=== PATIENT | female | born 1950 | race Caucasian/White ===

== ENCOUNTER → 2019-03-20 | Outpatient (CLI) | payer MEDICARE, OTHER ==
[2019-03-20 16:27] LABS: Blood Urea Nitrogen 8 mg/dL (7-17)
--- NOTE | 2019-03-21 09:43 | CT ---
EXAMINATION TYPE: CT soft tissue neck wo/w con DATE OF EXAM: 03/20/2019 HISTORY: Abnormal findings on MRI COMPARISON: NONE CT DLP: 625.80 mGycm. Automated Exposure Control for Dose Reduction was Utilized. TECHNIQUE: CT scan of the neck is performed with IV Contrast, patient injected with 100 mL of Isovue 300, axial images are obtained, coronal and sagittal reformatted images are reviewed. FINDINGS: Airway: There is a peripherally enhancing centrally cystic 1.9 cm mass within the vallecula with surr ounding secretions. This is best seen on sagittal series 12 images 30 through 33. No internal enhanci ng components are seen. The piriform sinuses are unremarkable. Parotid/submandibular glands: Parotid and submandibular glands appear symmetric and unremarkable. Carotid/Vascular Structures: There is a conventional branch pattern of the aortic arch. Less than 50% stenosis multifocally within the right common carotid artery and at the carotid bulb and no hemodyna mically significant stenosis within the visualized right internal carotid artery. On the left there i s near complete occlusion of the proximal internal carotid artery at the origin from the carotid bulb with a diminutive 0.6-0.7 mm lumen seen on sagittal image 41 corresponding to approximately 90% sten osis. This measures a distance of just less than 1 cm. There is also prominence of the cavernous port ion of the right internal carotid artery incidentally seen. Osseous Structures: Extensive multilevel degenerative disc disease of the cervical spine is noted wit h grade 1 anterolisthesis of C3 on C4 and slight retrolisthesis of C4 and C5. There is also mild vert ebral body height loss of C5 and sclerosis of the C4 and C5 vertebral bodies. Other: There are numerous tonsilloliths are present. No peritonsillar fat stranding or abscess is see n. Moderate emphysematous changes of the lungs are noted with biapical pleural parenchymal thickening an d apical blebs. IMPRESSION: MRI was performed at an outside institution and therefore direct comparison cannot be performed. An a ddendum could be performed if images and report are obtained. 1. There is a 1.9 cm peripherally enhancing rounded cystic mass with no central enhancement or solid internal component that is seen within the vallecula with surrounding retained secretions. Direct vis ualization is recommended with laryngoscopy. Polyp is possible. 2. Sclerosis of the C4 and C5 vertebral bodies may be related to extensive degenerative disc disease at these locations however correlation with the prior outside MRI is recommended for evaluation on T1 -weighted imaging to assess for bone marrow replacing process such as metastasis. 3. Approximately 90% stenosis of the left proximal internal carotid artery, high-grade and clinically significant. This extends for a distance of just less than 1 cm. 4. Prominence of the cavernous portion of the right internal carotid artery is seen and could relate to chronic cavernous fistula, aneurysm, or may be incidental.
== END | disposition home or self-care (01) ==
LOC: RADCTMAIN 15:48
PROVIDERS: ATTEND Psychiatry & Neurology Neurology
DX: I65.22 Occlusion and stenosis of left carotid artery (principal); R22.1 Localized swelling, mass and lump, neck
CPT/HCPCS: 82565; 84520; 70492; 36415; Q9967

== ENCOUNTER → 2019-07-23 | Outpatient (CLI) | payer MEDICARE, OTHER ==
[2019-07-23 23:28] LABS: ALT 24 U/L (8-44); AST 24 U/L (13-35); Albumin/Globulin Ratio 2.16 (1.60-3.17); Alkaline Phosphatase 60 U/L (41-126); Bilirubin, Conjugated <0.20 mg/dL (0.20-0.40); Globulin 1.9 g/dL (1.6-3.3); Total Bilirubin 0.4 mg/dL (0.2-1.2)
[2019-07-24 11:23] LABS: Ceruloplasmin 13.8 mg/dL (20.0-60.0)
== END | disposition home or self-care (01) ==
LOC: LABWHC1 14:05
PROVIDERS: ATTEND Physician Assistant
DX: R94.5 Abnormal results of liver function studies (principal)
CPT/HCPCS: 36415; 80074; 80076; 82390; 82728; 83516; 86038

== ENCOUNTER → 2019-07-29 | Outpatient (CLI) | payer MEDICARE, OTHER ==
--- NOTE | 2019-07-29 13:12 | US ---
EXAMINATION TYPE: US liver DATE OF EXAM: 07/29/2019 COMPARISON: NONE CLINICAL HISTORY: R94.5 Abnormal Results of Liver function studies. EXAM MEASUREMENTS: Liver Length: 13.5 cm Gallbladder Wall: Surgically absent cm CBD: 0.7 cm Right Kidney: 11.0 x 3.7 x 5.0cm Pancreas: Hyperechoic linear structure within the pancreatic tail likely represents an ectatic promin ent duct. Obscuration the pancreatic tail and head. Liver: homogeneous, tiny echogenic foci, likely sequela of benign granulomatous disease Gallbladder: Surgically absent Evidence for sonographic Henry's sign: no CBD: wnl Right Kidney: wnl IMPRESSION: 1. No suspicious hepatic mass. Echotexture is homogeneous other than calcified foci most commonly of prior benign granulomatous disease. 2. Heterogeneity of the pancreas likely relates to an ectatic pancreatic duct within the pancreatic t ail enhanced three-phase CT abdomen could better appreciated on the pancreas as there is obscuration of the pancreatic tail and head on ultrasound.
== END | disposition home or self-care (01) ==
LOC: RADUSWWP 07:25
PROVIDERS: ATTEND Internal Medicine
DX: D71 Functional disorders of polymorphonuclear neutrophils (principal)
CPT/HCPCS: 76705

== ENCOUNTER → 2019-08-22 | Outpatient (CLI) | payer MEDICARE, OTHER ==
[2019-08-22 12:38] LABS: African American GFR (CKD) >90 (>60 ml/min/1.73 sqM); Blood Urea Nitrogen 15 mg/dL (7-17)
--- NOTE | 2019-08-22 13:53 | CT ---
EXAMINATION TYPE: CT pancreas biphase DATE OF EXAM: 08/22/2019 HISTORY: ABNORMAL FINDINGS ON US CT DLP: 416.6mGycm Automated Exposure Control for Dose Reduction was Utilized. CONTRAST: CT scan of the abdomen and pelvis is performed with IV Contrast, patient injected with 100 mL of Isov ue 370. COMPARISON: Liver ultrasound July 29, 2019 FINDINGS: LUNG BASES: Mild emphysematous and parenchymal fibrotic changes in the bases. Small pericardial effus ion measuring 12 mm in thickness axial image 5 series 3 right aspect. LIVER/GB: The liver is overall mildly enlarged with prominent left hepatic lobe. Cholecystectomy clip s are seen.. PANCREAS: Pancreas is overall normal in size with visualization of duct which is not suspiciously dil ated. No suspicious solid or cystic masses seen. No surrounding inflammatory change or focal fluid co llection noted. SPLEEN: No significant abnormality is seen. ADRENALS: No significant abnormality is seen. KIDNEYS: Central calcifications in both kidneys favor vascular etiology. BOWEL: Suboptimal distention of bowel. No suspicious dilatation. Mild prominence of fecal material th roughout the right and transverse colon. Possible mild proximal colonic fecal stasis. LYMPH NODES: No greater than 1cm abdominal lymph nodes are appreciated. OSSEOUS STRUCTURES: Fairly advanced disc space narrowing and endplate sclerosis left L5-S1 level. Mod erate spurring and disc space narrowing with vacuum disc phenomenon L3-L4 and L4-L5 levels. Endplate sclerosis and spurring right L3-L4 level. Facet arthropathy lower lumbar levels. OTHER: Moderate calcified plaque of the aorta extends into branch vessels most prominent splenic harley rial branch. Some ectasia is seen. No greater than 3 cm aneurysmal change. IMPRESSION: 1. No suspicious pancreatic mass with particular attention to pancreatic tail at area of ultrasound c oncern.
== END ==
LOC: RADCTMAIN 11:46
PROVIDERS: ATTEND Internal Medicine Gastroenterology
DX: R94.5 Abnormal results of liver function studies (principal); R93.3 Abnormal findings on diagnostic imaging of other parts of digestive tract
CPT/HCPCS: 82565; 84520; 36415; 74160; Q9967

== ENCOUNTER 2022-05-09 12:50 | Inpatient (IN) | payer MEDICARE, OTHER ==
--- NOTE | 2022-05-09 13:08 | ED ---
General Adult HPI - General Chief complaint: Shortness of Breath Stated complaint: SOB Time Seen by Provider: 05/09/22 12:55 Source: patient, EMS, RN notes reviewed, old records reviewed Mode of arrival: EMS Limitations: no limitations - History of Present Illness Initial comments: This is a 71-year-old female with past medical history significant for COPD. Patient also continues to smoke. Patient presents emergency department today because she is complaining of difficulty breathing over the last few days. Patient states she also has had a dry cough. Patient denies any chest pain or palpitations. Patient denies any history of irregular heartbeat or atrial fibrillation. Patient denies any recent fever chills. Patient denies any abdominal pain patient denies nausea vomiting. Patient denies lightheadedness or dizziness. Patient denies any swelling to the legs or calf tenderness. - Related Data Allergies Allergy/AdvReac Type Severity Reaction Status Date / Time No Known Allergies Allergy Verified 05/09/22 13:18 Review of Systems ROS Statement: Those systems with pertinent positive or pertinent negative responses have been documented in the HPI. ROS Other: All systems not noted in ROS Statement are negative. Past Medical History Past Medical History: COPD, Diabetes Mellitus History of Any Multi-Drug Resistant Organisms: None Reported Past Surgical History: Hysterectomy Additional Past Surgical History / Comment(s): bladder suspension Past Psychological History: No Psychological Hx Reported Smoking Status: Current every day smoker Past Alcohol Use History: None Reported Past Drug Use History: None Reported General Exam - General Exam Comments Initial Comments: GENERAL: Patient is well-developed and well-nourished. Patient is nontoxic and well- hydrated and is in mild distress. ENT: Neck is soft and supple. No significant lymphadenopathy is noted. Oropharynx is clear. Moist mucous membranes. Neck has full range of motion without eliciting any pain. EYES: The sclera were anicteric and conjunctiva were pink and moist. Extraocular movements were intact and pupils were equal round and reactive to light. Eyelid s were unremarkable. PULMONARY: Patient has diminished breath sounds throughout CARDIOVASCULAR: Patient is tachycardic with an irregular heartbeat ABDOMEN: Soft and nontender with normal bowel sounds. SKIN: Skin is clear with no lesions or rashes and otherwise unremarkable. NEUROLOGIC: Patient is alert and oriented x3. Cranial nerves II through XII are grossly intact. Motor and sensory are also intact. Normal speech, volume and content. Symmetrical smile. MUSCULOSKELETAL: Normal extremities with adequate strength and full range of motion. LYMPHATICS: No significant lymphadenopathy is noted PSYCHIATRIC: Normal psychiatric evaluation. N Limitations: no limitations Course Vital Signs 05/09/22 12:52 Temperature 97.6 F Pulse Rate 63 Respiratory 20 Rate Blood Pressure 139/93 O2 Sat by Pulse 95 Oximetry Medical Decision Making - Medical Decision Making EKG shows atrial fibrillation with rapid ventricular response at 111 bpm QRS is under 5 QT interval 380 QTC is 445. I started the patient on heparin for the atrial fibrillation. Patient received 2 breathing treatments steroids in the emergency department. I spoke with Dr. Lujan he agreed to admit the patient admitted the patient wrote admitting orders. - Lab Data Result diagrams: 05/09/22 13:14 05/09/22 13:14 Lab Results 05/09/22 05/09/22 05/09/22 Range/Units 13:14 13:14 13:14 WBC 7.2 (3.8-10.6) k/uL RBC 4.35 (3.80-5.40) m/uL Hgb 13.4 (11.4-16.0) gm/dL Hct 39.5 (34.0-46.0) % MCV 90.8 (80.0-100.0) fL MCH 30.7 (25.0-35.0) pg MCHC 33.9 (31.0-37.0) g/dL RDW 13.9 (11.5-15.5) % Plt Count 178 (150-450) k/uL MPV 7.8 Neutrophils % 66 % Lymphocytes % 18 % Monocytes % 4 % Eosinophils % 9 % Basophils % 1 % Neutrophils # 4.8 (1.3-7.7) k/uL Lymphocytes # 1.3 (1.0-4.8) k/uL Monocytes # 0.3 (0-1.0) k/uL Eosinophils # 0.6 (0-0.7) k/uL Basophils # 0.1 (0-0.2) k/uL PT 10.5 (9.0-12.0) sec INR 1.0 (<1.2) APTT 22.3 (22.0-30.0) sec Sodium 140 (137-145) mmol/L Potassium 3.5 (3.5-5.1) mmol/L Chloride 108 H (98-107) mmol/L Carbon Dioxide 25 (22-30) mmol/L Anion Gap 7 mmol/L BUN 18 H (7-17) mg/dL Creatinine 0.62 (0.52-1.04) mg/dL Est GFR (CKD-EPI)AfAm >90 (>60 ml/min/1.73 sqM) Est GFR (CKD-EPI)NonAf >90 (>60 ml/min/1.73 sqM) Glucose 130 H (74-99) mg/dL Plasma Lactic Acid Mitesh (0.7-2.0) mmol/L Calcium 8.8 (8.4-10.2) mg/dL Total Bilirubin 0.6 (0.2-1.3) mg/dL AST 18 (14-36) U/L ALT 12 (4-34) U/L Alkaline Phosphatase 86 (38-126) U/L Troponin I (0.000-0.034) ng/mL NT-Pro-B Natriuret Pep pg/mL Total Protein 6.7 (6.3-8.2) g/dL Albumin 4.1 (3.5-5.0) g/dL 05/09/22 05/09/22 05/09/22 Range/Units 13:14 13:14 13:14 WBC (3.8-10.6) k/uL RBC (3.80-5.40) m/uL Hgb (11.4-16.0) gm/dL Hct (34.0-46.0) % MCV (80.0-100.0) fL MCH (25.0-35.0) pg MCHC (31.0-37.0) g/dL RDW (11.5-15.5) % Plt Count (150-450) k/uL MPV Neutrophils % % Lymphocytes % % Monocytes % % Eosinophils % % Basophils % % Neutrophils # (1.3-7.7) k/uL Lymphocytes # (1.0-4.8) k/uL Monocytes # (0-1.0) k/uL Eosinophils # (0-0.7) k/uL Basophils # (0-0.2) k/uL PT (9.0-12.0) sec INR (<1.2) APTT (22.0-30.0) sec Sodium (137-145) mmol/L Potassium (3.5-5.1) mmol/L Chloride (98-107) mmol/L Carbon Dioxide (22-30) mmol/L Anion Gap mmol/L BUN (7-17) mg/dL Creatinine (0.52-1.04) mg/dL Est GFR (CKD-EPI)AfAm (>60 ml/min/1.73 sqM) Est GFR (CKD-EPI)NonAf (>60 ml/min/1.73 sqM) Glucose (74-99) mg/dL Plasma Lactic Acid Mitesh 1.1 (0.7-2.0) mmol/L Calcium (8.4-10.2) mg/dL Total Bilirubin (0.2-1.3) mg/dL AST (14-36) U/L ALT (4-34) U/L Alkaline Phosphatase (38-126) U/L Troponin I 0.022 (0.000-0.034) ng/mL NT-Pro-B Natriuret Pep 525 pg/mL Total Protein (6.3-8.2) g/dL Albumin (3.5-5.0) g/dL Critical Care Time Critical Care Time: Yes Total Critical Care Time: 35 Disposition Clinical Impression: New onset atrial fibrillation, COPD exacerbation Disposition: ADMITTED IP TO THIS HOSP Referrals: Beatrice Phillips MD [Primary Care Provider] - 1-2 days Time of Disposition: 14:11
[2022-05-09] MEDS ORDERED: HEPARIN SODIUM 1,000 UN/ML (10ML VL) IV ONE (13:13)
[2022-05-09] MEDS ORDERED: HEPARIN SOD,PORK IN 0.45% NACL 25,000 UNIT in 0.45% NACL 1 250ML.BAG IV SCH (13:15)
[2022-05-09 13:23] LABS: Basophils # (A) 0.1 k/uL (0-0.2); Basophils % (A) 1 %; Eosinophils # (A) 0.6 k/uL (0-0.7); Eosinophils % (A) 9 %; HCT 39.5 % (34.0-46.0); HGB 13.4 gm/dL (11.4-16.0); Lymphocytes # (A) 1.3 k/uL (1.0-4.8); Lymphocytes % (A) 18 %; MCH 30.7 pg (25.0-35.0); MCHC 33.9 g/dL (31.0-37.0); MCV 90.8 fL (80.0-100.0); Mean Platelet Volume 7.8; Monocytes # (A) 0.3 k/uL (0-1.0); Monocytes % (A) 4 %; Neutrophils # (A) 4.8 k/uL (1.3-7.7); Neutrophils % (A) 66 %; Platelet Count 178 k/uL (150-450); RBC 4.35 m/uL (3.80-5.40); RDW 13.9 % (11.5-15.5); WBC 7.2 k/uL (3.8-10.6)
[2022-05-09 13:37] LABS: ALT 12 U/L (4-34); AST 18 U/L (14-36); African American GFR (CKD) >90 (>60 ml/min/1.73 sqM); Albumin 4.1 g/dL (3.5-5.0); Alkaline Phosphatase 86 U/L (38-126); Anion Gap 7 mmol/L; Blood Urea Nitrogen 18 mg/dL (7-17); Calcium 8.8 mg/dL (8.4-10.2); Carbon Dioxide 25 mmol/L (22-30); Chloride 108 mmol/L (98-107); Glucose 130 mg/dL (74-99); Non-African American GFR(CKD) >90 (>60 ml/min/1.73 sqM); Potassium 3.5 mmol/L (3.5-5.1); Sodium 140 mmol/L (137-145); Total Bilirubin 0.6 mg/dL (0.2-1.3); Total Protein 6.7 g/dL (6.3-8.2)
[2022-05-09 13:38] LABS: Partial Thromboplastin Time 22.3 sec (22.0-30.0); Prothrombin Time 10.5 sec (9.0-12.0)
[2022-05-09] MEDS ORDERED: IPRATROPIUM-ALBUTEROL 3 ML NEB INHALATION STA (14:07)
[2022-05-09] MEDS ORDERED: methylPREDNISolone SOD SUCCI 125 MG/2 ML VIAL IV STA (14:07)
--- NOTE | 2022-05-09 14:07 | XR ---
EXAMINATION TYPE: XR chest 2V DATE OF EXAM: 05/09/2022 COMPARISON: 04/08/2021 HISTORY: 71 year-old female shortness of breath, difficulty breathing, cough TECHNIQUE: AP and lateral views FINDINGS: Heart upper limits of normal size. Hyperinflation. Interstitial density has increased in the interval . Mild biapical pleural-parenchymal scarring. No kylie consolidation or pleural effusion. IMPRESSION: COPD. Interstitial density has increased. Correlate for possible bronchitis or atypical pneumonias.
[2022-05-09] MEDS ORDERED: IPRATROPIUM-ALBUTEROL 3 ML NEB INHALATION PRN (14:21)
[2022-05-09] MEDS: methylPREDNISolone SOD SUCCI 125 MG/2 ML VIAL IV SCH (17:07)
[2022-05-09] MEDS ORDERED: FLUTICASONE 50MCG/SPRAY NASAL 16GM EA NOSTRIL PRN (17:13)
[2022-05-09] MEDS ORDERED: NON FORMULARY DRUG (Ipratropium/Albuter 20-100mcg 120 PUFF Each) INHALATION PRN (17:13)
[2022-05-09] MEDS: ATORVASTATIN 20 MG TAB PO SCH (18:49)
[2022-05-09] MEDS: NON FORMULARY DRUG (Linaclotide [Linzess] 290 MCG Capsule) PO SCH (18:50)
[2022-05-09] MEDS: IPRATROPIUM-ALBUTEROL 3 ML NEB INHALATION SCH (19:38)
[2022-05-09 20:06] LABS: Glucose,Whole Blood 300 mg/dL (70-110)
[2022-05-09] MEDS: MONTELUKAST 10 MG TAB PO SCH (22:11)
[2022-05-09] MEDS: THEOPHYLLINE 24 HOUR 300 MG CAP.ER.24H PO SCH (22:11)
[2022-05-09] MEDS: PANTOPRAZOLE 40 MG TABLET PO SCH (22:11)
[2022-05-09] MEDS: INSULIN ASPART (NovoLOG) 100 UNIT/ML VIAL SQ SCH (22:48)
[2022-05-10] MEDS: methylPREDNISolone SOD SUCCI 125 MG/2 ML VIAL IV SCH ×3 (00:46→12:47)
[2022-05-10 06:04] LABS: Glucose,Whole Blood 164 mg/dL (70-110)
[2022-05-10] MEDS: INSULIN ASPART (NovoLOG) 100 UNIT/ML VIAL SQ SCH ×4 (06:53→21:03)
[2022-05-10] MEDS: NON FORMULARY DRUG (Linaclotide [Linzess] 290 MCG Capsule) PO SCH (06:54)
--- NOTE | 2022-05-10 07:05 | XR ---
EXAMINATION TYPE: XR chest 2V DATE OF EXAM: 05/10/2022 COMPARISON: Chest x-ray from yesterday. HISTORY: Dyspnea. TECHNIQUE: Frontal and lateral views of the chest are obtained. FINDINGS: There is background chronic emphysematous change without suspicious new focal air space op acity, pleural effusion, or pneumothorax seen bilaterally. The cardiac silhouette size is stable and within normal limits. Slight underlying scoliotic curvature redemonstrated. IMPRESSION: Chronic emphysematous change without acute pulmonary process. No significant change from one day earlier
[2022-05-10] MEDS: IPRATROPIUM-ALBUTEROL 3 ML NEB INHALATION SCH ×4 (08:08→19:40)
[2022-05-10] MEDS: TROSPIUM CHLORIDE 20 MG TABLET PO SCH ×2 (08:20→21:04)
[2022-05-10] MEDS: THEOPHYLLINE 24 HOUR 300 MG CAP.ER.24H PO SCH ×2 (08:20→21:04)
[2022-05-10] MEDS: ATORVASTATIN 20 MG TAB PO SCH (08:21)
[2022-05-10] MEDS: ASCORBIC ACID 500 MG TAB PO SCH (08:21)
[2022-05-10 08:44] LABS: Basophils % (A) 0 %; Eosinophils # (A) 0.1 k/uL (0-0.7); Eosinophils % (A) 0 %; HCT 40.1 % (34.0-46.0); HGB 13.1 gm/dL (11.4-16.0); Lymphocytes # (A) 1.1 k/uL (1.0-4.8); Lymphocytes % (A) 9 %; MCH 30.5 pg (25.0-35.0); MCHC 32.6 g/dL (31.0-37.0); MCV 93.5 fL (80.0-100.0); Mean Platelet Volume 8.2; Monocytes # (A) 0.2 k/uL (0-1.0); Monocytes % (A) 2 %; Neutrophils # (A) 10.8 k/uL (1.3-7.7); Neutrophils % (A) 88 %; Platelet Count 186 k/uL (150-450); RBC 4.29 m/uL (3.80-5.40); RDW 14.1 % (11.5-15.5); WBC 12.3 k/uL (3.8-10.6)
[2022-05-10 09:11] LABS: ALT 18 U/L (4-34); AST 23 U/L (14-36); African American GFR (CKD) >90 (>60 ml/min/1.73 sqM); Albumin 4.4 g/dL (3.5-5.0); Alkaline Phosphatase 88 U/L (38-126); Anion Gap 13 mmol/L; Blood Urea Nitrogen 27 mg/dL (7-17); Calcium 9.4 mg/dL (8.4-10.2); Carbon Dioxide 25 mmol/L (22-30); Chloride 104 mmol/L (98-107); Glucose 257 mg/dL (74-99); Non-African American GFR(CKD) 83 (>60 ml/min/1.73 sqM); Potassium 3.8 mmol/L (3.5-5.1); Sodium 142 mmol/L (137-145); Total Bilirubin 0.5 mg/dL (0.2-1.3); Total Protein 7.2 g/dL (6.3-8.2)
--- NOTE | 2022-05-10 10:03 | P.HPIM ---
History of Present Illness H&P Date: 05/09/22 Valerie Garza, is a 71 -year-old female who presented to [facility] emergency room with a chief complaint of worsening shortness of breath and cough, symptoms started 5 days ago and has been worsening She was evaluated in the emergency room vital examination on presentation revealed a temperature of 97.6 heart rate 63 respiratory rate 20 blood pressure 139/93 pulse ox 95% on 4 liter nasal cannula Laboratory data revealed a white blood count of 7.2 hemoglobin 13.4 platelet count 178 sodium 140 potassium 3.5 chloride 108 CO2 25 BUN 18 creatinine 0.62 Testing in the emergency room revealed EKG done in the emergency room revealed atrial fibrillation with rapid ventricular response, chest x-ray done in the emergency room revealed evidence of COPD and interstitial density suspicious for bronchitis versus atypical pneumonia. Patient was admitted to medical floor for further evaluation and treatment. Past Medical History Past Medical History: COPD, Diabetes Mellitus History of Any Multi-Drug Resistant Organisms: None Reported Past Surgical History: Hysterectomy Additional Past Surgical History / Comment(s): bladder suspension Past Psychological History: No Psychological Hx Reported Smoking Status: Current every day smoker Past Alcohol Use History: None Reported Past Drug Use History: None Reported Medications and Allergies Home Medications Medication Instructions Recorded Confirmed Type Ascorbic Acid [Vitamin C] 1,000 mg PO DAILY 05/09/22 05/09/22 History Atorvastatin [Lipitor] 20 mg PO DAILY 05/09/22 05/09/22 History Clobetasol Propionate [Temovate 1 applic TOPICAL DAILY 05/09/22 05/09/22 History 0.05% Oint] Fluticasone Nasal [place] [Flonase 2 spray EA NOSTRIL DAILY PRN 05/09/22 05/09/22 History Nasal [place]] Ibuprofen [Motrin] 800 mg PO BID PRN 05/09/22 05/09/22 History Ipratropium-Albuterol Nebulize 3 ml INHALATION RT-QID 05/09/22 05/09/22 History [Duoneb 0.5 mg-3 mg/3 ml Soln] Ipratropium/Albuter 20-100Mcg 1 puff INHALATION RT-QID PRN 05/09/22 05/09/22 History [Combivent Respimat 20-100Mcg Inhaler] Linaclotide [Linzess] 290 mcg PO AC-BRKFST 05/09/22 05/09/22 History Montelukast Sodium [Singulair] 10 mg PO HS 05/09/22 05/09/22 History Omeprazole 20 mg PO HS 05/09/22 05/09/22 History Solifenacin Succinate [Vesicare] 10 mg PO DAILY 05/09/22 05/09/22 History Theophylline 12 Hour [David-Dur] 300 mg PO BID 05/09/22 05/09/22 History glipiZIDE XL [Glucotrol XL] 2.5 mg PO DAILY 05/09/22 05/09/22 History Allergies Allergy/AdvReac Type Severity Reaction Status Date / Time No Known Allergies Allergy Verified 05/09/22 15:21 Physical Exam Vitals: Vital Signs Temp Pulse Resp BP Pulse Ox 05/09/22 15:53 107 H 05/09/22 15:41 107 H 05/09/22 14:01 109 H 18 118/96 97 05/09/22 13:01 106 H 18 115/92 98 05/09/22 13:00 20 05/09/22 12:52 97.6 F 63 20 139/93 95 Intake and Output 05/09/22 05/09/22 05/09/22 06:59 14:59 22:59 Other: Weight 56.699 kg In general patient is alert and oriented x 3 in no distress HEENT head normocephalic and atraumatic Neck is supple no JVD no goiter no lymphadenopathy no carotid bruit Chest examination is clear to auscultation no crackles no wheezing Cardiac exam reveals regular heart sounds S1 and S2 no gallops no murmurs Abdomen is soft nontender no organomegaly with normal bowel sounds Extremity exam reveals no edema no cyanosis or clubbing Neurological examination reveals no gross focal deficits Results CBC & Chem 7: 05/10/22 08:05 05/10/22 08:05 Labs: Abnormal Lab Results - Last 24 Hours (Table) 05/09/22 Range/Units 13:14 Chloride 108 H (98-107) mmol/L BUN 18 H (7-17) mg/dL Glucose 130 H (74-99) mg/dL Assessment and Plan Plan: Shortness of breath, likely related to COPD exacerbation Episode of fast heart rate in the emergency room, likely atrial fibrillation patient was started on IV heparin in the emergency room cardiology consultation requested Underlying history of asthma and COPD Underlying history of [id number] diabetes mellitus Underlying history of hyperlipidemia Underlying history of tobacco abuse. At this time patient is admitted to telemetry floor Home medications reviewed and reordered Patient started on IV antibiotics and IV steroids for acute bronchitis and COPD exacerbation, pulmonary consultation requested Patient was started on IV heparin, cardiology consultation requested Recheck labs in a.m. Will follow closely
[2022-05-10 11:34] LABS: Glucose,Whole Blood 195 mg/dL (70-110)
--- NOTE | 2022-05-10 12:14 | P.CRDCN ---
History of Present Illness History of present illness: This is a 71 year old female with a past medical history of type 2 diabetes, chronic tobacco use, carotid stenosis s/p left carotid endarterectomy, hypertension, COPD. She follows with Dr. Ortiz. We have been consulted for atrial fibrillation. Patient presents with symptoms of shortness of breath and cough. Over the past 2-3 days her symptoms have worsened. She had increased shortness of breath at rest and with activity. She used nebulizer at home and her home Oxygen with no improvement and came to ER for further evaluation. She denies any chest pain, palpitations, lightheadedness, dizziness, syncope or near syncope. No symptoms of orthopnea, PND or LE edema. Her breathing has improved since admission. EKG reveals sinus mechanism with PACs. Telemetry reveals sinus rhythm and sinus tachycardia as well. No evidence of atrial fibrillation. Repeat EKG this morning is also sinus rhythm. DIAGNOSTICS EKG reveals sinus mechanism, heart rate 111, PACs, no evidence of atrial fibrillation. Telemetry tracings indicate sinus rhythm/sinus tachycardia Chest xray COPD, interstitial density has increased. Laboratory reviewed, WBC 12.3, hemoglobin 13.1, platelets 186, sodium 142, potassium 3.8, BUN 27, serum creatinine 0.7, troponin negative, proBNP 525 Current home medications include glipizide, omeprazole, atorvastatin 20 mg daily, nebulizers, inhalers Lexiscan stress test in the office 03/2021 revealed no evidence of stress induced ischemia Echo in 02/2021 in the office EF 45%, mild AR, mid TR REVIEW OF SYSTEMS At the time of my exam: CONSTITUTIONAL: Denies fever or chills. CARDIOVASCULAR: Denies chest pain, shortness of breath, orthopnea, PND or palpitations. RESPIRATORY: Denies cough. GASTROINTESTINAL: Denies abdominal pain, diarrhea, constipation, nausea or vomiting. MUSCULOSKELETAL: Denies myalgias. NEUROLOGIC: Denies numbness, tingling, headacbe or weakness. ENDOCRINE: Denies fatigue, weight change, polydipsia or polyurina. GENITOURINARY: Denies burning, hematuria or urgency with micturation. HEMATOLOGIC: Denies history of anemia or bleeding. PHYSICAL EXAMINATION Vitals reviewed CONSTITUTIONAL: No apparent distress. HEENT: Head is normocephalic. Pupils are equal, round. Sclerae anicteric. Mucous membranes of the mouth are moist. No JVD. No carotid bruit. CHEST EXAMINATION: Lungs decreased air exchange bilaterally to auscultation. No chest wall tenderness is noted on palpation or with deep breathing. HEART EXAMINATION: Regular rate and rhythm. S1, S2 heard. No murmurs, gallops or rub. ABDOMEN: Soft, nontender. Positive bowel sounds. EXTREMITIES: 2+ peripheral pulses, no lower extremity edema and no calf tenderness. SKIN: warm, dry NEUROLOGIC EXAMINATION: Patient is awake, alert and oriented x3. ASSESSMENT Sinus tachycardia COPD exacerbation Type 2 diabetes Chronic tobacco use History of Carotid stenosis s/p left carotid endarterectomy History of hypertension PLAN No evidence of atrial fibrillation, EKG and telemetry reviewed 2D echocardiogram ordered No further changes from a cardiology perspective Follow up with Dr. Ortiz Nurse practitioner note has been reviewed by physician. Signing provider agrees with the documented findings, assessment, and plan of care. Past Medical History Past Medical History: COPD, Diabetes Mellitus History of Any Multi-Drug Resistant Organisms: None Reported Past Surgical History: No Surgical Hx Reported, Hysterectomy Additional Past Surgical History / Comment(s): bladder suspension Past Anesthesia/Blood Transfusion Reactions: No Reported Reaction Past Psychological History: No Psychological Hx Reported Smoking Status: Current every day smoker Past Alcohol Use History: None Reported Past Drug Use History: None Reported Medications and Allergies Home Medications Medication Instructions Recorded Confirmed Type Ascorbic Acid [Vitamin C] 1,000 mg PO DAILY 05/09/22 05/09/22 History Atorvastatin [Lipitor] 20 mg PO DAILY 05/09/22 05/09/22 History Clobetasol Propionate [Temovate 1 applic TOPICAL DAILY 05/09/22 05/09/22 History 0.05% Oint] Fluticasone Nasal [place] [Flonase 2 spray EA NOSTRIL DAILY PRN 05/09/22 05/09/22 History Nasal [place]] Ibuprofen [Motrin] 800 mg PO BID PRN 05/09/22 05/09/22 History Ipratropium-Albuterol Nebulize 3 ml INHALATION RT-QID 05/09/22 05/09/22 History [Duoneb 0.5 mg-3 mg/3 ml Soln] Ipratropium/Albuter 20-100Mcg 1 puff INHALATION RT-QID PRN 05/09/22 05/09/22 History [Combivent Respimat 20-100Mcg Inhaler] Linaclotide [Linzess] 290 mcg PO AC-BRKFST 05/09/22 05/09/22 History Montelukast Sodium [Singulair] 10 mg PO HS 05/09/22 05/09/22 History Omeprazole 20 mg PO HS 05/09/22 05/09/22 History Solifenacin Succinate [Vesicare] 10 mg PO DAILY 05/09/22 05/09/22 History Theophylline 12 Hour [David-Dur] 300 mg PO BID 05/09/22 05/09/22 History glipiZIDE XL [Glucotrol XL] 2.5 mg PO DAILY 05/09/22 05/09/22 History Allergies Allergy/AdvReac Type Severity Reaction Status Date / Time No Known Allergies Allergy Verified 05/09/22 15:21 Physical Exam Vitals: Vital Signs Temp Pulse Pulse Resp BP BP BP 05/10/22 04:00 98.3 F 91 16 136/72 05/10/22 02:00 93 16 05/10/22 00:00 97.7 F 93 16 107/64 05/09/22 20:00 85 18 05/09/22 19:52 102 H 05/09/22 19:50 98.2 F 85 18 123/65 05/09/22 19:38 102 H 05/09/22 18:06 97.6 F 106 H 19 136/66 05/09/22 17:00 105 H 18 126/72 05/09/22 15:53 107 H 05/09/22 15:41 107 H 05/09/22 14:01 109 H 18 118/96 05/09/22 13:01 106 H 18 115/92 05/09/22 13:00 20 05/09/22 12:52 97.6 F 63 20 139/93 Pulse Ox 05/10/22 04:00 95 05/10/22 02:00 05/10/22 00:00 95 05/09/22 20:00 05/09/22 19:52 05/09/22 19:50 92 L 05/09/22 19:38 05/09/22 18:06 92 L 05/09/22 17:00 91 L 05/09/22 15:53 05/09/22 15:41 05/09/22 14:01 97 05/09/22 13:01 98 05/09/22 13:00 05/09/22 12:52 95 Intake and Output 05/09/22 05/10/22 05/10/22 22:59 06:59 14:59 Intake Total 120 93.349 Balance 120 93.349 Intake: IV 10 Invasive Line 2 10 Intake, IV Titration 83.349 Amount Heparin Sod,Pork in 0.45% 83.349 NaCl 25,000 unit In 0.45 % NaCl 1 250ml.bag @ 12 UNITS/KG/HR 6.804 mls/hr IV .Q24H [facility] Rx#: [id number] Oral 120 Other: Voiding Method Toilet Toilet # Voids 1 1 Weight 56.699 kg Results 05/10/22 08:05 05/10/22 08:05 Cardiac Enzymes 05/09/22 05/09/22 Range/Units 13:14 13:14 AST 18 (14-36) U/L Troponin I 0.022 (0.000-0.034) ng/mL Coagulation 05/09/22 05/10/22 Range/Units 13:14 00:34 PT 10.5 (9.0-12.0) sec APTT 22.3 34.2 H (22.0-30.0) sec CBC 05/09/22 Range/Units 13:14 WBC 7.2 (3.8-10.6) k/uL RBC 4.35 (3.80-5.40) m/uL Hgb 13.4 (11.4-16.0) gm/dL Hct 39.5 (34.0-46.0) % Plt Count 178 (150-450) k/uL Comprehensive Metabolic Panel 05/09/22 Range/Units 13:14 Sodium 140 (137-145) mmol/L Potassium 3.5 (3.5-5.1) mmol/L Chloride 108 H (98-107) mmol/L Carbon Dioxide 25 (22-30) mmol/L BUN 18 H (7-17) mg/dL Creatinine 0.62 (0.52-1.04) mg/dL Glucose 130 H (74-99) mg/dL Calcium 8.8 (8.4-10.2) mg/dL AST 18 (14-36) U/L ALT 12 (4-34) U/L Alkaline Phosphatase 86 (38-126) U/L Total Protein 6.7 (6.3-8.2) g/dL Albumin 4.1 (3.5-5.0) g/dL Current Medications Generic Name Dose Route Start Last Admin Trade Name Freq PRN Reason Stop Dose Admin Albuterol/Ipratropium 3 ml 05/09/22 14:21 Ipratropium-Albuterol 3 Ml Neb INHALATION RT-Q4H PRN Shortness Of Breath Or Wheezing Albuterol/Ipratropium 3 ml 05/09/22 20:00 05/09/22 19:38 Ipratropium-Albuterol 3 Ml Neb INHALATION 3 ml RT-QID [facility] Administration Ascorbic Acid 1,000 mg 05/10/22 09:00 Ascorbic Acid 500 Mg Tab PO DAILY [facility] Atorvastatin Calcium 20 mg 05/09/22 17:30 05/09/22 18:49 Atorvastatin 20 Mg Tab PO 20 mg DAILY [facility] Administration Fluticasone Propionate 2 spray 05/09/22 17:13 Fluticasone 50mcg/[place] Nasal 16gm EA NOSTRIL DAILY PRN Allergy Symptoms Glipizide 2.5 mg 05/09/22 17:30 05/09/22 18:50 Glipizide 2.5 Mg Tab PO Not Given DAILY [facility] Heparin Sodium/Sodium Chloride 250 mls @ 6.804 mls/hr 05/09/22 13:15 05/10/22 02:29 25,000 unit/ Sodium Chloride IV 15 units/kg/hr .Q24H [facility] 8.505 mls/hr Titration Protocol 12 UNITS/KG/HR Ceftriaxone Sodium 1 gm/ 50 mls @ 100 mls/hr 05/09/22 17:15 05/09/22 18:50 Sodium Chloride IVPB 100 mls/hr Q24HR [facility] Administration Protocol Insulin Aspart 0 unit 05/09/22 22:07 05/10/22 06:53 Insulin Aspart (Novolog) 100 Unit/Ml Vial SQ 3 unit ACHS [facility] Administration Protocol Methylprednisolone Sodium Succinate 60 mg 05/09/22 18:00 05/10/22 06:08 Methylprednisolone Sod Succi 125 Mg/2 Ml Vial IV 60 mg Q6HR [facility] Administration Montelukast Sodium 10 mg 05/09/22 21:00 05/09/22 22:11 Montelukast 10 Mg Tab PO 10 mg HS [facility] Administration Non-Formulary Medication 290 mcg 07/05/22 17:30 05/10/22 06:54 Linaclotide [Linzess] PO Not Given AC-BRKFST [facility] Pantoprazole Sodium 40 mg 05/09/22 21:00 05/09/22 22:11 Pantoprazole 40 Mg Tablet PO 40 mg HS [facility] Administration Theophylline 300 mg 05/09/22 21:00 05/09/22 22:11 Theophylline 24 Hour 300 Mg Cap.Er.24h PO 300 mg BID [facility] Administration Trospium 20 mg 05/10/22 09:00 Trospium Chloride 20 Mg Tablet PO BID [facility] Intake and Output 05/09/22 05/10/22 05/10/22 22:59 06:59 14:59 Intake Total 120 93.349 Balance 120 93.349 Intake: IV 10 Invasive Line 2 10 Intake, IV Titration 83.349 Amount Heparin Sod,Pork in 0.45% 83.349 NaCl 25,000 unit In 0.45 % NaCl 1 250ml.bag @ 12 UNITS/KG/HR 6.804 mls/hr IV .Q24H [facility] Rx#: [id number] Oral 120 Other: Voiding Method Toilet Toilet # Voids 1 1 Weight 56.699 kg 05/09/22 13:14 05/09/22 13:14
--- NOTE | 2022-05-10 13:40 | P.CNPUL ---
History of Present Illness Consult date: 05/10/22 Requesting physician: Shea Lujan Reason for consult: COPD Chief complaint: Shortness of breath History of present illness: This is a 71-year-old female with history of multiple medical problems including COPD, patient was seen once by Dr. Fitch over a year ago, and she was diagnosed with COPD, advised to continue bronchodilators including Combivent and DuoNeb updrafts 4 times a day and when necessary. Patient is at least a [id number] smoker continues to smoke. Over the last 2-3 days, patient has been complaining of increased shortness of breath, intermittent cough and wheezing. No fever no chills no hemoptysis no chest pain. Patient was seen in the ER, and apparently she had an EKG that was misinterpreted by the ER physician as atrial fibrillation with RVR, in fact the patient had sinus tachycardia and mostly multifocal atrial tachycardia. Patient was admitted and this consult was initiated. Patient is now on bronchodilators, she is also on steroids, seems to be already improving. She was seen by cardiology on consultation, and again did not feel that the patient had atrial fibrillation. Chest x-ray on this admission showed no evidence of pneumonia, but is clearly evidence of COPD. WBC count is 4.3 hemoglobin 13.1 electrolytes are normal renal profile is normal Review of Systems CONSTITUTIONAL: No fever no chills no weight loss. CARDIOVASCULAR: Negative. RESPIRATORY: As noted in HPI mostly shortness of breath and intermittent cough GASTROINTESTINAL: Negative MUSCULOSKELETAL: Negative NEUROLOGIC: Negative ENDOCRINE: Negative. GENITOURINARY: Negative HEMATOLOGIC: Negative Skin: Negative Past Medical History Past Medical History: COPD, Diabetes Mellitus History of Any Multi-Drug Resistant Organisms: None Reported Past Surgical History: No Surgical Hx Reported, Hysterectomy Additional Past Surgical History / Comment(s): bladder suspension Past Anesthesia/Blood Transfusion Reactions: No Reported Reaction Past Psychological History: No Psychological Hx Reported Smoking Status: Current every day smoker Past Alcohol Use History: None Reported Past Drug Use History: None Reported Medications and Allergies Home Medications Medication Instructions Recorded Confirmed Type Ascorbic Acid [Vitamin C] 1,000 mg PO DAILY 05/09/22 05/09/22 History Atorvastatin [Lipitor] 20 mg PO DAILY 05/09/22 05/09/22 History Clobetasol Propionate [Temovate 1 applic TOPICAL DAILY 05/09/22 05/09/22 History 0.05% Oint] Fluticasone Nasal [place] [Flonase 2 spray EA NOSTRIL DAILY PRN 05/09/22 05/09/22 History Nasal [place]] Ibuprofen [Motrin] 800 mg PO BID PRN 05/09/22 05/09/22 History Ipratropium-Albuterol Nebulize 3 ml INHALATION RT-QID 05/09/22 05/09/22 History [Duoneb 0.5 mg-3 mg/3 ml Soln] Ipratropium/Albuter 20-100Mcg 1 puff INHALATION RT-QID PRN 05/09/22 05/09/22 History [Combivent Respimat 20-100Mcg Inhaler] Linaclotide [Linzess] 290 mcg PO AC-BRKFST 05/09/22 05/09/22 History Montelukast Sodium [Singulair] 10 mg PO HS 05/09/22 05/09/22 History Omeprazole 20 mg PO HS 05/09/22 05/09/22 History Solifenacin Succinate [Vesicare] 10 mg PO DAILY 05/09/22 05/09/22 History Theophylline 12 Hour [David-Dur] 300 mg PO BID 05/09/22 05/09/22 History glipiZIDE XL [Glucotrol XL] 2.5 mg PO DAILY 05/09/22 05/09/22 History Allergies Allergy/AdvReac Type Severity Reaction Status Date / Time No Known Allergies Allergy Verified 05/09/22 15:21 Physical Exam Vitals: Vital Signs Temp Pulse Pulse Resp BP BP BP 05/10/22 12:52 97.4 F L 125 H 14 117/69 05/10/22 11:38 115 H 05/10/22 11:26 115 H 05/10/22 08:19 120 H 05/10/22 08:10 97.6 F 116 H 15 150/79 05/10/22 08:08 120 H 05/10/22 04:00 98.3 F 91 16 136/72 05/10/22 02:00 93 16 05/10/22 00:00 97.7 F 93 16 107/64 05/09/22 20:00 85 18 05/09/22 19:52 102 H 05/09/22 19:50 98.2 F 85 18 123/65 05/09/22 19:38 102 H 05/09/22 18:06 97.6 F 106 H 19 136/66 05/09/22 17:00 105 H 18 126/72 05/09/22 15:53 107 H 05/09/22 15:41 107 H 05/09/22 14:01 109 H 18 118/96 Pulse Ox 05/10/22 12:52 90 L 05/10/22 11:38 05/10/22 11:26 05/10/22 08:19 05/10/22 08:10 96 05/10/22 08:08 92 L 05/10/22 04:00 95 05/10/22 02:00 05/10/22 00:00 95 05/09/22 20:00 05/09/22 19:52 05/09/22 19:50 92 L 05/09/22 19:38 05/09/22 18:06 92 L 05/09/22 17:00 91 L 05/09/22 15:53 05/09/22 15:41 05/09/22 14:01 97 Intake and Output 05/09/22 05/10/22 05/10/22 22:59 06:59 14:59 Intake Total 120 93.349 476 Balance 120 93.349 476 Intake: IV 10 Invasive Line 2 10 Intake, IV Titration 83.349 Amount Heparin Sod,Pork in 0.45% 83.349 NaCl 25,000 unit In 0.45 % NaCl 1 250ml.bag @ 12 UNITS/KG/HR 6.804 mls/hr IV .Q24H [facility] Rx#: [id number] Oral 120 476 Other: Voiding Method Toilet Toilet # Voids 1 1 Weight 56.699 kg Physical Exam: Revealed a 71-year-old female in no distress, noted to be slightly anxious Head: Atraumatic, normocephalic. HEENT:[Neck is supple.] [No neck masses.] [No thyromegaly.] [No JVD.] Chest: Diminished breath sound bilaterally no rhonchi and no wheezes Cardiac Exam: [Normal S1 and S2, no S3 gallop, no murmur.] Abdomen: [Soft, nontender, no megaly, no rebound, no guarding, normal bowel sounds.] Extremities: [No clubbing, no edema, no cyanosis.], Good pulses bilaterally Neurological Exam: [No focal neurologic deficit.] Alert oriented 3. Psychiatric: Normal mood, affect and normal mental status examination. Skin: No rashes. Results - Laboratory Findings CBC and BMP: 05/10/22 08:05 05/10/22 08:05 PT/INR, D-dimer PT 10.5 sec (9.0-12.0) 05/09/22 13:14 INR 1.0 (<1.2) 05/09/22 13:14 Abnormal lab findings: Abnormal Labs 05/09/22 05/09/22 05/10/22 13:14 20:03 00:34 WBC Neutrophils # APTT 34.2 H Chloride 108 H BUN 18 H Glucose 130 H POC Glucose (mg/dL) 300 H 05/10/22 05/10/22 05/10/22 06:02 08:05 08:05 WBC 12.3 H Neutrophils # 10.8 H APTT Chloride BUN 27 H Glucose 257 H POC Glucose (mg/dL) 164 H 05/10/22 11:32 WBC Neutrophils # APTT Chloride BUN Glucose POC Glucose (mg/dL) 195 H - Diagnostic Findings Chest x-ray: image reviewed (As noted in HPI) Assessment and Plan Assessment: Impression: Acute on chronic hypoxic respiratory failure, patient is oxygen at home as needed Acute exacerbation of COPD, no evidence of pneumonia Multifocal atrial tachycardia secondary to COPD Tobacco dependence syndrome Type 2 diabetes Benign essential hypertension Carotid artery stenosis and previous left carotid endarterectomy Recommendation: Continue present course of treatment including bronchodilators, methylprednisolone, antibiotics unless her pro calcitonin level comes back normal Resume home meds including theophylline and Singulair, add Symbicort for now, the patient to go on to urology upon discharge. Consider discharge planning in the next 24 hours. We'll continue to follow Counseled regarding smoking cessation Time with Patient: Greater than 30
[2022-05-10] MEDS: methylPREDNISolone SOD SUCCI 40 MG/ML 1 ML VIAL IV SCH (16:15)
[2022-05-10 16:43] LABS: Glucose,Whole Blood 173 mg/dL (70-110)
--- NOTE | 2022-05-10 17:31 | P.PN ---
Subjective Progress Note Date: 05/10/22 Valerie Garza, is a 71 -year-old female who presented to [facility] emergency room with a chief complaint of worsening shortness of breath and cough, symptoms started 5 days ago and has been worsening She was evaluated in the emergency room vital examination on presentation revealed a temperature of 97.6 heart rate 63 respiratory rate 20 blood pressure 139/93 pulse ox 95% on 4 liter nasal cannula Laboratory data revealed a white blood count of 7.2 hemoglobin 13.4 platelet count 178 sodium 140 potassium 3.5 chloride 108 CO2 25 BUN 18 creatinine 0.62 Testing in the emergency room revealed EKG done in the emergency room revealed atrial fibrillation with rapid ventricular response, chest x-ray done in the emergency room revealed evidence of COPD and interstitial density suspicious for bronchitis versus atypical pneumonia. Patient was admitted to medical floor for further evaluation and treatment. On 05/10/2022 patient was seen and examined on the telemetry floor she is alert and oriented 3 in no apparent distress there is no fever or chills no headache or dizziness no chest pain, her shortness of breath is improving, she is still having some dry cough, there is no nausea or vomiting no abdominal pain no diarrhea no blood in the stools no burning with urination no frequency or urgency no hematuria. Input from cardiology and pulmonary reviewed possible discharge to home in the next 1-2 days Objective - Vital Signs Vital signs: Vital Signs Temp 97.6 F 05/10/22 08:10 Pulse 120 H 05/10/22 08:19 Resp 15 05/10/22 08:10 BP 150/79 05/10/22 08:10 Pulse Ox 96 05/10/22 08:10 FiO2 Intake & Output 05/09/22 05/10/22 05/10/22 18:59 06:59 18:59 Intake Total 213.349 358 Balance 213.349 358 Weight 56.699 kg Intake: IV 10 Invasive Line 2 10 Intake, IV Titration 83.349 Amount Heparin Sod,Pork in 0.45% 83.349 NaCl 25,000 unit In 0.45 % NaCl 1 250ml.bag @ 12 UNITS/KG/HR 6.804 mls/hr IV .Q24H [facility] Rx#: [id number] Oral 120 358 Other: Voiding Method Toilet # Voids 1 1 - Exam In general patient is alert and oriented x 3 in no distress HEENT head normocephalic and atraumatic Neck is supple no JVD no goiter no lymphadenopathy no carotid bruit Chest examination is clear to auscultation no crackles no wheezing Cardiac exam reveals regular heart sounds S1 and S2 no gallops no murmurs Abdomen is soft nontender no organomegaly with normal bowel sounds Extremity exam reveals no edema no cyanosis or clubbing Neurological examination reveals no gross focal deficits - Labs CBC & Chem 7: 05/10/22 08:05 05/10/22 08:05 Labs: Abnormal Lab Results - Last 24 Hours (Table) 05/09/22 05/09/22 05/10/22 Range/Units 13:14 20:03 00:34 WBC (3.8-10.6) k/uL Neutrophils # (1.3-7.7) k/uL APTT 34.2 H (22.0-30.0) sec Chloride 108 H (98-107) mmol/L BUN 18 H (7-17) mg/dL Glucose 130 H (74-99) mg/dL POC Glucose (mg/dL) 300 H (70-110) mg/dL 05/10/22 05/10/22 05/10/22 Range/Units 06:02 08:05 08:05 WBC 12.3 H (3.8-10.6) k/uL Neutrophils # 10.8 H (1.3-7.7) k/uL APTT (22.0-30.0) sec Chloride (98-107) mmol/L BUN 27 H (7-17) mg/dL Glucose 257 H (74-99) mg/dL POC Glucose (mg/dL) 164 H (70-110) mg/dL Assessment and Plan Plan: Shortness of breath, likely related to COPD exacerbation Episode of fast heart rate in the emergency room, likely atrial fibrillation patient was started on IV heparin in the emergency room cardiology consultation requested Underlying history of asthma and COPD Underlying history of [id number] diabetes mellitus Underlying history of hyperlipidemia Underlying history of tobacco abuse. At this time patient is admitted to telemetry floor Home medications reviewed and reordered Patient started on IV antibiotics and IV steroids for acute bronchitis and COPD exacerbation, pulmonary consultation requested Patient was started on IV heparin, cardiology consultation requested Recheck labs in a.m. Will follow closely
[2022-05-10] MEDS: SYMBICORT 160-4.5 MCG INHALER INHALATION SCH (19:40)
[2022-05-10 20:42] LABS: Glucose,Whole Blood 212 mg/dL (70-110)
[2022-05-10] MEDS: PANTOPRAZOLE 40 MG TABLET PO SCH (21:03)
[2022-05-10] MEDS: MONTELUKAST 10 MG TAB PO SCH (21:03)
[2022-05-11 06:13] LABS: Glucose,Whole Blood 180 mg/dL (70-110)
[2022-05-11] MEDS: INSULIN ASPART (NovoLOG) 100 UNIT/ML VIAL SQ SCH ×2 (06:37→12:14)
[2022-05-11] MEDS: NON FORMULARY DRUG (Linaclotide [Linzess] 290 MCG Capsule) PO SCH (06:39)
[2022-05-11] MEDS: IPRATROPIUM-ALBUTEROL 3 ML NEB INHALATION SCH ×2 (08:03→11:43)
[2022-05-11] MEDS: SYMBICORT 160-4.5 MCG INHALER INHALATION SCH (08:04)
[2022-05-11] MEDS: ATORVASTATIN 20 MG TAB PO SCH (08:17)
[2022-05-11] MEDS: ASCORBIC ACID 500 MG TAB PO SCH (08:17)
[2022-05-11] MEDS: THEOPHYLLINE 24 HOUR 300 MG CAP.ER.24H PO SCH (08:17)
[2022-05-11] MEDS: TROSPIUM CHLORIDE 20 MG TABLET PO SCH (08:17)
[2022-05-11] MEDS: methylPREDNISolone SOD SUCCI 40 MG/ML 1 ML VIAL IV SCH ×2 (08:19)
[2022-05-11 08:56] VITALS: TEMP 97.4
[2022-05-11 09:19] LABS: Albumin 4.3 g/dL (3.5-5.0); Calcium 9.4 mg/dL (8.4-10.2); Total Bilirubin 0.4 mg/dL (0.2-1.3); Total Protein 6.9 g/dL (6.3-8.2)
[2022-05-11 09:45] LABS: Basophils % (A) 0 %; Eosinophils # (A) 0.1 k/uL (0-0.7); Eosinophils % (A) 0 %; HCT 38.6 % (34.0-46.0); HGB 12.6 gm/dL (11.4-16.0); Lymphocytes % (A) 6 %; MCH 30.3 pg (25.0-35.0); MCHC 32.6 g/dL (31.0-37.0); MCV 93.1 fL (80.0-100.0); Mean Platelet Volume 8.6; Monocytes # (A) 0.6 k/uL (0-1.0); Monocytes % (A) 3 %; Neutrophils # (A) 15.1 k/uL (1.3-7.7); Neutrophils % (A) 90 %; Platelet Count 170 k/uL (150-450); RBC 4.15 m/uL (3.80-5.40); RDW 14.3 % (11.5-15.5); WBC 16.8 k/uL (3.8-10.6)
--- NOTE | 2022-05-11 11:20 | CA ---
Transthoracic Echo Report Name: Valerie Garza Age: 71 Gender: F : 1950 Exam Date: 05/10/2022 10:13 Exam Location: [place] [facility] Ht (in): 65 Wt (lb): 125 Ordering Physician: Shea Lujan MD Attending/Referring Phys: Structural Ironworker Radha Mclean RDCS Procedure CPT: Indications: SHORTNESS OF BREATH Cardiac Hx: Technical Quality: Fair Contrast 1: Total Dose (mL): Contrast 2: Total Dose (mL): MEASUREMENTS (Male / Female) Normal Values 2D ECHO LV Diastolic Diameter PLAX 4.7 cm 4.2 - 5.9 / 3.9 - 5.3 cm LV Systolic Diameter PLAX 3.9 cm IVS Diastolic Thickness 0.8 cm 0.6 - 1.0 / 0.6 - 0.9 cm LVPW Diastolic Thickness 1.1 cm 0.6 - 1.0 / 0.6 - 0.9 cm LV Relative Wall Thickness 0.4 M-MODE Aortic Root Diameter MM 3.2 cm MV E Point Septal Separation 0.3 cm AV Cusp Separation MM 1.7 cm FINDINGS Left Ventricle Normal Left ventricular size, wall thickness, Inferior basal hypokinetic left ventricular ejection fraction is estimated at 50 %. Right Ventricle Normal right ventricular size and function. Right Atrium Normal right atrial size. Left Atrium Normal left atrial size. Mitral Valve Structurally normal mitral valve. Mild mitral regurgitation. Aortic Valve Trileaflet aortic valve. Tricuspid Valve Structurally normal tricuspid valve. Mild tricuspid regurgitation. Pulmonic Valve Pulmonic valve not well visualized. Pericardium Normal pericardium. Aorta Normal size aortic root and proximal ascending aorta. CONCLUSIONS Normal left ventricular dimension and systolic function Previewed by: Dr. Wyatt Shah MD (Electronically Signed) Final Date: 11 May 2022 11:19
[2022-05-11 11:32] LABS: Glucose,Whole Blood 186 mg/dL (70-110)
[2022-05-11 12:13] VITALS: BP 129/66; PULSE 106; RESP 14
--- NOTE | 2022-05-11 13:27 | P.PN ---
Subjective Progress Note Date: 05/11/22 Principal diagnosis: Acute on chronic hypoxic failure secondary to acute exacerbation of COPD This is a 71-year-old female with history of multiple medical problems including COPD, patient was seen once by Dr. Fitch over a year ago, and she was diagnosed with COPD, advised to continue bronchodilators including Combivent and DuoNeb updrafts 4 times a day and when necessary. Patient is at least a [id number] smoker continues to smoke. Over the last 2-3 days, patient has been complaining of increased shortness of breath, intermittent cough and wheezing. No fever no chills no hemoptysis no chest pain. Patient was seen in the ER, and apparently she had an EKG that was misinterpreted by the ER physician as atrial fibrillation with RVR, in fact the patient had sinus tachycardia and mostly multifocal atrial tachycardia. Patient was admitted and this consult was initiated. Patient is now on bronchodilators, she is also on steroids, seems to be already improving. She was seen by cardiology on consultation, and again did not feel that the patient had atrial fibrillation. Chest x-ray on this admission showed no evidence of pneumonia, but is clearly evidence of COPD. WBC count is 4.3 hemoglobin 13.1 electrolytes are normal renal profile is normal Reevaluated today on 05/11/2022, patient is doing great, relatively asymptomatic, asking to be discharged home if possible. On physical examination patient had diminished breath sound bilaterally no crackles or rhonchi or wheezes chest x- ray showed no evidence of pneumonia hence I plan to discharge the patient home today patient should be discharged home on her usual bronchodilators she already has oxygen at home, she will be on prednisone 30 mg tapered over 2 weeks and antibiotics in the form of Ceftin and Zithromax or possibly Ceftin alone. Patient could follow up with Dr. Fitch in 1-2 weeks regarding her COPD apparently she saw him before about a year ago Objective - Vital Signs Vital signs: Vital Signs Temp 97.4 F L 05/11/22 12:06 Pulse 106 H 05/11/22 12:06 Resp 14 05/11/22 12:06 BP 129/66 05/11/22 12:06 Pulse Ox 91 L 05/11/22 12:06 FiO2 Intake & Output 05/10/22 05/11/22 05/11/22 18:59 06:59 18:59 Intake Total 712 10 476 Balance 712 10 476 Intake: IV 10 Invasive Line 2 10 Oral 538 321 Other: Voiding Method Toilet # Voids 2 1 - Exam Physical Exam: Revealed a 71-year-old female in no distress, less anxious today. Head: Atraumatic, normocephalic. HEENT:[Neck is supple.] [No neck masses.] [No thyromegaly.] [No JVD.] Chest: Diminished breath sound bilaterally no rhonchi and no wheezes Cardiac Exam: [Normal S1 and S2, no S3 gallop, no murmur.] Abdomen: [Soft, nontender, no megaly, no rebound, no guarding, normal bowel sounds.] Extremities: [No clubbing, no edema, no cyanosis.], Good pulses bilaterally Neurological Exam: [No focal neurologic deficit.] Alert oriented 3. Psychiatric: Normal mood, affect and normal mental status examination. Skin: No rashes. - Labs CBC & Chem 7: 05/11/22 08:06 05/11/22 08:06 Labs: Abnormal Lab Results - Last 24 Hours (Table) 05/10/22 05/10/22 05/11/22 Range/Units 16:42 20:34 06:11 WBC (3.8-10.6) k/uL Neutrophils # (1.3-7.7) k/uL Chloride (98-107) mmol/L BUN (7-17) mg/dL Glucose (74-99) mg/dL POC Glucose (mg/dL) 173 H 212 H 180 H (70-110) mg/dL 05/11/22 05/11/22 05/11/22 Range/Units 08:06 08:06 11:31 WBC 16.8 H (3.8-10.6) k/uL Neutrophils # 15.1 H (1.3-7.7) k/uL Chloride 108 H (98-107) mmol/L BUN 30 H (7-17) mg/dL Glucose 156 H (74-99) mg/dL POC Glucose (mg/dL) 186 H (70-110) mg/dL Microbiology - Last 24 Hours (Table) 05/09/22 17:45 Blood Culture - Preliminary Blood No Growth after 24 hours 05/09/22 17:30 Blood Culture - Preliminary Blood No Growth after 24 hours Assessment and Plan Assessment: Impression: Acute on chronic hypoxic respiratory failure, patient is oxygen at home as needed Acute exacerbation of COPD, no evidence of pneumonia Multifocal atrial tachycardia secondary to COPD Tobacco dependence syndrome Type 2 diabetes Benign essential hypertension Carotid artery stenosis and previous left carotid endarterectomy Recommendation: Agree with discharge planning today Patient could be discharged on prednisone 30 mg tapered over 2 weeks Antibiotics as per the admitting physician could be Ceftin would be fine oral doxycycline Patient to continue updrafts Symbicort twice a day 160/4.52 puffs twice a day Albuterol 2 puffs 4 times a day when necessary Follow-up on outpatient basis. Counseled regarding smoking cessation Time with Patient: Less than 30
--- NOTE | 2022-05-12 16:56 | P.DS ---
Providers Date of admission: 05/09/22 14:23 Expected date of discharge: 05/12/22 Attending physician: Shea Lujan Consults: 05/09/22 14:21 Consult Physician Urgent Consulting Provider: [facility] Consult Reason/Comments: New-onset A. fib Do you want consulting provider notified?: Yes 05/09/22 17:10 Consult Physician Routine Consulting Provider: Pedro Oneil Consult Reason/Comments: shortness of breath Do you want consulting provider notified?: Yes Primary care physician: Beatrice Phillips [facility] Course: Diagnosis on discharge: Shortness of breath, likely related to COPD exacerbation Episode of fast heart rate in the emergency room, likely atrial fibrillation patient was started on IV heparin in the emergency room cardiology consultation requested Underlying history of asthma and COPD Underlying history of tck-lgwrifb-[id number] diabetes mellitus Underlying history of hyperlipidemia Underlying history of tobacco abuse. Counseled in length during this admission regarding smoking cessation counseling more than 5 minutes, different available medication to help for smoking cessation were discussed. Hospital course: Valerie Garza, is a 71 -year-old female who presented to [facility] emergency room with a chief complaint of worsening shortness of breath and cough, symptoms started 5 days ago and has been worsening She was evaluated in the emergency room vital examination on presentation revealed a temperature of 97.6 heart rate 63 respiratory rate 20 blood pressure 139/93 pulse ox 95% on 4 liter nasal cannula Laboratory data revealed a white blood count of 7.2 hemoglobin 13.4 platelet count 178 sodium 140 potassium 3.5 chloride 108 CO2 25 BUN 18 creatinine 0.62 Testing in the emergency room revealed EKG done in the emergency room revealed atrial fibrillation with rapid ventricular response, chest x-ray done in the emergency room revealed evidence of COPD and interstitial density suspicious for bronchitis versus atypical pneumonia. Patient was admitted to medical floor for further evaluation and treatment. On 05/10/2022 patient was seen and examined on the telemetry floor she is alert and oriented 3 in no apparent distress there is no fever or chills no headache or dizziness no chest pain, her shortness of breath is improving, she is still having some dry cough, there is no nausea or vomiting no abdominal pain no diarrhea no blood in the stools no burning with urination no frequency or urgency no hematuria. Input from cardiology and pulmonary reviewed possible discharge to home in the next 1-2 days On 05/11/2022 patient was seen and examined on the telemetry floor she is alert and oriented 3 in no apparent distress cough and shortness of breath has improved significantly she was evaluated by pulmonary and was cleared for discharge she was given a course of oral antibiotic and oral steroids and was discharged home follow-up with her primary care physician in 1-2 weeks she will also follow with pulmonary in 1-2 weeks Plan - Discharge Summary Discharge Rx Participant: No New Discharge Prescriptions: New predniSONE 10 mg PO DAILY 12 Days #30 tab cefUROXime axetiL [Cefuroxime] 500 mg PO BID 7 Days #14 tab Continue Ipratropium-Albuterol Nebulize [Duoneb 0.5 mg-3 mg/3 ml Soln] 3 ml INHALATION RT-QID Solifenacin Succinate [Vesicare] 10 mg PO DAILY Omeprazole 20 mg PO HS Montelukast Sodium [Singulair] 10 mg PO HS Ibuprofen [Motrin] 800 mg PO BID PRN PRN Reason: Pain Clobetasol Propionate [Temovate 0.05% Oint] 1 applic TOPICAL DAILY Atorvastatin [Lipitor] 20 mg PO DAILY Ascorbic Acid [Vitamin C] 1,000 mg PO DAILY Ipratropium/Albuter 20-100Mcg [Combivent Respimat 20-100Mcg Inhaler] 1 puff INHALATION RT-QID PRN PRN Reason: Shortness Of Breath Theophylline 12 Hour [David-Dur] 300 mg PO BID glipiZIDE XL [Glucotrol XL] 2.5 mg PO DAILY Linaclotide [Linzess] 290 mcg PO AC-BRKFST Fluticasone Nasal [place] [Flonase Nasal [place]] 2 spray EA NOSTRIL DAILY PRN PRN Reason: Allergy Symptoms Discharge Medication List Ascorbic Acid [Vitamin C] 1,000 mg PO DAILY 05/09/22 [History] Atorvastatin [Lipitor] 20 mg PO DAILY 05/09/22 [History] Clobetasol Propionate [Temovate 0.05% Oint] 1 applic TOPICAL DAILY 05/09/22 [History] Fluticasone Nasal [place] [Flonase Nasal [place]] 2 spray EA NOSTRIL DAILY PRN 05/09/22 [History] Ibuprofen [Motrin] 800 mg PO BID PRN 05/09/22 [History] Ipratropium-Albuterol Nebulize [Duoneb 0.5 mg-3 mg/3 ml Soln] 3 ml INHALATION RT-QID 05/09/22 [History] Ipratropium/Albuter 20-100Mcg [Combivent Respimat 20-100Mcg Inhaler] 1 puff INHALATION RT-QID PRN 05/09/22 [History] Linaclotide [Linzess] 290 mcg PO AC-BRKFST 05/09/22 [History] Montelukast Sodium [Singulair] 10 mg PO HS 05/09/22 [History] Omeprazole 20 mg PO HS 05/09/22 [History] Solifenacin Succinate [Vesicare] 10 mg PO DAILY 05/09/22 [History] Theophylline 12 Hour [David-Dur] 300 mg PO BID 05/09/22 [History] glipiZIDE XL [Glucotrol XL] 2.5 mg PO DAILY 05/09/22 [History] cefUROXime axetiL [Cefuroxime] 500 mg PO BID 7 Days #14 tab 05/11/22 [Rx] predniSONE 10 mg PO DAILY 12 Days #30 tab 05/11/22 [Rx] Follow up Appointment(s)/Referral(s): Eliane Bowen MD [STAFF PHYSICIAN] - 05/24/22 10:30 am Beatrice Phillips MD [Primary Care Provider] - 05/15/22 11:00 am Wyatt Shah MD [STAFF PHYSICIAN] - 05/22/22 4:30 pm ([facility]) Patient Instructions/Handouts: Chest Pain (DC), Shortness of Breath (DC) Discharge Disposition: HOME SELF-CARE
== END 2022-05-11 15:04 | disposition home or self-care (01) | DRG 190 ==
LOC: EC 12:50 → 3SCARD 14:23
PROVIDERS: ADMIT Internal Medicine; ATTEND Internal Medicine
DX: J44.1 Chronic obstructive pulmonary disease with (acute) exacerbation (principal); J96.21 Acute and chronic respiratory failure with hypoxia; I47.1 Supraventricular tachycardia; J44.0 Chronic obstructive pulmonary disease with (acute) lower respiratory infection; I10 Essential (primary) hypertension; I08.1 Rheumatic disorders of both mitral and tricuspid valves; E11.9 Type 2 diabetes mellitus without complications; E78.5 Hyperlipidemia, unspecified; F17.210 Nicotine dependence, cigarettes, uncomplicated; J20.9 Acute bronchitis, unspecified; I49.1 Atrial premature depolarization; Z99.81 Dependence on supplemental oxygen; Z86.79 Personal history of other diseases of the circulatory system; Z90.710 Acquired absence of both cervix and uterus; Z98.890 Other specified postprocedural states; Z79.899 Other long term (current) drug therapy; Z79.51 Long term (current) use of inhaled steroids; Z79.84 Long term (current) use of oral hypoglycemic drugs
CPT/HCPCS: 36415; 71046; 80053; 83605; 83880; 84484; 85025; 85610; 85730; 87040; 93005; 93306; 94640; 94760; 96374; 96375; 99291

== ENCOUNTER 2023-07-09 17:35 | Emergency (ER) | payer MEDICARE, OTHER ==
[2023-07-09] MEDS ORDERED: IPRATROPIUM 0.5 MG/2.5 ML NEBU INHALATION STA (18:18)
[2023-07-09] MEDS ORDERED: ALBUTEROL NEBULIZED 2.5 MG/3 ML INHALATION STA (18:18)
[2023-07-09] MEDS ORDERED: DEXAMETHASONE SOD PHOSPHATE 10 MG/ML 1 ML VIAL IVP STA (18:18)
[2023-07-09 18:46] LABS: Basophils # (A) 0.1 k/uL (0-0.2); Basophils % (A) 1 %; Eosinophils # (A) 1.1 k/uL (0-0.7); Eosinophils % (A) 13 %; HCT 41.5 % (34.0-46.0); HGB 13.8 gm/dL (11.4-16.0); Lymphocytes # (A) 1.9 k/uL (1.0-4.8); Lymphocytes % (A) 23 %; MCH 30.4 pg (25.0-35.0); MCHC 33.2 g/dL (31.0-37.0); MCV 91.3 fL (80.0-100.0); Mean Platelet Volume 8.2; Monocytes # (A) 0.6 k/uL (0-1.0); Monocytes % (A) 7 %; Neutrophils # (A) 4.6 k/uL (1.3-7.7); Neutrophils % (A) 55 %; Platelet Count 198 k/uL (150-450); RBC 4.54 m/uL (3.80-5.40); RDW 14.1 % (11.5-15.5); WBC 8.4 k/uL (3.8-10.6)
--- NOTE | 2023-07-09 18:48 | XR ---
EXAMINATION TYPE: XR chest 2V DATE OF EXAM: 07/09/2023 6:38 PM COMPARISON: Chest radiographs from 05/10/2022 TECHNIQUE: XR chest 2V Frontal and lateral views of the chest. CLINICAL INDICATION:Female, 73 years old with history of CP; FINDINGS: Lungs/Pleura: There is flattening of the diaphragm with increased lucency of the lungs. No evidence o f pneumothorax, pleural effusion or focal consolidation. Pulmonary vascularity: Unremarkable. Heart/mediastinum: Cardiomediastinal silhouette is unremarkable. Musculoskeletal: No acute osseous pathology. IMPRESSION: 1. No acute cardiopulmonary disease process. 2. COPD changes.
[2023-07-09 19:01] LABS: INR 0.9 (<1.2); Prothrombin Time 9.9 sec (9.0-12.0)
[2023-07-09 19:07] VITALS: TEMP 97.8
[2023-07-09 19:07] LABS: ALT 14 U/L (4-34); AST 20 U/L (14-36); African American GFR (CKD) 45 (>60 ml/min/1.73 sqM); Albumin 4.5 g/dL (3.5-5.0); Alkaline Phosphatase 88 U/L (38-126); Anion Gap 13 mmol/L; Blood Urea Nitrogen 27 mg/dL (7-17); Calcium 9.9 mg/dL (8.4-10.2); Carbon Dioxide 19 mmol/L (22-30); Chloride 108 mmol/L (98-107); Glucose 99 mg/dL (74-99); Lipase 52 U/L (23-300); Non-African American GFR(CKD) 39 (>60 ml/min/1.73 sqM); Potassium 4.3 mmol/L (3.5-5.1); Sodium 140 mmol/L (137-145); Total Bilirubin 0.4 mg/dL (0.2-1.3); Total Protein 7.5 g/dL (6.3-8.2)
--- NOTE | 2023-07-09 19:11 | ED ---
General Adult HPI - General Chief complaint: Shortness of Breath Stated complaint: sob Time Seen by Provider: 07/09/23 17:46 Source: patient Mode of arrival: ambulatory Limitations: no limitations - History of Present Illness Initial comments: This is a 73-year-old female with a past medical history including COPD and diabetes presents emergency department for shortness of breath over the last 2 weeks. The patient stated that she follow-up with her primary care physician who gave her a dose of azithromycin but denied of any improvement and therefore was started on Bactrim. The patient stated that she is on 3.5 L of home oxygen and stated that she is on her home dose. The patient stated that she has not been able to get a deep breath and felt as if there was her COPD worsening. The patient presents emergency Department because the shortness of breath worsened today. The patient denied any chest pain or any lightheadedness or dizziness. - Related Data Home Medications Medication Instructions Recorded Confirmed Ascorbic Acid [Vitamin C] 1,000 mg PO DAILY 05/09/22 05/09/22 Atorvastatin [Lipitor] 20 mg PO DAILY 05/09/22 05/09/22 Clobetasol Propionate [Temovate 1 applic TOPICAL DAILY 05/09/22 05/09/22 0.05% Oint] Fluticasone Nasal [place] [Flonase 2 spray EA NOSTRIL DAILY PRN 05/09/22 05/09/22 Nasal [place]] Ibuprofen [Motrin] 800 mg PO BID PRN 05/09/22 05/09/22 Ipratropium-Albuterol Nebulize 3 ml INHALATION RT-QID 05/09/22 05/09/22 [Duoneb 0.5 mg-3 mg/3 ml Soln] Ipratropium/Albuter 20-100Mcg 1 puff INHALATION RT-QID PRN 05/09/22 05/09/22 [Combivent Respimat 20-100Mcg Inhaler] Linaclotide [Linzess] 290 mcg PO AC-BRKFST 05/09/22 05/09/22 Montelukast Sodium [Singulair] 10 mg PO HS 05/09/22 05/09/22 Omeprazole 20 mg PO HS 05/09/22 05/09/22 Solifenacin Succinate [Vesicare] 10 mg PO DAILY 05/09/22 05/09/22 Theophylline 12 Hour [David-Dur] 300 mg PO BID 05/09/22 05/09/22 glipiZIDE XL [Glucotrol XL] 2.5 mg PO DAILY 05/09/22 05/09/22 Previous Rx's Medication Instructions Recorded cefUROXime axetiL [Cefuroxime] 500 mg PO BID 7 Days #14 tab 05/11/22 predniSONE 10 mg PO DAILY 12 Days #30 tab 05/11/22 dexAMETHasone [Decadron] 10 mg PO ONCE #2.5 tab 07/09/23 Allergies Allergy/AdvReac Type Severity Reaction Status Date / Time No Known Allergies Allergy Verified 07/09/23 17:41 Review of Systems ROS Statement: Those systems with pertinent positive or pertinent negative responses have been documented in the HPI. ROS Other: All systems not noted in ROS Statement are negative. Past Medical History Past Medical History: COPD, Diabetes Mellitus History of Any Multi-Drug Resistant Organisms: None Reported Past Surgical History: No Surgical Hx Reported, Hysterectomy Additional Past Surgical History / Comment(s): bladder suspension Past Anesthesia/Blood Transfusion Reactions: No Reported Reaction Past Psychological History: No Psychological Hx Reported Smoking Status: Current every day smoker Past Alcohol Use History: None Reported Past Drug Use History: None Reported General Exam Limitations: no limitations General appearance: alert, in no apparent distress Head exam: Present: atraumatic, normocephalic, normal inspection Eye exam: Present: normal appearance, PERRL Pupils: Present: normal accommodation ENT exam: Present: normal exam, normal oropharynx, mucous membranes moist Neck exam: Present: normal inspection, full ROM Respiratory exam: Present: wheezes (Expiratory wheezes bilaterally), decreased breath sounds Cardiovascular Exam: Present: normal rhythm, bradycardia, normal heart sounds GI/Abdominal exam: Present: soft, normal bowel sounds Extremities exam: Present: normal inspection, full ROM Back exam: Present: normal inspection, full ROM Neurological exam: Present: alert, oriented X3, CN II-XII intact Psychiatric exam: Present: normal affect, normal mood Skin exam: Present: warm, dry Course Vital Signs 07/09/23 07/09/23 07/09/23 17:37 17:56 18:00 Temperature 98.3 F 98.3 F Pulse Rate 50 L 104 H Respiratory 28 H 22 23 Rate Blood Pressure 110/47 132/87 O2 Sat by Pulse 91 L 95 Oximetry 07/09/23 07/09/23 07/09/23 19:07 19:42 20:09 Temperature 97.8 F Pulse Rate 101 H 99 101 H Respiratory 20 Rate Blood Pressure 136/66 O2 Sat by Pulse 95 Oximetry 07/09/23 07/09/23 07/09/23 20:10 20:38 21:00 Temperature Pulse Rate 101 H 103 H 97 Respiratory 18 Rate Blood Pressure 135/60 O2 Sat by Pulse 94 L Oximetry EKG Findings - EKG Comments: EKG Findings:: An EKG was obtained was interpreted by myself showing a rate of 97, MT interval 172, QR oriental orthodox of 113 and QTC of 436. This EKG showed a normal sinus rhythm with no ST segment elevation or depression noted. There was an occasional PVC. Medical Decision Making - Medical Decision Making Was pt. sent in by a medical professional or institution (, PA, RESEARCH PROFESSIONAL, urgent care, hospital, or intermediate...) When possible be specific @ -No Did you speak to anyone other than the patient for history (EMS, parent, family, police, friend...)? What history was obtained from this source @ -No Did you review nursing and triage notes (agree or disagree)? Why? @ -I reviewed and agree with nursing and triage notes Were old charts reviewed (outside hosp., previous admission, EMS record, old EKG, old radiological studies, urgent care reports/EKG's, intermediate records)? Report findings @ -No old charts were reviewed Differential Diagnosis (chest pain, altered mental status, abdominal pain women, abdominal pain men, vaginal bleeding, weakness, fever, dyspnea, syncope, head ache, dizziness, GI bleed, back pain, seizure, CVA, palpatations, mental health)? @ -COPD exacerbation, pneumonia, pneumothorax EKG interpreted by me (3pts min.). @ -As above X-rays interpreted by me (1pt min.). @ -Chest x-ray was obtained and was interpreted by myself showing no acute process. There was COPD changes. CT interpreted by me (1pt min.). @ -None done U/S interpreted by me (1pt. min.). @ -None done What testing was considered but not performed or refused? (CT, X-rays, U/S, labs)? Why? @ -None What meds were considered but not given or refused? Why? @ -None Did you discuss the management of the patient with other professionals (professionals i.e. , PA, RESEARCH PROFESSIONAL, lab, RT, psych nurse, rn social work, studio hand, teacher, animal services officer, skilled nursing case manager)? Give summary @ -No Was smoking cessation discussed for >3mins.? @ -Yes, I have spoken with this patient regarding smoking cessation. This discussion involved options regarding adequate smoking, and I have spent 5 minutes discussing this with the patient. I have had a [id number] discussion with this patient regarding the above. Was critical care preformed (if so, how long)? @ -No Were there social determinants of health that impacted care today? How? (Homelessness, low income, unemployed, alcoholism, drug addiction, transportation, low edu. Level, literacy, decrease access to med. care, long-term, rehab)? @ -No Was there de-escalation of care discussed even if they declined (Discuss DNR or withdrawal of care, Hospice)? DNR status @ -No What co-morbidities impacted this encounter? (DM, HTN, Smoking, COPD, CAD, Cancer, CVA, ARF, Chemo, Hep., AIDS, mental health diagnosis, sleep apnea, morbid obesity)? @ -COPD, diabetes. Was patient admitted / discharged? Hospital course, mention meds given and route, prescriptions, significant lab abnormalities, going to OR and other pertinent info. @ -The patient was seen and evaluated in emergency department. Physical exam, the patient was resting in bed without any acute distress. The patient was mildly to Neck. Due to the nature the patient's complaints, laboratory workup as well as a chest x-ray and EKG were obtained. All workup was largely within normal limits and the patient likely was suffering from a COPD exacerbation as the patient did have decreased breath sounds bilaterally with expiratory wheezes heard. The patient received albuterol, ipratropium and Decadron and on reevaluation had significant improvement to her symptoms. The patient was offe red observation stay she had continued decreased air entry however stated that because she felt significantly improved, the patient did prefer to be discharged home. The patient was given a second dose of Decadron to be taken at home and told to continue to use her nebulizer for continued therapy. The patient was also advised to report back to emergency department if her shortness of breath and symptoms became acutely worse. The patient was agreeable to this and was discharged home in stable condition. Undiagnosed new problem with uncertain prognosis? @ -No Drug Therapy requiring intensive monitoring for toxicity (Heparin, Nitro, Ins ulin, Cardizem)? @ -No Were any procedures done? @ -No Diagnosis/symptom? @ -COPD exacerbation Acute, or Chronic, or Acute on Chronic? @ -Acute on chronic Uncomplicated (without systemic symptoms) or Complicated (systemic symptoms)? @ -Uncomplicated Side effects of treatment? @ -No Exacerbation, Progression, or Severe Exacerbation? @ -Mild exacerbation Poses a threat to life or bodily function? How? (Chest pain, USA, SD, pneumonia, PE, COPD, DKA, ARF, appy, cholecystitis, CVA, Diverticulitis, Homicidal, Suicidal, threat to staff... and all critical care pts) @ -No - Lab Data Result diagrams: 07/09/23 18:26 07/09/23 18:26 Lab Results 07/09/23 07/09/23 07/09/23 Range/Units 18:26 18:26 18:26 WBC 8.4 (3.8-10.6) k/uL RBC 4.54 (3.80-5.40) m/uL Hgb 13.8 (11.4-16.0) gm/dL Hct 41.5 (34.0-46.0) % MCV 91.3 (80.0-100.0) fL MCH 30.4 (25.0-35.0) pg MCHC 33.2 (31.0-37.0) g/dL RDW 14.1 (11.5-15.5) % Plt Count 198 (150-450) k/uL MPV 8.2 Neutrophils % 55 % Lymphocytes % 23 % Monocytes % 7 % Eosinophils % 13 % Basophils % 1 % Neutrophils # 4.6 (1.3-7.7) k/uL Lymphocytes # 1.9 (1.0-4.8) k/uL Monocytes # 0.6 (0-1.0) k/uL Eosinophils # 1.1 H (0-0.7) k/uL Basophils # 0.1 (0-0.2) k/uL PT 9.9 (9.0-12.0) sec INR 0.9 (<1.2) APTT 22.0 (22.0-30.0) sec Sodium 140 (137-145) mmol/L Potassium 4.3 (3.5-5.1) mmol/L Chloride 108 H (98-107) mmol/L Carbon Dioxide 19 L (22-30) mmol/L Anion Gap 13 mmol/L BUN 27 H (7-17) mg/dL Creatinine 1.34 H (0.52-1.04) mg/dL Est GFR (CKD-EPI)AfAm 45 (>60 ml/min/1.73 sqM) Est GFR (CKD-EPI)NonAf 39 (>60 ml/min/1.73 sqM) Glucose 99 (74-99) mg/dL Calcium 9.9 (8.4-10.2) mg/dL Magnesium 2.0 (1.6-2.3) mg/dL Total Bilirubin 0.4 (0.2-1.3) mg/dL AST 20 (14-36) U/L ALT 14 (4-34) U/L Alkaline Phosphatase 88 (38-126) U/L Troponin I (0.000-0.034) ng/mL NT-Pro-B Natriuret Pep 478 pg/mL Total Protein 7.5 (6.3-8.2) g/dL Albumin 4.5 (3.5-5.0) g/dL Lipase 52 (23-300) U/L Influenza Type A (PCR) (Not Detectd) Influenza Type B (PCR) (Not Detectd) RSV (PCR) (Not Detectd) SARS-CoV-2 (PCR) (Not Detectd) 07/09/23 07/09/23 Range/Units 18:26 18:26 WBC (3.8-10.6) k/uL RBC (3.80-5.40) m/uL Hgb (11.4-16.0) gm/dL Hct (34.0-46.0) % MCV (80.0-100.0) fL MCH (25.0-35.0) pg MCHC (31.0-37.0) g/dL RDW (11.5-15.5) % Plt Count (150-450) k/uL MPV Neutrophils % % Lymphocytes % % Monocytes % % Eosinophils % % Basophils % % Neutrophils # (1.3-7.7) k/uL Lymphocytes # (1.0-4.8) k/uL Monocytes # (0-1.0) k/uL Eosinophils # (0-0.7) k/uL Basophils # (0-0.2) k/uL PT (9.0-12.0) sec INR (<1.2) APTT (22.0-30.0) sec Sodium (137-145) mmol/L Potassium (3.5-5.1) mmol/L Chloride (98-107) mmol/L Carbon Dioxide (22-30) mmol/L Anion Gap mmol/L BUN (7-17) mg/dL Creatinine (0.52-1.04) mg/dL Est GFR (CKD-EPI)AfAm (>60 ml/min/1.73 sqM) Est GFR (CKD-EPI)NonAf (>60 ml/min/1.73 sqM) Glucose (74-99) mg/dL Calcium (8.4-10.2) mg/dL Magnesium (1.6-2.3) mg/dL Total Bilirubin (0.2-1.3) mg/dL AST (14-36) U/L ALT (4-34) U/L Alkaline Phosphatase (38-126) U/L Troponin I <0.012 (0.000-0.034) ng/mL NT-Pro-B Natriuret Pep pg/mL Total Protein (6.3-8.2) g/dL Albumin (3.5-5.0) g/dL Lipase (23-300) U/L Influenza Type A (PCR) Not Detected (Not Detectd) Influenza Type B (PCR) Not Detected (Not Detectd) RSV (PCR) Not Detected (Not Detectd) SARS-CoV-2 (PCR) Not Detected (Not Detectd) Disposition Clinical Impression: COPD exacerbation Disposition: HOME SELF-CARE Condition: Stable Instructions (If sedation given, give patient instructions): COPD (Chronic Obstructive Pulmonary Disease) (DC) Prescriptions: dexAMETHasone [Decadron] 10 mg PO ONCE #2.5 tab Is patient prescribed a controlled substance at d/c from ED?: No Referrals: Beatrice Phillips MD [Primary Care Provider] - 1-2 days Time of Disposition: 20:30
[2023-07-09 19:14] LABS: NT-Pro-B-Type Natriuretic Pept 478 pg/mL
[2023-07-09 20:41] VITALS: BP 135/60; RESP 18
[2023-07-09 21:01] VITALS: PULSE 97
== END 2023-07-09 21:34 | disposition home or self-care (01) ==
LOC: EC 17:35
DX: J44.1 Chronic obstructive pulmonary disease with (acute) exacerbation (principal); E11.9 Type 2 diabetes mellitus without complications; F17.210 Nicotine dependence, cigarettes, uncomplicated; Z20.822 Contact with and (suspected) exposure to COVID-19; Z79.84 Long term (current) use of oral hypoglycemic drugs; Z79.51 Long term (current) use of inhaled steroids; Z79.899 Other long term (current) drug therapy
CPT/HCPCS: 36415; 94640 ×2; 93005; 83880; 80053; 83690; 83735; 84484; 85025; 85610; 85730; 87636; 71046; 99285; 96374; 99406; J1100

== ENCOUNTER 2023-07-28 23:31 | Inpatient (IN) | payer MEDICARE, OTHER ==
[2023-07-28] MEDS ORDERED: ALBUTEROL NEBULIZED 2.5 MG/3 ML INHALATION STA (23:37)
[2023-07-28] MEDS ORDERED: IPRATROPIUM 0.5 MG/2.5 ML NEBU INHALATION STA (23:37)
[2023-07-28 23:50] LABS: Glucose,Whole Blood 256 mg/dL (70-110)
--- NOTE | 2023-07-28 23:58 | ED ---
General Adult HPI - General Chief complaint: Shortness of Breath Stated complaint: SOB Time Seen by Provider: 07/28/23 23:33 Source: patient, EMS, RN notes reviewed, old records reviewed Mode of arrival: EMS Limitations: no limitations - History of Present Illness Initial comments: 73-year-old female presenting with respiratory distress. Patient was tr ansported by paramedics, placed on CPAP for hypoxia in the 70s. Patient had been given albuterol, Atrovent, Solu-Medrol during transport. She states she he's had worsening cough and dyspnea over the past one week. No fever. No central chest pain. No lower extremity pain or swelling. - Related Data Home Medications Medication Instructions Recorded Confirmed Ascorbic Acid [Vitamin C] 1,000 mg PO DAILY 05/09/22 05/09/22 Atorvastatin [Lipitor] 20 mg PO DAILY 05/09/22 05/09/22 Clobetasol Propionate [Temovate 1 applic TOPICAL DAILY 05/09/22 05/09/22 0.05% Oint] Fluticasone Nasal [place] [Flonase 2 spray EA NOSTRIL DAILY PRN 05/09/22 05/09/22 Nasal [place]] Ibuprofen [Motrin] 800 mg PO BID PRN 05/09/22 05/09/22 Ipratropium-Albuterol Nebulize 3 ml INHALATION RT-QID 05/09/22 05/09/22 [Duoneb 0.5 mg-3 mg/3 ml Soln] Ipratropium/Albuter 20-100Mcg 1 puff INHALATION RT-QID PRN 05/09/22 05/09/22 [Combivent Respimat 20-100Mcg Inhaler] Linaclotide [Linzess] 290 mcg PO AC-BRKFST 05/09/22 05/09/22 Montelukast Sodium [Singulair] 10 mg PO HS 05/09/22 05/09/22 Omeprazole 20 mg PO HS 05/09/22 05/09/22 Solifenacin Succinate [Vesicare] 10 mg PO DAILY 05/09/22 05/09/22 Theophylline 12 Hour [David-Dur] 300 mg PO BID 05/09/22 05/09/22 glipiZIDE XL [Glucotrol XL] 2.5 mg PO DAILY 05/09/22 05/09/22 Previous Rx's Medication Instructions Recorded cefUROXime axetiL [Cefuroxime] 500 mg PO BID 7 Days #14 tab 05/11/22 predniSONE 10 mg PO DAILY 12 Days #30 tab 05/11/22 dexAMETHasone [Decadron] 10 mg PO ONCE #2.5 tab 07/09/23 Allergies Allergy/AdvReac Type Severity Reaction Status Date / Time No Known Allergies Allergy Verified 07/09/23 17:41 Review of Systems ROS Statement: Those systems with pertinent positive or pertinent negative responses have been documented in the HPI. ROS Other: All systems not noted in ROS Statement are negative. Past Medical History Past Medical History: COPD, Diabetes Mellitus History of Any Multi-Drug Resistant Organisms: None Reported Past Surgical History: No Surgical Hx Reported, Hysterectomy Additional Past Surgical History / Comment(s): bladder suspension Past Anesthesia/Blood Transfusion Reactions: No Reported Reaction Past Psychological History: No Psychological Hx Reported Smoking Status: Current every day smoker Past Alcohol Use History: None Reported Past Drug Use History: None Reported General Exam Limitations: no limitations General appearance: alert, in distress Head exam: Present: atraumatic, normocephalic Eye exam: Present: normal appearance, PERRL ENT exam: Present: normal exam Neck exam: Present: normal inspection. Absent: tenderness, meningismus Respiratory exam: Present: respiratory distress, wheezes, accessory muscle use, decreased breath sounds Cardiovascular Exam: Present: tachycardia, irregular rhythm GI/Abdominal exam: Present: soft. Absent: distended, tenderness, guarding, rebound Extremities exam: Present: normal inspection, normal capillary refill. Absent: pedal edema Neurological exam: Present: alert, oriented X3, CN II-XII intact. Absent: motor sensory deficit Psychiatric exam: Present: normal affect, normal mood Skin exam: Present: warm, dry, intact Course Vital Signs 07/28/23 07/28/23 07/28/23 23:32 23:38 23:45 Temperature 97.6 F Pulse Rate 131 H 120 H Respiratory 36 H 35 H Rate Blood Pressure 132/82 O2 Sat by Pulse 97 Oximetry Fraction of 85 Inspired Oxygen (FIO2) 07/29/23 07/29/23 07/29/23 00:00 00:38 02:02 Temperature Pulse Rate 125 H 108 H 113 H Respiratory 23 Rate Blood Pressure 100/62 O2 Sat by Pulse 97 Oximetry Fraction of 65 Inspired Oxygen (FIO2) 07/29/23 07/29/23 07/29/23 02:05 02:12 03:00 Temperature Pulse Rate 115 H 103 H Respiratory 24 Rate Blood Pressure 97/66 O2 Sat by Pulse 98 Oximetry Fraction of 65 Inspired Oxygen (FIO2) 07/29/23 07/29/23 07/29/23 05:00 05:54 06:03 Temperature Pulse Rate 110 H 106 H 109 H Respiratory 24 Rate Blood Pressure 93/67 O2 Sat by Pulse 97 Oximetry Fraction of 45 Inspired Oxygen (FIO2) - Reevaluation(s) Reevaluation #1: 07/29/23 0200 Patient reevaluated, significantly improved, normal oxygenation on BiPAP. No complaints. Reevaluation #2: 07/29/23 06:25 Patient reevaluated, resting comfortably, no chest pain Medical Decision Making - Medical Decision Making Was pt. sent in by a medical professional or institution (, PA, SODA DISPENSER, urgent care, hospital, or [facility]...) When possible be specific @ no Did you speak to anyone other than the patient for history (EMS, parent, family, police, friend...)? What history was obtained from this source @ -[Paramedics who report that the patient was in severe respiratory distress with an oxygen saturation of 70 on nasal cannula Did you review nursing and triage notes (agree or disagree)? Why? @ -I reviewed and agree with nursing and triage notes Were old charts reviewed (outside hosp., previous admission, EMS record, old EKG, old radiological studies, urgent care reports/EKG's, [facility] records)? Report findings @ -No old charts were reviewed Differential Diagnosis (chest pain, altered mental status, abdominal pain women, abdominal pain men, vaginal bleeding, weakness, fever, dyspnea, syncope, headache, dizziness, GI bleed, back pain, seizure, CVA, palpatations, mental health, musculoskeletal)? @ -not applicable EKG interpreted by me (3pts min.). @ -EKG: Sinus tachycardia versus atrial fibrillation, rate of 126, QRS duration 116, QTC 443 X-rays interpreted by me (1pt min.). @ -[Chest x-ray shows hyperinflation without pneumothorax or focal pneumonia CT interpreted by me (1pt min.). @ -None done U/S interpreted by me (1pt. min.). @ -None done What testing was considered but not performed or refused? (CT, X-rays, U/S, labs)? Why? @ -None What meds were considered but not given or refused? Why? @ -None Did you discuss the management of the patient with other professionals (yury vail i.e. , PA, SODA DISPENSER, lab, RT, psych nurse, director of social media marketing, pump station operator, teacher, intelligence officer basic, residential case manager)? Give summary @ -[Dr. Samayoa and Dr. Chavez Was smoking cessation discussed for >3mins.? @ -No Was critical care preformed (if so, how long)? @ -[Yes, 35 minutes Were there social determinants of health that impacted care today? How? (Homelessness, low income, unemployed, alcoholism, drug addiction, transportation, low edu. Level, literacy, decrease access to med. care, residential, rehab)? @ -No Was there de-escalation of care discussed even if they declined (Discuss DNR or withdrawal of care, Hospice)? DNR status @ -No What co-morbidities impacted this encounter? (DM, HTN, Smoking, COPD, CAD, Cancer, CVA, ARF, Chemo, Hep., AIDS, mental health diagnosis, sleep apnea, morbid obesity)? @ -COPD Was patient admitted / discharged? Hospital course, mention meds given and route, prescriptions, significant lab abnormalities, going to OR and other pertinent info. @ -[73-year-old female with severe respiratory distress, hypoxia requiring BiPAP for respiratory support. Patient had been given albuterol, Atrovent, Solu-Medrol prior to arrival. She denies chest pain. States her symptoms have been progressive over the past one week. She is on home oxygen normally. Denies fever. She has a normal CBC, CMP shows hyperglycemia. She has minimally elevated troponin 0.046. This is trended and is significantly elevated on second draw. Patient started on heparin and given aspirin while in the emergency department. This may be related to hypoxia versus a primary cardiac event. She has no active chest pain. Undiagnosed new problem with uncertain prognosis? @ -No Drug Therapy requiring intensive monitoring for toxicity (Heparin, Nitro, Insulin, Cardizem)? @ -No Were any procedures done? @ -No Diagnosis/symptom? @ -COPD exacerbation with respiratory failure, troponin elevation, NSTEMI Acute, or Chronic, or Acute on Chronic? @ -[acute Uncomplicated (without systemic symptoms) or Complicated (systemic symptoms)? @ -[complicated Side effects of treatment? @ -No Exacerbation, Progression, or Severe Exacerbation? @ -No Poses a threat to life or bodily function? How? (Chest pain, [place], [place], pneumonia, PE, COPD, DKA, ARF, appy, cholecystitis, CVA, Diverticulitis, Homicidal, Suicidal, threat to staff... and all critical care pts) @ -[Yes, COPD with respiratory failure, cardiac ischemia - Lab Data Result diagrams: 07/28/23 23:51 07/28/23 23:51 Lab Results 07/28/23 07/28/23 07/28/23 Range/Units 23:49 23:51 23:51 WBC 12.4 H (3.8-10.6) k/uL RBC 4.61 (3.80-5.40) m/uL Hgb 13.8 (11.4-16.0) gm/dL Hct 43.8 (34.0-46.0) % MCV 94.8 (80.0-100.0) fL MCH 30.0 (25.0-35.0) pg MCHC 31.6 (31.0-37.0) g/dL RDW 13.9 (11.5-15.5) % Plt Count 232 (150-450) k/uL MPV 8.5 Neutrophils % 46 % Lymphocytes % 32 % Monocytes % 4 % Eosinophils % 15 % Basophils % 0 % Neutrophils # 5.7 (1.3-7.7) k/uL Lymphocytes # 4.0 (1.0-4.8) k/uL Monocytes # 0.5 (0-1.0) k/uL Eosinophils # 1.8 H (0-0.7) k/uL Basophils # 0.1 (0-0.2) k/uL PT 9.9 (9.0-12.0) sec INR 0.9 (<1.2) APTT 21.8 L (22.0-30.0) sec Sodium (137-145) mmol/L Potassium (3.5-5.1) mmol/L Chloride (98-107) mmol/L Carbon Dioxide (22-30) mmol/L Anion Gap mmol/L BUN (7-17) mg/dL Creatinine (0.52-1.04) mg/dL Est GFR (CKD-EPI)AfAm (>60 ml/min/1.73 sqM) Est GFR (CKD-EPI)NonAf (>60 ml/min/1.73 sqM) Glucose (74-99) mg/dL POC Glucose (mg/dL) 256 H (70-110) mg/dL POC Glu [employer] Woodworker ID Jose Alberto Mccallum Plasma Lactic Acid Mitesh (0.7-2.0) mmol/L Calcium (8.4-10.2) mg/dL Magnesium (1.6-2.3) mg/dL Total Bilirubin (0.2-1.3) mg/dL AST (14-36) U/L ALT (4-34) U/L Alkaline Phosphatase (38-126) U/L Troponin I (0.000-0.034) ng/mL NT-Pro-B Natriuret Pep pg/mL Total Protein (6.3-8.2) g/dL Albumin (3.5-5.0) g/dL 07/28/23 07/28/23 07/28/23 Range/Units 23:51 23:51 23:51 WBC (3.8-10.6) k/uL RBC (3.80-5.40) m/uL Hgb (11.4-16.0) gm/dL Hct (34.0-46.0) % MCV (80.0-100.0) fL MCH (25.0-35.0) pg MCHC (31.0-37.0) g/dL RDW (11.5-15.5) % Plt Count (150-450) k/uL MPV Neutrophils % % Lymphocytes % % Monocytes % % Eosinophils % % Basophils % % Neutrophils # (1.3-7.7) k/uL Lymphocytes # (1.0-4.8) k/uL Monocytes # (0-1.0) k/uL Eosinophils # (0-0.7) k/uL Basophils # (0-0.2) k/uL PT (9.0-12.0) sec INR (<1.2) APTT (22.0-30.0) sec Sodium 140 (137-145) mmol/L Potassium 4.2 (3.5-5.1) mmol/L Chloride 106 (98-107) mmol/L Carbon Dioxide 22 (22-30) mmol/L Anion Gap 12 mmol/L BUN 13 (7-17) mg/dL Creatinine 0.80 (0.52-1.04) mg/dL Est GFR (CKD-EPI)AfAm 85 (>60 ml/min/1.73 sqM) Est GFR (CKD-EPI)NonAf 74 (>60 ml/min/1.73 sqM) Glucose 255 H (74-99) mg/dL POC Glucose (mg/dL) (70-110) mg/dL POC Glu Airplane Woodworker ID Plasma Lactic Acid Mitesh 1.3 (0.7-2.0) mmol/L Calcium 9.2 (8.4-10.2) mg/dL Magnesium 2.1 (1.6-2.3) mg/dL Total Bilirubin 0.4 (0.2-1.3) mg/dL AST 42 H (14-36) U/L ALT 35 H (4-34) U/L Alkaline Phosphatase 101 (38-126) U/L Troponin I 0.046 H* (0.000-0.034) ng/mL NT-Pro-B Natriuret Pep 1020 pg/mL Total Protein 7.3 (6.3-8.2) g/dL Albumin 4.3 (3.5-5.0) g/dL Critical Care Time Total Critical Care Time: 35 Disposition Clinical Impression: COPD exacerbation, Elevated troponin I level Disposition: ADMITTED IP TO THIS HOSP Condition: Serious Is patient prescribed a controlled substance at d/c from ED?: No Time of Disposition: 03:09
[2023-07-29 00:18] LABS: ALT 35 U/L (4-34); AST 42 U/L (14-36); African American GFR (CKD) 85 (>60 ml/min/1.73 sqM); Albumin 4.3 g/dL (3.5-5.0); Alkaline Phosphatase 101 U/L (38-126); Anion Gap 12 mmol/L; Blood Urea Nitrogen 13 mg/dL (7-17); Calcium 9.2 mg/dL (8.4-10.2); Carbon Dioxide 22 mmol/L (22-30); Chloride 106 mmol/L (98-107); Glucose 255 mg/dL (74-99); Magnesium 2.1 mg/dL (1.6-2.3); Non-African American GFR(CKD) 74 (>60 ml/min/1.73 sqM); Potassium 4.2 mmol/L (3.5-5.1); Sodium 140 mmol/L (137-145); Total Bilirubin 0.4 mg/dL (0.2-1.3); Total Protein 7.3 g/dL (6.3-8.2)
[2023-07-29 00:19] LABS: Basophils # (A) 0.1 k/uL (0-0.2); Basophils % (A) 0 %; Eosinophils # (A) 1.8 k/uL (0-0.7); Eosinophils % (A) 15 %; HCT 43.8 % (34.0-46.0); HGB 13.8 gm/dL (11.4-16.0); Lymphocytes % (A) 32 %; MCHC 31.6 g/dL (31.0-37.0); MCV 94.8 fL (80.0-100.0); Mean Platelet Volume 8.5; Monocytes # (A) 0.5 k/uL (0-1.0); Monocytes % (A) 4 %; Neutrophils # (A) 5.7 k/uL (1.3-7.7); Neutrophils % (A) 46 %; Platelet Count 232 k/uL (150-450); RBC 4.61 m/uL (3.80-5.40); RDW 13.9 % (11.5-15.5); WBC 12.4 k/uL (3.8-10.6)
[2023-07-29 00:26] LABS: NT-Pro-B-Type Natriuretic Pept 1020 pg/mL
[2023-07-29 00:32] LABS: INR 0.9 (<1.2); Partial Thromboplastin Time 21.8 sec (22.0-30.0); Prothrombin Time 9.9 sec (9.0-12.0)
[2023-07-29] MEDS ORDERED: NALOXONE 0.4 MG/ML 1 ML VIAL IVP PRN (01:36)
[2023-07-29] MEDS ORDERED: AZITHROMYCIN 500 MG in SODIUM CHLORIDE 0.9% 250 ML IVPB STA (01:38)
[2023-07-29] MEDS: SODIUM CHLORIDE 0.9% 1,000 ML IV SCH ×3 (01:53→23:57)
[2023-07-29] MEDS: IPRATROPIUM-ALBUTEROL 3 ML NEB INHALATION PRN ×2 (01:59→05:52)
--- NOTE | 2023-07-29 02:39 | XR ---
EXAM: XR Chest, 1 View CLINICAL HISTORY: XR Reason: SOB TECHNIQUE: Frontal view of the chest. COMPARISON: July 09, 2023 FINDINGS: Lungs: The lungs are hyperinflated with coarse interstitial markings throughout both lungs, similar to previous consistent with emphysema. No new infiltrate is identified. Pleural space: Unremarkable. No pneumothorax. Heart: The cardiac silhouette is mildly enlarged. Mediastinum: Unremarkable. Bones/joints: Mild osteophytosis in the lower thoracic spine. Upper abdomen: There is no pneumoperitoneum under the diaphragm. IMPRESSION: The lungs are hyperinflated with coarse interstitial markings throughout both lungs, similar to previous consistent with emphysema. No new infiltrate is identified.
[2023-07-29] MEDS ORDERED: ASPIRIN 325 MG TAB PO STA (02:58)
[2023-07-29] MEDS ORDERED: HEPARIN SODIUM 1,000 UN/ML (10ML VL) IV ONE (02:58)
[2023-07-29] MEDS ORDERED: HEPARIN SODIUM 1,000 UN/ML (10ML VL) IV PRN (02:58)
[2023-07-29] MEDS: HEPARIN SOD,PORK IN 0.45% NACL 25,000 UNIT in 0.45% NACL 1 250ML.BAG IV SCH (03:11)
[2023-07-29] MEDS: methylPREDNISolone SOD SUCCI 125 MG/2 ML VIAL IV SCH ×4 (05:42→23:57)
[2023-07-29] MEDS: IPRATROPIUM-ALBUTEROL 3 ML NEB INHALATION SCH ×4 (07:30→22:07)
[2023-07-29] MEDS: NICOTINE 21MG/24HR PATCH TRANSDERM SCH (08:13)
[2023-07-29] MEDS: ALPRAZolam 0.5 MG TAB PO PRN ×2 (08:13→16:41)
[2023-07-29] MEDS ORDERED: DEXTROSE 50% SYRINGE 50 ML IVP PRN ×2 (09:25)
[2023-07-29 09:58] LABS: Glucose,Whole Blood 175 mg/dL (70-110)
[2023-07-29] MEDS: INSULIN ASPART (NovoLOG) 100 UNIT/ML VIAL SQ SCH ×4 (10:05→21:46)
[2023-07-29] MEDS: AZITHROMYCIN 500 MG in SODIUM CHLORIDE 0.9% 250 ML IVPB SCH (10:06)
[2023-07-29] MEDS: guaiFENesin 600 MG TABLET.ER PO SCH ×2 (10:07→21:46)
--- NOTE | 2023-07-29 10:57 | CONS ---
CONSULTATION CHIEF COMPLAINT: Elevated troponin. HISTORY OF PRESENT ILLNESS: Valerie is a 73-year-old lady with history of mll-yiloajc-mpycgnjsu diabetes, severe COPD, and dyslipidemia, who presented to hospital with shortness of breath. The patient has been becoming progressively more short of breath at home. EMS was called. The patient's O2 saturations were in the 70s, was placed on CPAP, given albuterol, Atrovent, and Solu-Medrol and was brought to the ER. She has been having progressively worsening cough and shortness of breath for the last 1 week. Her admission EKG revealed sinus tachycardia with poor R-wave progression, left axis deviation. Her troponins were elevated at 0.04, 0.3, and 0.5 and BNP was elevated at 1020. The patient's troponin elevation seems to be related to COPD exacerbation. I will obtain a 2D echo on her tomorrow, limited echo to assess her LV function and wall motion. If these are normal, the heparin can be stopped. At the time of my evaluation, the patient has a BiPAP on and is resting comfortably. PAST MEDICAL HISTORY: Significant for hypertension, diabetes, dyslipidemia, and COPD. CURRENT MEDICATIONS: Include: 1. Prednisone. 2. Glucotrol-XL 2.5 mg daily. 3. David-Dur. 4. VESIcare. 5. Omeprazole. 6. Singulair. 7. Combivent. 8. DuoNeb. 9. Flonase. 10.Lipitor. 11.Vitamin C. ALLERGIES: There are no known drug allergies. FAMILY HISTORY: Negative for premature coronary artery disease. SOCIAL HISTORY: Negative for current smoking. REVIEW OF SYSTEMS: 14 out of 14 review of systems has been performed. Pertinents are as documented in History of Presenting Illness. PHYSICAL EXAMINATION: VITAL SIGNS: The patient is afebrile. Heart rate is 110 beats per minute. Respiratory rate is 24. Blood pressure is 102/76. NECK: There is no jugular venous distention. Carotid upstroke is normal. There is no bruit. CHEST: Reveals diminished air entry at the bases. HEART: Reveals first and second heart sounds. Systolic murmur at the apex. ABDOMEN: Soft. EXTREMITIES: Did not reveal any edema. Peripheral pulses are felt. LABORATORY DATA: Labs show a hemoglobin of 13.8, platelet count is 230. Potassium is 4.2. Troponin is 0.04, 0.3, and 0.5. BNP is 1020. A chest x-ray showed no evidence of congestive heart failure. ASSESSMENT: 1. Troponin elevation secondary to respiratory distress and chronic obstructive pulmonary disease exacerbation, probably related to supply-demand mismatch. 2. Chronic obstructive pulmonary disease exacerbation. PLAN: The patient will be continued on IV heparin. I will obtain a 2D echo in the morning. MMODL / IJN: [id number] /
--- NOTE | 2023-07-29 11:07 | P.CNPUL ---
History of Present Illness Consult date: 07/29/23 Requesting physician: Curtis Samayoa Reason for consult: dyspnea, COPD Chief complaint: Shortness of breath History of present illness: This is a pleasant 73-year-old female patient with a known history of hyperlipidemia, diabetes mellitus, chronic and ongoing tobacco dependence, chronic obstructive pulmonary disease. Her FEV1 value 71% of predicted. She's been maintained on Combivent and albuterol in the outpatient setting. She presented here to the emergency room last evening by EMS for a 1 week history of worsening shortness of breath. She was found to be hypoxemic in the 70s and pl aced on CPAP given updraft treatments and steroids and transit. She is seen today in consultation in the emergency department. She is currently sitting up on a stretcher. Quite anxious and short of breath. Currently on BiPAP 12/6 and 45% FiO2. Chest x-ray reveals hyperinflated lungs with coarse interstitial markings consistent with emphysema. No acute infiltrate noted. No pneumothorax. White count 12.4. Hemoglobin 13.8. Platelets 232. INR 0.9. Sodium 140. Potassium 4.2. Bicarb 22. BUN 13. Creatinine 0.80. Glucose 255. AST 42. ALT 35. Troponin 0.046, 0.386, 0.504. ProBNP 1020. She is currently on a heparin drip. Initiated and DuoNeb inhalations, Symbicort, Solu-Medrol. Antibiotics in the form of ceftriaxone and azithromycin. Procalcitonin pending. NicoDerm patch in place. Normal saline at 75 ML's per hour. Review of Systems REVIEW OF SYSTEMS: CONSTITUTIONAL: Denies any recent significant weight loss or weight gain. EYES: Denies change in vision. EARS, NOSE, MOUTH, THROAT: Denies headaches, denies sore throat. CARDIOVASCULAR: Denies chest pain, palpitations or syncopal episodes. RESPIRATORY: Positive for shortness of breath, cough, congestion no hemoptysis. GASTROINTESTINAL: Denies change in appetite, denies abdominal pain GENITOURINARY: Denies hematuria, denies infections. MUSKULOSKELETAL: Denies pain, denies swelling. INTEGUMENTARY: Denies rash, denies eczema. NEUROLOGICAL: Denies recent memory loss, no recent seizure activity. PSYCHIATRIC: Positive for anxiety, denies depression. HEMATOLOGIC/LYMPHATIC: Denies anemia, denies enlarged lymph nodes. Past Medical History Past Medical History: COPD, Diabetes Mellitus History of Any Multi-Drug Resistant Organisms: None Reported Past Surgical History: No Surgical Hx Reported, Hysterectomy Additional Past Surgical History / Comment(s): bladder suspension Past Anesthesia/Blood Transfusion Reactions: No Reported Reaction Past Psychological History: No Psychological Hx Reported Smoking Status: Current every day smoker Past Alcohol Use History: None Reported Past Drug Use History: None Reported Medications and Allergies Home Medications Medication Instructions Recorded Confirmed Type Ascorbic Acid [Vitamin C] 1,000 mg PO DAILY 05/09/22 05/09/22 History Atorvastatin [Lipitor] 20 mg PO DAILY 05/09/22 05/09/22 History Clobetasol Propionate [Temovate 1 applic TOPICAL DAILY 05/09/22 05/09/22 History 0.05% Oint] Fluticasone Nasal [place] [Flonase 2 spray EA NOSTRIL DAILY PRN 05/09/22 05/09/22 History Nasal [place]] Ibuprofen [Motrin] 800 mg PO BID PRN 05/09/22 05/09/22 History Ipratropium-Albuterol Nebulize 3 ml INHALATION RT-QID 05/09/22 05/09/22 History [Duoneb 0.5 mg-3 mg/3 ml Soln] Ipratropium/Albuter 20-100Mcg 1 puff INHALATION RT-QID PRN 05/09/22 05/09/22 History [Combivent Respimat 20-100Mcg Inhaler] Linaclotide [Linzess] 290 mcg PO AC-BRKFST 05/09/22 05/09/22 History Montelukast Sodium [Singulair] 10 mg PO HS 05/09/22 05/09/22 History Omeprazole 20 mg PO HS 05/09/22 05/09/22 History Solifenacin Succinate [Vesicare] 10 mg PO DAILY 05/09/22 05/09/22 History Theophylline 12 Hour [David-Dur] 300 mg PO BID 05/09/22 05/09/22 History glipiZIDE XL [Glucotrol XL] 2.5 mg PO DAILY 05/09/22 05/09/22 History cefUROXime axetiL [Cefuroxime] 500 mg PO BID 7 Days #14 tab 05/11/22 Rx predniSONE 10 mg PO DAILY 12 Days #30 tab 05/11/22 Rx dexAMETHasone [Decadron] 10 mg PO ONCE #2.5 tab 07/09/23 Rx Allergies Allergy/AdvReac Type Severity Reaction Status Date / Time No Known Allergies Allergy Verified 07/09/23 17:41 Physical Exam Vitals: Vital Signs Temp Pulse Resp BP Pulse Ox FiO2 07/29/23 10:14 107 H 22 117/73 95 07/29/23 10:10 97 07/29/23 08:19 97.5 F L 110 H 24 102/76 94 L 07/29/23 07:39 105 H 07/29/23 07:29 100 07/29/23 07:26 45 07/29/23 06:03 109 H 07/29/23 05:54 106 H 45 07/29/23 05:00 110 H 24 93/67 97 07/29/23 03:00 103 H 24 97/66 98 07/29/23 02:12 115 H 07/29/23 02:05 65 07/29/23 02:02 113 H 07/29/23 00:38 108 H 23 100/62 97 07/29/23 00:00 125 H 65 07/28/23 23:45 120 H 07/28/23 23:38 35 H 85 07/28/23 23:32 97.6 F 131 H 36 H 132/82 97 Intake and Output 07/28/23 07/29/23 07/29/23 22:59 06:59 14:59 Other: Weight 65.771 kg GENERAL EXAM: Alert, thin, anxious 73-year-old female, on BiPAP 12/6 and 45% FiO 2, in mild respiratory distress. HEAD: Normocephalic. EYES: Normal reaction of pupils, equal size. NOSE: Clear with pink turbinates. THROAT: No erythema or exudates. NECK: No masses, no JVD. CHEST: No chest wall deformity. LUNGS: Equal air entry with bilateral end expiratory wheeze, diminished. CVS: S1 and S2 normal with no audible murmur, regular rhythm. ABDOMEN: No hepatosplenomegaly, normal bowel sounds, no guarding or rigidity. SPINE: No scoliosis or deformity SKIN: No rashes CENTRAL NERVOUS SYSTEM: No focal deficits, tone is normal in all 4 extremities. EXTREMITIES: There is no peripheral edema. No clubbing, no cyanosis. Peripheral pulses are intact. Results - Laboratory Findings CBC and BMP: 07/28/23 23:51 07/28/23 23:51 PT/INR, D-dimer PT 9.9 sec (9.0-12.0) 07/28/23 23:51 INR 0.9 (<1.2) 07/28/23 23:51 Abnormal lab findings: Abnormal Labs 07/28/23 07/28/23 07/28/23 23:49 23:51 23:51 WBC 12.4 H Eosinophils # 1.8 H APTT 21.8 L Glucose POC Glucose (mg/dL) 256 H AST ALT Troponin I 07/28/23 07/28/23 07/29/23 23:51 23:51 02:20 WBC Eosinophils # APTT Glucose 255 H POC Glucose (mg/dL) AST 42 H ALT 35 H Troponin I 0.046 H* 0.386 H* 07/29/23 07/29/23 05:23 09:56 WBC Eosinophils # APTT Glucose POC Glucose (mg/dL) 175 H AST ALT Troponin I 0.504 H* - Diagnostic Findings Chest x-ray: image reviewed Assessment and Plan Assessment: Acute on chronic hypoxemic respiratory failure secondary to an acute exacerbation of chronic obstructive pulmonary disease. CT angiogram pending Troponin leak secondary to above versus coronary artery disease. Currently on a heparin drip. Echocardiogram pending Chronic and ongoing tobacco dependence of greater than 50 years Oxygen dependent chronic obstructive pulmonary disease Diabetes mellitus, type II Hypertension Carotid artery disease with previous left carotid endarterectomy Plan: The patient was seen and evaluated Chest x-ray, labs and medications reviewed CT angiogram pending Check a pro-calcitonin Titrate down the FiO2 as tolerated Add Symbicort, DuoNeb inhalations, Solu-Medrol Add Xanax Continue heparin drip for now Educated regarding the importance of complete smoking cessation NicoDerm patch ordered We will continue to follow and make further recommendations based on her clinical status I have personally seen and examined the patient, performed the documentation and the assessment and plan as written. Number of minutes spent on the visit: 20.
--- NOTE | 2023-07-29 11:23 | CT ---
EXAMINATION TYPE: CT chest angio for PE DATE OF EXAM: 07/29/2023 COMPARISON: Chest x-ray from one day earlier HISTORY: PE. Hypoxemia. CT DLP: 247.5 mGycm. Automated Exposure Control for Dose Reduction was Utilized. CONTRAST: CTA scan of the thorax is performed with IV Contrast, patient injected with 65 mL of Isovue 370, pulm onary embolism protocol. MIP Images are created on CT scanner and reviewed. FINDINGS: LUNGS: At least moderate emphysematous change in the upper lungs is present bilaterally. Mild bibasil ar linear scarring and/or atelectasis. No pleural effusion or pneumothorax seen bilaterally MEDIASTINUM: There is satisfactory enhancement of the pulmonary artery and its branches, there is no CT evidence for pulmonary embolism. Some confluent prominent bilateral hilar lymph nodes. No abnormal mediastinal adenopathy. No cardiomegaly or pericardial effusion is seen. Moderate to severe three-v essel coronary artery calcification is present. Moderate calcified plaque of the aorta extends into b [place] vessels OTHER: Cholecystectomy clips are present.. IMPRESSION: 1. No CT evidence for acute pulmonary embolism. 2. At least moderate emphysematous change in the upper lungs. No suspicious acute pulmonary process.
--- NOTE | 2023-07-29 13:14 | P.HPIM ---
History of Present Illness H&P Date: 07/29/23 Chief Complaint: Shortness of breath * 73-year-old lady with past medical history significant for diabetes mellitus, chronic tobacco use, carotid artery stenosis, COPD, hypertension, history of multifocal atrial tachycardia presents to the emergency department with complains of shortness of breath. Patient was noted to be in respiratory distress and was transported by EMS noted to be hypoxic with SpO2 and 70s. was given breathing treatment including albuterol, Solu-Medrol and Atrovent on her way to the emergency. * Workup initiated in ER included a chest x-ray which showed hyperinflated lungs with interstitial marking. CBC showed WBC 12.4, normal hemoglobin and platelet count. Eosinophil count of 1.8. Serum chemistry obtained showed sodium 140 potassium 4.2 carbon dioxide 20 to be and 13 creatinine 0.8 lactate 1.3 * Initial troponin 0.046, followed by 0.386, 0.504. N-terminal proBNP 1020 * Patient noted to have persistent hypoxia, started on IV heparin with consultation from pulmonary medicine and cardiology * On assessment patient says she has been having shortness of breath for the last 2 days, patient did complain of chest pressure that resolved. Patient denies of any sick contacts. Does complain of cough with productive phlegm. Denies fever chills nausea or diarrhea REVIEW OF SYSTEMS: Cough, Shortness sof breath CONSTITUTIONAL: No fever, no malaise, no fatigue. HEENT: No recent visual problems or hearing problems. Denied any sore throat. CARDIOVASCULAR: No chest pain, orthopnea, PND, no palpitations, no syncope. PULMONARY: Cough, Shortness sof breath GASTROINTESTINAL: No diarrhea, no nausea, no vomiting, no abdominal pain. NEUROLOGICAL: No headaches, no weakness, no numbness. HEMATOLOGICAL: Denies any bleeding or petechiae. GENITOURINARY: Denies any burning micturition, frequency, or urgency. ENDOCRINE: Denies any polyuria or polydipsia. PHYSICAL EXAMINATION: GENERAL: The patient is alert and oriented x 3, not in any acute distress. Well developed, well nourished. HEENT: Pupils are round and equally reacting to light. CARDIOVASCULAR: S1 and S2 present. Tachycardia PULMONARY: Decreased breath sounds bilaterally, wheezing audible use assessing muscle nasal cannula in place ABDOMEN: Soft, nontender, nondistended, normoactive bowel sounds. No palpable organomegaly. MUSCULOSKELETAL: No joint swelling or deformity. EXTREMITIES: No cyanosis, clubbing, or pedal edema. NEUROLOGICAL: Gross neurological examination did not reveal any focal deficits. Past Medical History Past Medical History: COPD, Diabetes Mellitus History of Any Multi-Drug Resistant Organisms: None Reported Past Surgical History: No Surgical Hx Reported, Hysterectomy Additional Past Surgical History / Comment(s): bladder suspension Past Anesthesia/Blood Transfusion Reactions: No Reported Reaction Past Psychological History: No Psychological Hx Reported Smoking Status: Current every day smoker Past Alcohol Use History: None Reported Past Drug Use History: None Reported Medications and Allergies Home Medications Medication Instructions Recorded Confirmed Type Atorvastatin [Lipitor] 20 mg PO DAILY 05/09/22 07/29/23 History Clobetasol Propionate [Temovate 1 applic TOPICAL DAILY 05/09/22 07/29/23 History 0.05% Oint] Ibuprofen [Motrin] 800 mg PO BID PRN 05/09/22 07/29/23 History Ipratropium-Albuterol Nebulize 3 ml INHALATION RT-QID PRN 05/09/22 07/29/23 History [Duoneb 0.5 mg-3 mg/3 ml Soln] Ipratropium/Albuter 20-100Mcg 1 puff INHALATION RT-QID PRN 05/09/22 07/29/23 History [Combivent Respimat 20-100Mcg Inhaler] Montelukast Sodium [Singulair] 10 mg PO HS 05/09/22 07/29/23 History Omeprazole 20 mg PO HS 05/09/22 07/29/23 History Solifenacin Succinate [Vesicare] 10 mg PO DAILY 05/09/22 07/29/23 History Theophylline 12 Hour [David-Dur] 300 mg PO BID 05/09/22 07/29/23 History Albuterol Nebulized [Ventolin 2.5 mg INHALATION RT-Q6H PRN 07/29/23 07/29/23 History Nebulized] Albuterol Sulfate [Albuterol 1 - 2 puff PO RT-Q6H PRN 07/29/23 07/29/23 History Sulfate Hfa] Budesonide [Pulmicort] 0.5 mg INHALATION RT-BID 07/29/23 07/29/23 History Cetirizine HCl [Zyrtec] 10 mg PO DAILY 07/29/23 07/29/23 History Clopidogrel [Plavix] 75 mg PO DAILY 07/29/23 07/29/23 History Allergies Allergy/AdvReac Type Severity Reaction Status Date / Time No Known Allergies Allergy Verified 07/29/23 11:12 Physical Exam Vitals: Vital Signs Temp Pulse Resp BP Pulse Ox FiO2 07/29/23 08:19 97.5 F L 110 H 24 102/76 94 L 07/29/23 07:39 105 H 07/29/23 07:29 100 07/29/23 07:26 45 07/29/23 06:03 109 H 07/29/23 05:54 106 H 45 07/29/23 05:00 110 H 24 93/67 97 07/29/23 03:00 103 H 24 97/66 98 07/29/23 02:12 115 H 07/29/23 02:05 65 07/29/23 02:02 113 H 07/29/23 00:38 108 H 23 100/62 97 07/29/23 00:00 125 H 65 07/28/23 23:45 120 H 07/28/23 23:38 35 H 85 07/28/23 23:32 97.6 F 131 H 36 H 132/82 97 Intake and Output 07/28/23 07/29/23 07/29/23 22:59 06:59 14:59 Other: Weight 65.771 kg Results CBC & Chem 7: 07/28/23 23:51 07/28/23 23:51 Labs: Abnormal Lab Results - Last 24 Hours (Table) 07/28/23 07/28/23 07/28/23 Range/Units 23:49 23:51 23:51 WBC 12.4 H (3.8-10.6) k/uL Eosinophils # 1.8 H (0-0.7) k/uL APTT 21.8 L (22.0-30.0) sec Glucose (74-99) mg/dL POC Glucose (mg/dL) 256 H (70-110) mg/dL AST (14-36) U/L ALT (4-34) U/L Troponin I (0.000-0.034) ng/mL 07/28/23 07/28/23 07/29/23 Range/Units 23:51 23:51 02:20 WBC (3.8-10.6) k/uL Eosinophils # (0-0.7) k/uL APTT (22.0-30.0) sec Glucose 255 H (74-99) mg/dL POC Glucose (mg/dL) (70-110) mg/dL AST 42 H (14-36) U/L ALT 35 H (4-34) U/L Troponin I 0.046 H* 0.386 H* (0.000-0.034) ng/mL 07/29/23 Range/Units 05:23 WBC (3.8-10.6) k/uL Eosinophils # (0-0.7) k/uL APTT (22.0-30.0) sec Glucose (74-99) mg/dL POC Glucose (mg/dL) (70-110) mg/dL AST (14-36) U/L ALT (4-34) U/L Troponin I 0.504 H* (0.000-0.034) ng/mL Assessment and Plan Assessment: Assessment and plan Non-ST elevated NE Acute exacerbation of COPD with tracheobronchitis Multifocal pneumonia Diabetes mellitus type 2 History of multifocal atrial tachycardia Sepsis secondary to COPD/pneumonia * Consult, pulmonary medicine and cardiology * Serial troponins obtained, started on IV heparin for elevated troponin, echocardiogram ordered continue telemetry monitoring him a CT chest negative for pulmonary embolism * For COPD continue IV Solu-Medrol, continue Rocephin and azithromycin * For multifocal pneumonia follow-up on urine Legionella, continue Rocephin and azithromycin * For diabetes mellitus continue Accu-Cheks every 4 hours, continue correctional insulin * For sepsis follow-up on blood cultures, continue with fluid resuscitation
[2023-07-29 13:59] LABS: Glucose,Whole Blood 135 mg/dL (70-110)
[2023-07-29] MEDS: ACETAMINOPHEN TAB 325 MG TAB PO PRN (16:41)
[2023-07-29 17:11] LABS: Glucose,Whole Blood 167 mg/dL (70-110)
[2023-07-29 21:11] LABS: Glucose,Whole Blood 179 mg/dL (70-110)
[2023-07-29] MEDS: SYMBICORT 160-4.5 MCG INHALER INHALATION SCH (22:07)
[2023-07-30] MEDS: INSULIN ASPART (NovoLOG) 100 UNIT/ML VIAL SQ SCH ×6 (01:04→23:32)
[2023-07-30 01:05] LABS: Glucose,Whole Blood 141 mg/dL (70-110)
[2023-07-30] MEDS: ALPRAZolam 0.5 MG TAB PO PRN ×4 (02:03→23:33)
[2023-07-30] MEDS: IPRATROPIUM-ALBUTEROL 3 ML NEB INHALATION PRN (02:06)
[2023-07-30 04:52] LABS: Glucose,Whole Blood 207 mg/dL (70-110)
[2023-07-30] MEDS: methylPREDNISolone SOD SUCCI 125 MG/2 ML VIAL IV SCH ×4 (05:40→23:32)
[2023-07-30] MEDS: guaiFENesin 600 MG TABLET.ER PO SCH ×2 (08:30→20:05)
[2023-07-30] MEDS: NICOTINE 21MG/24HR PATCH TRANSDERM SCH (08:30)
[2023-07-30] MEDS: HEPARIN SOD,PORK IN 0.45% NACL 25,000 UNIT in 0.45% NACL 1 250ML.BAG IV SCH (08:30)
[2023-07-30 08:47] LABS: Basophils % (A) 0 %; Eosinophils # (A) 0.1 k/uL (0-0.7); Eosinophils % (A) 1 %; Lymphocytes # (A) 0.9 k/uL (1.0-4.8); Lymphocytes % (A) 8 %; MCH 30.2 pg (25.0-35.0); MCHC 31.5 g/dL (31.0-37.0); MCV 95.8 fL (80.0-100.0); Mean Platelet Volume 8.6; Monocytes # (A) 0.5 k/uL (0-1.0); Monocytes % (A) 4 %; Neutrophils # (A) 10.4 k/uL (1.3-7.7); Neutrophils % (A) 86 %; Platelet Count 160 k/uL (150-450); RBC 3.97 m/uL (3.80-5.40); RDW 13.9 % (11.5-15.5)
[2023-07-30 08:51] LABS: Prothrombin Time 10.7 sec (9.0-12.0)
[2023-07-30] MEDS: SYMBICORT 160-4.5 MCG INHALER INHALATION SCH ×2 (08:58→22:39)
[2023-07-30] MEDS: IPRATROPIUM-ALBUTEROL 3 ML NEB INHALATION SCH ×4 (08:58→22:39)
[2023-07-30 09:12] LABS: Glucose,Whole Blood 140 mg/dL (70-110)
[2023-07-30] MEDS: AZITHROMYCIN 500 MG in SODIUM CHLORIDE 0.9% 250 ML IVPB SCH (09:47)
[2023-07-30 09:59] LABS: African American GFR (CKD) >90 (>60 ml/min/1.73 sqM); Anion Gap 6 mmol/L; Blood Urea Nitrogen 32 mg/dL (7-17); C Reactive Protein <0.5 mg/dL (<1.0); Calcium 9.2 mg/dL (8.4-10.2); Carbon Dioxide 24 mmol/L (22-30); Chloride 111 mmol/L (98-107); Glucose 146 mg/dL (74-99); Non-African American GFR(CKD) 86 (>60 ml/min/1.73 sqM); Sodium 141 mmol/L (137-145)
[2023-07-30] MEDS: ASPIRIN 81 MG PO SCH (10:13)
[2023-07-30] MEDS: ATORVASTATIN 40 MG TAB PO SCH (10:14)
--- NOTE | 2023-07-30 10:27 | P.PN ---
Subjective Progress Note Date: 07/30/23 This is a 73-year-old female patient of Dr. Phillips who presented to the ER with complaints of shortness of breath. Patient apparently was experiencing respiratory distress was transported EMS and was found to have an SpO2 in the 70s. Patient has past medical history of diabetes mellitus, nicotine depende nce, carotid artery stenosis, COPD, hypertension, atrial tachycardia. Initial chest x-ray showing hyperinflated lungs. Patient noted to have elevated troponins 0.046, 0.36 and 0.504. Patient was started on heparin drip for elevated troponins cardiology and pulmonary services were consulted. Patient started on IV steroids, DuoNeb breathing treatments azithromycin and Rocephin Dr. Soto's group previously covering We are resuming care patient on 07/30/2023 On 07/30/2023 3 patient is alert and oriented 3 currently resting comfortably in bed on BiPAP. Patient reports some improvement with shortness of breath but does appear to be quite short of breath. She remains on IV Solu-Medrol az ithromycin and Rocephin. Patient also remains on heparin drip per cardiology. Pulmonary and cardiology services are following. Sliding scale coverage. Current vital signs temp 97.5, pulse rate 99, respiratory rate 22, blood pressure 110/72 with a pulse ox of 98% on BiPAP Objective - Vital Signs Vital signs: Vital Signs Temp 97.5 F L 07/30/23 08:19 Pulse 108 H 07/30/23 09:11 Resp 22 07/30/23 08:19 BP 110/72 07/30/23 08:19 Pulse Ox 98 07/30/23 08:19 FiO2 35 07/30/23 08:59 Intake & Output 07/29/23 07/30/23 07/30/23 18:59 06:59 18:59 Intake Total 231.396 Output Total 150 Balance -150 231.396 Weight 65.771 kg Intake: Intake, IV Titration 231.396 Amount Heparin Sod,Pork in 0.45% 231.396 NaCl 25,000 unit In 0.45 % NaCl 1 250ml.bag @ 12 UNITS/KG/HR 7.893 mls/hr IV .Q24H [facility] Rx#: [id number] Output: Urine 150 Other: Voiding Method Bedside Commode External Catheter External Catheter # Voids 1 1 - Exam Head normocephalic Neck supple Lungs tachypnea, expiratory wheezing Heart regular rate and rhythm S1-S2, no rub or gallop Abdomen is soft nontender nondistended positive bowel sounds no hepatosplenomegaly Extremities no edema Neuro alert and orientated to 3 - Labs CBC & Chem 7: 07/30/23 07:40 07/30/23 07:40 Labs: Abnormal Lab Results - Last 24 Hours (Table) 07/29/23 07/29/23 07/29/23 Range/Units 10:16 13:57 17:09 WBC (3.8-10.6) k/uL Neutrophils # (1.3-7.7) k/uL Lymphocytes # (1.0-4.8) k/uL APTT 68.5 H (22.0-30.0) sec Chloride (98-107) mmol/L BUN (7-17) mg/dL Glucose (74-99) mg/dL POC Glucose (mg/dL) 135 H 167 H (70-110) mg/dL 07/29/23 07/30/23 07/30/23 Range/Units 21:09 01:04 04:50 WBC (3.8-10.6) k/uL Neutrophils # (1.3-7.7) k/uL Lymphocytes # (1.0-4.8) k/uL APTT (22.0-30.0) sec Chloride (98-107) mmol/L BUN (7-17) mg/dL Glucose (74-99) mg/dL POC Glucose (mg/dL) 179 H 141 H 207 H (70-110) mg/dL 07/30/23 07/30/23 07/30/23 Range/Units 07:40 07:40 07:40 WBC 12.0 H (3.8-10.6) k/uL Neutrophils # 10.4 H (1.3-7.7) k/uL Lymphocytes # 0.9 L (1.0-4.8) k/uL APTT 56.7 H (22.0-30.0) sec Chloride 111 H (98-107) mmol/L BUN 32 H (7-17) mg/dL Glucose 146 H (74-99) mg/dL POC Glucose (mg/dL) (70-110) mg/dL 07/30/23 Range/Units 09:09 WBC (3.8-10.6) k/uL Neutrophils # (1.3-7.7) k/uL Lymphocytes # (1.0-4.8) k/uL APTT (22.0-30.0) sec Chloride (98-107) mmol/L BUN (7-17) mg/dL Glucose (74-99) mg/dL POC Glucose (mg/dL) 140 H (70-110) mg/dL Assessment and Plan Assessment: 1. Shortness breath secondary to acute exacerbation of COPD with tracheal bronchitis 2. Non-ST elevated HI 3. Chronic and ongoing nicotine dependence 4. Oxygen dependent chronic obstructive pulmonary disease 5. Diabetes mellitus type 2 6. History of essential hypertension 7. Carotid artery disease with previous left carotid endarterectomy Pulmonary and cardiology service is consulted Patient maintained on heparin drip Patient maintained on IV Solu-Medrol, DuoNeb breathing treatments and IV antibiotics Maintained on BiPAP Repeat labs ordered DVT prophylaxis heparin drip. GI prophylaxis Protonix
[2023-07-30 12:03] LABS: Glucose,Whole Blood 248 mg/dL (70-110)
--- NOTE | 2023-07-30 13:04 | P.PN ---
Subjective Progress Note Date: 07/30/23 Principal diagnosis: COPD exacerbation. This is a pleasant 73-year-old female patient with a known history of hyperlipidemia, diabetes mellitus, chronic and ongoing tobacco dependence, chronic obstructive pulmonary disease. Her FEV1 value 71% of predicted. She's been maintained on Combivent and albuterol in the outpatient setting. She presented here to the emergency room last evening by EMS for a 1 week history of worsening shortness of breath. She was found to be hypoxemic in the 70s and placed on CPAP given updraft treatments and steroids and transit. She is seen today in consultation in the emergency department. She is currently sitting up on a stretcher. Quite anxious and short of breath. Currently on BiPAP 12/6 and 45% FiO2. Chest x-ray reveals hyperinflated lungs with coarse interstitial markings consistent with emphysema. No acute infiltrate noted. No pneumothorax. White count 12.4. Hemoglobin 13.8. Platelets 232. INR 0.9. Sodium 140. Potassium 4.2. Bicarb 22. BUN 13. Creatinine 0.80. Glucose 255. AST 42. ALT 35. Troponin 0.046, 0.386, 0.504. ProBNP 1020. She is currently on a heparin drip. Initiated and DuoNeb inhalations, Symbicort, Solu-Medrol. Antibiotics in the form of ceftriaxone and azithromycin. Procalcitonin pending. NicoDerm patch in place. Normal saline at 75 ML's per hour. Progress note dated 07/30/2023. 73-year-old female admitted with a diagnosis of COPD exacerbation. Unfortunately, the patient does continue to smoke cigarettes. She apparently has moderate COPD with an FEV1 that's 71% of predicted. The patient was admitted to the hospital with a COPD exacerbation. Currently, she is on 4 L of oxygen. She's getting BiPAP at 12/6, at 35%. Patient's pro-calcitonin level was low at less than 0.05. Antibiotics were discontinued. White count was 12, hemoglobin 12, hematocrit 38, with a normal platelet count. Sodium 141, potassium 4, chlorides 111, CO2 24, BUN 32, and creatinine 0.7. CT angiogram was negative for pulmonary embolism, showed changes of emphysema, without consolidation, infiltrate, effusion, pneumothorax. Objective - Vital Signs Vital signs: Vital Signs Temp 97.5 F L 07/30/23 08:19 Pulse 106 H 07/30/23 12:49 Resp 28 H 07/30/23 11:16 BP 101/64 07/30/23 11:16 Pulse Ox 97 07/30/23 11:16 FiO2 35 07/30/23 08:59 Intake & Output 07/29/23 07/30/23 07/30/23 18:59 06:59 18:59 Intake Total 231.396 Output Total 150 Balance -150 231.396 Weight 65.771 kg Intake: Intake, IV Titration 231.396 Amount Heparin Sod,Pork in 0.45% 231.396 NaCl 25,000 unit In 0.45 % NaCl 1 250ml.bag @ 12 UNITS/KG/HR 7.893 mls/hr IV .Q24H [facility] Rx#: [id number] Output: Urine 150 Other: Voiding Method Bedside Commode External Catheter External Catheter # Voids 1 1 - Exam No acute distress, oriented 3. Mild conversational dyspnea. No use of acce ssory muscles. HEENT examination is grossly unremarkable. Mucous membranes are moist. No oral lesions. Neck supple. Full range of motion. No adenopathy thyromegaly or neck vein distention. Cardiovascular examination reveals regular rhythm rate. S1-S2 normal. No S3 or S4. No discernible murmur noted. Heart rate is 100 bpm. Lungs reveal coarse, bilateral, inspiratory and expiratory wheezes and rhonchi. No crackles. 4 L saturation 97%. Breath sounds are equal bilaterally, but diminished throughout. Abdomen soft bowel sounds are heard. No masses or tenderness. Extremities are intact. No cyanosis clubbing or edema. Skin is without rash or lesion. Neurologic examination is brief but nonfocal. - Labs CBC & Chem 7: 07/30/23 07:40 07/30/23 07:40 Labs: Abnormal Lab Results - Last 24 Hours (Table) 07/29/23 07/29/23 07/29/23 Range/Units 13:57 17:09 21:09 WBC (3.8-10.6) k/uL Neutrophils # (1.3-7.7) k/uL Lymphocytes # (1.0-4.8) k/uL APTT (22.0-30.0) sec Chloride (98-107) mmol/L BUN (7-17) mg/dL Glucose (74-99) mg/dL POC Glucose (mg/dL) 135 H 167 H 179 H (70-110) mg/dL Hemoglobin A1c (<=6.0) % 07/30/23 07/30/23 07/30/23 Range/Units 01:04 04:50 07:40 WBC (3.8-10.6) k/uL Neutrophils # (1.3-7.7) k/uL Lymphocytes # (1.0-4.8) k/uL APTT (22.0-30.0) sec Chloride (98-107) mmol/L BUN (7-17) mg/dL Glucose (74-99) mg/dL POC Glucose (mg/dL) 141 H 207 H (70-110) mg/dL Hemoglobin A1c 6.4 H (<=6.0) % 07/30/23 07/30/23 07/30/23 Range/Units 07:40 07:40 07:40 WBC 12.0 H (3.8-10.6) k/uL Neutrophils # 10.4 H (1.3-7.7) k/uL Lymphocytes # 0.9 L (1.0-4.8) k/uL APTT 56.7 H (22.0-30.0) sec Chloride 111 H (98-107) mmol/L BUN 32 H (7-17) mg/dL Glucose 146 H (74-99) mg/dL POC Glucose (mg/dL) (70-110) mg/dL Hemoglobin A1c (<=6.0) % 07/30/23 07/30/23 Range/Units 09:09 11:58 WBC (3.8-10.6) k/uL Neutrophils # (1.3-7.7) k/uL Lymphocytes # (1.0-4.8) k/uL APTT (22.0-30.0) sec Chloride (98-107) mmol/L BUN (7-17) mg/dL Glucose (74-99) mg/dL POC Glucose (mg/dL) 140 H 248 H (70-110) mg/dL Hemoglobin A1c (<=6.0) % Assessment and Plan Assessment: Acute on chronic hypoxemic respiratory failure secondary to an acute exacerbation of chronic obstructive pulmonary disease. Troponin leak secondary to above versus coronary artery disease. Currently on a heparin drip. Chronic and ongoing tobacco dependence of greater than 50 years. Oxygen dependent chronic obstructive pulmonary disease. Diabetes mellitus, type II. Hypertension. Carotid artery disease with previous left carotid endarterectomy. Plan: Plan dated 07/30/2023. The patient's CT angiogram was negative for pulmonary embolism. He did not showed infiltrate. The patient did have emphysematous changes on the CT. Antibiotics were discontinued, as appropriate calcitonin level was less than 0.05. The patient was still smoking, and is counseled about the importance of smoking cessation. In addition, she's been on and off of BiPAP, with settings of 12/6, and 35%. We'll continue to follow the patient make recommendations along the way. The patient's overall prognosis remains guarded. She'll follow- up with me in the office. She mentions that she wants to get a portable oxygen concentrator Time with Patient: Less than 30
--- NOTE | 2023-07-30 14:54 | P.PN ---
Subjective Progress Note Date: 07/30/23 History of present illness: This is a 73 year old female with history of diabetes mellitus type 2, severe COPD, dyslipidemia. Patient presented to the hospital due to shortness of breath and low pulse ox. She has had cough and progressively worsening shortness of breath for a week. EKG was sinus tachycardia with poor R-wave progression left axis deviation. Troponins were elevated at 0.04, 0.3 and 0.5. BNP 1020. Troponin elevation is been thought to be related to COPD exacerbation. Patient is seen today in follow-up. She complains of chest tightness with and without coughing. She is on heparin drip which will be discontinued. CTA of the chest was negative for pulmonary embolism. At least moderate emphysematous change in the upper lungs. No suspicious acute pulmonary process. Echocardiogram is pending Physical examination: Gen: This is a 73-year-old female. She is resting but appears to be comfortable. No acute respiratory distress noted. VS: reviewed heart rate 105, blood pressure 101/64. HEENT: Head is atraumatic, normocephalic. Pupils equal, round. Sclerae is ani cteric. NECK: Supple. No JVD. . LUNGS: Bilateral rhonchi. No intercostal retractions. HEART: Regular rate and rhythm. Systolic murmur at the apex. ABDOMEN: Soft No tenderness. EXTREMITIES: No pedal edema. No calf tenderness. NEUROLOGICAL: Patient is awake, alert and oriented x3. Assessment: Troponin elevation secondary to respiratory distress and COPD, supply demand mismatch COPD exacerbation Plan: Discontinue heparin drip Continue medical management Start patient on aspirin 81 mg daily, atorvastatin 40 mg daily Obtain 2-D echocardiogram Further recommendations to follow based upon clinical course Nurse practitioner note has been reviewed, I agree with documented findings and plan of care. Patient was seen and examined. Objective - Vital Signs Vital signs: Vital Signs Temp 97.5 F L 07/30/23 08:19 Pulse 108 H 07/30/23 09:11 Resp 22 07/30/23 08:19 BP 110/72 07/30/23 08:19 Pulse Ox 98 07/30/23 08:19 FiO2 35 07/30/23 08:59 Intake & Output 07/29/23 07/30/23 07/30/23 18:59 06:59 18:59 Intake Total 231.396 Output Total 150 Balance -150 231.396 Weight 65.771 kg Intake: Intake, IV Titration 231.396 Amount Heparin Sod,Pork in 0.45% 231.396 NaCl 25,000 unit In 0.45 % NaCl 1 250ml.bag @ 12 UNITS/KG/HR 7.893 mls/hr IV .Q24H [facility] Rx#: [id number] Output: Urine 150 Other: Voiding Method Bedside Commode External Catheter External Catheter # Voids 1 1 - Labs CBC & Chem 7: 07/30/23 07:40 07/30/23 07:40 Labs: Abnormal Lab Results - Last 24 Hours (Table) 07/29/23 07/29/23 07/29/23 Range/Units 09:56 10:16 13:57 WBC (3.8-10.6) k/uL Neutrophils # (1.3-7.7) k/uL Lymphocytes # (1.0-4.8) k/uL APTT 68.5 H (22.0-30.0) sec POC Glucose (mg/dL) 175 H 135 H (70-110) mg/dL 07/29/23 07/29/23 07/30/23 Range/Units 17:09 21:09 01:04 WBC (3.8-10.6) k/uL Neutrophils # (1.3-7.7) k/uL Lymphocytes # (1.0-4.8) k/uL APTT (22.0-30.0) sec POC Glucose (mg/dL) 167 H 179 H 141 H (70-110) mg/dL 07/30/23 07/30/23 07/30/23 Range/Units 04:50 07:40 07:40 WBC 12.0 H (3.8-10.6) k/uL Neutrophils # 10.4 H (1.3-7.7) k/uL Lymphocytes # 0.9 L (1.0-4.8) k/uL APTT 56.7 H (22.0-30.0) sec POC Glucose (mg/dL) 207 H (70-110) mg/dL 07/30/23 Range/Units 09:09 WBC (3.8-10.6) k/uL Neutrophils # (1.3-7.7) k/uL Lymphocytes # (1.0-4.8) k/uL APTT (22.0-30.0) sec POC Glucose (mg/dL) 140 H (70-110) mg/dL
[2023-07-30 16:47] LABS: Glucose,Whole Blood 187 mg/dL (70-110)
[2023-07-30] MEDS: SODIUM CHLORIDE 0.9% 1,000 ML IV SCH ×2 (17:31→23:38)
[2023-07-30] MEDS: MONTELUKAST 10 MG TAB PO SCH (20:05)
[2023-07-30 23:22] LABS: Glucose,Whole Blood 179 mg/dL (70-110)
[2023-07-31 06:00] LABS: Glucose,Whole Blood 241 mg/dL (70-110)
[2023-07-31] MEDS: methylPREDNISolone SOD SUCCI 125 MG/2 ML VIAL IV SCH ×4 (06:14→23:54)
[2023-07-31] MEDS: INSULIN ASPART (NovoLOG) 100 UNIT/ML VIAL SQ SCH ×4 (06:15→23:54)
[2023-07-31] MEDS: PANTOPRAZOLE 40 MG TABLET PO SCH (06:17)
--- NOTE | 2023-07-31 07:21 | CA ---
Transthoracic Echo Report Name: Valerie Garza Age: 73 Gender: F : 1950 Exam Date: 07/30/2023 15:59 Exam Location: [facility] Ht (in): 63 Wt (lb): 145 Ordering Physician: Reynold Wolfe MD Attending/Referring Phys: [id number], Aiden [employer] Bennie Montanez Procedure CPT: Indications: nstemi Cardiac Hx: Technical Quality: Technically difficult study Contrast 1: Total Dose (mL): Contrast 2: Total Dose (mL): MEASUREMENTS (Male / Female) Normal Values 2D ECHO LV Diastolic Diameter PLAX 4.0 cm 4.2 - 5.9 / 3.9 - 5.3 cm LV Systolic Diameter PLAX 2.9 cm IVS Diastolic Thickness 1.0 cm 0.6 - 1.0 / 0.6 - 0.9 cm LVPW Diastolic Thickness 1.2 cm 0.6 - 1.0 / 0.6 - 0.9 cm LV Relative Wall Thickness 0.6 RV Internal Dim ED PLAX 2.2 cm LVOT Diameter 2.0 cm Aortic Root Diameter 3.0 cm LA Systolic Diameter LX 2.4 cm 3.0 - 4.0 / 2.7 - 3.8 cm LV Diastolic Volume MOD BP 56.7 cm??? 67 - 155 / 56 - 104 cm??? LV Systolic Volume MOD BP 33.9 cm??? 22 - 58 / 19 - 49 cm??? LV Ejection Fraction MOD BP 40.3 % >= 55 % LV Cardiac Index MOD BP 1499.0 cm???/min???m??? LV Diastolic Volume MOD 4C 70.6 cm??? LV Systolic Volume MOD 4C 43.0 cm??? LV Ejection Fraction MOD 4C 39.1 % LV Cardiac Index MOD 4C 1810.5 cm???/min???m??? LV Diastolic Length 4C 7.0 cm LV Systolic Length 4C 5.9 cm LV Diastolic Volume MOD 2C 45.0 cm??? LV Systolic Volume MOD 2C 26.0 cm??? LV Ejection Fraction MOD 2C 42.2 % LV Cardiac Index MOD 2C 1244.5 cm???/min???m??? LV Diastolic Length 2C 7.1 cm LV Systolic Length 2C 6.1 cm LA Volume 27.9 cm??? 18 - 58 / 22 - 52 cm??? DOPPLER AV Peak Velocity 139.6 cm/s AV Peak Gradient 7.8 mmHg MV Peak Velocity 140.2 cm/s MV Peak Gradient 7.9 mmHg MV Mean Velocity 84.7 cm/s MV Mean Gradient 3.4 mmHg MV Velocity Time Integral 30.8 cm Mitral E Point Velocity 107.4 cm/s Mitral A Point Velocity 119.3 cm/s Mitral E to A Ratio 0.9 MV Deceleration Time 192.8 ms MV E' Velocity 12.4 cm/s Mitral E to MV E' Ratio 8.6 TR Peak Velocity 290.9 cm/s TR Peak Gradient 33.9 mmHg Right Ventricular Systolic Press 38.9 mmHg PV Peak Velocity 146.1 cm/s PV Peak Gradient 8.5 mmHg FINDINGS Left Ventricle Normal LVsize and wall thickness. Left ventricular ejection fraction is estimated at 30-35 %. Right Ventricle Normal right ventricular size. RVSP=39mmHg. Right Atrium Normal right atrial size. Left Atrium Normal left atrial size. Mitral Valve Mitral valve thickened. Trace MR. Aortic Valve Aortic valve not well visualized. No aortic valve stenosis or regurgitation. Tricuspid Valve Structurally normal tricuspid valve. Mild TR. Pulmonic Valve Pulmonic valve not well visualized. No pulmonic regurgitation. Pericardium Normal pericardium. Aorta Normal size aortic root CONCLUSIONS LV size is at upper limits of normal. There is decreased contractility involving the anteroapical and inferoapical as well as mid inferior and mid anterior wall. The base of the ventricle seems to contract better. Possibility of this being a apical ballooning syndrome gradient should be considered. Ejection fractions in the 35% range. No pulmonary hypertension no pericardial effusion. No significant abnormality on the Doppler exam Previewed by: Dr. Trevon Cid MD (Electronically Signed) Final Date: 31 July 2023 07:20
[2023-07-31] MEDS: ASPIRIN 81 MG PO SCH (07:29)
[2023-07-31] MEDS: ATORVASTATIN 40 MG TAB PO SCH (07:29)
[2023-07-31] MEDS: NICOTINE 21MG/24HR PATCH TRANSDERM SCH (07:29)
[2023-07-31] MEDS: guaiFENesin 600 MG TABLET.ER PO SCH ×2 (07:29→20:11)
[2023-07-31] MEDS: ALPRAZolam 0.5 MG TAB PO PRN ×3 (07:29→20:11)
[2023-07-31] MEDS: IPRATROPIUM-ALBUTEROL 3 ML NEB INHALATION SCH ×4 (08:38→21:18)
[2023-07-31] MEDS: SYMBICORT 160-4.5 MCG INHALER INHALATION SCH (08:39)
[2023-07-31 08:52] LABS: Basophils % (A) 0 %; Eosinophils # (A) 0.2 k/uL (0-0.7); Eosinophils % (A) 2 %; HCT 35.8 % (34.0-46.0); HGB 11.4 gm/dL (11.4-16.0); Hypochromasia Slight; Lymphocytes # (A) 0.5 k/uL (1.0-4.8); Lymphocytes % (A) 5 %; MCH 30.8 pg (25.0-35.0); MCHC 31.8 g/dL (31.0-37.0); MCV 96.8 fL (80.0-100.0); Monocytes # (A) 0.4 k/uL (0-1.0); Monocytes % (A) 4 %; Neutrophils # (A) 9.2 k/uL (1.3-7.7); Neutrophils % (A) 89 %; Platelet Count 124 k/uL (150-450); RDW 14.5 % (11.5-15.5); WBC 10.4 k/uL (3.8-10.6)
[2023-07-31 09:09] LABS: ALT 37 U/L (4-34); AST 38 U/L (14-36); African American GFR (CKD) >90 (>60 ml/min/1.73 sqM); Albumin 3.7 g/dL (3.5-5.0); Alkaline Phosphatase 64 U/L (38-126); Anion Gap 7 mmol/L; Blood Urea Nitrogen 36 mg/dL (7-17); Calcium 9.1 mg/dL (8.4-10.2); Carbon Dioxide 22 mmol/L (22-30); Chloride 115 mmol/L (98-107); Glucose 151 mg/dL (74-99); Non-African American GFR(CKD) >90 (>60 ml/min/1.73 sqM); Potassium 4.3 mmol/L (3.5-5.1); Sodium 144 mmol/L (137-145); Total Bilirubin 0.3 mg/dL (0.2-1.3); Total Protein 6.3 g/dL (6.3-8.2)
[2023-07-31] MEDS: atenoloL 25 MG TAB PO SCH (09:10)
[2023-07-31] MEDS: AZITHROMYCIN 500 MG in SODIUM CHLORIDE 0.9% 250 ML IVPB SCH (09:10)
[2023-07-31] MEDS: SODIUM CHLORIDE 0.9% 1,000 ML IV SCH ×2 (10:59→23:54)
--- NOTE | 2023-07-31 11:33 | CDI ---
Documentation Clarification Form Date: 07/31/2023 11:03:00 AM From: Kelsey Rivera RN CCDS Phone: [phone] Admit Date: 07/29/2023 01:37:00 AM Patient Name: Valerie Garza Visit Number: [id number] Discharge Date: ATTENTION: The Clinical Documentation Specialists (CDI) and [facility] Coding Staff appreciate your assistance in clarifying documentation. Please respond to the clarification below the line at the bottom and electronically sign. The CDI & [facility] Coding staff will review the response and follow-up if needed. Please note: Queries are made part of the Legal Health Record. If you have any questions, please contact the author of this message via ITS. Dr. Shea Lujan Sepsis is documented H&P, 07/29, but is not noted in subsequent documentation. Clarification is requested. History/Risk Factors: 73-year-old female presents to the ED in respiratory distress and was transported by EMS noted to be hypoxic with SpO2 and 70s. Medical History: COPD, DM, Smoker and chronic respiratory failure. 07/29, H&P 07/29 Clinical Indicators: 07/28 VVS: B/P 132/82; HR 131; Temp 97.6F Axillary; RR 36; SpO2 97% BiPAP 07/28 Labs: Wbc 12.4 07/29 CXR: The lungs are hyperinflated with coarse interstitial markings throughout both lungs, similar to previous consistent with emphysema. Treatment: 07/29 Azithromycin IVPB x 1; 07/29 Ceftriaxone IVPB x 1; 07/29 Azithromycin IVPB Daily x 3 bags; 07/30 07/31 Ceftriaxone IVPB Q24HR; 0.9NS 75cc/hr Please clarify if the Sepsis is: [ xxxx ] Sepsis confirmed, remains under treatment [ ] Sepsis confirmed, resolved [ ] Sepsis ruled out [ ] Other condition, please specify [ ] Unable to determine (Template Last Revised: January 2021) MTDD
--- NOTE | 2023-07-31 11:48 | CDI ---
Documentation Clarification Form Date: 07/31/2023 11:34:38 AM From: Kelsey Rivera RN CCDS Phone: [phone] Admit Date: 07/29/2023 01:37:00 AM Patient Name: Valerie Garza Visit Number: [id number] Discharge Date: ATTENTION: The Clinical Documentation Specialists (CDI) and [facility] Coding Staff appreciate your assistance in clarifying documentation. Please respond to the clarification below the line at the bottom and electronically sign. The CDI & [facility] Coding staff will review the response and follow-up if needed. Please note: Queries are made part of the Legal Health Record. If you have any questions, please contact the author of this message via ITS. Dr. Shea Lujan Pneumonia is documented H&P, 07/29, but is not noted in subsequent documentation. Clarification is requested. History/Risk Factors: 73-year-old female presents to the ED in respiratory distress and was transported by EMS noted to be hypoxic with SpO2 and 70s. Medical History: COPD, DM, Smoker and chronic respiratory failure. 07/29, H&P 07/29 Clinical Indicators: 07/28 VVS: B/P 132/82; HR 131; Temp 97.6F Axillary; RR 36; SpO2 97% BiPAP 07/28 Labs: Wbc 12.4 07/29 CXR: The lungs are hyperinflated with coarse interstitial markings throughout both lungs, similar to previous consistent with emphysema. Treatment: 07/29 Azithromycin IVPB x 1; 07/29 Ceftriaxone IVPB x 1; 07/29 Azithromycin IVPB Daily x 3 bags; 07/30 07/31 Ceftriaxone IVPB Q24HR; 0.9NS 75cc/hr 07/28 Ventolin Inhalation x 1; Atrovent Inhalation x 1; 07/29 Duoneb Inhalation Q2H PRN Please clarify if the Pneumonia is: [ ] Pneumonia confirmed, remains under treatment [ ] Pneumonia confirmed, resolved [ xxxx ] Pneumonia ruled out [ ] Other condition, please specify [ ] Unable to determine (Template Last Revised: January 2021) MTDD
[2023-07-31 12:04] LABS: Glucose,Whole Blood 141 mg/dL (70-110)
--- NOTE | 2023-07-31 13:23 | P.PN ---
Subjective Progress Note Date: 07/31/23 This is a 73-year-old female patient of Dr. Phillips who presented to the ER with complaints of shortness of breath. Patient apparently was experiencing respiratory distress was transported EMS and was found to have an SpO2 in the 70s. Patient has past medical history of diabetes mellitus, nicotine depen dence, carotid artery stenosis, COPD, hypertension, atrial tachycardia. Initial chest x-ray showing hyperinflated lungs. Patient noted to have elevated troponins 0.046, 0.36 and 0.504. Patient was started on heparin drip for elevated troponins cardiology and pulmonary services were consulted. Patient started on IV steroids, DuoNeb breathing treatments azithromycin and Rocephin Dr. Soto's group previously covering We are resuming care patient on 07/30/2023 On 07/30/2023 patient is alert and oriented 3 currently resting comfortably in bed on BiPAP. Patient reports some improvement with shortness of breath but does appear to be quite short of breath. She remains on IV Solu-Medrol a zithromycin and Rocephin. Patient also remains on heparin drip per cardiology. Pulmonary and cardiology services are following. Sliding scale coverage. Current vital signs temp 97.5, pulse rate 99, respiratory rate 22, blood pressure 110/72 with a pulse ox of 98% on BiPAP On 07/31/2023 patient was seen and examined on the telemetry floor she is alert and oriented 3 in no apparent distress she is still having significant shortness of breath she is maintained on oxygen at 4 L nasal cannula, and requiring BiPAP on and off, she is still complaining of cough was yellow to green sputum production, she denies any chest pain she is still maintained on IV Solu-Medrol. Antibiotic were discontinued by pulmonary. Objective - Vital Signs Vital signs: Vital Signs Temp 97.6 F 07/31/23 07:28 Pulse 71 07/31/23 11:06 Resp 21 07/31/23 11:06 BP 103/63 07/31/23 11:06 Pulse Ox 98 07/31/23 11:06 FiO2 35 07/31/23 08:37 Intake & Output 07/30/23 07/31/23 07/31/23 18:59 06:59 18:59 Intake Total 349.396 180 Balance 349.396 180 Weight 65.771 kg Intake: Intake, IV Titration 231.396 Amount Heparin Sod,Pork in 0.45% 231.396 NaCl 25,000 unit In 0.45 % NaCl 1 250ml.bag @ 12 UNITS/KG/HR 7.893 mls/hr IV .Q24H [facility] Rx#: [id number] Oral 118 180 Other: Voiding Method External Catheter External Catheter External Catheter # Voids 1 200 - Exam In general patient is alert and oriented x 3 in no distress HEENT head normocephalic and atraumatic Neck is supple no JVD no goiter no lymphadenopathy no carotid bruit Chest examination is clear to auscultation no crackles no wheezing Cardiac exam reveals regular heart sounds S1 and S2 no gallops no murmurs Abdomen is soft nontender no organomegaly with normal bowel sounds Extremity exam reveals no edema no cyanosis or clubbing Neurological examination reveals no gross focal deficits - Labs CBC & Chem 7: 07/31/23 08:06 07/31/23 08:06 Labs: Abnormal Lab Results - Last 24 Hours (Table) 07/30/23 07/30/23 07/30/23 Range/Units 07:40 11:58 16:40 RBC (3.80-5.40) m/uL Plt Count (150-450) k/uL Neutrophils # (1.3-7.7) k/uL Lymphocytes # (1.0-4.8) k/uL Chloride (98-107) mmol/L BUN (7-17) mg/dL Glucose (74-99) mg/dL POC Glucose (mg/dL) 248 H 187 H (70-110) mg/dL Hemoglobin A1c 6.4 H (<=6.0) % AST (14-36) U/L ALT (4-34) U/L 07/30/23 07/31/23 07/31/23 Range/Units 23:20 05:59 08:06 RBC 3.70 L (3.80-5.40) m/uL Plt Count 124 L (150-450) k/uL Neutrophils # 9.2 H (1.3-7.7) k/uL Lymphocytes # 0.5 L (1.0-4.8) k/uL Chloride (98-107) mmol/L BUN (7-17) mg/dL Glucose (74-99) mg/dL POC Glucose (mg/dL) 179 H 241 H (70-110) mg/dL Hemoglobin A1c (<=6.0) % AST (14-36) U/L ALT (4-34) U/L 07/31/23 Range/Units 08:06 RBC (3.80-5.40) m/uL Plt Count (150-450) k/uL Neutrophils # (1.3-7.7) k/uL Lymphocytes # (1.0-4.8) k/uL Chloride 115 H (98-107) mmol/L BUN 36 H (7-17) mg/dL Glucose 151 H (74-99) mg/dL POC Glucose (mg/dL) (70-110) mg/dL Hemoglobin A1c (<=6.0) % AST 38 H (14-36) U/L ALT 37 H (4-34) U/L Microbiology - Last 24 Hours (Table) 07/28/23 23:35 Blood Culture - Preliminary Blood 07/28/23 23:50 Blood Culture - Preliminary Blood Assessment and Plan Plan: 1. Shortness breath secondary to acute exacerbation of COPD with tracheal bronchitis 2. Non-ST elevated [place] 3. Chronic and ongoing nicotine dependence 4. Oxygen dependent chronic obstructive pulmonary disease 5. Diabetes mellitus type 2 6. History of essential hypertension 7. Carotid artery disease with previous left carotid endarterectomy Pulmonary and cardiology service is consulted Patient maintained on heparin drip Patient maintained on IV Solu-Medrol, DuoNeb breathing treatments and IV antibiotics Maintained on BiPAP Repeat labs ordered DVT prophylaxis heparin drip. GI prophylaxis Protonix
--- NOTE | 2023-07-31 13:29 | P.PN ---
Subjective Progress Note Date: 07/31/23 Principal diagnosis: COPD exacerbation. This is a pleasant 73-year-old female patient with a known history of hyperlipidemia, diabetes mellitus, chronic and ongoing tobacco dependence, chronic obstructive pulmonary disease. Her FEV1 value 71% of predicted. She's been maintained on Combivent and albuterol in the outpatient setting. She presented here to the emergency room last evening by EMS for a 1 week history of worsening shortness of breath. She was found to be hypoxemic in the 70s and placed on CPAP given updraft treatments and steroids and transit. She is seen today in consultation in the emergency department. She is currently sitting up on a stretcher. Quite anxious and short of breath. Currently on BiPAP 12/6 and 45% FiO2. Chest x-ray reveals hyperinflated lungs with coarse interstitial markings consistent with emphysema. No acute infiltrate noted. No pneumothorax. White count 12.4. Hemoglobin 13.8. Platelets 232. INR 0.9. Sodium 140. Potassium 4.2. Bicarb 22. BUN 13. Creatinine 0.80. Glucose 255. AST 42. ALT 35. Troponin 0.046, 0.386, 0.504. ProBNP 1020. She is currently on a heparin drip. Initiated and DuoNeb inhalations, Symbicort, Solu-Medrol. Antibiotics in the form of ceftriaxone and azithromycin. Procalcitonin pending. NicoDerm patch in place. Normal saline at 75 ML's per hour. Progress note dated 07/30/2023. 73-year-old female admitted with a diagnosis of COPD exacerbation. Unfortunately, the patient does continue to smoke cigarettes. She apparently has moderate COPD with an FEV1 that's 71% of predicted. The patient was admitted to the hospital with a COPD exacerbation. Currently, she is on 4 L of oxygen. She's getting BiPAP at 12/6, at 35%. Patient's pro-calcitonin level was low at less than 0.05. Antibiotics were discontinued. White count was 12, hemoglobin 12, hematocrit 38, with a normal platelet count. Sodium 141, potassium 4, chlorides 111, CO2 24, BUN 32, and creatinine 0.7. CT angiogram was negative for pulmonary embolism, showed changes of emphysema, without consolidation, infiltrate, effusion, pneumothorax. Progress note dated 07/31/2023. 73-year-old female admitted with a diagnosis of COPD exacerbation. The patient unfortunately, continues to smoke cigarettes. Her FEV1 percent is 71. Today, she is on BiPAP, with settings of 14/6, and 35%. The patient's also getting saline at 75 mL an hour. Sometime early this morning, her respirations became much more labored, which required BiPAP therapy. Yesterday, she was on 4 L by nasal cannula. I was not made aware the patient's respiratory difficulty. White count 10.4, hemoglobin 11.4, hematocrit 35.8, and platelet count 124,000. Sodium 144, potassium 4.3, chlorides 115, CO2 22, BUN 36, and creatinine 0.59. Objective - Vital Signs Vital signs: Vital Signs Temp 97.6 F 07/31/23 07:28 Pulse 100 07/31/23 11:33 Resp 21 07/31/23 11:33 BP 103/63 07/31/23 11:06 Pulse Ox 98 07/31/23 11:06 FiO2 35 07/31/23 11:23 Intake & Output 07/30/23 07/31/23 07/31/23 18:59 06:59 18:59 Intake Total 349.396 180 Balance 349.396 180 Weight 65.771 kg Intake: Intake, IV Titration 231.396 Amount Heparin Sod,Pork in 0.45% 231.396 NaCl 25,000 unit In 0.45 % NaCl 1 250ml.bag @ 12 UNITS/KG/HR 7.893 mls/hr IV .Q24H [facility] Rx#: [id number] Oral 118 180 Other: Voiding Method External Catheter External Catheter External Catheter # Voids 1 200 - Exam No acute distress, oriented 3. Mild conversational dyspnea. No use of accessory muscles. BiPAP mask in place. HEENT examination is grossly unremarkable. Neck supple. Full range of motion. No adenopathy thyromegaly or neck vein dis tention. Cardiovascular examination reveals regular rhythm rate. S1-S2 normal. No S3 or S4. No discernible murmur noted. Heart rate is 103 bpm. Lungs reveal coarse, bilateral, inspiratory and expiratory wheezes and rhonchi. No crackles. BiPAP saturations are 98%. Breath sounds are equal bilaterally, but diminished throughout. Abdomen soft bowel sounds are heard. No masses or tenderness. Extremities are intact. No cyanosis clubbing or edema. Skin is without rash or lesion. Neurologic examination is brief but nonfocal. - Labs CBC & Chem 7: 07/31/23 08:06 07/31/23 08:06 Labs: Abnormal Lab Results - Last 24 Hours (Table) 07/30/23 07/30/23 07/31/23 Range/Units 16:40 23:20 05:59 RBC (3.80-5.40) m/uL Plt Count (150-450) k/uL Neutrophils # (1.3-7.7) k/uL Lymphocytes # (1.0-4.8) k/uL Chloride (98-107) mmol/L BUN (7-17) mg/dL Glucose (74-99) mg/dL POC Glucose (mg/dL) 187 H 179 H 241 H (70-110) mg/dL AST (14-36) U/L ALT (4-34) U/L 07/31/23 07/31/23 07/31/23 Range/Units 08:06 08:06 12:01 RBC 3.70 L (3.80-5.40) m/uL Plt Count 124 L (150-450) k/uL Neutrophils # 9.2 H (1.3-7.7) k/uL Lymphocytes # 0.5 L (1.0-4.8) k/uL Chloride 115 H (98-107) mmol/L BUN 36 H (7-17) mg/dL Glucose 151 H (74-99) mg/dL POC Glucose (mg/dL) 141 H (70-110) mg/dL AST 38 H (14-36) U/L ALT 37 H (4-34) U/L Microbiology - Last 24 Hours (Table) 07/28/23 23:35 Blood Culture - Preliminary Blood 07/28/23 23:50 Blood Culture - Preliminary Blood Assessment and Plan Assessment: Acute on chronic hypoxemic respiratory failure secondary to an acute exacerbation of chronic obstructive pulmonary disease. Troponin leak secondary to above versus coronary artery disease. Chronic and ongoing tobacco dependence of greater than 50 years. Oxygen dependent chronic obstructive pulmonary disease. Diabetes mellitus, type II. Hypertension. Carotid artery disease with previous left carotid endarterectomy. Plan: Plan dated 07/30/2023. The patient's CT angiogram was negative for pulmonary embolism. He did not showed infiltrate. The patient did have emphysematous changes on the CT. Antibiotics were discontinued, as appropriate calcitonin level was less than 0.05. The patient was still smoking, and is counseled about the importance of smoking cessation. In addition, she's been on and off of BiPAP, with settings of 12/6, and 35%. We'll continue to follow the patient make recommendations along the way. The patient's overall prognosis remains guarded. She'll follow- up with me in the office. She mentions that she wants to get a portable oxygen concentrator Plan dated 07/31/2023. This morning, the patient's respiratory status worsened, and the patient was placed on BiPAP. Her BiPAP settings are 14/6, and 35%. The patient is receiving saline at 75 mL an hour. Yesterday, the patient was on 4 L. Unfortunately, the patient does continue to smoke cigarettes. The patient is counseled about the importance of smoking cessation. She'll follow with me in the office. Labs, x-rays, and medications are reviewed. Prognosis is certainly very guarded. Time with Patient: Less than 30
--- NOTE | 2023-07-31 14:07 | P.PN ---
Subjective Progress Note Date: 07/31/23 History of present illness: This is a 73 year old female with history of diabetes mellitus type 2, severe COPD, dyslipidemia. Patient presented to the hospital due to shortness of breath and low pulse ox. She has had cough and progressively worsening shortness of breath for a week. EKG was sinus tachycardia with poor R-wave progression left axis deviation. Troponins were elevated at 0.04, 0.3 and 0.5. BNP 1020. Troponin elevation is been thought to be related to COPD exacerbation. Patient is seen today in follow-up. She complains of chest tightness with and without coughing. She is on heparin drip which will be discontinued. CTA of the chest was negative for pulmonary embolism. At least moderate emphysematous change in the upper lungs. No suspicious acute pulmonary process. Echocardiogram is pending 07/31 Patient is on BiPAP today. Her heart rate is running 105. We will add in a tenolol 25 mg daily. Continue patient on aspirin and atenolol. No plan for any aggressive cardiac workup. Echocardiogram: RV size is at upper limits of normal. Decreased contractility involving the anterior apical and inferior a stable as well as the mid inferior and mid anterior wall. Possible apical ballooning syndrome should be considered. EF is 35% range. No pulmonary hypertension. Physical examination: Gen: This is a 73-year-old female. She is resting but appears to be comfortable. No acute respiratory distress noted. VS: reviewed heart rate 105, blood pressure 101/64. HEENT: Head is atraumatic, normocephalic. Pupils equal, round. Sclerae is anicteric. NECK: Supple. No JVD. . LUNGS: Bilateral rhonchi. No intercostal retractions. HEART: Regular rate and rhythm. Systolic murmur at the apex. ABDOMEN: Soft No tenderness. EXTREMITIES: No pedal edema. No calf tenderness. Assessment: Troponin elevation secondary to respiratory distress and COPD, supply demand mismatch COPD exacerbation Plan: Continue medical management Continue patient on aspirin 81 mg daily, atorvastatin 40 mg daily Start patient on atenolol 25 mg daily Monitor heart rate and blood pressure may increase atenolol as needed Further recommendations to follow based upon clinical course Nurse practitioner note has been reviewed, I agree with documented findings and plan of care. Patient was seen and examined. Objective - Vital Signs Vital signs: Vital Signs Temp 97.6 F 07/31/23 07:28 Pulse 100 07/31/23 08:39 Resp 26 H 07/31/23 07:28 BP 129/71 07/31/23 07:28 Pulse Ox 98 07/31/23 07:28 FiO2 35 07/31/23 08:37 Intake & Output 07/30/23 07/31/23 07/31/23 18:59 06:59 18:59 Intake Total 349.396 Balance 349.396 Weight 65.771 kg Intake: Intake, IV Titration 231.396 Amount Heparin Sod,Pork in 0.45% 231.396 NaCl 25,000 unit In 0.45 % NaCl 1 250ml.bag @ 12 UNITS/KG/HR 7.893 mls/hr IV .Q24H [facility] Rx#: [id number] Oral 118 Other: Voiding Method External Catheter External Catheter # Voids 1 200 - Labs CBC & Chem 7: 07/31/23 08:06 07/31/23 08:06 Labs: Abnormal Lab Results - Last 24 Hours (Table) 07/30/23 07/30/23 07/30/23 Range/Units 07:40 07:40 07:40 WBC 12.0 H (3.8-10.6) k/uL Neutrophils # 10.4 H (1.3-7.7) k/uL Lymphocytes # 0.9 L (1.0-4.8) k/uL APTT (22.0-30.0) sec Chloride 111 H (98-107) mmol/L BUN 32 H (7-17) mg/dL Glucose 146 H (74-99) mg/dL POC Glucose (mg/dL) (70-110) mg/dL Hemoglobin A1c 6.4 H (<=6.0) % 07/30/23 07/30/23 07/30/23 Range/Units 07:40 09:09 11:58 WBC (3.8-10.6) k/uL Neutrophils # (1.3-7.7) k/uL Lymphocytes # (1.0-4.8) k/uL APTT 56.7 H (22.0-30.0) sec Chloride (98-107) mmol/L BUN (7-17) mg/dL Glucose (74-99) mg/dL POC Glucose (mg/dL) 140 H 248 H (70-110) mg/dL Hemoglobin A1c (<=6.0) % 07/30/23 07/30/23 07/31/23 Range/Units 16:40 23:20 05:59 WBC (3.8-10.6) k/uL Neutrophils # (1.3-7.7) k/uL Lymphocytes # (1.0-4.8) k/uL APTT (22.0-30.0) sec Chloride (98-107) mmol/L BUN (7-17) mg/dL Glucose (74-99) mg/dL POC Glucose (mg/dL) 187 H 179 H 241 H (70-110) mg/dL Hemoglobin A1c (<=6.0) % Microbiology - Last 24 Hours (Table) 07/28/23 23:35 Blood Culture - Preliminary Blood 07/28/23 23:50 Blood Culture - Preliminary Blood
[2023-07-31 18:02] LABS: Glucose,Whole Blood 265 mg/dL (70-110)
[2023-07-31] MEDS: MONTELUKAST 10 MG TAB PO SCH (20:12)
[2023-07-31] MEDS: FORMOTEROL FUMARATE 20 MCG/2 ML NEBU INHALATION SCH (21:18)
[2023-07-31] MEDS: BUDESONIDE 1 MG/2 ML NEBU INHALATION SCH (21:19)
[2023-07-31] MEDS: IPRATROPIUM-ALBUTEROL 3 ML NEB INHALATION PRN (23:17)
[2023-07-31 23:48] LABS: Glucose,Whole Blood 156 mg/dL (70-110)
[2023-08-01] MEDS: ACETAMINOPHEN TAB 325 MG TAB PO PRN (01:27)
[2023-08-01] MEDS: ALPRAZolam 0.5 MG TAB PO PRN ×2 (01:27→07:44)
[2023-08-01] MEDS: IPRATROPIUM-ALBUTEROL 3 ML NEB INHALATION PRN ×2 (03:24→23:23)
[2023-08-01 05:59] LABS: Glucose,Whole Blood 196 mg/dL (70-110)
[2023-08-01] MEDS: PANTOPRAZOLE 40 MG TABLET PO SCH (06:10)
[2023-08-01] MEDS: INSULIN ASPART (NovoLOG) 100 UNIT/ML VIAL SQ SCH ×4 (06:11→23:50)
[2023-08-01] MEDS: methylPREDNISolone SOD SUCCI 125 MG/2 ML VIAL IV SCH ×4 (06:11→23:50)
[2023-08-01] MEDS: NICOTINE 21MG/24HR PATCH TRANSDERM SCH (07:46)
[2023-08-01] MEDS: BUDESONIDE 1 MG/2 ML NEBU INHALATION SCH ×2 (07:53→19:51)
[2023-08-01] MEDS: IPRATROPIUM-ALBUTEROL 3 ML NEB INHALATION SCH ×5 (07:53→23:23)
[2023-08-01] MEDS: FORMOTEROL FUMARATE 20 MCG/2 ML NEBU INHALATION SCH ×2 (07:53→19:51)
[2023-08-01] MEDS ORDERED: FUROSEMIDE 10 MG/ML 2 ML VIAL IV ONE (08:45)
[2023-08-01] MEDS: guaiFENesin 600 MG TABLET.ER PO SCH (09:54)
[2023-08-01] MEDS: atenoloL 25 MG TAB PO SCH (09:54)
[2023-08-01] MEDS: ASPIRIN 81 MG PO SCH (09:54)
[2023-08-01] MEDS: ATORVASTATIN 40 MG TAB PO SCH (09:54)
--- NOTE | 2023-08-01 10:39 | P.PN ---
Subjective Progress Note Date: 08/01/23 This is a 73-year-old female patient of Dr. Phillips who presented to the ER with complaints of shortness of breath. Patient apparently was experiencing respiratory distress was transported EMS and was found to have an SpO2 in the 70s. Patient has past medical history of diabetes mellitus, nicotine depen dence, carotid artery stenosis, COPD, hypertension, atrial tachycardia. Initial chest x-ray showing hyperinflated lungs. Patient noted to have elevated troponins 0.046, 0.36 and 0.504. Patient was started on heparin drip for elevated troponins cardiology and pulmonary services were consulted. Patient started on IV steroids, DuoNeb breathing treatments azithromycin and Rocephin Dr. Soto's group previously covering We are resuming care patient on 07/30/2023 On 07/30/2023 patient is alert and oriented 3 currently resting comfortably in bed on BiPAP. Patient reports some improvement with shortness of breath but does appear to be quite short of breath. She remains on IV Solu-Medrol a zithromycin and Rocephin. Patient also remains on heparin drip per cardiology. Pulmonary and cardiology services are following. Sliding scale coverage. Current vital signs temp 97.5, pulse rate 99, respiratory rate 22, blood pressure 110/72 with a pulse ox of 98% on BiPAP On 07/31/2023 patient was seen and examined on the telemetry floor she is alert and oriented 3 in no apparent distress she is still having significant shortness of breath she is maintained on oxygen at 4 L nasal cannula, and requiring BiPAP on and off, she is still complaining of cough was yellow to green sputum production, she denies any chest pain she is still maintained on IV Solu-Medrol. Antibiotic were discontinued by pulmonary. On 08/01/2023 patient remains requiring BiPAP. Patient is alert and oriented resting comfortably on BiPAP in bed at this time. Patient had increased episodes of difficulty breathing throughout night pulmonary services at bedside orders to continue BiPAP. Patient remains on IV Solu-Medrol and DuoNeb breathing treatments. Pulmonary services are following Objective - Vital Signs Vital signs: Vital Signs Temp 97.0 F L 08/01/23 03:55 Pulse 108 H 08/01/23 08:10 Resp 25 H 08/01/23 10:11 BP 140/75 08/01/23 07:38 Pulse Ox 92 L 08/01/23 10:11 FiO2 35 08/01/23 10:11 Intake & Output 07/31/23 08/01/23 08/01/23 18:59 06:59 18:59 Intake Total 540 Output Total 500 1000 Balance 40 -1000 Intake: Oral 540 Output: Urine 500 1000 Other: Voiding Method External Catheter External Catheter - Exam In general patient is alert and oriented x 3 in no distress HEENT head normocephalic and atraumatic Neck is supple no JVD no goiter no lymphadenopathy no carotid bruit Chest examination is clear to auscultation no crackles no wheezing Cardiac exam reveals regular heart sounds S1 and S2 no gallops no murmurs Abdomen is soft nontender no organomegaly with normal bowel sounds Extremity exam reveals no edema no cyanosis or clubbing Neurological examination reveals no gross focal deficits - Labs CBC & Chem 7: 07/31/23 08:06 07/31/23 08:06 Labs: Abnormal Lab Results - Last 24 Hours (Table) 07/31/23 07/31/23 07/31/23 Range/Units 12:01 17:59 23:47 POC Glucose (mg/dL) 141 H 265 H 156 H (70-110) mg/dL 08/01/23 Range/Units 05:58 POC Glucose (mg/dL) 196 H (70-110) mg/dL Microbiology - Last 24 Hours (Table) 07/28/23 23:35 Blood Culture - Preliminary Blood 07/28/23 23:50 Blood Culture - Preliminary Blood Assessment and Plan Plan: 1. Shortness breath secondary to acute exacerbation of COPD with tracheal bronchitis 2. Non-ST elevated [place] 3. Chronic and ongoing nicotine dependence 4. Oxygen dependent chronic obstructive pulmonary disease 5. Diabetes mellitus type 2 6. History of essential hypertension 7. Carotid artery disease with previous left carotid endarterectomy Pulmonary and cardiology service is consulted Patient maintained on IV Solu-Medrol, DuoNeb breathing treatments Maintained on BiPAP Repeat labs ordered DVT prophylaxis lovenox. GI prophylaxis Protonix
[2023-08-01 10:55] LABS: Basophils % (A) 0 %; Eosinophils # (A) 0.1 k/uL (0-0.7); Eosinophils % (A) 1 %; HCT 40.5 % (34.0-46.0); HGB 12.8 gm/dL (11.4-16.0); Hypochromasia Slight; Lymphocytes # (A) 0.4 k/uL (1.0-4.8); Lymphocytes % (A) 4 %; MCH 30.7 pg (25.0-35.0); MCHC 31.6 g/dL (31.0-37.0); Mean Platelet Volume 8.8; Monocytes # (A) 0.5 k/uL (0-1.0); Monocytes % (A) 4 %; Neutrophils # (A) 10.6 k/uL (1.3-7.7); Neutrophils % (A) 90 %; Platelet Count 146 k/uL (150-450); RBC 4.17 m/uL (3.80-5.40); RDW 14.3 % (11.5-15.5); WBC 11.7 k/uL (3.8-10.6)
[2023-08-01] MEDS ORDERED: CISATRACURIUM 2 MG/ML 5 ML VIAL IV ONE (11:04)
[2023-08-01] MEDS ORDERED: MORPHINE SULFATE 4 MG/ML SYRINGE IVP STA (11:04)
[2023-08-01] MEDS ORDERED: LORazepam 2 MG/ML INJ IV STA (11:04)
[2023-08-01] MEDS ORDERED: SUCCINYLCHOLINE CHLORIDE 200 MG/10 ML VIAL IV ONE (11:11)
[2023-08-01 11:17] LABS: ALT 91 U/L (4-34); AST 59 U/L (14-36); African American GFR (CKD) >90 (>60 ml/min/1.73 sqM); Alkaline Phosphatase 78 U/L (38-126); Anion Gap 6 mmol/L; Blood Urea Nitrogen 40 mg/dL (7-17); Carbon Dioxide 24 mmol/L (22-30); Chloride 114 mmol/L (98-107); Glucose 186 mg/dL (74-99); Non-African American GFR(CKD) 85 (>60 ml/min/1.73 sqM); Potassium 4.5 mmol/L (3.5-5.1); Sodium 144 mmol/L (137-145); Total Bilirubin 0.5 mg/dL (0.2-1.3); Total Protein 6.5 g/dL (6.3-8.2)
[2023-08-01 11:36] LABS: Glucose,Whole Blood 228 mg/dL (70-110)
--- NOTE | 2023-08-01 12:00 | P.PN ---
Subjective Progress Note Date: 08/01/23 History of present illness: This is a 73 year old female with history of diabetes mellitus type 2, severe COPD, dyslipidemia. Patient presented to the hospital due to shortness of breath and low pulse ox. She has had cough and progressively worsening shortness of breath for a week. EKG was sinus tachycardia with poor R-wave progression left axis deviation. Troponins were elevated at 0.04, 0.3 and 0.5. BNP 1020. Troponin elevation is been thought to be related to COPD exacerbation. Patient is seen today in follow-up. She complains of chest tightness with and without coughing. She is on heparin drip which will be discontinued. CTA of the chest was negative for pulmonary embolism. At least moderate emphysematous change in the upper lungs. No suspicious acute pulmonary process. Echocardiogram is pending 07/31 Patient is on BiPAP today. Her heart rate is running 105. We will add in a tenolol 25 mg daily. Continue patient on aspirin and atenolol. No plan for any aggressive cardiac workup. Echocardiogram: RV size is at upper limits of normal. Decreased contractility involving the anterior apical and inferior a stable as well as the mid inferior and mid anterior wall. Possible apical ballooning syndrome should be considered. EF is 35% range. No pulmonary hypertension. 08/01 Yesterday, patient was started on atenolol due to tachycardia. Heart rate is running about 100. This morning, patient had a drop in her pulse ox to 84% on 4 L with concern for aspiration and transitioned to BiPAP. Physical examination: Gen: This is a 73-year-old female. VS: reviewed HEENT: Head is atraumatic, normocephalic. Pupils equal, round. Sclerae is anicteric. NECK: Supple. No JVD. . LUNGS: Bilateral rhonchi. + intercostal retractions. HEART: Regular rate and rhythm. Systolic murmur at the apex. ABDOMEN: Soft No tenderness. EXTREMITIES: No pedal edema. No calf tenderness. Assessment: Troponin elevation secondary to respiratory distress and COPD, supply demand mismatch COPD exacerbation Plan: Continue medical management Continue patient on aspirin 81 mg daily, atorvastatin 40 mg daily Continue patient on atenolol 25 mg daily Monitor heart rate and blood pressure may increase atenolol as needed Discontinue IV fluids and give 1 dose of IV Lasix 20 mg Cardiology will sign off this case and follow on an as-needed basis. Please reconsult for any new concerns. Patient may follow-up in the office in one to 2 weeks. Nurse practitioner note has been reviewed, I agree with documented findings and plan of care. Patient was seen and examined. Objective - Vital Signs Vital signs: Vital Signs Temp 97.0 F L 08/01/23 03:55 Pulse 108 H 08/01/23 08:10 Resp 34 H 08/01/23 07:50 BP 140/75 08/01/23 07:38 Pulse Ox 90 L 08/01/23 07:50 FiO2 35 08/01/23 07:55 Intake & Output 07/31/23 08/01/23 08/01/23 18:59 06:59 18:59 Intake Total 540 Output Total 500 1000 Balance 40 -1000 Intake: Oral 540 Output: Urine 500 1000 Other: Voiding Method External Catheter External Catheter - Labs CBC & Chem 7: 08/01/23 10:28 08/01/23 10:28 Labs: Abnormal Lab Results - Last 24 Hours (Table) 07/31/23 07/31/23 07/31/23 Range/Units 08:06 08:06 12:01 RBC 3.70 L (3.80-5.40) m/uL Plt Count 124 L (150-450) k/uL Neutrophils # 9.2 H (1.3-7.7) k/uL Lymphocytes # 0.5 L (1.0-4.8) k/uL Chloride 115 H (98-107) mmol/L BUN 36 H (7-17) mg/dL Glucose 151 H (74-99) mg/dL POC Glucose (mg/dL) 141 H (70-110) mg/dL AST 38 H (14-36) U/L ALT 37 H (4-34) U/L 07/31/23 07/31/23 08/01/23 Range/Units 17:59 23:47 05:58 RBC (3.80-5.40) m/uL Plt Count (150-450) k/uL Neutrophils # (1.3-7.7) k/uL Lymphocytes # (1.0-4.8) k/uL Chloride (98-107) mmol/L BUN (7-17) mg/dL Glucose (74-99) mg/dL POC Glucose (mg/dL) 265 H 156 H 196 H (70-110) mg/dL AST (14-36) U/L ALT (4-34) U/L Microbiology - Last 24 Hours (Table) 07/28/23 23:35 Blood Culture - Preliminary Blood 07/28/23 23:50 Blood Culture - Preliminary Blood
--- NOTE | 2023-08-01 12:10 | PCN ---
PROCEDURE NOTE PROCEDURES PERFORMED: Right radial art line. PREOPERATIVE DIAGNOSES: Respiratory failure, frequent blood draws, blood gas monitoring, hypotension. POSTOPERATIVE DIAGNOSES: Respiratory failure, frequent blood draws, blood gas monitoring, hypotension. Composition Instructor: Dr. Fitch CO-CARGO AGENT: Dr. Trinh. There was informed consent, universal timeout. ARTERIAL LINE PLACEMENT: Indications: Hemodynamic monitoring. A time-out was completed verifying correct patient, procedure, site, positioning, and implant(s) or special equipment if applicable. Lorne's test was performed to ensure adequate perfusion. The patient's right wrist was prepped and draped in sterile fashion. 1% Lidocaine was used to anesthetize the area. An 18G Arrow arterial line was introduced into the right radial artery. The catheter was threaded over the guide wire and the needle was removed with appropriate pulsatile blood return. Blood loss was minimal. The catheter was then sutured in place to the skin and a sterile dressing applied. Perfusion to the extremity distal to the point of catheter insertion was checked and found to be adequate. There was no immediate complication. There was good blood return and waveform. The patient tolerated procedure well. Catheter was sutured in place. Sterile dressing was applied by the nurse. There was no immediate complication. MMODL / IJN: [id number] / MATT
--- NOTE | 2023-08-01 12:20 | PCN ---
PROCEDURE NOTE PROCEDURES PERFORMED: Left subclavian triple-lumen catheter. Loss Control Consultant was Dr. Fitch. CO-CAT SWAMPER: Dr. Trinh. PREOPERATIVE DIAGNOSES: Administration of fluids and pressors, respiratory failure. POSTOPERATIVE DIAGNOSES: Administration of fluids and pressors, respiratory failure. There was informed consent and universal timeout. TRIPLE LUMEN CATHETER PLACEMENT: Indication: Hemodynamic monitoring/Intravenous access. A time-out was completed verifying correct patient, procedure, site, positioning, and implant(s) or special equipment if applicable. The patient was placed in a dependent position appropriate for triple lumen catheter placement based on the vein to be cannulated. The patient's left shoulder was prepped and draped in sterile fashion. 1% Lidocaine was used to anesthetize the surrounding skin area. A triple lumen 9F Cordis catheter was introduced into the left subclavian vein using Seldinger technique. The catheter was threaded smoothly over the guide wire and appropriate blood return was obtained. Each lumen of the catheter was evacuated of air and flushed with sterile saline. The catheter was then sutured in place to the skin and a sterile dressing applied. Perfusion to the extremity distal to the point of catheter insertion was checked and found to be adequate. There was good blood return from all 3 ports. The catheter was sutured in place. Sterile dressing was applied by the nurse. The tip of the catheter on chest x- ray was seen to be in the junction of superior vena cava and the right atrium. There was no immediate complication. The patient tolerated the procedure well. MMODL / IJN: [id number] / MTDD
--- NOTE | 2023-08-01 12:37 | P.PN ---
Subjective Progress Note Date: 08/01/23 Principal diagnosis: COPD exacerbation. This is a pleasant 73-year-old female patient with a known history of hyperlipidemia, diabetes mellitus, chronic and ongoing tobacco dependence, chronic obstructive pulmonary disease. Her FEV1 value 71% of predicted. She's been maintained on Combivent and albuterol in the outpatient setting. She presented here to the emergency room last evening by EMS for a 1 week history of worsening shortness of breath. She was found to be hypoxemic in the 70s and placed on CPAP given updraft treatments and steroids and transit. She is seen today in consultation in the emergency department. She is currently sitting up on a stretcher. Quite anxious and short of breath. Currently on BiPAP 12/6 and 45% FiO2. Chest x-ray reveals hyperinflated lungs with coarse interstitial markings consistent with emphysema. No acute infiltrate noted. No pneumothorax. White count 12.4. Hemoglobin 13.8. Platelets 232. INR 0.9. Sodium 140. Potassium 4.2. Bicarb 22. BUN 13. Creatinine 0.80. Glucose 255. AST 42. ALT 35. Troponin 0.046, 0.386, 0.504. ProBNP 1020. She is currently on a heparin drip. Initiated and DuoNeb inhalations, Symbicort, Solu-Medrol. Antibiotics in the form of ceftriaxone and azithromycin. Procalcitonin pending. NicoDerm patch in place. Normal saline at 75 ML's per hour. Progress note dated 07/30/2023. 73-year-old female admitted with a diagnosis of COPD exacerbation. Unfortunately, the patient does continue to smoke cigarettes. She apparently has moderate COPD with an FEV1 that's 71% of predicted. The patient was admitted to the hospital with a COPD exacerbation. Currently, she is on 4 L of oxygen. She's getting BiPAP at 12/6, at 35%. Patient's pro-calcitonin level was low at less than 0.05. Antibiotics were discontinued. White count was 12, hemoglobin 12, hematocrit 38, with a normal platelet count. Sodium 141, potassium 4, chlorides 111, CO2 24, BUN 32, and creatinine 0.7. CT angiogram was negative for pulmonary embolism, showed changes of emphysema, without consolidation, infiltrate, effusion, pneumothorax. Progress note dated 07/31/2023. 73-year-old female admitted with a diagnosis of COPD exacerbation. The patient unfortunately, continues to smoke cigarettes. Her FEV1 percent is 71. Today, she is on BiPAP, with settings of 14/6, and 35%. The patient's also getting saline at 75 mL an hour. Sometime early this morning, her respirations became much more labored, which required BiPAP therapy. Yesterday, she was on 4 L by nasal cannula. I was not made aware the patient's respiratory difficulty. White count 10.4, hemoglobin 11.4, hematocrit 35.8, and platelet count 124,000. Sodium 144, potassium 4.3, chlorides 115, CO2 22, BUN 36, and creatinine 0.59. Progress note dated 08/01/2023. 73-year-old female who was seen initially in room 355. The patient was wearing BiPAP, but generally was not doing very well, she was on 14/6 and 35%. No IV fluids. She is quite a bit of distress, and kept on pulling of her BiPAP device. The patient was tripoding, and bed, and we felt that the patient was having impending respiratory failure, so she was moved to the intensive care unit. There, myself and Dr. Trinh, intubated the patient, with a #8 endotracheal tube, also place a left subclavian triple-lumen catheter and a right radial art line. She was placed on the ventilator, with settings of AC mode, rate 18, tidal volume 350, FiO2 100%, and PEEP of 5. Blood gases are pending. Chest x-ray revealed properly placed endotracheal tube, and central line. Current labs include a white count 11.7, hemoglobin 12.8, hematocrit 40.5, and a platelet count of 146,000. Sodium 144, potassium 4.5, chlorides 114, CO2 24, BUN 40, creatinine 0.71. Blood cultures are negative. Objective - Vital Signs Vital signs: Vital Signs Temp 97.0 F L 08/01/23 03:55 Pulse 108 H 08/01/23 08:10 Resp 25 H 08/01/23 10:11 BP 140/75 08/01/23 07:38 Pulse Ox 92 L 08/01/23 10:11 FiO2 100 08/01/23 11:41 Intake & Output 07/31/23 08/01/23 08/01/23 18:59 06:59 18:59 Intake Total 540 Output Total 500 1000 450 Balance 40 -1000 -450 Intake: Oral 540 Output: Urine 500 1000 450 Other: Voiding Method External Catheter External Catheter External Catheter - Exam Moderate to severe respiratory distress, currently on BiPAP. Significant conversational dyspnea. HEENT examination is grossly unremarkable. Neck supple. Full range of motion. No adenopathy thyromegaly or neck vein distention. Cardiovascular examination reveals regular rhythm rate. S1-S2 normal. No S3 or S4. No discernible murmur noted. Heart rate is 108 bpm. Lungs reveal coarse, bilateral, inspiratory and expiratory wheezes and rhonchi. No crackles. BiPAP saturations are 93 %. Breath sounds are equal bilaterally, but diminished throughout. Abdomen soft bowel sounds are heard. No masses or tenderness. Extremities are intact. No cyanosis clubbing or edema. Skin is without rash or lesion. Neurologic examination is brief but nonfocal. - Labs CBC & Chem 7: 08/01/23 10:28 08/01/23 10:28 Labs: Abnormal Lab Results - Last 24 Hours (Table) 07/31/23 07/31/23 08/01/23 Range/Units 17:59 23:47 05:58 WBC (3.8-10.6) k/uL Plt Count (150-450) k/uL Neutrophils # (1.3-7.7) k/uL Lymphocytes # (1.0-4.8) k/uL Chloride (98-107) mmol/L BUN (7-17) mg/dL Glucose (74-99) mg/dL POC Glucose (mg/dL) 265 H 156 H 196 H (70-110) mg/dL AST (14-36) U/L ALT (4-34) U/L 08/01/23 08/01/23 08/01/23 Range/Units 10:28 10:28 11:34 WBC 11.7 H (3.8-10.6) k/uL Plt Count 146 L (150-450) k/uL Neutrophils # 10.6 H (1.3-7.7) k/uL Lymphocytes # 0.4 L (1.0-4.8) k/uL Chloride 114 H (98-107) mmol/L BUN 40 H (7-17) mg/dL Glucose 186 H (74-99) mg/dL POC Glucose (mg/dL) 228 H (70-110) mg/dL AST 59 H (14-36) U/L ALT 91 H (4-34) U/L Microbiology - Last 24 Hours (Table) 07/28/23 23:35 Blood Culture - Preliminary Blood 07/28/23 23:50 Blood Culture - Preliminary Blood Assessment and Plan Assessment: S/P intubation and mechanical ventilation, for impending respiratory failure, 08/01/2023. Acute on chronic hypoxemic respiratory failure secondary to an acute exacerbation of chronic obstructive pulmonary disease. Troponin leak secondary to above versus coronary artery disease. Chronic and ongoing tobacco dependence of greater than 50 years. Oxygen dependent chronic obstructive pulmonary disease. Diabetes mellitus, type II. Hypertension. Carotid artery disease with previous left carotid endarterectomy. Plan: Plan dated 07/30/2023. The patient's CT angiogram was negative for pulmonary embolism. He did not showed infiltrate. The patient did have emphysematous changes on the CT. Antibiotics were discontinued, as appropriate calcitonin level was less than 0.05. The patient was still smoking, and is counseled about the importance of smoking cessation. In addition, she's been on and off of BiPAP, with settings of 12/6, and 35%. We'll continue to follow the patient make recommendations along the way. The patient's overall prognosis remains guarded. She'll follow- up with me in the office. She mentions that she wants to get a portable oxygen concentrator Plan dated 07/31/2023. This morning, the patient's respiratory status worsened, and the patient was placed on BiPAP. Her BiPAP settings are 14/6, and 35%. The patient is receiving saline at 75 mL an hour. Yesterday, the patient was on 4 L. Unfortunately, the patient does continue to smoke cigarettes. The patient is counseled about the importance of smoking cessation. She'll follow with me in the office. Labs, x-rays, and medications are reviewed. Prognosis is certainly very guarded. Plan dated 08/01/2023. The patient is transferred out of the intensive care unit, room air, she was in tubated, with a #8 endotracheal tube, using the glide scope. There is good color change on the qualitative capnography device, and good bilateral breath sounds. A chest x-ray confirmed good placement of endotracheal tube. In addition, the patient had a left subclavian triple-lumen catheter placed, as well as a right radial art line. ICU admission orders, and ventilator bundle orders, or implemented. Labs, x-rays, and medications are reviewed. The patient's prognosis is very guarded. We did speak to the patient's son, Theo, up on the third floor, prior to transferring her down. He agreed that the patient would want to be intubated. The patient will be placed on albuterol sulfate and ipratropium bromide, every 4 [id number]. In addition, the patient will be placed on budesonide, and formoterol, and continue on Solu- Medrol. Labs, x-rays, and medications will be ordered for the morning. Time with Patient: Greater than 30
[2023-08-01 12:56] LABS: ABG Base Excess 2.3 mmol/L; ABG HCO3 30 mmol/L (21-25); ABG Oxygen Saturation 99.4 % (94-97); ABG PCO2 69 mmHg (35-45); ABG PH 7.24 (7.35-7.45); ABG PO2 393 mmHg (83-108); ABG TCO2 32 mmol/L (19-24)
[2023-08-01 12:58] LABS: Allen Test Performed? no
--- NOTE | 2023-08-01 15:01 | XR ---
EXAMINATION TYPE: XR chest 1V portable DATE OF EXAM: 08/01/2023 COMPARISON: 07/28/2023 INDICATION: ET tube placement TECHNIQUE: Single frontal view of the chest is obtained. FINDINGS: The heart size is normal. The pulmonary vasculature is normal. Left lower lobe infiltrate is present. Left central venous catheter is present with the tip in the distal superior vena cava region. No pneu mothorax is evident. Endotracheal tube tip is 5.8 cm above the sidney. Nasogastric tube transverses t he thorax the tip in the left upper quadrant of the abdomen. IMPRESSION: 1. Left lower lobe infiltrate. 2. Lines and catheters discussed above
--- NOTE | 2023-08-01 15:52 | PCN ---
PROCEDURE NOTE PROCEDURES PERFORMED: Emergent intubation. PREOPERATIVE DIAGNOSIS: Acute respiratory failure. POSTOPERATIVE DIAGNOSIS: Acute respiratory failure. Building Services Engineer: Dr. Fitch. CO-NOZZLE OPERATOR: Dr. Trinh. There was informed consent and universal timeout. The patient was intubated with a #8 endotracheal tube. We used a GlideScope for direct visualization of the glottic opening. There was no immediate complication. There was good color change on the qualitative capnography device. There were good bilateral breath sounds. The tube was secured. A chest x-ray was ordered to check placement. There was no immediate complication. The patient is connected to mechanical ventilator. For sedation for the procedure, the patient received 2 mg of Ativan, 5 mg of morphine, 3 mL of succinylcholine and 50 mg of Nimbex. Again, the patient tolerated the procedure well without complication. MMODL / IJN: [id number] / MTDD
[2023-08-01 18:10] LABS: Glucose,Whole Blood 137 mg/dL (70-110)
[2023-08-01] MEDS: CHLORHEXIDINE GLUCONATE 15 ML CUP MUCOUS MEM SCH (20:25)
[2023-08-01] MEDS: SODIUM CHLORIDE 0.9% 1,000 ML IV SCH (23:19)
[2023-08-01 23:46] LABS: Glucose,Whole Blood 189 mg/dL (70-110)
[2023-08-02] MEDS: IPRATROPIUM-ALBUTEROL 3 ML NEB INHALATION SCH ×6 (03:05→23:37)
[2023-08-02 04:10] LABS: Basophils % (A) 0 %; Eosinophils # (A) 0.1 k/uL (0-0.7); Eosinophils % (A) 1 %; HCT 35.7 % (34.0-46.0); HGB 11.3 gm/dL (11.4-16.0); Lymphocytes # (A) 0.5 k/uL (1.0-4.8); Lymphocytes % (A) 7 %; MCH 30.1 pg (25.0-35.0); MCHC 31.7 g/dL (31.0-37.0); MCV 95.1 fL (80.0-100.0); Mean Platelet Volume 9.2; Monocytes # (A) 0.3 k/uL (0-1.0); Monocytes % (A) 4 %; Neutrophils # (A) 6.2 k/uL (1.3-7.7); Neutrophils % (A) 87 %; Platelet Count 120 k/uL (150-450); RBC 3.75 m/uL (3.80-5.40); RDW 14.2 % (11.5-15.5); WBC 7.1 k/uL (3.8-10.6)
[2023-08-02 04:29] LABS: ALT 70 U/L (4-34); AST 37 U/L (14-36); African American GFR (CKD) >90 (>60 ml/min/1.73 sqM); Albumin 3.2 g/dL (3.5-5.0); Alkaline Phosphatase 63 U/L (38-126); Anion Gap 3 mmol/L; Blood Urea Nitrogen 42 mg/dL (7-17); Calcium 8.6 mg/dL (8.4-10.2); Carbon Dioxide 28 mmol/L (22-30); Chloride 112 mmol/L (98-107); Glucose 177 mg/dL (74-99); Non-African American GFR(CKD) 82 (>60 ml/min/1.73 sqM); Potassium 4.2 mmol/L (3.5-5.1); Sodium 143 mmol/L (137-145); Total Bilirubin 0.4 mg/dL (0.2-1.3); Total Protein 5.6 g/dL (6.3-8.2)
[2023-08-02 05:08] LABS: Glucose,Whole Blood 179 mg/dL (70-110)
[2023-08-02] MEDS: INSULIN ASPART (NovoLOG) 100 UNIT/ML VIAL SQ SCH ×4 (05:22→23:48)
[2023-08-02] MEDS: methylPREDNISolone SOD SUCCI 125 MG/2 ML VIAL IV SCH ×4 (05:22→23:48)
[2023-08-02 05:32] LABS: ABG Base Excess 4.2 mmol/L; ABG HCO3 30 mmol/L (21-25); ABG Oxygen Saturation 89.4 % (94-97); ABG PCO2 54 mmHg (35-45); ABG PH 7.35 (7.35-7.45); ABG TCO2 32 mmol/L (19-24)
[2023-08-02 05:36] LABS: ABG PO2 56 mmHg (83-108)
[2023-08-02] MEDS: FORMOTEROL FUMARATE 20 MCG/2 ML NEBU INHALATION SCH ×2 (07:50→19:51)
[2023-08-02] MEDS: BUDESONIDE 1 MG/2 ML NEBU INHALATION SCH ×2 (07:51→19:51)
[2023-08-02] MEDS: ASPIRIN 81 MG PO SCH (08:24)
[2023-08-02] MEDS: ENOXAPARIN 40 MG/0.4 ML SYRINGE SQ SCH (08:24)
[2023-08-02] MEDS: PANTOPRAZOLE 40 MG/10 ML VIAL IVP SCH (08:24)
[2023-08-02] MEDS: ATORVASTATIN 40 MG TAB PO SCH (08:24)
[2023-08-02] MEDS: NICOTINE 21MG/24HR PATCH TRANSDERM SCH (08:24)
[2023-08-02] MEDS: CHLORHEXIDINE GLUCONATE 15 ML CUP MUCOUS MEM SCH ×2 (08:24→20:37)
[2023-08-02] MEDS: atenoloL 25 MG TAB PO SCH (09:45)
[2023-08-02 11:28] LABS: Glucose,Whole Blood 188 mg/dL (70-110)
--- NOTE | 2023-08-02 11:31 | P.PN ---
Subjective Progress Note Date: 08/02/23 Principal diagnosis: COPD exacerbation. This is a pleasant 73-year-old female patient with a known history of hyperlipidemia, diabetes mellitus, chronic and ongoing tobacco dependence, chronic obstructive pulmonary disease. Her FEV1 value 71% of predicted. She's been maintained on Combivent and albuterol in the outpatient setting. She presented here to the emergency room last evening by EMS for a 1 week history of worsening shortness of breath. She was found to be hypoxemic in the 70s and placed on CPAP given updraft treatments and steroids and transit. She is seen today in consultation in the emergency department. She is currently sitting up on a stretcher. Quite anxious and short of breath. Currently on BiPAP 12/6 and 45% FiO2. Chest x-ray reveals hyperinflated lungs with coarse interstitial markings consistent with emphysema. No acute infiltrate noted. No pneumothorax. White count 12.4. Hemoglobin 13.8. Platelets 232. INR 0.9. Sodium 140. Potassium 4.2. Bicarb 22. BUN 13. Creatinine 0.80. Glucose 255. AST 42. ALT 35. Troponin 0.046, 0.386, 0.504. ProBNP 1020. She is currently on a heparin drip. Initiated and DuoNeb inhalations, Symbicort, Solu-Medrol. Antibiotics in the form of ceftriaxone and azithromycin. Procalcitonin pending. NicoDerm patch in place. Normal saline at 75 ML's per hour. Progress note dated 07/30/2023. 73-year-old female admitted with a diagnosis of COPD exacerbation. Unfortunately, the patient does continue to smoke cigarettes. She apparently has moderate COPD with an FEV1 that's 71% of predicted. The patient was admitted to the hospital with a COPD exacerbation. Currently, she is on 4 L of oxygen. She's getting BiPAP at 12/6, at 35%. Patient's pro-calcitonin level was low at less than 0.05. Antibiotics were discontinued. White count was 12, hemoglobin 12, hematocrit 38, with a normal platelet count. Sodium 141, potassium 4, chlorides 111, CO2 24, BUN 32, and creatinine 0.7. CT angiogram was negative for pulmonary embolism, showed changes of emphysema, without consolidation, infiltrate, effusion, pneumothorax. Progress note dated 07/31/2023. 73-year-old female admitted with a diagnosis of COPD exacerbation. The patient unfortunately, continues to smoke cigarettes. Her FEV1 percent is 71. Today, she is on BiPAP, with settings of 14/6, and 35%. The patient's also getting saline at 75 mL an hour. Sometime early this morning, her respirations became much more labored, which required BiPAP therapy. Yesterday, she was on 4 L by nasal cannula. I was not made aware the patient's respiratory difficulty. White count 10.4, hemoglobin 11.4, hematocrit 35.8, and platelet count 124,000. Sodium 144, potassium 4.3, chlorides 115, CO2 22, BUN 36, and creatinine 0.59. Progress note dated 08/01/2023. 73-year-old female who was seen initially in room 355. The patient was wearing BiPAP, but generally was not doing very well, she was on 14/6 and 35%. No IV fluids. She is quite a bit of distress, and kept on pulling of her BiPAP device. The patient was tripoding, and bed, and we felt that the patient was having impending respiratory failure, so she was moved to the intensive care unit. There, myself and Dr. Trinh, intubated the patient, with a #8 endotracheal tube, also place a left subclavian triple-lumen catheter and a right radial art line. She was placed on the ventilator, with settings of AC mode, rate 18, tidal volume 350, FiO2 100%, and PEEP of 5. Blood gases are pending. Chest x-ray revealed properly placed endotracheal tube, and central line. Current labs include a white count 11.7, hemoglobin 12.8, hematocrit 40.5, and a platelet count of 146,000. Sodium 144, potassium 4.5, chlorides 114, CO2 24, BUN 40, creatinine 0.71. Blood cultures are negative. Progress note dated 08/02/2023. 73-year-old female brought down from the floor yesterday, for impending respiratory failure secondary to COPD. The patient was intubated, yesterday, and, had a left subclavian triple-lumen cath placed, as well as a right radial arterial line. She's currently on the ventilator, his been seen today in room 250. She had a pretty uneventful night according to the nurses. She is on volume assist control, rate 24, tidal volume 350, FiO2 50% 10 of PEEP. Blood gases show pO2 of 56, pCO2 54, and a pH is 7.35. That was on 40% and PEEP of 5. Currently saturations are 96%. She's getting saline at 75 mL an hour, and propofol at 35 mcg/kg/m. 2 feedings will be started today. White count 7.1, hemoglobin 11.3, hematocrit 35.7, and platelet count 120,000. Sodium 143, potassium 4.2, chlorides 112, CO2 28, BUN 42, creatinine 0.73. Blood cultures are currently negative. Chest x-ray shows a well positioned endotracheal tube, central line, and the lungs are without significant airspace disease. Objective - Vital Signs Vital signs: Vital Signs Temp 98.7 F 08/02/23 08:00 Pulse 87 08/02/23 11:00 Resp 24 08/02/23 11:00 BP 115/63 08/02/23 08:00 Pulse Ox 94 L 08/02/23 11:00 FiO2 50 08/02/23 11:22 Intake & Output 08/01/23 08/02/23 08/02/23 18:59 06:59 18:59 Intake Total 600.135 4713.951 156 Output Total 1405 585 85 Balance -1263.901 564.951 71 Weight 61.6 kg Intake: IV 70 975 81 0.9NS Pressure Bag 6 Sodium Chloride 0.9% 1, 70 975 75 000 ml @ 75 mls/hr IV . [id number] [facility] Rx#:[id number] Intake, IV Titration 71.099 174.951 75 Amount Sodium Chloride 0.9% 1, 75 000 ml @ 75 mls/hr IV . [id number] [facility] Rx#:[id number] propofoL 1,000 mg In 71.099 174.951 Empty Bag 1 bag @ 15 MCG/ KG/MIN 5.919 mls/hr IV . [id number] [facility] Rx#:[id number] Output: Gastric Drainage 100 Urine 1405 485 85 Other: Voiding Method Indwelling Catheter Indwelling Catheter Indwelling Catheter # Voids 1 ABP, PAP, CO, CI - Last Documented Arterial Blood Pressure 123/55 - Exam No acute distress, sedated, with an orally placed endotracheal tube and NG tube. HEENT examination is grossly unremarkable. Neck supple. Full range of motion. No adenopathy thyromegaly or neck vein distention. Cardiovascular examination reveals regular rhythm rate. S1-S2 normal. No S3 or S4. No discernible murmur noted. Heart rate is 87 bpm. Lungs reveal coarse, bilateral, inspiratory and expiratory wheezes and rhonchi. No crackles. Saturations are 94%. Breath sounds are equal bilaterally. Abdomen soft, without bowel sounds. Extremities are intact. No cyanosis clubbing or edema. Skin is without rash or lesion. Neurologic examination cannot be evaluated at this time. - Labs CBC & Chem 7: 08/02/23 04:00 08/02/23 04:00 Labs: Abnormal Lab Results - Last 24 Hours (Table) 08/01/23 08/01/23 08/01/23 Range/Units 11:34 12:54 18:08 RBC (3.80-5.40) m/uL Hgb (11.4-16.0) gm/dL Plt Count (150-450) k/uL Lymphocytes # (1.0-4.8) k/uL ABG pH 7.24 L (7.35-7.45) ABG pCO2 69 H (35-45) mmHg ABG pO2 393 H (83-108) mmHg ABG HCO3 30 H (21-25) mmol/L ABG Total CO2 32 H (19-24) mmol/L ABG O2 Saturation 99.4 H (94-97) % Chloride (98-107) mmol/L BUN (7-17) mg/dL Glucose (74-99) mg/dL POC Glucose (mg/dL) 228 H 137 H (70-110) mg/dL AST (14-36) U/L ALT (4-34) U/L Total Protein (6.3-8.2) g/dL Albumin (3.5-5.0) g/dL 08/01/23 08/02/23 08/02/23 Range/Units 23:44 04:00 04:00 RBC 3.75 L (3.80-5.40) m/uL Hgb 11.3 L (11.4-16.0) gm/dL Plt Count 120 L (150-450) k/uL Lymphocytes # 0.5 L (1.0-4.8) k/uL ABG pH (7.35-7.45) ABG pCO2 (35-45) mmHg ABG pO2 (83-108) mmHg ABG HCO3 (21-25) mmol/L ABG Total CO2 (19-24) mmol/L ABG O2 Saturation (94-97) % Chloride 112 H (98-107) mmol/L BUN 42 H (7-17) mg/dL Glucose 177 H (74-99) mg/dL POC Glucose (mg/dL) 189 H (70-110) mg/dL AST 37 H (14-36) U/L ALT 70 H (4-34) U/L Total Protein 5.6 L (6.3-8.2) g/dL Albumin 3.2 L (3.5-5.0) g/dL 08/02/23 08/02/23 Range/Units 05:05 05:07 RBC (3.80-5.40) m/uL Hgb (11.4-16.0) gm/dL Plt Count (150-450) k/uL Lymphocytes # (1.0-4.8) k/uL ABG pH (7.35-7.45) ABG pCO2 54 H (35-45) mmHg ABG pO2 56 L* (83-108) mmHg ABG HCO3 30 H (21-25) mmol/L ABG Total CO2 32 H (19-24) mmol/L ABG O2 Saturation 89.4 L (94-97) % Chloride (98-107) mmol/L BUN (7-17) mg/dL Glucose (74-99) mg/dL POC Glucose (mg/dL) 179 H (70-110) mg/dL AST (14-36) U/L ALT (4-34) U/L Total Protein (6.3-8.2) g/dL Albumin (3.5-5.0) g/dL Microbiology - Last 24 Hours (Table) 07/28/23 23:35 Blood Culture - Preliminary Blood 07/28/23 23:50 Blood Culture - Preliminary Blood Assessment and Plan Assessment: S/P intubation and mechanical ventilation, for impending respiratory failure, 08/01/2023. Acute on chronic hypoxemic respiratory failure secondary to an acute exacerbation of chronic obstructive pulmonary disease. Troponin leak secondary to above versus coronary artery disease. Chronic and ongoing tobacco dependence of greater than 50 years. Oxygen dependent chronic obstructive pulmonary disease. Diabetes mellitus, type II. Hypertension. Carotid artery disease with previous left carotid endarterectomy. Plan: Plan dated 07/30/2023. The patient's CT angiogram was negative for pulmonary embolism. He did not showed infiltrate. The patient did have emphysematous changes on the CT. Antibiotics were discontinued, as appropriate calcitonin level was less than 0.05. The patient was still smoking, and is counseled about the importance of smoking cessation. In addition, she's been on and off of BiPAP, with settings of 12/6, and 35%. We'll continue to follow the patient make recommendations along the way. The patient's overall prognosis remains guarded. She'll follow- up with me in the office. She mentions that she wants to get a portable oxygen concentrator Plan dated 07/31/2023. This morning, the patient's respiratory status worsened, and the patient was placed on BiPAP. Her BiPAP settings are 14/6, and 35%. The patient is receiving saline at 75 mL an hour. Yesterday, the patient was on 4 L. Unfortunately, the patient does continue to smoke cigarettes. The patient is counseled about the importance of smoking cessation. She'll follow with me in the office. Labs, x-rays, and medications are reviewed. Prognosis is certainly very guarded. Plan dated 08/01/2023. The patient is transferred out of the intensive care unit, room air, she was intubated, with a #8 endotracheal tube, using the glide scope. There is good color change on the qualitative capnography device, and good bilateral breath sounds. A chest x-ray confirmed good placement of endotracheal tube. In addition, the patient had a left subclavian triple-lumen catheter placed, as well as a right radial art line. ICU admission orders, and ventilator bundle orders, or implemented. Labs, x-rays, and medications are reviewed. The patient's prognosis is very guarded. We did speak to the patient's son, Theo, up on the third floor, prior to transferring her down. He agreed that the patient would want to be intubated. The patient will be placed on albuterol sulfate and ipratropium bromide, every 4 [id number]. In addition, the patient will be placed on budesonide, and formoterol, and continue on Solu- Medrol. Labs, x-rays, and medications will be ordered for the morning. Plan dated 08/02/2023. The patient was brought down from the floor yesterday, for impending respiratory failure, and she was intubated in the intensive care unit. We placed a central line, and an arterial line as well. Currently, the patient remains on mechanical ventilator. She is on propofol for sedation. Hemodynamically, she is stable. Labs, x-rays, and medications are reviewed. The patient's prognosis is guarded. We spoke to the patient and the patient's son yesterday before we brought her down. She will not have a daily interruption of sedation today or spontaneous breathing trial. We'll do that tomorrow. She continues on appropriate medications including albuterol, ipratropium bromide, budesonide, formoterol, and Solu-Medrol. Prognosis is guarded. Time with Patient: Greater than 30
--- NOTE | 2023-08-02 13:10 | XR ---
EXAMINATION TYPE: XR chest 1V portable DATE OF EXAM: 08/02/2023 5:40 AM CLINICAL INDICATION:Female, 73 years old with history of Tube placement; COMPARISON: Chest radiographs from 08/01/2023 TECHNIQUE: XR chest 1V portable Frontal view of the chest. FINDINGS: Lungs/Pleura: There is flattening of the diaphragm with increased lucency of the lungs. No evidence o f pneumothorax, pleural effusion or focal consolidation. Pulmonary vascularity: Unremarkable. Heart/mediastinum: Cardiomediastinal silhouette is enlarged and stable. Musculoskeletal: No acute osseous pathology. Other findings: None Lines/Tubes: Endotracheal tube with distal tip 7.5 cm above the sidney. Nasogastric tube with its distal tip and side-port projecting under the diaphragm and projecting over the gastric lumen. Left internal jugular central venous catheter with distal tip at the cavoatrial junction. IMPRESSION: 1. Relatively stable exam except for the Endotracheal tube is an high position consider advancing up to 4 cm for optimal placement. 2. Nasogastric tube in appropriate position. 3. COPD changes.
[2023-08-02] MEDS: SODIUM CHLORIDE 0.9% 1,000 ML IV SCH (15:12)
--- NOTE | 2023-08-02 17:21 | P.PN ---
Subjective Progress Note Date: 08/02/23 This is a 73-year-old female patient of Dr. Phillips who presented to the ER with complaints of shortness of breath. Patient apparently was experiencing respiratory distress was transported EMS and was found to have an SpO2 in the 70s. Patient has past medical history of diabetes mellitus, nicotine depen dence, carotid artery stenosis, COPD, hypertension, atrial tachycardia. Initial chest x-ray showing hyperinflated lungs. Patient noted to have elevated troponins 0.046, 0.36 and 0.504. Patient was started on heparin drip for elevated troponins cardiology and pulmonary services were consulted. Patient started on IV steroids, DuoNeb breathing treatments azithromycin and Rocephin Dr. Soto's group previously covering We are resuming care patient on 07/30/2023 On 07/30/2023 patient is alert and oriented 3 currently resting comfortably in bed on BiPAP. Patient reports some improvement with shortness of breath but does appear to be quite short of breath. She remains on IV Solu-Medrol a zithromycin and Rocephin. Patient also remains on heparin drip per cardiology. Pulmonary and cardiology services are following. Sliding scale coverage. Current vital signs temp 97.5, pulse rate 99, respiratory rate 22, blood pressure 110/72 with a pulse ox of 98% on BiPAP On 07/31/2023 patient was seen and examined on the telemetry floor she is alert and oriented 3 in no apparent distress she is still having significant shortness of breath she is maintained on oxygen at 4 L nasal cannula, and requiring BiPAP on and off, she is still complaining of cough was yellow to green sputum production, she denies any chest pain she is still maintained on IV Solu-Medrol. Antibiotic were discontinued by pulmonary. On 08/01/2023 patient remains requiring BiPAP. Patient is alert and oriented resting comfortably on BiPAP in bed at this time. Patient had increased episodes of difficulty breathing throughout night pulmonary services at bedside orders to continue BiPAP. Patient remains on IV Solu-Medrol and DuoNeb breathing treatments. Pulmonary services are following. On 08/02/2023 patient was seen and examined in the ICU, currently she is intubated sedated maintained on mechanical ventilation, assist control rate 20 454 350 FiO2 of 50% and PEEP of 10 vital exam reveals a temperature of 99.5 pulse 81 respiration 24 blood pressure 108/58 pulse ox 94% white blood count 7.8 hemoglobin 11.3 platelet count 120 pH 7.35 pCO2 of 54. O2 56 Objective - Vital Signs Vital signs: Vital Signs Temp 99.5 F 08/02/23 16:00 Pulse 81 08/02/23 16:00 Resp 24 08/02/23 16:00 BP 108/58 08/02/23 16:00 Pulse Ox 94 L 08/02/23 16:00 FiO2 50 08/02/23 16:00 Intake & Output 08/01/23 08/02/23 08/02/23 18:59 06:59 18:59 Intake Total 055.407 2949.951 932 Output Total 1405 585 365 Balance -1263.901 564.951 567 Weight 61.6 kg 61.6 kg Intake: IV 70 975 102 0.9NS Pressure Bag 27 Sodium Chloride 0.9% 1, 70 975 75 000 ml @ 75 mls/hr IV . [id number] [facility] Rx#:[id number] Intake, IV Titration 71.099 174.951 700 Amount Sodium Chloride 0.9% 1, 600 000 ml @ 75 mls/hr IV . [id number] [facility] Rx#:[id number] propofoL 1,000 mg In 71.099 174.951 100 Empty Bag 1 bag @ 15 MCG/ KG/MIN 5.919 mls/hr IV . [id number] [facility] Rx#:[id number] Tube Feeding 70 Other 60 Output: Gastric Drainage 100 Urine 1405 485 365 Other: Voiding Method Indwelling Catheter Indwelling Catheter Indwelling Catheter # Voids 1 ABP, PAP, CO, CI - Last Documented Arterial Blood Pressure 122/53 - Exam In general patient is intubated sedated maintained on mechanical intubation HEENT head normocephalic and atraumatic Neck is supple no JVD no goiter no lymphadenopathy no carotid bruit Chest examination is clear to auscultation no crackles no wheezing Cardiac exam reveals regular heart sounds S1 and S2 no gallops no murmurs Abdomen is soft nontender no organomegaly with normal bowel sounds Extremity exam reveals no edema no cyanosis or clubbing Neurological examination reveals no gross focal deficits - Labs CBC & Chem 7: 08/02/23 04:00 08/02/23 04:00 Labs: Abnormal Lab Results - Last 24 Hours (Table) 08/01/23 08/01/23 08/02/23 Range/Units 18:08 23:44 04:00 RBC 3.75 L (3.80-5.40) m/uL Hgb 11.3 L (11.4-16.0) gm/dL Plt Count 120 L (150-450) k/uL Lymphocytes # 0.5 L (1.0-4.8) k/uL ABG pCO2 (35-45) mmHg ABG pO2 (83-108) mmHg ABG HCO3 (21-25) mmol/L ABG Total CO2 (19-24) mmol/L ABG O2 Saturation (94-97) % Chloride (98-107) mmol/L BUN (7-17) mg/dL Glucose (74-99) mg/dL POC Glucose (mg/dL) 137 H 189 H (70-110) mg/dL AST (14-36) U/L ALT (4-34) U/L Total Protein (6.3-8.2) g/dL Albumin (3.5-5.0) g/dL 08/02/23 08/02/23 08/02/23 Range/Units 04:00 05:05 05:07 RBC (3.80-5.40) m/uL Hgb (11.4-16.0) gm/dL Plt Count (150-450) k/uL Lymphocytes # (1.0-4.8) k/uL ABG pCO2 54 H (35-45) mmHg ABG pO2 56 L* (83-108) mmHg ABG HCO3 30 H (21-25) mmol/L ABG Total CO2 32 H (19-24) mmol/L ABG O2 Saturation 89.4 L (94-97) % Chloride 112 H (98-107) mmol/L BUN 42 H (7-17) mg/dL Glucose 177 H (74-99) mg/dL POC Glucose (mg/dL) 179 H (70-110) mg/dL AST 37 H (14-36) U/L ALT 70 H (4-34) U/L Total Protein 5.6 L (6.3-8.2) g/dL Albumin 3.2 L (3.5-5.0) g/dL 08/02/23 Range/Units 11:26 RBC (3.80-5.40) m/uL Hgb (11.4-16.0) gm/dL Plt Count (150-450) k/uL Lymphocytes # (1.0-4.8) k/uL ABG pCO2 (35-45) mmHg ABG pO2 (83-108) mmHg ABG HCO3 (21-25) mmol/L ABG Total CO2 (19-24) mmol/L ABG O2 Saturation (94-97) % Chloride (98-107) mmol/L BUN (7-17) mg/dL Glucose (74-99) mg/dL POC Glucose (mg/dL) 188 H (70-110) mg/dL AST (14-36) U/L ALT (4-34) U/L Total Protein (6.3-8.2) g/dL Albumin (3.5-5.0) g/dL Assessment and Plan Plan: 1. Shortness breath secondary to acute exacerbation of COPD with tracheal bronchitis 2. Non-ST elevated MN 3. Chronic and ongoing nicotine dependence 4. Oxygen dependent chronic obstructive pulmonary disease 5. Diabetes mellitus type 2 6. History of essential hypertension 7. Carotid artery disease with previous left carotid endarterectomy Pulmonary and cardiology service is consulted Patient maintained on IV Solu-Medrol, DuoNeb breathing treatments Maintained on BiPAP Repeat labs ordered DVT prophylaxis lovenox. GI prophylaxis Protonix
[2023-08-02 17:35] LABS: Glucose,Whole Blood 177 mg/dL (70-110)
[2023-08-02 23:44] LABS: Glucose,Whole Blood 191 mg/dL (70-110)
[2023-08-03] MEDS: IPRATROPIUM-ALBUTEROL 3 ML NEB INHALATION SCH ×5 (03:34→20:09)
[2023-08-03 04:33] LABS: Basophils % (A) 0 %; Eosinophils # (A) 0.1 k/uL (0-0.7); Eosinophils % (A) 1 %; HCT 37.2 % (34.0-46.0); HGB 11.6 gm/dL (11.4-16.0); Hypochromasia Moderate; Lymphocytes # (A) 0.5 k/uL (1.0-4.8); Lymphocytes % (A) 6 %; MCH 30.4 pg (25.0-35.0); MCHC 31.2 g/dL (31.0-37.0); MCV 97.5 fL (80.0-100.0); Mean Platelet Volume 9.2; Monocytes # (A) 0.4 k/uL (0-1.0); Monocytes % (A) 6 %; Neutrophils % (A) 85 %; Platelet Count 115 k/uL (150-450); RBC 3.82 m/uL (3.80-5.40); RDW 14.3 % (11.5-15.5)
[2023-08-03 04:46] LABS: African American GFR (CKD) >90 (>60 ml/min/1.73 sqM); Anion Gap 0 mmol/L; Blood Urea Nitrogen 46 mg/dL (7-17); Calcium 8.5 mg/dL (8.4-10.2); Carbon Dioxide 31 mmol/L (22-30); Chloride 115 mmol/L (98-107); Glucose 214 mg/dL (74-99); Non-African American GFR(CKD) 81 (>60 ml/min/1.73 sqM); Potassium 4.6 mmol/L (3.5-5.1); Sodium 146 mmol/L (137-145)
[2023-08-03 05:59] LABS: Glucose,Whole Blood 237 mg/dL (70-110)
[2023-08-03] MEDS: SODIUM CHLORIDE 0.9% 1,000 ML IV SCH ×2 (05:59→16:14)
[2023-08-03] MEDS: INSULIN ASPART (NovoLOG) 100 UNIT/ML VIAL SQ SCH ×3 (06:04→17:15)
[2023-08-03] MEDS: methylPREDNISolone SOD SUCCI 125 MG/2 ML VIAL IV SCH ×3 (06:05→17:11)
[2023-08-03 06:23] LABS: ABG Base Excess 3.8 mmol/L; ABG HCO3 31 mmol/L (21-25); ABG Oxygen Saturation 97.2 % (94-97); ABG PCO2 68 mmHg (35-45); ABG PH 7.26 (7.35-7.45); ABG PO2 100 mmHg (83-108); ABG TCO2 33 mmol/L (19-24); Allen Test Performed? Yes
[2023-08-03] MEDS: CHLORHEXIDINE GLUCONATE 15 ML CUP MUCOUS MEM SCH ×2 (08:03→20:20)
[2023-08-03] MEDS: PANTOPRAZOLE 40 MG/10 ML VIAL IVP SCH (08:03)
[2023-08-03] MEDS: NICOTINE 21MG/24HR PATCH TRANSDERM SCH (08:03)
[2023-08-03] MEDS: ENOXAPARIN 40 MG/0.4 ML SYRINGE SQ SCH (08:03)
[2023-08-03] MEDS: FORMOTEROL FUMARATE 20 MCG/2 ML NEBU INHALATION SCH ×2 (08:03→20:09)
[2023-08-03] MEDS: BUDESONIDE 1 MG/2 ML NEBU INHALATION SCH ×2 (08:04→20:09)
[2023-08-03] MEDS: ATORVASTATIN 40 MG TAB PO SCH (08:04)
[2023-08-03] MEDS: atenoloL 25 MG TAB PO SCH (08:04)
[2023-08-03] MEDS: ASPIRIN 81 MG PO SCH (08:04)
--- NOTE | 2023-08-03 08:40 | XR ---
EXAMINATION TYPE: XR chest 1V portable DATE OF EXAM: 08/03/2023 Comparison: 08/02/2023 Clinical History: 73-year-old female Tube placement Findings: ET tube tip at the level of the medial clavicular heads. Left subclavian CVC catheter tip lower SVC. Heart upper limits of normal in size. Mild interstitial prominence. Hyperinflation. Biapical pleural- parenchymal scarring. NG tube courses below the diaphragm. No kylie consolidation or pleural effusion . Impression: COPD. ET tube tip at the medial clavicular heads. No definite acute process.
--- NOTE | 2023-08-03 09:54 | P.PN ---
Subjective Progress Note Date: 08/03/23 This is a 73-year-old female patient of Dr. Phillips who presented to the ER with complaints of shortness of breath. Patient apparently was experiencing respiratory distress was transported EMS and was found to have an SpO2 in the 70s. Patient has past medical history of diabetes mellitus, nicotine depende nce, carotid artery stenosis, COPD, hypertension, atrial tachycardia. Initial chest x-ray showing hyperinflated lungs. Patient noted to have elevated troponins 0.046, 0.36 and 0.504. Patient was started on heparin drip for elevated troponins cardiology and pulmonary services were consulted. Patient started on IV steroids, DuoNeb breathing treatments azithromycin and Rocephin Dr. Soto's group previously covering We are resuming care patient on 07/30/2023 On 07/30/2023 3 patient is alert and oriented 3 currently resting comfortably in bed on BiPAP. Patient reports some improvement with shortness of breath but does appear to be quite short of breath. She remains on IV Solu-Medrol az ithromycin and Rocephin. Patient also remains on heparin drip per cardiology. Pulmonary and cardiology services are following. Sliding scale coverage. Current vital signs temp 97.5, pulse rate 99, respiratory rate 22, blood pressure 110/72 with a pulse ox of 98% on BiPAP On 07/31/2023 patient was seen and examined on the telemetry floor she is alert and oriented 3 in no apparent distress she is still having significant shortness of breath she is maintained on oxygen at 4 L nasal cannula, and requiring BiPAP on and off, she is still complaining of cough was yellow to green sputum production, she denies any chest pain she is still maintained on IV Solu-Medrol. Antibiotic were discontinued by pulmonary. On 08/01/2023 patient remains requiring BiPAP. Patient is alert and oriented resting comfortably on BiPAP in bed at this time. Patient had increased episodes of difficulty breathing throughout night pulmonary services at bedside orders to continue BiPAP. Patient remains on IV Solu-Medrol and DuoNeb breathing treatments. Pulmonary services are following. On 08/02/2023 patient was seen and examined in the ICU, currently she is intubated sedated maintained on mechanical ventilation, assist control rate 20 454 350 FiO2 of 50% and PEEP of 10 vital exam reveals a temperature of 99.5 pulse 81 respiration 24 blood pressure 108/58 pulse ox 94% white blood count 7.8 hemoglobin 11.3 platelet count 120 pH 7.35 pCO2 of 54. O2 56 On 08/03/2023 patient remains in the intensive care unit. Patient remains on mechanical ventilation. Sedation holiday in progress current vital signs temp 98.0, heart rate 84, blood pressure 135/55 with a pulse ox 96% been mechanical ventilation with an FiO2 of 50%. Arterial blood gases this a.m. showing a pH of 7.26, creatinine pCO2 68, pO2 100, sodium bicarb 31 Objective - Vital Signs Vital signs: Vital Signs Temp 98.0 F 08/03/23 08:00 Pulse 74 08/03/23 09:00 Resp 24 08/03/23 09:00 BP 140/77 08/03/23 08:00 Pulse Ox 96 08/03/23 09:00 FiO2 50 08/03/23 09:00 Intake & Output 08/02/23 08/03/23 08/03/23 18:59 06:59 18:59 Intake Total 1128 1458.540 392.416 Output Total 460 790 145 Balance 668 668.540 247.416 Weight 61.6 kg Intake: IV 108 36 9 0.9NS Pressure Bag 33 36 9 Sodium Chloride 0.9% 1, 75 000 ml @ 75 mls/hr IV . [id number] [facility] Rx#:[id number] Intake, IV Titration 850 1092.540 248.416 Amount Sodium Chloride 0.9% 1, 750 900 225 000 ml @ 75 mls/hr IV . [id number] [facility] Rx#:[id number] propofoL 1,000 mg In 100 192.540 23.416 Empty Bag 1 bag @ 15 MCG/ KG/MIN 5.919 mls/hr IV . [id number] [facility] Rx#:[id number] Tube Feeding 110 330 105 Other 60 30 Output: Urine 460 790 145 Other: Voiding Method Indwelling Catheter Indwelling Catheter Indwelling Catheter ABP, PAP, CO, CI - Last Documented Arterial Blood Pressure 135/55 - Exam Head normocephalic Neck supple Lungs tachypnea, expiratory wheezing Heart regular rate and rhythm S1-S2, no rub or gallop Abdomen is soft nontender nondistended positive bowel sounds no hepatosplenomegaly Extremities no edema Neuro alert and orientated to 3 - Labs CBC & Chem 7: 08/03/23 04:04 08/03/23 04:04 Labs: Abnormal Lab Results - Last 24 Hours (Table) 08/02/23 08/02/23 08/02/23 Range/Units 11:26 17:34 23:42 Plt Count (150-450) k/uL Lymphocytes # (1.0-4.8) k/uL ABG pH (7.35-7.45) ABG pCO2 (35-45) mmHg ABG HCO3 (21-25) mmol/L ABG Total CO2 (19-24) mmol/L ABG O2 Saturation (94-97) % Sodium (137-145) mmol/L Chloride (98-107) mmol/L Carbon Dioxide (22-30) mmol/L BUN (7-17) mg/dL Glucose (74-99) mg/dL POC Glucose (mg/dL) 188 H 177 H 191 H (70-110) mg/dL 08/03/23 08/03/23 08/03/23 Range/Units 04:04 04:04 05:57 Plt Count 115 L (150-450) k/uL Lymphocytes # 0.5 L (1.0-4.8) k/uL ABG pH (7.35-7.45) ABG pCO2 (35-45) mmHg ABG HCO3 (21-25) mmol/L ABG Total CO2 (19-24) mmol/L ABG O2 Saturation (94-97) % Sodium 146 H (137-145) mmol/L Chloride 115 H (98-107) mmol/L Carbon Dioxide 31 H (22-30) mmol/L BUN 46 H (7-17) mg/dL Glucose 214 H (74-99) mg/dL POC Glucose (mg/dL) 237 H (70-110) mg/dL 08/03/23 Range/Units 06:19 Plt Count (150-450) k/uL Lymphocytes # (1.0-4.8) k/uL ABG pH 7.26 L (7.35-7.45) ABG pCO2 68 H (35-45) mmHg ABG HCO3 31 H (21-25) mmol/L ABG Total CO2 33 H (19-24) mmol/L ABG O2 Saturation 97.2 H (94-97) % Sodium (137-145) mmol/L Chloride (98-107) mmol/L Carbon Dioxide (22-30) mmol/L BUN (7-17) mg/dL Glucose (74-99) mg/dL POC Glucose (mg/dL) (70-110) mg/dL Microbiology - Last 24 Hours (Table) 08/02/23 12:20 Gram Stain - Preliminary Sputum Assessment and Plan Assessment: 1. Shortness breath secondary to acute exacerbation of COPD with tracheal bronchitis 2. Non-ST elevated NC 3. Chronic and ongoing nicotine dependence 4. Oxygen dependent chronic obstructive pulmonary disease 5. Diabetes mellitus type 2 6. History of essential hypertension 7. Carotid artery disease with previous left carotid endarterectomy Patient transferred to the intensive care unit intubated on 08/01/2023 Remains on mechanical ventilation Continue IV steroids DVT prophylaxis Lovenox. GI prophylaxis Protonix
--- NOTE | 2023-08-03 10:47 | P.PN ---
Subjective Progress Note Date: 08/03/23 Principal diagnosis: COPD exacerbation. This is a pleasant 73-year-old female patient with a known history of hyperlipidemia, diabetes mellitus, chronic and ongoing tobacco dependence, chronic obstructive pulmonary disease. Her FEV1 value 71% of predicted. She's been maintained on Combivent and albuterol in the outpatient setting. She presented here to the emergency room last evening by EMS for a 1 week history of worsening shortness of breath. She was found to be hypoxemic in the 70s and placed on CPAP given updraft treatments and steroids and transit. She is seen today in consultation in the emergency department. She is currently sitting up on a stretcher. Quite anxious and short of breath. Currently on BiPAP 12/6 and 45% FiO2. Chest x-ray reveals hyperinflated lungs with coarse interstitial markings consistent with emphysema. No acute infiltrate noted. No pneumothorax. White count 12.4. Hemoglobin 13.8. Platelets 232. INR 0.9. Sodium 140. Potassium 4.2. Bicarb 22. BUN 13. Creatinine 0.80. Glucose 255. AST 42. ALT 35. Troponin 0.046, 0.386, 0.504. ProBNP 1020. She is currently on a heparin drip. Initiated and DuoNeb inhalations, Symbicort, Solu-Medrol. Antibiotics in the form of ceftriaxone and azithromycin. Procalcitonin pending. NicoDerm patch in place. Normal saline at 75 ML's per hour. Progress note dated 07/30/2023. 73-year-old female admitted with a diagnosis of COPD exacerbation. Unfortunately, the patient does continue to smoke cigarettes. She apparently has moderate COPD with an FEV1 that's 71% of predicted. The patient was admitted to the hospital with a COPD exacerbation. Currently, she is on 4 L of oxygen. She's getting BiPAP at 12/6, at 35%. Patient's pro-calcitonin level was low at less than 0.05. Antibiotics were discontinued. White count was 12, hemoglobin 12, hematocrit 38, with a normal platelet count. Sodium 141, potassium 4, chlorides 111, CO2 24, BUN 32, and creatinine 0.7. CT angiogram was negative for pulmonary embolism, showed changes of emphysema, without consolidation, infiltrate, effusion, pneumothorax. Progress note dated 07/31/2023. 73-year-old female admitted with a diagnosis of COPD exacerbation. The patient unfortunately, continues to smoke cigarettes. Her FEV1 percent is 71. Today, she is on BiPAP, with settings of 14/6, and 35%. The patient's also getting saline at 75 mL an hour. Sometime early this morning, her respirations became much more labored, which required BiPAP therapy. Yesterday, she was on 4 L by nasal cannula. I was not made aware the patient's respiratory difficulty. White count 10.4, hemoglobin 11.4, hematocrit 35.8, and platelet count 124,000. Sodium 144, potassium 4.3, chlorides 115, CO2 22, BUN 36, and creatinine 0.59. Progress note dated 08/01/2023. 73-year-old female who was seen initially in room 355. The patient was wearing BiPAP, but generally was not doing very well, she was on 14/6 and 35%. No IV fluids. She is quite a bit of distress, and kept on pulling of her BiPAP device. The patient was tripoding, and bed, and we felt that the patient was having impending respiratory failure, so she was moved to the intensive care unit. There, myself and Dr. Trinh, intubated the patient, with a #8 endotracheal tube, also place a left subclavian triple-lumen catheter and a right radial art line. She was placed on the ventilator, with settings of AC mode, rate 18, tidal volume 350, FiO2 100%, and PEEP of 5. Blood gases are pending. Chest x-ray revealed properly placed endotracheal tube, and central line. Current labs include a white count 11.7, hemoglobin 12.8, hematocrit 40.5, and a platelet count of 146,000. Sodium 144, potassium 4.5, chlorides 114, CO2 24, BUN 40, creatinine 0.71. Blood cultures are negative. Progress note dated 08/02/2023. 73-year-old female brought down from the floor yesterday, for impending respiratory failure secondary to COPD. The patient was intubated, yesterday, and, had a left subclavian triple-lumen cath placed, as well as a right radial arterial line. She's currently on the ventilator, his been seen today in room 250. She had a pretty uneventful night according to the nurses. She is on volume assist control, rate 24, tidal volume 350, FiO2 50% 10 of PEEP. Blood gases show pO2 of 56, pCO2 54, and a pH is 7.35. That was on 40% and PEEP of 5. Currently saturations are 96%. She's getting saline at 75 mL an hour, and propofol at 35 mcg/kg/m. 2 feedings will be started today. White count 7.1, hemoglobin 11.3, hematocrit 35.7, and platelet count 120,000. Sodium 143, potassium 4.2, chlorides 112, CO2 28, BUN 42, creatinine 0.73. Blood cultures are currently negative. Chest x-ray shows a well positioned endotracheal tube, central line, and the lungs are without significant airspace disease. Progress note dated 08/03/2023. 73-year-old female with history of COPD and respiratory failure. The patient was intubated and mechanically ventilated, on August 01, for kylie respiratory failure. Currently, she remains on the mechanical ventilator, volume assist control mode, rate 24, tidal volume 350, FiO2 50% PEEP of 10. Blood gases show pO2 100, pCO2 of 68, and pH is 7.26. The patient remains on saline at 75 mL an hour, propofol at 20 mcg/kg/m, and vital high protein at 35 mL an hour, which is goal. The patient's white count is 7, hemoglobin 11.6, hematocrit 37.2, and platelet count 115,000. Sodium 146, potassium 4.6, chlorides 115, CO2 31, BUN 46, creatinine 0.74. Chest x-ray shows changes of COPD only. Objective - Vital Signs Vital signs: Vital Signs Temp 98.0 F 08/03/23 08:00 Pulse 73 08/03/23 10:00 Resp 24 08/03/23 10:00 BP 140/77 08/03/23 08:00 Pulse Ox 95 08/03/23 10:00 FiO2 50 08/03/23 10:00 Intake & Output 08/02/23 08/03/23 08/03/23 18:59 06:59 18:59 Intake Total 1128 1458.540 472.061 Output Total 460 790 195 Balance 668 668.540 277.061 Weight 61.6 kg Intake: IV 108 36 12 0.9NS Pressure Bag 33 36 12 Sodium Chloride 0.9% 1, 75 000 ml @ 75 mls/hr IV . [id number] [facility] Rx#:[id number] Intake, IV Titration 850 1092.540 325.061 Amount Sodium Chloride 0.9% 1, 750 900 300 000 ml @ 75 mls/hr IV . [id number] [facility] Rx#:[id number] propofoL 1,000 mg In 100 192.540 25.061 Empty Bag 1 bag @ 15 MCG/ KG/MIN 5.919 mls/hr IV . [id number] [facility] Rx#:[id number] Tube Feeding 110 330 105 Other 60 30 Output: Urine 460 790 195 Other: Voiding Method Indwelling Catheter Indwelling Catheter Indwelling Catheter ABP, PAP, CO, CI - Last Documented Arterial Blood Pressure 121/51 - Exam No acute distress, sedated, with an orally placed endotracheal tube and NG tube. HEENT examination is grossly unremarkable. Neck supple. Full range of motion. No adenopathy thyromegaly or neck vein distention. Cardiovascular examination reveals regular rhythm rate. S1-S2 normal. No S3 or S4. No discernible murmur noted. Heart rate is 73 bpm. Lungs reveal coarse, bilateral, inspiratory and expiratory wheezes and rhonchi. No crackles. Saturations are 95%. Breath sounds are equal bilaterally. Abdomen soft, without bowel sounds. Extremities are intact. No cyanosis clubbing or edema. Skin is without rash or lesion. Neurologic examination cannot be evaluated at this time. - Labs CBC & Chem 7: 08/03/23 04:04 08/03/23 04:04 Labs: Abnormal Lab Results - Last 24 Hours (Table) 08/02/23 08/02/23 08/02/23 Range/Units 11:26 17:34 23:42 Plt Count (150-450) k/uL Lymphocytes # (1.0-4.8) k/uL ABG pH (7.35-7.45) ABG pCO2 (35-45) mmHg ABG HCO3 (21-25) mmol/L ABG Total CO2 (19-24) mmol/L ABG O2 Saturation (94-97) % Sodium (137-145) mmol/L Chloride (98-107) mmol/L Carbon Dioxide (22-30) mmol/L BUN (7-17) mg/dL Glucose (74-99) mg/dL POC Glucose (mg/dL) 188 H 177 H 191 H (70-110) mg/dL 08/03/23 08/03/23 08/03/23 Range/Units 04:04 04:04 05:57 Plt Count 115 L (150-450) k/uL Lymphocytes # 0.5 L (1.0-4.8) k/uL ABG pH (7.35-7.45) ABG pCO2 (35-45) mmHg ABG HCO3 (21-25) mmol/L ABG Total CO2 (19-24) mmol/L ABG O2 Saturation (94-97) % Sodium 146 H (137-145) mmol/L Chloride 115 H (98-107) mmol/L Carbon Dioxide 31 H (22-30) mmol/L BUN 46 H (7-17) mg/dL Glucose 214 H (74-99) mg/dL POC Glucose (mg/dL) 237 H (70-110) mg/dL 08/03/23 Range/Units 06:19 Plt Count (150-450) k/uL Lymphocytes # (1.0-4.8) k/uL ABG pH 7.26 L (7.35-7.45) ABG pCO2 68 H (35-45) mmHg ABG HCO3 31 H (21-25) mmol/L ABG Total CO2 33 H (19-24) mmol/L ABG O2 Saturation 97.2 H (94-97) % Sodium (137-145) mmol/L Chloride (98-107) mmol/L Carbon Dioxide (22-30) mmol/L BUN (7-17) mg/dL Glucose (74-99) mg/dL POC Glucose (mg/dL) (70-110) mg/dL Microbiology - Last 24 Hours (Table) 08/02/23 12:20 Gram Stain - Preliminary Sputum Assessment and Plan Assessment: S/P intubation and mechanical ventilation, for impending respiratory failure, 08/01/2023. Acute on chronic hypoxemic respiratory failure secondary to an acute exacerbation of chronic obstructive pulmonary disease. Troponin leak secondary to above versus coronary artery disease. Chronic and ongoing tobacco dependence of greater than 50 years. Oxygen dependent chronic obstructive pulmonary disease. Diabetes mellitus, type II. Hypertension. Carotid artery disease with previous left carotid endarterectomy. Plan: Plan dated 07/30/2023. The patient's CT angiogram was negative for pulmonary embolism. He did not showed infiltrate. The patient did have emphysematous changes on the CT. Antibiotics were discontinued, as appropriate calcitonin level was less than 0.05. The patient was still smoking, and is counseled about the importance of smoking cessation. In addition, she's been on and off of BiPAP, with settings of 12/6, and 35%. We'll continue to follow the patient make recommendations along the way. The patient's overall prognosis remains guarded. She'll follow- up with me in the office. She mentions that she wants to get a portable oxygen concentrator Plan dated 07/31/2023. This morning, the patient's respiratory status worsened, and the patient was placed on BiPAP. Her BiPAP settings are 14/6, and 35%. The patient is receiving saline at 75 mL an hour. Yesterday, the patient was on 4 L. Unfortunately, the patient does continue to smoke cigarettes. The patient is counseled about the importance of smoking cessation. She'll follow with me in the office. Labs, x-rays, and medications are reviewed. Prognosis is certainly very guarded. Plan dated 08/01/2023. The patient is transferred out of the intensive care unit, room air, she was intubated, with a #8 endotracheal tube, using the glide scope. There is good color change on the qualitative capnography device, and good bilateral breath sounds. A chest x-ray confirmed good placement of endotracheal tube. In addition, the patient had a left subclavian triple-lumen catheter placed, as well as a right radial art line. ICU admission orders, and ventilator bundle orders, or implemented. Labs, x-rays, and medications are reviewed. The patient's prognosis is very guarded. We did speak to the patient's son, Theo, up on the third floor, prior to transferring her down. He agreed that the patient would want to be intubated. The patient will be placed on albuterol sulfate and ipratropium bromide, every 4 [id number]. In addition, the patient will be placed on budesonide, and formoterol, and continue on Solu- Medrol. Labs, x-rays, and medications will be ordered for the morning. Plan dated 08/02/2023. The patient was brought down from the floor yesterday, for impending respiratory failure, and she was intubated in the intensive care unit. We placed a central line, and an arterial line as well. Currently, the patient remains on mechanical ventilator. She is on propofol for sedation. Hemodynamically, she is stable. Labs, x-rays, and medications are reviewed. The patient's prognosis is guarded. We spoke to the patient and the patient's son yesterday before we brought her down. She will not have a daily interruption of sedation today or s pontaneous breathing trial. We'll do that tomorrow. She continues on appropriate medications including albuterol, ipratropium bromide, budesonide, formoterol, and Solu-Medrol. Prognosis is guarded. Plan dated 08/03/2023. The patient is seen today in room 250. She remains on the mechanical vent ilator. We will attempt a daily interruption of sedation, and a spontaneous breathing trial, with pressure support of 5 and CPAP of 5. The patient was reduced from 10, down to 5. She still has significant expiratory wheezes. Peak or pushes 29. Plateau pressure is 21. Orders have been given to the nurse and respiratory therapist in terms of what to do next. Additional recommendations and suggestions are forthcoming. The patient remains on albuterol, ipratropium bromide, budesonide, formoterol, and Solu-Medrol. Prognosis is guarded. Time with Patient: Greater than 30
[2023-08-03 11:56] LABS: Glucose,Whole Blood 209 mg/dL (70-110)
[2023-08-03] MEDS: INSULIN DETEMIR (LEVEMIR) 100 UNIT/ML SYR SQ SCH (13:15)
[2023-08-03 17:16] LABS: Glucose,Whole Blood 171 mg/dL (70-110)
[2023-08-03] MEDS: ACETAMINOPHEN TAB 325 MG TAB PO PRN (20:20)
[2023-08-04 00:18] LABS: Glucose,Whole Blood 250 mg/dL (70-110)
[2023-08-04] MEDS: INSULIN ASPART (NovoLOG) 100 UNIT/ML VIAL SQ SCH ×4 (00:23→17:56)
[2023-08-04] MEDS: methylPREDNISolone SOD SUCCI 125 MG/2 ML VIAL IV SCH ×4 (00:23→17:56)
[2023-08-04] MEDS: ACETAMINOPHEN TAB 325 MG TAB PO PRN ×3 (00:24→19:40)
[2023-08-04] MEDS: IPRATROPIUM-ALBUTEROL 3 ML NEB INHALATION SCH ×7 (00:43→23:45)
[2023-08-04 05:15] LABS: Glucose,Whole Blood 241 mg/dL (70-110)
[2023-08-04] MEDS: SODIUM CHLORIDE 0.9% 1,000 ML IV SCH (05:36)
[2023-08-04 05:44] LABS: Basophils % (A) 0 %; Eosinophils # (A) 0.1 k/uL (0-0.7); Eosinophils % (A) 1 %; HCT 34.3 % (34.0-46.0); HGB 10.9 gm/dL (11.4-16.0); Hypochromasia Slight; Lymphocytes # (A) 0.4 k/uL (1.0-4.8); Lymphocytes % (A) 6 %; MCH 30.5 pg (25.0-35.0); MCHC 31.6 g/dL (31.0-37.0); MCV 96.3 fL (80.0-100.0); Mean Platelet Volume 9.2; Monocytes # (A) 0.4 k/uL (0-1.0); Monocytes % (A) 6 %; Neutrophils # (A) 5.2 k/uL (1.3-7.7); Neutrophils % (A) 85 %; Platelet Count 116 k/uL (150-450); RBC 3.56 m/uL (3.80-5.40); RDW 14.1 % (11.5-15.5); WBC 6.1 k/uL (3.8-10.6)
[2023-08-04 06:05] LABS: ALT 57 U/L (4-34); AST 45 U/L (14-36); African American GFR (CKD) >90 (>60 ml/min/1.73 sqM); Albumin 2.8 g/dL (3.5-5.0); Alkaline Phosphatase 53 U/L (38-126); Anion Gap 1 mmol/L; Blood Urea Nitrogen 48 mg/dL (7-17); Calcium 8.3 mg/dL (8.4-10.2); Carbon Dioxide 33 mmol/L (22-30); Chloride 113 mmol/L (98-107); Glucose 229 mg/dL (74-99); Magnesium 2.5 mg/dL (1.6-2.3); Non-African American GFR(CKD) 90 (>60 ml/min/1.73 sqM); Phosphorus 3.1 mg/dL (2.5-4.5); Potassium 4.1 mmol/L (3.5-5.1); Sodium 147 mmol/L (137-145); Total Bilirubin 0.3 mg/dL (0.2-1.3)
[2023-08-04 06:14] LABS: ABG Base Excess 7.6 mmol/L; ABG HCO3 33 mmol/L (21-25); ABG Oxygen Saturation 96.3 % (94-97); ABG PCO2 58 mmHg (35-45); ABG PH 7.36 (7.35-7.45); ABG PO2 78 mmHg (83-108); ABG TCO2 35 mmol/L (19-24); Allen Test Performed? Yes
--- NOTE | 2023-08-04 06:41 | XR ---
EXAMINATION TYPE: XR chest 1V portable DATE OF EXAM: 08/04/2023 COMPARISON: 08/03/2023 HISTORY: Tube placement TECHNIQUE: Single frontal view of the chest is obtained. FINDINGS: ET tube is 6.8 cm above the sidney. There is an NG tube stomach. Heart size is normal and the pulmonary vasculature is not congested. There are diffuse mild chronic i nterstitial changes. There is no pneumothorax. A small left pleural effusion is possible. IMPRESSION: ET tube 6.8 cm above the sidney. Possible developing small left pleural effusion.
[2023-08-04] MEDS: INSULIN DETEMIR (LEVEMIR) 100 UNIT/ML SYR SQ SCH (06:45)
[2023-08-04] MEDS: BUDESONIDE 1 MG/2 ML NEBU INHALATION SCH ×2 (08:02→20:27)
[2023-08-04] MEDS: FORMOTEROL FUMARATE 20 MCG/2 ML NEBU INHALATION SCH ×2 (08:06→20:27)
[2023-08-04] MEDS: ATORVASTATIN 40 MG TAB PO SCH (09:03)
[2023-08-04] MEDS: DEXTROSE 5% IN WATER 1,000 ML IV SCH ×2 (09:03→22:30)
[2023-08-04] MEDS: CHLORHEXIDINE GLUCONATE 15 ML CUP MUCOUS MEM SCH ×2 (09:03→20:17)
[2023-08-04] MEDS: NICOTINE 21MG/24HR PATCH TRANSDERM SCH (09:03)
[2023-08-04] MEDS: ASPIRIN 81 MG PO SCH (09:03)
[2023-08-04] MEDS: ENOXAPARIN 40 MG/0.4 ML SYRINGE SQ SCH (09:03)
[2023-08-04] MEDS: PANTOPRAZOLE 40 MG/10 ML VIAL IVP SCH (09:03)
[2023-08-04] MEDS: atenoloL 25 MG TAB PO SCH (09:04)
--- NOTE | 2023-08-04 11:03 | P.PN ---
Subjective Progress Note Date: 08/04/23 This is a 73-year-old female patient of Dr. Phillips who presented to the ER with complaints of shortness of breath. Patient apparently was experiencing respiratory distress was transported EMS and was found to have an SpO2 in the 70s. Patient has past medical history of diabetes mellitus, nicotine depen dence, carotid artery stenosis, COPD, hypertension, atrial tachycardia. Initial chest x-ray showing hyperinflated lungs. Patient noted to have elevated troponins 0.046, 0.36 and 0.504. Patient was started on heparin drip for elevated troponins cardiology and pulmonary services were consulted. Patient started on IV steroids, DuoNeb breathing treatments azithromycin and Rocephin Dr. Soto's group previously covering We are resuming care patient on 07/30/2023 On 07/30/2023 patient is alert and oriented 3 currently resting comfortably in bed on BiPAP. Patient reports some improvement with shortness of breath but does appear to be quite short of breath. She remains on IV Solu-Medrol a zithromycin and Rocephin. Patient also remains on heparin drip per cardiology. Pulmonary and cardiology services are following. Sliding scale coverage. Current vital signs temp 97.5, pulse rate 99, respiratory rate 22, blood pressure 110/72 with a pulse ox of 98% on BiPAP On 07/31/2023 patient was seen and examined on the telemetry floor she is alert and oriented 3 in no apparent distress she is still having significant shortness of breath she is maintained on oxygen at 4 L nasal cannula, and requiring BiPAP on and off, she is still complaining of cough was yellow to green sputum production, she denies any chest pain she is still maintained on IV Solu-Medrol. Antibiotic were discontinued by pulmonary. On 08/01/2023 patient remains requiring BiPAP. Patient is alert and oriented resting comfortably on BiPAP in bed at this time. Patient had increased episodes of difficulty breathing throughout night pulmonary services at bedside orders to continue BiPAP. Patient remains on IV Solu-Medrol and DuoNeb breathing treatments. Pulmonary services are following. On 08/02/2023 patient was seen and examined in the ICU, currently she is intubated sedated maintained on mechanical ventilation, assist control rate 20 454 350 FiO2 of 50% and PEEP of 10 vital exam reveals a temperature of 99.5 pulse 81 respiration 24 blood pressure 108/58 pulse ox 94% white blood count 7.8 hemoglobin 11.3 platelet count 120 pH 7.35 pCO2 of 54. O2 56 On 08/03/2023 patient remains in the intensive care unit. Patient remains on mechanical ventilation. Sedation holiday in progress current vital signs temp 98.0, heart rate 84, blood pressure 135/55 with a pulse ox 96% been mechanical ventilation with an FiO2 of 50%. Arterial blood gases this a.m. showing a pH of 7.26, creatinine pCO2 68, pO2 100, sodium bicarb 31 On 08/04/2023 patient was seen and examined in the ICU, currently she is intu bated sedated maintained on mechanical ventilation, assist control rate 20 454 350 FiO2 of 50% and PEEP of 10 vital exam reveals a temperature of 98.7 pulse 84 respiration 24 blood pressure 132/65 white blood count is 6.1 hemoglobin 10.9 platelet count 116 arterial blood gas reveals a pH of 7.36 pCO2 of 58 CO2 78 sodium 147 potassium 4.1 chloride 1:15 CO2 33 BUN 48 creatinine 0.62 glucose level 229 Objective - Vital Signs Vital signs: Vital Signs Temp 98.7 F 08/04/23 08:00 Pulse 84 08/04/23 09:00 Resp 24 08/04/23 09:00 BP 132/65 08/04/23 09:00 Pulse Ox 96 08/04/23 09:00 FiO2 50 08/04/23 08:00 Intake & Output 08/03/23 08/04/23 08/04/23 18:59 06:59 18:59 Intake Total 9143.149 6106.811 286.377 Output Total 825 1385 150 Balance 712.713 443.811 136.377 Weight 61.6 kg 62.6 kg Intake: IV 36 39 156 0.9NS Pressure Bag 36 39 6 Dextrose 5% in Water 1, 75 000 ml @ 75 mls/hr IV . [id number] [facility] Rx#:[id number] Sodium Chloride 0.9% 1, 75 000 ml @ 75 mls/hr IV . [id number] [facility] Rx#:[id number] Intake, IV Titration 933.279 1882.811 60.377 Amount Sodium Chloride 0.9% 1, 900 975 000 ml @ 75 mls/hr IV . [id number] [facility] Rx#:[id number] propofoL 1,000 mg In 91.713 204.811 60.377 Empty Bag 1 bag @ 15 MCG/ KG/MIN 5.919 mls/hr IV . [id number] [facility] Rx#:[id number] Tube Feeding 420 520 40 Other 90 90 30 Output: Urine 825 1385 150 Other: Voiding Method Indwelling Catheter Indwelling Catheter ABP, PAP, CO, CI - Last Documented Arterial Blood Pressure 152/58 - Exam In general patient is intubated sedated maintained on mechanical intubation HEENT head normocephalic and atraumatic Neck is supple no JVD no goiter no lymphadenopathy no carotid bruit Chest examination is clear to auscultation no crackles no wheezing Cardiac exam reveals regular heart sounds S1 and S2 no gallops no murmurs Abdomen is soft nontender no organomegaly with normal bowel sounds Extremity exam reveals no edema no cyanosis or clubbing Neurological examination reveals no gross focal deficits - Labs CBC & Chem 7: 08/04/23 05:10 08/04/23 05:10 Labs: Abnormal Lab Results - Last 24 Hours (Table) 08/03/23 08/03/23 08/04/23 Range/Units 11:54 17:14 00:15 RBC (3.80-5.40) m/uL Hgb (11.4-16.0) gm/dL Plt Count (150-450) k/uL Lymphocytes # (1.0-4.8) k/uL ABG pCO2 (35-45) mmHg ABG pO2 (83-108) mmHg ABG HCO3 (21-25) mmol/L ABG Total CO2 (19-24) mmol/L Sodium (137-145) mmol/L Chloride (98-107) mmol/L Carbon Dioxide (22-30) mmol/L BUN (7-17) mg/dL Glucose (74-99) mg/dL POC Glucose (mg/dL) 209 H 171 H 250 H (70-110) mg/dL Calcium (8.4-10.2) mg/dL Magnesium (1.6-2.3) mg/dL AST (14-36) U/L ALT (4-34) U/L Total Protein (6.3-8.2) g/dL Albumin (3.5-5.0) g/dL 08/04/23 08/04/23 08/04/23 Range/Units 05:10 05:10 05:13 RBC 3.56 L (3.80-5.40) m/uL Hgb 10.9 L (11.4-16.0) gm/dL Plt Count 116 L (150-450) k/uL Lymphocytes # 0.4 L (1.0-4.8) k/uL ABG pCO2 (35-45) mmHg ABG pO2 (83-108) mmHg ABG HCO3 (21-25) mmol/L ABG Total CO2 (19-24) mmol/L Sodium 147 H (137-145) mmol/L Chloride 113 H (98-107) mmol/L Carbon Dioxide 33 H (22-30) mmol/L BUN 48 H (7-17) mg/dL Glucose 229 H (74-99) mg/dL POC Glucose (mg/dL) 241 H (70-110) mg/dL Calcium 8.3 L (8.4-10.2) mg/dL Magnesium 2.5 H (1.6-2.3) mg/dL AST 45 H (14-36) U/L ALT 57 H (4-34) U/L Total Protein 5.0 L (6.3-8.2) g/dL Albumin 2.8 L (3.5-5.0) g/dL 08/04/23 Range/Units 06:09 RBC (3.80-5.40) m/uL Hgb (11.4-16.0) gm/dL Plt Count (150-450) k/uL Lymphocytes # (1.0-4.8) k/uL ABG pCO2 58 H (35-45) mmHg ABG pO2 78 L (83-108) mmHg ABG HCO3 33 H (21-25) mmol/L ABG Total CO2 35 H (19-24) mmol/L Sodium (137-145) mmol/L Chloride (98-107) mmol/L Carbon Dioxide (22-30) mmol/L BUN (7-17) mg/dL Glucose (74-99) mg/dL POC Glucose (mg/dL) (70-110) mg/dL Calcium (8.4-10.2) mg/dL Magnesium (1.6-2.3) mg/dL AST (14-36) U/L ALT (4-34) U/L Total Protein (6.3-8.2) g/dL Albumin (3.5-5.0) g/dL Microbiology - Last 24 Hours (Table) 08/02/23 12:20 Gram Stain - Preliminary Sputum Sputum Culture - Preliminary Rosa albicans Gram Neg Bacilli 07/28/23 23:35 Blood Culture - Final Blood 07/28/23 23:50 Blood Culture - Final Blood Assessment and Plan Plan: 1. Shortness breath secondary to acute exacerbation of COPD with tracheal bronchitis 2. Non-ST elevated [place] 3. Chronic and ongoing nicotine dependence 4. Oxygen dependent chronic obstructive pulmonary disease 5. Diabetes mellitus type 2 6. History of essential hypertension 7. Carotid artery disease with previous left carotid endarterectomy Pulmonary and cardiology service is consulted Patient maintained on IV Solu-Medrol, DuoNeb breathing treatments Maintained on BiPAP Repeat labs ordered DVT prophylaxis lovenox. GI prophylaxis Protonix
--- NOTE | 2023-08-04 11:15 | P.PN ---
Subjective Progress Note Date: 08/04/23 Principal diagnosis: COPD exacerbation. This is a pleasant 73-year-old female patient with a known history of hyperlipidemia, diabetes mellitus, chronic and ongoing tobacco dependence, chronic obstructive pulmonary disease. Her FEV1 value 71% of predicted. She's been maintained on Combivent and albuterol in the outpatient setting. She presented here to the emergency room last evening by EMS for a 1 week history of worsening shortness of breath. She was found to be hypoxemic in the 70s and placed on CPAP given updraft treatments and steroids and transit. She is seen today in consultation in the emergency department. She is currently sitting up on a stretcher. Quite anxious and short of breath. Currently on BiPAP 12/6 and 45% FiO2. Chest x-ray reveals hyperinflated lungs with coarse interstitial markings consistent with emphysema. No acute infiltrate noted. No pneumothorax. White count 12.4. Hemoglobin 13.8. Platelets 232. INR 0.9. Sodium 140. Potassium 4.2. Bicarb 22. BUN 13. Creatinine 0.80. Glucose 255. AST 42. ALT 35. Troponin 0.046, 0.386, 0.504. ProBNP 1020. She is currently on a heparin drip. Initiated and DuoNeb inhalations, Symbicort, Solu-Medrol. Antibiotics in the form of ceftriaxone and azithromycin. Procalcitonin pending. NicoDerm patch in place. Normal saline at 75 ML's per hour. Progress note dated 07/30/2023. 73-year-old female admitted with a diagnosis of COPD exacerbation. Unfortunately, the patient does continue to smoke cigarettes. She apparently has moderate COPD with an FEV1 that's 71% of predicted. The patient was admitted to the hospital with a COPD exacerbation. Currently, she is on 4 L of oxygen. She's getting BiPAP at 12/6, at 35%. Patient's pro-calcitonin level was low at less than 0.05. Antibiotics were discontinued. White count was 12, hemoglobin 12, hematocrit 38, with a normal platelet count. Sodium 141, potassium 4, chlorides 111, CO2 24, BUN 32, and creatinine 0.7. CT angiogram was negative for pulmonary embolism, showed changes of emphysema, without consolidation, infiltrate, effusion, pneumothorax. Progress note dated 07/31/2023. 73-year-old female admitted with a diagnosis of COPD exacerbation. The patient unfortunately, continues to smoke cigarettes. Her FEV1 percent is 71. Today, she is on BiPAP, with settings of 14/6, and 35%. The patient's also getting saline at 75 mL an hour. Sometime early this morning, her respirations became much more labored, which required BiPAP therapy. Yesterday, she was on 4 L by nasal cannula. I was not made aware the patient's respiratory difficulty. White count 10.4, hemoglobin 11.4, hematocrit 35.8, and platelet count 124,000. Sodium 144, potassium 4.3, chlorides 115, CO2 22, BUN 36, and creatinine 0.59. Progress note dated 08/01/2023. 73-year-old female who was seen initially in room 355. The patient was wearing BiPAP, but generally was not doing very well, she was on 14/6 and 35%. No IV fluids. She is quite a bit of distress, and kept on pulling of her BiPAP device. The patient was tripoding, and bed, and we felt that the patient was having impending respiratory failure, so she was moved to the intensive care unit. There, myself and Dr. Trinh, intubated the patient, with a #8 endotracheal tube, also place a left subclavian triple-lumen catheter and a right radial art line. She was placed on the ventilator, with settings of AC mode, rate 18, tidal volume 350, FiO2 100%, and PEEP of 5. Blood gases are pending. Chest x-ray revealed properly placed endotracheal tube, and central line. Current labs include a white count 11.7, hemoglobin 12.8, hematocrit 40.5, and a platelet count of 146,000. Sodium 144, potassium 4.5, chlorides 114, CO2 24, BUN 40, creatinine 0.71. Blood cultures are negative. Progress note dated 08/02/2023. 73-year-old female brought down from the floor yesterday, for impending respiratory failure secondary to COPD. The patient was intubated, yesterday, and, had a left subclavian triple-lumen cath placed, as well as a right radial arterial line. She's currently on the ventilator, his been seen today in room 250. She had a pretty uneventful night according to the nurses. She is on volume assist control, rate 24, tidal volume 350, FiO2 50% 10 of PEEP. Blood gases show pO2 of 56, pCO2 54, and a pH is 7.35. That was on 40% and PEEP of 5. Currently saturations are 96%. She's getting saline at 75 mL an hour, and propofol at 35 mcg/kg/m. 2 feedings will be started today. White count 7.1, hemoglobin 11.3, hematocrit 35.7, and platelet count 120,000. Sodium 143, potassium 4.2, chlorides 112, CO2 28, BUN 42, creatinine 0.73. Blood cultures are currently negative. Chest x-ray shows a well positioned endotracheal tube, central line, and the lungs are without significant airspace disease. Progress note dated 08/03/2023. 73-year-old female with history of COPD and respiratory failure. The patient was intubated and mechanically ventilated, on August 01, for kylie respiratory failure. Currently, she remains on the mechanical ventilator, volume assist control mode, rate 24, tidal volume 350, FiO2 50% PEEP of 10. Blood gases show pO2 100, pCO2 of 68, and pH is 7.26. The patient remains on saline at 75 mL an hour, propofol at 20 mcg/kg/m, and vital high protein at 35 mL an hour, which is goal. The patient's white count is 7, hemoglobin 11.6, hematocrit 37.2, and platelet count 115,000. Sodium 146, potassium 4.6, chlorides 115, CO2 31, BUN 46, creatinine 0.74. Chest x-ray shows changes of COPD only. Progress note dated 08/04/2023. 73-year-old female with history of COPD and respiratory failure. The patient was seen in room 250. She remains on the mechanical ventilator. She is on volume assist control mode, rate 24, tidal volume 350, FiO2 50%, PEEP of 5. She did poorly with her daily interruption of sedation yesterday. Blood gases show pO2 78, pCO2 of 58, and pH is 7.36. She remains on propofol at 45 mcg/kg/m, saline at 75 mL an hour, and vital high protein at 40 mL, which is goal. White count 6.1, hemogram 10.9, hematocrit 34.3, with a platelet count of 116,000. Sodium 147, potassium 4.1, chlorides 113, CO2 33, BUN 48, creatinine 0.62. The patient's saline is changed to dextrose, at 75 mL an hour. Sputum samples from August 02 showing evidence of Rosa, and gram-negative bacilli. Chest x- ray shows a small left-sided pleural effusion. Objective - Vital Signs Vital signs: Vital Signs Temp 98.7 F 08/04/23 08:00 Pulse 84 08/04/23 09:00 Resp 24 08/04/23 09:00 BP 132/65 08/04/23 09:00 Pulse Ox 96 08/04/23 09:00 FiO2 50 08/04/23 10:49 Intake & Output 08/03/23 08/04/23 08/04/23 18:59 06:59 18:59 Intake Total 3878.308 6740.811 291.639 Output Total 825 1385 150 Balance 712.713 443.811 141.639 Weight 61.6 kg 62.6 kg Intake: IV 36 39 156 0.9NS Pressure Bag 36 39 6 Dextrose 5% in Water 1, 75 000 ml @ 75 mls/hr IV . [id number] [facility] Rx#:[id number] Sodium Chloride 0.9% 1, 75 000 ml @ 75 mls/hr IV . [id number] [facility] Rx#:[id number] Intake, IV Titration 270.380 9204.811 65.639 Amount Sodium Chloride 0.9% 1, 900 975 000 ml @ 75 mls/hr IV . [id number] [facility] Rx#:[id number] propofoL 1,000 mg In 91.713 204.811 65.639 Empty Bag 1 bag @ 15 MCG/ KG/MIN 5.919 mls/hr IV . [id number] [facility] Rx#:[id number] Tube Feeding 420 520 40 Other 90 90 30 Output: Urine 825 1385 150 Other: Voiding Method Indwelling Catheter Indwelling Catheter Indwelling Catheter ABP, PAP, CO, CI - Last Documented Arterial Blood Pressure 152/58 - Exam No acute distress, sedated, with an orally placed endotracheal tube and NG tube. HEENT examination is grossly unremarkable. Neck supple. Full range of motion. No adenopathy thyromegaly or neck vein distention. Cardiovascular examination reveals regular rhythm rate. S1-S2 normal. No S3 or S4. No discernible murmur noted. Heart rate is 75 bpm. Lungs reveal coarse, bilateral, inspiratory and expiratory wheezes and rhonchi. No crackles. Saturations are 96 %. Breath sounds are equal bilaterally. Abdomen soft, without bowel sounds. Extremities are intact. No cyanosis clubbing or edema. Skin is without rash or lesion. Neurologic examination cannot be evaluated at this time. - Labs CBC & Chem 7: 08/04/23 05:10 08/04/23 05:10 Labs: Abnormal Lab Results - Last 24 Hours (Table) 08/03/23 08/03/23 08/04/23 Range/Units 11:54 17:14 00:15 RBC (3.80-5.40) m/uL Hgb (11.4-16.0) gm/dL Plt Count (150-450) k/uL Lymphocytes # (1.0-4.8) k/uL ABG pCO2 (35-45) mmHg ABG pO2 (83-108) mmHg ABG HCO3 (21-25) mmol/L ABG Total CO2 (19-24) mmol/L Sodium (137-145) mmol/L Chloride (98-107) mmol/L Carbon Dioxide (22-30) mmol/L BUN (7-17) mg/dL Glucose (74-99) mg/dL POC Glucose (mg/dL) 209 H 171 H 250 H (70-110) mg/dL Calcium (8.4-10.2) mg/dL Magnesium (1.6-2.3) mg/dL AST (14-36) U/L ALT (4-34) U/L Total Protein (6.3-8.2) g/dL Albumin (3.5-5.0) g/dL 08/04/23 08/04/23 08/04/23 Range/Units 05:10 05:10 05:13 RBC 3.56 L (3.80-5.40) m/uL Hgb 10.9 L (11.4-16.0) gm/dL Plt Count 116 L (150-450) k/uL Lymphocytes # 0.4 L (1.0-4.8) k/uL ABG pCO2 (35-45) mmHg ABG pO2 (83-108) mmHg ABG HCO3 (21-25) mmol/L ABG Total CO2 (19-24) mmol/L Sodium 147 H (137-145) mmol/L Chloride 113 H (98-107) mmol/L Carbon Dioxide 33 H (22-30) mmol/L BUN 48 H (7-17) mg/dL Glucose 229 H (74-99) mg/dL POC Glucose (mg/dL) 241 H (70-110) mg/dL Calcium 8.3 L (8.4-10.2) mg/dL Magnesium 2.5 H (1.6-2.3) mg/dL AST 45 H (14-36) U/L ALT 57 H (4-34) U/L Total Protein 5.0 L (6.3-8.2) g/dL Albumin 2.8 L (3.5-5.0) g/dL 08/04/23 Range/Units 06:09 RBC (3.80-5.40) m/uL Hgb (11.4-16.0) gm/dL Plt Count (150-450) k/uL Lymphocytes # (1.0-4.8) k/uL ABG pCO2 58 H (35-45) mmHg ABG pO2 78 L (83-108) mmHg ABG HCO3 33 H (21-25) mmol/L ABG Total CO2 35 H (19-24) mmol/L Sodium (137-145) mmol/L Chloride (98-107) mmol/L Carbon Dioxide (22-30) mmol/L BUN (7-17) mg/dL Glucose (74-99) mg/dL POC Glucose (mg/dL) (70-110) mg/dL Calcium (8.4-10.2) mg/dL Magnesium (1.6-2.3) mg/dL AST (14-36) U/L ALT (4-34) U/L Total Protein (6.3-8.2) g/dL Albumin (3.5-5.0) g/dL Microbiology - Last 24 Hours (Table) 08/02/23 12:20 Gram Stain - Preliminary Sputum Sputum Culture - Preliminary Rosa albicans Gram Neg Bacilli 07/28/23 23:35 Blood Culture - Final Blood 07/28/23 23:50 Blood Culture - Final Blood Assessment and Plan Assessment: S/P intubation and mechanical ventilation, for impending respiratory failure, 08/01/2023. Acute on chronic hypoxemic respiratory failure secondary to an acute exacerbation of chronic obstructive pulmonary disease. Possible gram-negative bacillary pneumonia. Troponin leak secondary to above versus coronary artery disease. Chronic and ongoing tobacco dependence of greater than 50 years. Oxygen dependent chronic obstructive pulmonary disease. Diabetes mellitus, type II. Hypertension. Carotid artery disease with previous left carotid endarterectomy. Plan: Plan dated 07/30/2023. The patient's CT angiogram was negative for pulmonary embolism. He did not showed infiltrate. The patient did have emphysematous changes on the CT. Antibiotics were discontinued, as appropriate calcitonin level was less than 0.05. The patient was still smoking, and is counseled about the importance of smoking cessation. In addition, she's been on and off of BiPAP, with settings of 12/6, and 35%. We'll continue to follow the patient make recommendations along the way. The patient's overall prognosis remains guarded. She'll follow- up with me in the office. She mentions that she wants to get a portable oxygen concentrator Plan dated 07/31/2023. This morning, the patient's respiratory status worsened, and the patient was placed on BiPAP. Her BiPAP settings are 14/6, and 35%. The patient is receiving saline at 75 mL an hour. Yesterday, the patient was on 4 L. Unfortunately, the patient does continue to smoke cigarettes. The patient is counseled about the importance of smoking cessation. She'll follow with me in the office. Labs, x-rays, and medications are reviewed. Prognosis is certainly very guarded. Plan dated 08/01/2023. The patient is transferred out of the intensive care unit, room air, she was intubated, with a #8 endotracheal tube, using the glide scope. There is good color change on the qualitative capnography device, and good bilateral breath sounds. A chest x-ray confirmed good placement of endotracheal tube. In addition, the patient had a left subclavian triple-lumen catheter placed, as well as a right radial art line. ICU admission orders, and ventilator bundle orders, or implemented. Labs, x-rays, and medications are reviewed. The valarie chilel's prognosis is very guarded. We did speak to the patient's son, Theo, up on the third floor, prior to transferring her down. He agreed that the patient would want to be intubated. The patient will be placed on albuterol sulfate and ipratropium bromide, every 4 [id number]. In addition, the patient will be placed on budesonide, and formoterol, and continue on Solu- Medrol. Labs, x-rays, and medications will be ordered for the morning. Plan dated 08/02/2023. The patient was brought down from the floor yesterday, for impending respiratory failure, and she was intubated in the intensive care unit. We placed a central line, and an arterial line as well. Currently, the patient remains on mechanical ventilator. She is on propofol for sedation. Hemodynamically, she is stable. Labs, x-rays, and medications are reviewed. The patient's prognosis is guarded. We spoke to the patient and the patient's son yesterday before we brought her down. She will not have a daily interruption of sedation today or spontaneous breathing trial. We'll do that tomorrow. She continues on appropriate medications including albuterol, ipratropium bromide, budesonide, formoterol, and Solu-Medrol. Prognosis is guarded. Plan dated 08/03/2023. The patient is seen today in room 250. She remains on the mechanical ventilator. We will attempt a daily interruption of sedation, and a spontaneous breathing trial, with pressure support of 5 and CPAP of 5. The patient was reduced from 10, down to 5. She still has significant expiratory wheezes. Peak or pushes 29. Plateau pressure is 21. Orders have been given to the nurse and respiratory therapist in terms of what to do next. Additional recommendations and suggestions are forthcoming. The patient remains on albuterol, ipratropium bromide, budesonide, formoterol, and Solu-Medrol. Prognosis is guarded. Plan dated 08/04/2023. The patient's sputum shows evidence of gram-negative bacilli. The patient will be started on Zosyn empirically. We will recheck another pro-calcitonin level. The patient continues on propofol, saline, and tube feedings. Yesterday, the patient had a daily interruption of sedation, and did poorly, and was not quite ready for a spontaneous breathing trial. Labs, x-rays, and medications are rev iewed, and will be ordered for the morning. The patient will have another daily interruption of sedation, and will be evaluated for a number spontaneous breathing trial. Patient's overall prognosis remains very guarded. We will continue to follow make recommendations along the way. Should the patient not show any progress, a tracheostomy tube down the road might be in order. Time with Patient: Greater than 30
[2023-08-04 13:03] LABS: Glucose,Whole Blood 328 mg/dL (70-110)
[2023-08-04] MEDS: PIPERACILLIN-TAZOBACTAM 3.375 GM in SODIUM CHLORIDE 0.9% 100 ML IVPB SCH (15:48)
[2023-08-04] MEDS ORDERED: LACTULOSE 20 GM/30 ML CUP PO ONE (16:23)
[2023-08-04 17:56] LABS: Glucose,Whole Blood 269 mg/dL (70-110)
[2023-08-04] MEDS: HYDROmorphone 0.5 MG/0.5 ML SYRINGE IVP PRN (20:53)
[2023-08-05 00:01] LABS: Glucose,Whole Blood 240 mg/dL (70-110)
[2023-08-05] MEDS: INSULIN ASPART (NovoLOG) 100 UNIT/ML VIAL SQ SCH ×5 (00:10→23:13)
[2023-08-05] MEDS: methylPREDNISolone SOD SUCCI 125 MG/2 ML VIAL IV SCH ×5 (00:10→23:13)
[2023-08-05] MEDS: ACETAMINOPHEN TAB 325 MG TAB PO PRN ×2 (00:11→09:54)
[2023-08-05] MEDS: PIPERACILLIN-TAZOBACTAM 3.375 GM in SODIUM CHLORIDE 0.9% 100 ML IVPB SCH ×2 (00:16→08:16)
[2023-08-05] MEDS: IPRATROPIUM-ALBUTEROL 3 ML NEB INHALATION SCH ×6 (03:23→23:35)
[2023-08-05 04:06] LABS: Glucose,Whole Blood 296 mg/dL (70-110)
[2023-08-05] MEDS: HYDROmorphone 0.5 MG/0.5 ML SYRINGE IVP PRN ×2 (05:02→23:13)
[2023-08-05 05:05] LABS: ALT 49 U/L (4-34); AST 36 U/L (14-36); African American GFR (CKD) >90 (>60 ml/min/1.73 sqM); Albumin 2.6 g/dL (3.5-5.0); Alkaline Phosphatase 49 U/L (38-126); Anion Gap 3 mmol/L; Blood Urea Nitrogen 40 mg/dL (7-17); Calcium 8.1 mg/dL (8.4-10.2); Carbon Dioxide 33 mmol/L (22-30); Chloride 107 mmol/L (98-107); Glucose 268 mg/dL (74-99); Non-African American GFR(CKD) 89 (>60 ml/min/1.73 sqM); Potassium 3.8 mmol/L (3.5-5.1); Sodium 143 mmol/L (137-145); Total Bilirubin 0.3 mg/dL (0.2-1.3); Total Protein 4.7 g/dL (6.3-8.2)
[2023-08-05 05:27] LABS: Basophils % (A) 0 %; Eosinophils # (A) 0.1 k/uL (0-0.7); Eosinophils % (A) 2 %; HCT 32.6 % (34.0-46.0); HGB 10.6 gm/dL (11.4-16.0); Lymphocytes # (A) 0.4 k/uL (1.0-4.8); Lymphocytes % (A) 5 %; MCH 31.1 pg (25.0-35.0); MCHC 32.5 g/dL (31.0-37.0); MCV 95.7 fL (80.0-100.0); Mean Platelet Volume 9.7; Monocytes # (A) 0.4 k/uL (0-1.0); Monocytes % (A) 5 %; Neutrophils # (A) 6.2 k/uL (1.3-7.7); Neutrophils % (A) 87 %; Platelet Count 100 k/uL (150-450); RBC 3.41 m/uL (3.80-5.40); RDW 14.3 % (11.5-15.5); WBC 7.2 k/uL (3.8-10.6)
[2023-08-05] MEDS ORDERED: Potassium Replacement Protocol 1 EACH MISC MISCELLANE PRN (05:36)
[2023-08-05] MEDS: INSULIN DETEMIR (LEVEMIR) 100 UNIT/ML SYR SQ SCH (06:03)
[2023-08-05] MEDS: POTASSIUM CHLORIDE 10 MEQ in WATER FOR INJECTION 1 100ML.BAG IVPB SCH ×2 (06:03→07:55)
[2023-08-05 06:14] LABS: ABG Base Excess 8.3 mmol/L; ABG HCO3 34 mmol/L (21-25); ABG Oxygen Saturation 97.5 % (94-97); ABG PCO2 58 mmHg (35-45); ABG PH 7.37 (7.35-7.45); ABG PO2 97 mmHg (83-108); ABG TCO2 35 mmol/L (19-24); Allen Test Performed? Yes
[2023-08-05] MEDS: PANTOPRAZOLE 40 MG/10 ML VIAL IVP SCH (08:11)
[2023-08-05] MEDS: ASPIRIN 81 MG PO SCH (08:12)
[2023-08-05] MEDS: ATORVASTATIN 40 MG TAB PO SCH (08:12)
[2023-08-05] MEDS: ENOXAPARIN 40 MG/0.4 ML SYRINGE SQ SCH (08:12)
[2023-08-05] MEDS: CHLORHEXIDINE GLUCONATE 15 ML CUP MUCOUS MEM SCH ×2 (08:13→20:21)
[2023-08-05] MEDS: FORMOTEROL FUMARATE 20 MCG/2 ML NEBU INHALATION SCH ×2 (08:14→20:02)
[2023-08-05] MEDS: BUDESONIDE 1 MG/2 ML NEBU INHALATION SCH ×2 (08:15→20:02)
--- NOTE | 2023-08-05 08:24 | P.PN ---
Subjective Progress Note Date: 08/05/23 This is a 73-year-old female patient of Dr. Phillips who presented to the ER with complaints of shortness of breath. Patient apparently was experiencing respiratory distress was transported EMS and was found to have an SpO2 in the 70s. Patient has past medical history of diabetes mellitus, nicotine depen dence, carotid artery stenosis, COPD, hypertension, atrial tachycardia. Initial chest x-ray showing hyperinflated lungs. Patient noted to have elevated troponins 0.046, 0.36 and 0.504. Patient was started on heparin drip for elevated troponins cardiology and pulmonary services were consulted. Patient started on IV steroids, DuoNeb breathing treatments azithromycin and Rocephin Dr. Soto's group previously covering We are resuming care patient on 07/30/2023 On 07/30/2023 patient is alert and oriented 3 currently resting comfortably in bed on BiPAP. Patient reports some improvement with shortness of breath but does appear to be quite short of breath. She remains on IV Solu-Medrol a zithromycin and Rocephin. Patient also remains on heparin drip per cardiology. Pulmonary and cardiology services are following. Sliding scale coverage. Current vital signs temp 97.5, pulse rate 99, respiratory rate 22, blood pressure 110/72 with a pulse ox of 98% on BiPAP On 07/31/2023 patient was seen and examined on the telemetry floor she is alert and oriented 3 in no apparent distress she is still having significant shortness of breath she is maintained on oxygen at 4 L nasal cannula, and requiring BiPAP on and off, she is still complaining of cough was yellow to green sputum production, she denies any chest pain she is still maintained on IV Solu-Medrol. Antibiotic were discontinued by pulmonary. On 08/01/2023 patient remains requiring BiPAP. Patient is alert and oriented resting comfortably on BiPAP in bed at this time. Patient had increased episodes of difficulty breathing throughout night pulmonary services at bedside orders to continue BiPAP. Patient remains on IV Solu-Medrol and DuoNeb breathing treatments. Pulmonary services are following. On 08/02/2023 patient was seen and examined in the ICU, currently she is intubated sedated maintained on mechanical ventilation, assist control rate 20 454 350 FiO2 of 50% and PEEP of 10 vital exam reveals a temperature of 99.5 pulse 81 respiration 24 blood pressure 108/58 pulse ox 94% white blood count 7.8 hemoglobin 11.3 platelet count 120 pH 7.35 pCO2 of 54. O2 56 On 08/03/2023 patient remains in the intensive care unit. Patient remains on mechanical ventilation. Sedation holiday in progress current vital signs temp 98.0, heart rate 84, blood pressure 135/55 with a pulse ox 96% been mechanical ventilation with an FiO2 of 50%. Arterial blood gases this a.m. showing a pH of 7.26, creatinine pCO2 68, pO2 100, sodium bicarb 31 On 08/04/2023 patient was seen and examined in the ICU, currently she is intu bated sedated maintained on mechanical ventilation, assist control rate 20 454 350 FiO2 of 50% and PEEP of 10 vital exam reveals a temperature of 98.7 pulse 84 respiration 24 blood pressure 132/65 white blood count is 6.1 hemoglobin 10.9 platelet count 116 arterial blood gas reveals a pH of 7.36 pCO2 of 58 CO2 78 sodium 147 potassium 4.1 chloride 1:15 CO2 33 BUN 48 creatinine 0.62 glucose level 229 On 08/05/2023 patient was seen and examined in the ICU she is intubated sedated maintained on mechanical ventilation, she is on assist control, rate 24 tidal volume 350 FiO2 50% and PEEP of 5 temperature is 99.3 pulse 22 blood pressure 99/47 blood pressure 121/48 white blood count 7.2 hemoglobin 10.6 platelet count 100 arterial blood gas revealed a pH of 7.37 pCO2 58 CO2 97 BUN 40 creatinine 0. 64 glucose is elevated again at 268. At this time will increase Levemir to 15 units daily continue with sliding scale Objective - Vital Signs Vital signs: Vital Signs Temp 98.2 F 08/05/23 04:00 Pulse 83 08/05/23 07:00 Resp 25 H 08/05/23 07:00 BP 98/53 08/05/23 07:00 Pulse Ox 95 08/05/23 07:00 FiO2 50 08/05/23 07:39 Intake & Output 08/04/23 08/05/23 08/05/23 18:59 06:59 18:59 Intake Total 4633.117 3955.363 118 Output Total 800 1055 45 Balance 753.767 913.363 73 Weight 65.5 kg Intake: IV 888 1166 78 0.9NS Pressure Bag 33 36 3 Dextrose 5% in Water 1, 750 900 75 000 ml @ 75 mls/hr IV . [id number] [facility] Rx#:[id number] Invasive Line 2 30 30 Piperacillin-Tazobactam 3 100 .375 gm In Sodium Chloride 0.9% 100 ml @ 25 mls/hr IVPB Q8HR [facility] Rx# :[id number] Potassium Chloride 10 meq 100 In Water For Injection 1 100ml.bag @ 100 mls/hr IVPB Q1H [facility] Rx#: [id number] Sodium Chloride 0.9% 1, 75 000 ml @ 75 mls/hr IV . [id number] [facility] Rx#:[id number] Intake, IV Titration 175.767 232.363 Amount propofoL 1,000 mg In 175.767 232.363 Empty Bag 1 bag @ 15 MCG/ KG/MIN 5.919 mls/hr IV . [id number] [facility] Rx#:[id number] Tube Feeding 400 480 40 Other 90 90 Output: Urine 800 1055 45 Other: Voiding Method Indwelling Catheter Indwelling Catheter # Bowel Movements 1 ABP, PAP, CO, CI - Last Documented Arterial Blood Pressure 124/48 - Exam In general patient is intubated sedated maintained on mechanical intubation HEENT head normocephalic and atraumatic Neck is supple no JVD no goiter no lymphadenopathy no carotid bruit Chest examination is clear to auscultation no crackles no wheezing Cardiac exam reveals regular heart sounds S1 and S2 no gallops no murmurs Abdomen is soft nontender no organomegaly with normal bowel sounds Extremity exam reveals no edema no cyanosis or clubbing Neurological examination reveals no gross focal deficits - Labs CBC & Chem 7: 08/05/23 04:05 08/05/23 04:05 Labs: Abnormal Lab Results - Last 24 Hours (Table) 08/04/23 08/04/23 08/04/23 Range/Units 12:59 17:50 23:59 RBC (3.80-5.40) m/uL Hgb (11.4-16.0) gm/dL Hct (34.0-46.0) % Plt Count (150-450) k/uL Lymphocytes # (1.0-4.8) k/uL ABG pCO2 (35-45) mmHg ABG HCO3 (21-25) mmol/L ABG Total CO2 (19-24) mmol/L ABG O2 Saturation (94-97) % Carbon Dioxide (22-30) mmol/L BUN (7-17) mg/dL Glucose (74-99) mg/dL POC Glucose (mg/dL) 328 H 269 H 240 H (70-110) mg/dL Calcium (8.4-10.2) mg/dL ALT (4-34) U/L Total Protein (6.3-8.2) g/dL Albumin (3.5-5.0) g/dL 08/05/23 08/05/23 08/05/23 Range/Units 04:04 04:05 04:05 RBC 3.41 L (3.80-5.40) m/uL Hgb 10.6 L (11.4-16.0) gm/dL Hct 32.6 L (34.0-46.0) % Plt Count 100 L (150-450) k/uL Lymphocytes # 0.4 L (1.0-4.8) k/uL ABG pCO2 (35-45) mmHg ABG HCO3 (21-25) mmol/L ABG Total CO2 (19-24) mmol/L ABG O2 Saturation (94-97) % Carbon Dioxide 33 H (22-30) mmol/L BUN 40 H (7-17) mg/dL Glucose 268 H (74-99) mg/dL POC Glucose (mg/dL) 296 H (70-110) mg/dL Calcium 8.1 L (8.4-10.2) mg/dL ALT 49 H (4-34) U/L Total Protein 4.7 L (6.3-8.2) g/dL Albumin 2.6 L (3.5-5.0) g/dL 08/05/23 Range/Units 06:10 RBC (3.80-5.40) m/uL Hgb (11.4-16.0) gm/dL Hct (34.0-46.0) % Plt Count (150-450) k/uL Lymphocytes # (1.0-4.8) k/uL ABG pCO2 58 H (35-45) mmHg ABG HCO3 34 H (21-25) mmol/L ABG Total CO2 35 H (19-24) mmol/L ABG O2 Saturation 97.5 H (94-97) % Carbon Dioxide (22-30) mmol/L BUN (7-17) mg/dL Glucose (74-99) mg/dL POC Glucose (mg/dL) (70-110) mg/dL Calcium (8.4-10.2) mg/dL ALT (4-34) U/L Total Protein (6.3-8.2) g/dL Albumin (3.5-5.0) g/dL Microbiology - Last 24 Hours (Table) 08/02/23 12:20 Gram Stain - Preliminary Sputum Sputum Culture - Preliminary Rosa albicans Gram Neg Bacilli Assessment and Plan Plan: 1. Shortness breath secondary to acute exacerbation of COPD with tracheal bronchitis 2. Non-ST elevated AL 3. Chronic and ongoing nicotine dependence 4. Oxygen dependent chronic obstructive pulmonary disease 5. Diabetes mellitus type 2 6. History of essential hypertension 7. Carotid artery disease with previous left carotid endarterectomy Pulmonary and cardiology service is consulted Patient maintained on IV Solu-Medrol, DuoNeb breathing treatments Maintained on BiPAP Repeat labs ordered DVT prophylaxis lovenox. GI prophylaxis Protonix
--- NOTE | 2023-08-05 08:25 | XR ---
EXAMINATION TYPE: XR chest 1V portable DATE OF EXAM: 08/05/2023 COMPARISON: 08/04/2023 HISTORY: Tube placement. TECHNIQUE: Single frontal view of the chest is obtained. FINDINGS: ET tube is 6.2 cm above the sidney. There is no change in the left PICC line or NG tube. No change in left lower lobe infiltrate. No pneumothorax. Heart size normal vasculature is not congested. The osseous structures are intact. IMPRESSION: 1. No change in the left lung effusion/infiltrate. 2. ET tube 6.2 cm above the sidney.
[2023-08-05] MEDS: atenoloL 25 MG TAB PO SCH (08:37)
[2023-08-05] MEDS: INSULIN DETEMIR (LEVEMIR) 100 UNIT/ML SYR SQ ONE ×2 (09:46→11:28)
[2023-08-05] MEDS: NICOTINE 21MG/24HR PATCH TRANSDERM SCH (09:52)
--- NOTE | 2023-08-05 11:42 | P.PN ---
Subjective Progress Note Date: 08/05/23 Principal diagnosis: COPD exacerbation. This is a pleasant 73-year-old female patient with a known history of hyperlipidemia, diabetes mellitus, chronic and ongoing tobacco dependence, chronic obstructive pulmonary disease. Her FEV1 value 71% of predicted. She's been maintained on Combivent and albuterol in the outpatient setting. She presented here to the emergency room last evening by EMS for a 1 week history of worsening shortness of breath. She was found to be hypoxemic in the 70s and placed on CPAP given updraft treatments and steroids and transit. She is seen today in consultation in the emergency department. She is currently sitting up on a stretcher. Quite anxious and short of breath. Currently on BiPAP 12/6 and 45% FiO2. Chest x-ray reveals hyperinflated lungs with coarse interstitial markings consistent with emphysema. No acute infiltrate noted. No pneumothorax. White count 12.4. Hemoglobin 13.8. Platelets 232. INR 0.9. Sodium 140. Potassium 4.2. Bicarb 22. BUN 13. Creatinine 0.80. Glucose 255. AST 42. ALT 35. Troponin 0.046, 0.386, 0.504. ProBNP 1020. She is currently on a heparin drip. Initiated and DuoNeb inhalations, Symbicort, Solu-Medrol. Antibiotics in the form of ceftriaxone and azithromycin. Procalcitonin pending. NicoDerm patch in place. Normal saline at 75 ML's per hour. Progress note dated 07/30/2023. 73-year-old female admitted with a diagnosis of COPD exacerbation. Unfortunately, the patient does continue to smoke cigarettes. She apparently has moderate COPD with an FEV1 that's 71% of predicted. The patient was admitted to the hospital with a COPD exacerbation. Currently, she is on 4 L of oxygen. She's getting BiPAP at 12/6, at 35%. Patient's pro-calcitonin level was low at less than 0.05. Antibiotics were discontinued. White count was 12, hemoglobin 12, hematocrit 38, with a normal platelet count. Sodium 141, potassium 4, chlorides 111, CO2 24, BUN 32, and creatinine 0.7. CT angiogram was negative for pulmonary embolism, showed changes of emphysema, without consolidation, infiltrate, effusion, pneumothorax. Progress note dated 07/31/2023. 73-year-old female admitted with a diagnosis of COPD exacerbation. The patient unfortunately, continues to smoke cigarettes. Her FEV1 percent is 71. Today, she is on BiPAP, with settings of 14/6, and 35%. The patient's also getting saline at 75 mL an hour. Sometime early this morning, her respirations became much more labored, which required BiPAP therapy. Yesterday, she was on 4 L by nasal cannula. I was not made aware the patient's respiratory difficulty. White count 10.4, hemoglobin 11.4, hematocrit 35.8, and platelet count 124,000. Sodium 144, potassium 4.3, chlorides 115, CO2 22, BUN 36, and creatinine 0.59. Progress note dated 08/01/2023. 73-year-old female who was seen initially in room 355. The patient was wearing BiPAP, but generally was not doing very well, she was on 14/6 and 35%. No IV fluids. She is quite a bit of distress, and kept on pulling of her BiPAP device. The patient was tripoding, and bed, and we felt that the patient was having impending respiratory failure, so she was moved to the intensive care unit. There, myself and Dr. Trinh, intubated the patient, with a #8 endotracheal tube, also place a left subclavian triple-lumen catheter and a right radial art line. She was placed on the ventilator, with settings of AC mode, rate 18, tidal volume 350, FiO2 100%, and PEEP of 5. Blood gases are pending. Chest x-ray revealed properly placed endotracheal tube, and central line. Current labs include a white count 11.7, hemoglobin 12.8, hematocrit 40.5, and a platelet count of 146,000. Sodium 144, potassium 4.5, chlorides 114, CO2 24, BUN 40, creatinine 0.71. Blood cultures are negative. Progress note dated 08/02/2023. 73-year-old female brought down from the floor yesterday, for impending respiratory failure secondary to COPD. The patient was intubated, yesterday, and, had a left subclavian triple-lumen cath placed, as well as a right radial arterial line. She's currently on the ventilator, his been seen today in room 250. She had a pretty uneventful night according to the nurses. She is on volume assist control, rate 24, tidal volume 350, FiO2 50% 10 of PEEP. Blood gases show pO2 of 56, pCO2 54, and a pH is 7.35. That was on 40% and PEEP of 5. Currently saturations are 96%. She's getting saline at 75 mL an hour, and propofol at 35 mcg/kg/m. 2 feedings will be started today. White count 7.1, hemoglobin 11.3, hematocrit 35.7, and platelet count 120,000. Sodium 143, potassium 4.2, chlorides 112, CO2 28, BUN 42, creatinine 0.73. Blood cultures are currently negative. Chest x-ray shows a well positioned endotracheal tube, central line, and the lungs are without significant airspace disease. Progress note dated 08/03/2023. 73-year-old female with history of COPD and respiratory failure. The patient was intubated and mechanically ventilated, on August 01, for kylie respiratory failure. Currently, she remains on the mechanical ventilator, volume assist control mode, rate 24, tidal volume 350, FiO2 50% PEEP of 10. Blood gases show pO2 100, pCO2 of 68, and pH is 7.26. The patient remains on saline at 75 mL an hour, propofol at 20 mcg/kg/m, and vital high protein at 35 mL an hour, which is goal. The patient's white count is 7, hemoglobin 11.6, hematocrit 37.2, and platelet count 115,000. Sodium 146, potassium 4.6, chlorides 115, CO2 31, BUN 46, creatinine 0.74. Chest x-ray shows changes of COPD only. Progress note dated 08/04/2023. 73-year-old female with history of COPD and respiratory failure. The patient was seen in room 250. She remains on the mechanical ventilator. She is on volume assist control mode, rate 24, tidal volume 350, FiO2 50%, PEEP of 5. She did poorly with her daily interruption of sedation yesterday. Blood gases show pO2 78, pCO2 of 58, and pH is 7.36. She remains on propofol at 45 mcg/kg/m, saline at 75 mL an hour, and vital high protein at 40 mL, which is goal. White count 6.1, hemogram 10.9, hematocrit 34.3, with a platelet count of 116,000. Sodium 147, potassium 4.1, chlorides 113, CO2 33, BUN 48, creatinine 0.62. The patient's saline is changed to dextrose, at 75 mL an hour. Sputum samples from August 02 showing evidence of Rosa, and gram-negative bacilli. Chest x- ray shows a small left-sided pleural effusion. Progress note dated 08/05/2023. 73-year-old female with history of severe COPD, and respiratory failure. The patient is seen again in room 250. The patient is on assist control, rate 24, tidal volume 350, FiO2 50%, and PEEP of 5. Blood gases show a PaO2 of 97, pCO2 of 58, and pH of 7.37. The patient remains on propofol at 45 mcg/kg/m, D5W at 75 mL an hour, and vital high protein at 40 mL an hour, which is goal. The patient's peak airway pressure remains high at 32, with a plateau pressure of only 14. The patient will have another daily interruption of sedation, and potentially, a spontaneous breathing trial with pressure support of 5, and CPAP of 5. White count 7.2, heme him 10.6, hematocrit 32.6, with a platelet count of 100,000. Sodium 143, potassium 3.8, chlorides 107, CO2 33, BUN 3, and creatinine 0.64. Sputum reveals stenotrophomonas. Chest x-ray shows a pattern which is essentially unchanged, with some left lung infiltrate or atelectasis. Objective - Vital Signs Vital signs: Vital Signs Temp 99.3 F 08/05/23 08:00 Pulse 110 H 08/05/23 11:28 Resp 20 08/05/23 11:00 BP 160/94 08/05/23 11:00 Pulse Ox 93 L 08/05/23 11:00 FiO2 50 08/05/23 10:58 Intake & Output 08/04/23 08/05/23 08/05/23 18:59 06:59 18:59 Intake Total 5242.226 5686.363 684.042 Output Total 800 1055 295 Balance 753.767 913.363 389.042 Weight 65.5 kg Intake: IV 888 1166 322 0.9NS Pressure Bag 33 36 12 Dextrose 5% in Water 1, 750 900 225 000 ml @ 75 mls/hr IV . [id number] [facility] Rx#:[id number] Invasive Line 2 30 30 10 Piperacillin-Tazobactam 3 100 75 .375 gm In Sodium Chloride 0.9% 100 ml @ 25 mls/hr IVPB Q8HR [facility] Rx# :[id number] Potassium Chloride 10 meq 100 In Water For Injection 1 100ml.bag @ 100 mls/hr IVPB Q1H [facility] Rx#: [id number] Sodium Chloride 0.9% 1, 75 000 ml @ 75 mls/hr IV . [id number] [facility] Rx#:[id number] Intake, IV Titration 175.767 232.363 202.042 Amount Potassium Chloride 10 meq 100 In Water For Injection 1 100ml.bag @ 100 mls/hr IVPB Q1H [facility] Rx#: [id number] propofoL 1,000 mg In 175.767 232.363 102.042 Empty Bag 1 bag @ 15 MCG/ KG/MIN 5.919 mls/hr IV . [id number] [facility] Rx#:[id number] Tube Feeding 400 480 160 Other 90 90 Output: Urine 800 1055 295 Other: Voiding Method Indwelling Catheter Indwelling Catheter # Bowel Movements 1 ABP, PAP, CO, CI - Last Documented Arterial Blood Pressure 185/80 - Exam No acute distress, sedated, with an orally placed endotracheal tube and NG tube. HEENT examination is grossly unremarkable. Neck supple. Full range of motion. No adenopathy thyromegaly or neck vein distention. Cardiovascular examination reveals regular rhythm rate. S1-S2 normal. No S3 or S4. No discernible murmur noted. Heart rate is 110 bpm. Lungs reveal coarse, bilateral, inspiratory and expiratory wheezes and rhonchi. No crackles. Saturations are 93 %. Breath sounds are equal bilaterally. Abdomen soft, without bowel sounds. Extremities are intact. No cyanosis clubbing or edema. Skin is without rash or lesion. Neurologic examination cannot be evaluated at this time. - Labs CBC & Chem 7: 08/05/23 04:05 08/05/23 04:05 Labs: Abnormal Lab Results - Last 24 Hours (Table) 08/04/23 08/04/23 08/04/23 Range/Units 12:59 17:50 23:59 RBC (3.80-5.40) m/uL Hgb (11.4-16.0) gm/dL Hct (34.0-46.0) % Plt Count (150-450) k/uL Lymphocytes # (1.0-4.8) k/uL ABG pCO2 (35-45) mmHg ABG HCO3 (21-25) mmol/L ABG Total CO2 (19-24) mmol/L ABG O2 Saturation (94-97) % Carbon Dioxide (22-30) mmol/L BUN (7-17) mg/dL Glucose (74-99) mg/dL POC Glucose (mg/dL) 328 H 269 H 240 H (70-110) mg/dL Calcium (8.4-10.2) mg/dL ALT (4-34) U/L Total Protein (6.3-8.2) g/dL Albumin (3.5-5.0) g/dL 08/05/23 08/05/23 08/05/23 Range/Units 04:04 04:05 04:05 RBC 3.41 L (3.80-5.40) m/uL Hgb 10.6 L (11.4-16.0) gm/dL Hct 32.6 L (34.0-46.0) % Plt Count 100 L (150-450) k/uL Lymphocytes # 0.4 L (1.0-4.8) k/uL ABG pCO2 (35-45) mmHg ABG HCO3 (21-25) mmol/L ABG Total CO2 (19-24) mmol/L ABG O2 Saturation (94-97) % Carbon Dioxide 33 H (22-30) mmol/L BUN 40 H (7-17) mg/dL Glucose 268 H (74-99) mg/dL POC Glucose (mg/dL) 296 H (70-110) mg/dL Calcium 8.1 L (8.4-10.2) mg/dL ALT 49 H (4-34) U/L Total Protein 4.7 L (6.3-8.2) g/dL Albumin 2.6 L (3.5-5.0) g/dL 08/05/23 Range/Units 06:10 RBC (3.80-5.40) m/uL Hgb (11.4-16.0) gm/dL Hct (34.0-46.0) % Plt Count (150-450) k/uL Lymphocytes # (1.0-4.8) k/uL ABG pCO2 58 H (35-45) mmHg ABG HCO3 34 H (21-25) mmol/L ABG Total CO2 35 H (19-24) mmol/L ABG O2 Saturation 97.5 H (94-97) % Carbon Dioxide (22-30) mmol/L BUN (7-17) mg/dL Glucose (74-99) mg/dL POC Glucose (mg/dL) (70-110) mg/dL Calcium (8.4-10.2) mg/dL ALT (4-34) U/L Total Protein (6.3-8.2) g/dL Albumin (3.5-5.0) g/dL Microbiology - Last 24 Hours (Table) 08/02/23 12:20 Gram Stain - Final Sputum Sputum Culture - Final Rosa albicans Stenotrophomonas maltophilia Assessment and Plan Assessment: S/P intubation and mechanical ventilation, for impending respiratory failure, 08/01/2023. Acute on chronic hypoxemic respiratory failure secondary to an acute exacerbation of chronic obstructive pulmonary disease. Stenotrophomonas tracheobronchitis/bronchopneumonia. Troponin leak secondary to above versus coronary artery disease. Chronic and ongoing tobacco dependence of greater than 50 years. Oxygen dependent chronic obstructive pulmonary disease. Diabetes mellitus, type II. Hypertension. Carotid artery disease with previous left carotid endarterectomy. Plan: Plan dated 07/30/2023. The patient's CT angiogram was negative for pulmonary embolism. He did not showed infiltrate. The patient did have emphysematous changes on the CT. Antibiotics were discontinued, as appropriate calcitonin level was less than 0.05. The patient was still smoking, and is counseled about the importance of smoking cessation. In addition, she's been on and off of BiPAP, with settings of 12/6, and 35%. We'll continue to follow the patient make recommendations along the way. The patient's overall prognosis remains guarded. She'll follow- up with me in the office. She mentions that she wants to get a portable oxygen concentrator Plan dated 07/31/2023. This morning, the patient's respiratory status worsened, and the patient was placed on BiPAP. Her BiPAP settings are 14/6, and 35%. The patient is receiving saline at 75 mL an hour. Yesterday, the patient was on 4 L. Unfortunately, the patient does continue to smoke cigarettes. The patient is counseled about the importance of smoking cessation. She'll follow with me in the office. Labs, x-rays, and medications are reviewed. Prognosis is certainly very guarded. Plan dated 08/01/2023. The patient is transferred out of the intensive care unit, room air, she was intubated, with a #8 endotracheal tube, using the glide scope. There is good color change on the qualitative capnography device, and good bilateral breath sounds. A chest x-ray confirmed good placement of endotracheal tube. In addition, the patient had a left subclavian triple-lumen catheter placed, as well as a right radial art line. ICU admission orders, and ventilator bundle orders, or implemented. Labs, x-rays, and medications are reviewed. The harrison t's prognosis is very guarded. We did speak to the patient's son, Theo, up on the third floor, prior to transferring her down. He agreed that the patient would want to be intubated. The patient will be placed on albuterol sulfate and ipratropium bromide, every 4 [id number]. In addition, the patient will be placed on budesonide, and formoterol, and continue on Solu-Medrol. Labs, x-rays , and medications will be ordered for the morning. Plan dated 08/02/2023. The patient was brought down from the floor yesterday, for impending respiratory failure, and she was intubated in the intensive care unit. We placed a central line, and an arterial line as well. Currently, the patient remains on mechanical ventilator. She is on propofol for sedation. Hemodynamically, she is stable. Labs, x-rays, and medications are reviewed. The patient's prognosis is guarded. We spoke to the patient and the patient's son yesterday before we brought her down. She will not have a daily interruption of sedation today or spontaneous breathing trial. We'll do that tomorrow. She continues on ap propriate medications including albuterol, ipratropium bromide, budesonide, formoterol, and Solu-Medrol. Prognosis is guarded. Plan dated 08/03/2023. The patient is seen today in room 250. She remains on the mechanical ventilator. We will attempt a daily interruption of sedation, and a spontaneous breathing trial, with pressure support of 5 and CPAP of 5. The patient was reduced from 10, down to 5. She still has significant expiratory wheezes. Peak or pushes 29. Plateau pressure is 21. Orders have been given to the nurse and respiratory therapist in terms of what to do next. Additional recommendations and suggestions are forthcoming. The patient remains on albuterol, ipratropium bromide, budesonide, formoterol, and Solu-Medrol. Prognosis is guarded. Plan dated 08/04/2023. The patient's sputum shows evidence of gram-negative bacilli. The patient will be started on Zosyn empirically. We will recheck another pro-calcitonin level. The patient continues on propofol, saline, and tube feedings. Yesterday, the patient had a daily interruption of sedation, and did poorly, and was not quite ready for a spontaneous breathing trial. Labs, x-rays, and medications are reviewed, and will be ordered for the morning. The patient will have another daily interruption of sedation, and will be evaluated for a number spontaneous breathing trial. Patient's overall prognosis remains very guarded. We will continue to follow make recommendations along the way. Should the patient not show any progress, a tracheostomy tube down the road might be in order. Plan dated 08/05/2023. The patient was placed on Zosyn yesterday. The bacteria in his sputum is stenotrophomonas. Labs, x-rays, and medications are reviewed. The patient will have another daily interruption of sedation, and potentially, a spontaneous breathing trial. I'm not optimistic given the very big difference between the peak airway pressure 32, and a plateau pressure of 14. This would suggest increased airways resistance. The sensitivities of stenotrophomonas are reviewed. The Zosyn will be converted to Levaquin. Additional recommendations and suggestions are forthcoming. Labs, x-rays, and medications are reviewed. Prognosis is guarded. Time with Patient: Greater than 30
[2023-08-05 12:44] LABS: Glucose,Whole Blood 321 mg/dL (70-110)
[2023-08-05] MEDS: DEXTROSE 5% IN WATER 1,000 ML IV SCH ×2 (12:44→23:14)
[2023-08-05] MEDS: LEVOFLOXACIN 500MG-D5W PMX 500 MG in DEXTROSE/WATER 1 100ML.BAG IVPB SCH (12:44)
[2023-08-05 17:31] LABS: Glucose,Whole Blood 279 mg/dL (70-110)
[2023-08-05 20:12] LABS: Glucose,Whole Blood 269 mg/dL (70-110)
[2023-08-05 23:08] LABS: Glucose,Whole Blood 274 mg/dL (70-110)
[2023-08-06 03:39] LABS: Glucose,Whole Blood 229 mg/dL (70-110)
[2023-08-06] MEDS: INSULIN ASPART (NovoLOG) 100 UNIT/ML VIAL SQ SCH ×5 (03:41→20:09)
[2023-08-06] MEDS: IPRATROPIUM-ALBUTEROL 3 ML NEB INHALATION SCH ×6 (04:14→23:53)
[2023-08-06 04:27] LABS: Basophils % (A) 0 %; Eosinophils # (A) 0.1 k/uL (0-0.7); Eosinophils % (A) 1 %; HCT 35.3 % (34.0-46.0); HGB 11.3 gm/dL (11.4-16.0); Lymphocytes # (A) 0.4 k/uL (1.0-4.8); Lymphocytes % (A) 5 %; MCH 30.6 pg (25.0-35.0); MCHC 32.1 g/dL (31.0-37.0); MCV 95.4 fL (80.0-100.0); Mean Platelet Volume 9.7; Monocytes # (A) 0.4 k/uL (0-1.0); Monocytes % (A) 5 %; Neutrophils # (A) 7.8 k/uL (1.3-7.7); Neutrophils % (A) 88 %; Platelet Count 103 k/uL (150-450); RDW 14.3 % (11.5-15.5); WBC 8.8 k/uL (3.8-10.6)
[2023-08-06 04:31] LABS: ALT 43 U/L (4-34); AST 24 U/L (14-36); African American GFR (CKD) >90 (>60 ml/min/1.73 sqM); Albumin 2.8 g/dL (3.5-5.0); Alkaline Phosphatase 47 U/L (38-126); Anion Gap 4 mmol/L; Blood Urea Nitrogen 38 mg/dL (7-17); Calcium 8.4 mg/dL (8.4-10.2); Carbon Dioxide 33 mmol/L (22-30); Chloride 106 mmol/L (98-107); Glucose 213 mg/dL (74-99); Non-African American GFR(CKD) 89 (>60 ml/min/1.73 sqM); Potassium 4.2 mmol/L (3.5-5.1); Sodium 143 mmol/L (137-145); Total Bilirubin 0.3 mg/dL (0.2-1.3)
[2023-08-06 05:54] LABS: ABG Base Excess 10.4 mmol/L; ABG HCO3 36 mmol/L (21-25); ABG Oxygen Saturation 97.8 % (94-97); ABG PCO2 61 mmHg (35-45); ABG PH 7.38 (7.35-7.45); ABG PO2 103 mmHg (83-108); ABG TCO2 38 mmol/L (19-24); Allen Test Performed? Yes
[2023-08-06] MEDS: INSULIN DETEMIR (LEVEMIR) 100 UNIT/ML SYR SQ SCH (06:11)
[2023-08-06] MEDS: methylPREDNISolone SOD SUCCI 125 MG/2 ML VIAL IV SCH (06:11)
--- NOTE | 2023-08-06 07:15 | XR ---
EXAMINATION TYPE: XR chest 1V portable DATE OF EXAM: 08/06/2023 5:35 AM CLINICAL INDICATION:Female, 73 years old with history of mechanical ventilation; [facility] COMPARISON: Chest radiographs from 08/06/2023. TECHNIQUE: XR chest 1V portable Frontal view of the chest. FINDINGS: Lungs/Pleura: There is flattening of the diaphragm with increased lucency of the lungs. No evidence o f pneumothorax or focal consolidation. Blunting of the costophrenic angles. Pulmonary vascularity: Unremarkable. Heart/mediastinum: Cardiomediastinal silhouette is unremarkable. Musculoskeletal: No acute osseous pathology. Other findings: None Lines/Tubes: Endotracheal tube with distal tip xx cm above the sidney. Interval placement of nasogastric and side-port projecting under the diaphragm. Left internal jugular central venous catheter with distal tip at the cavoatrial junction. IMPRESSION: 1. Support tubes and line in appropriate position. 2. Small bilateral pleural effusions. 3. COPD changes.
[2023-08-06] MEDS: FORMOTEROL FUMARATE 20 MCG/2 ML NEBU INHALATION SCH ×2 (07:27→20:26)
[2023-08-06] MEDS: BUDESONIDE 1 MG/2 ML NEBU INHALATION SCH ×2 (07:27→20:26)
[2023-08-06 07:35] LABS: Glucose,Whole Blood 205 mg/dL (70-110)
[2023-08-06] MEDS: PANTOPRAZOLE 40 MG/10 ML VIAL IVP SCH (07:49)
[2023-08-06] MEDS: ASPIRIN 81 MG PO SCH (07:50)
[2023-08-06] MEDS: NICOTINE 21MG/24HR PATCH TRANSDERM SCH (07:50)
[2023-08-06] MEDS: atenoloL 25 MG TAB PO SCH (07:50)
[2023-08-06] MEDS: ATORVASTATIN 40 MG TAB PO SCH (07:50)
[2023-08-06] MEDS: ENOXAPARIN 40 MG/0.4 ML SYRINGE SQ SCH (07:51)
[2023-08-06] MEDS: CHLORHEXIDINE GLUCONATE 15 ML CUP MUCOUS MEM SCH (07:51)
--- NOTE | 2023-08-06 08:03 | P.PN ---
Subjective Progress Note Date: 08/06/23 3-year-old female patient being seen on follow-up on 08/06/2023 for respiratory failure, intubation mechanical ventilation. The patient was intubated on 08/01/2023. She has an acute on top of chronic hypoxic respiratory failure due to COPD exacerbation patient also had a pneumonia cultures indicating st enotrophomonas. She has 95-piko-syty smoking history and she is oxygen dependent COPD. She has diabetes and hypertension. Currently, the patient is still sedated on propofol at 35 mcg/kg/m. She remains on mechanical ventilator. Assist-control mode at the rate of 24, tidal volume of 350, FiO2 of 50% with a PEEP of 5. Chest x-ray shows limited effusion lung base bilaterally. No airspace disease. ET tube is in a good location. No evidence of any pneumothorax. The blood gas from today shows a pH of 7.38 with episodes of 61 and pO2 of 103. The patient remains on bronchodilators. The patient remains on antibiotics and the patient is currently covered with IV Levaquin and Zosyn was discontinued yesterday. She remains on Perforomist and Pulmicort nebulized treatments twice a day. She is on IV Solu-Medrol 60 mg every 6 hours. She is on Levemir insulin 15 units daily and a sliding scale coverage. Peak airway pressures around 23. IV fluids are in the form of D5 water at rate of 75 mL an hour. Overall fluid balance over the past 24 hours has been +1.6 L. His white cell count today's of 3.8 with a hemoglobin of 11.3. BUN is at 38 with a creatinine of 0.6. Enteral feeding is at the rate of 40 mL an hour and the patient is receiving vital high-protein. This morning, the patient is heavily sedated with propofol. No significant orotracheal secretions. Objective - Vital Signs Vital signs: Vital Signs Temp 98.4 F 08/06/23 04:00 Pulse 84 08/06/23 07:39 Resp 24 08/06/23 07:00 BP 93/58 08/06/23 07:00 Pulse Ox 96 08/06/23 07:00 FiO2 50 08/06/23 07:41 Intake & Output 08/05/23 08/06/23 08/06/23 18:59 06:59 18:59 Intake Total 9436.331 7385 118 Output Total 1645 1470 80 Balance 233.011 136 38 Intake: IV 971 936 78 0.9NS Pressure Bag 36 36 3 Dextrose 5% in Water 1, 825 900 75 000 ml @ 75 mls/hr IV . [id number] [facility] Rx#:[id number] Invasive Line 2 10 Piperacillin-Tazobactam 3 100 .375 gm In Sodium Chloride 0.9% 100 ml @ 25 mls/hr IVPB Q8HR [facility] Rx# :[id number] Intake, IV Titration 397.011 100 Amount Levofloxacin 500Mg-D5w 100 Pmx 500 mg In Dextrose/ Water 1 100ml.bag @ 100 mls/hr IVPB Q24H [facility] Rx#: [id number] Potassium Chloride 10 meq 100 In Water For Injection 1 100ml.bag @ 100 mls/hr IVPB Q1H [facility] Rx#: [id number] propofoL 1,000 mg In 197.011 100 Empty Bag 1 bag @ 15 MCG/ KG/MIN 5.919 mls/hr IV . [id number] [facility] Rx#:[id number] Tube Feeding 480 480 40 Other 30 90 Output: Urine 1645 1470 80 Other: Voiding Method Indwelling Catheter Indwelling Catheter ABP, PAP, CO, CI - Last Documented Arterial Blood Pressure 119/44 - Exam No acute distress, sedated, with an orally placed endotracheal tube and NG tube. Head exam was generally normal. There was no scleral icterus or corneal arcus. Mucous membranes were moist. HEENT examination is grossly unremarkable. Neck supple. Full range of motion. No adenopathy thyromegaly or neck vein distention. Cardiovascular examination reveals regular rhythm rate. S1-S2 normal. No S3 or S4. No discernible murmur noted. Lungs reveal coarse, bilateral, inspiratory and expiratory wheezes and rhonchi. No crackles. No significant wheezing or bronchospasm today's examination Abdomen soft, without bowel sounds. Extremities are intact. No cyanosis clubbing or edema. Skin is without rash or lesion. Neurologic examination cannot be evaluated at this time. The patient is deeply sedated on propofol - Labs CBC & Chem 7: 08/06/23 03:45 08/06/23 03:45 Labs: Abnormal Lab Results - Last 24 Hours (Table) 08/05/23 08/05/23 08/05/23 Range/Units 12:41 17:28 20:11 RBC (3.80-5.40) m/uL Hgb (11.4-16.0) gm/dL Plt Count (150-450) k/uL Neutrophils # (1.3-7.7) k/uL Lymphocytes # (1.0-4.8) k/uL ABG pCO2 (35-45) mmHg ABG HCO3 (21-25) mmol/L ABG Total CO2 (19-24) mmol/L ABG O2 Saturation (94-97) % Carbon Dioxide (22-30) mmol/L BUN (7-17) mg/dL Glucose (74-99) mg/dL POC Glucose (mg/dL) 321 H 279 H 269 H (70-110) mg/dL ALT (4-34) U/L Total Protein (6.3-8.2) g/dL Albumin (3.5-5.0) g/dL 08/05/23 08/06/23 08/06/23 Range/Units 23:05 03:37 03:45 RBC 3.70 L (3.80-5.40) m/uL Hgb 11.3 L (11.4-16.0) gm/dL Plt Count 103 L (150-450) k/uL Neutrophils # 7.8 H (1.3-7.7) k/uL Lymphocytes # 0.4 L (1.0-4.8) k/uL ABG pCO2 (35-45) mmHg ABG HCO3 (21-25) mmol/L ABG Total CO2 (19-24) mmol/L ABG O2 Saturation (94-97) % Carbon Dioxide (22-30) mmol/L BUN (7-17) mg/dL Glucose (74-99) mg/dL POC Glucose (mg/dL) 274 H 229 H (70-110) mg/dL ALT (4-34) U/L Total Protein (6.3-8.2) g/dL Albumin (3.5-5.0) g/dL 08/06/23 08/06/23 08/06/23 Range/Units 03:45 05:47 07:33 RBC (3.80-5.40) m/uL Hgb (11.4-16.0) gm/dL Plt Count (150-450) k/uL Neutrophils # (1.3-7.7) k/uL Lymphocytes # (1.0-4.8) k/uL ABG pCO2 61 H (35-45) mmHg ABG HCO3 36 H (21-25) mmol/L ABG Total CO2 38 H (19-24) mmol/L ABG O2 Saturation 97.8 H (94-97) % Carbon Dioxide 33 H (22-30) mmol/L BUN 38 H (7-17) mg/dL Glucose 213 H (74-99) mg/dL POC Glucose (mg/dL) 205 H (70-110) mg/dL ALT 43 H (4-34) U/L Total Protein 5.0 L (6.3-8.2) g/dL Albumin 2.8 L (3.5-5.0) g/dL Microbiology - Last 24 Hours (Table) 08/02/23 12:20 Gram Stain - Final Sputum Sputum Culture - Final Rosa albicans Stenotrophomonas maltophilia Assessment and Plan Plan: Acute COPD exacerbation with subsequent respiratory failure. The patient failed BiPAP therapy and the patient has been intubated on 08/01/2023. Chest x-ray shows small bilateral pleural effusions. No airspace disease. No consolidation. Blood gas was reviewed. Chest x-ray was reviewed. Peak airway pressures around 23. Sputum cultures positive for stenotrophomonas and the patient. IV Zosyn, was initiated and patient is currently on Levaquin Acute on chronic hypoxemic respiratory failure secondary to an acute exacerbation of chronic obstructive pulmonary disease. Stenotrophomonas tracheobronchitis/bronchopneumonia. Troponin leak secondary to above versus coronary artery disease. Chronic and ongoing tobacco dependence of greater than 50 years. Oxygen dependent chronic obstructive pulmonary disease. Diabetes mellitus, type II. Hypertension. Carotid artery disease with previous left carotid endarterectomy. CHF with impaired LV function and ejection fraction of 35% based on echocardiogram that was done on 07/29/2023. The patient also has moderate pulmonary hypertension with a PA pressure of 39. There is segmental wall motion abnormalities with anteroapical and inferoapical wall hypokinesis as well as mid inferior and mid anterior wall involvement. Plan: Continue ventilator support and dropped FiO2 down to 40% Continue bronchodilators Dr. Curran to 40 mg every 12 hours Give 40 mg of IV Lasix 1 Continue Levaquin Change IV fluids to KVO Continue enteral feeding for nutritional support When off propofol and gradually reduce the dose and assess the patient's mental status We'll continue to follow make further recommendations based on progress... My understanding that the patient has failed weaning trials. The family is not interested tracheostomy and long-term ventilator care for now. The plan for now is to continue our efforts to wean off this patient off the mechanical ventilator. Critical care evaluation more than 30 minutes Time with Patient: Greater than 30
[2023-08-06] MEDS ORDERED: FUROSEMIDE 10 MG/ML 4 ML VIAL IV STA (08:32)
[2023-08-06] MEDS: DEXTROSE 5% IN WATER 1,000 ML IV SCH (08:45)
[2023-08-06] MEDS: ACETAMINOPHEN TAB 325 MG TAB PO PRN (10:18)
--- NOTE | 2023-08-06 10:20 | P.PN ---
Subjective Progress Note Date: 08/06/23 This is a 73-year-old female patient of Dr. Phillips who presented to the ER with complaints of shortness of breath. Patient apparently was experiencing respiratory distress was transported EMS and was found to have an SpO2 in the 70s. Patient has past medical history of diabetes mellitus, nicotine depen dence, carotid artery stenosis, COPD, hypertension, atrial tachycardia. Initial chest x-ray showing hyperinflated lungs. Patient noted to have elevated troponins 0.046, 0.36 and 0.504. Patient was started on heparin drip for elevated troponins cardiology and pulmonary services were consulted. Patient started on IV steroids, DuoNeb breathing treatments azithromycin and Rocephin Dr. Soto's group previously covering We are resuming care patient on 07/30/2023 On 07/30/2023 patient is alert and oriented 3 currently resting comfortably in bed on BiPAP. Patient reports some improvement with shortness of breath but does appear to be quite short of breath. She remains on IV Solu-Medrol a zithromycin and Rocephin. Patient also remains on heparin drip per cardiology. Pulmonary and cardiology services are following. Sliding scale coverage. Current vital signs temp 97.5, pulse rate 99, respiratory rate 22, blood pressure 110/72 with a pulse ox of 98% on BiPAP On 07/31/2023 patient was seen and examined on the telemetry floor she is alert and oriented 3 in no apparent distress she is still having significant shortness of breath she is maintained on oxygen at 4 L nasal cannula, and requiring BiPAP on and off, she is still complaining of cough was yellow to green sputum production, she denies any chest pain she is still maintained on IV Solu-Medrol. Antibiotic were discontinued by pulmonary. On 08/01/2023 patient remains requiring BiPAP. Patient is alert and oriented resting comfortably on BiPAP in bed at this time. Patient had increased episodes of difficulty breathing throughout night pulmonary services at bedside orders to continue BiPAP. Patient remains on IV Solu-Medrol and DuoNeb breathing treatments. Pulmonary services are following. On 08/02/2023 patient was seen and examined in the ICU, currently she is intubated sedated maintained on mechanical ventilation, assist control rate 20 454 350 FiO2 of 50% and PEEP of 10 vital exam reveals a temperature of 99.5 pulse 81 respiration 24 blood pressure 108/58 pulse ox 94% white blood count 7.8 hemoglobin 11.3 platelet count 120 pH 7.35 pCO2 of 54. O2 56 On 08/03/2023 patient remains in the intensive care unit. Patient remains on mechanical ventilation. Sedation holiday in progress current vital signs temp 98.0, heart rate 84, blood pressure 135/55 with a pulse ox 96% been mechanical ventilation with an FiO2 of 50%. Arterial blood gases this a.m. showing a pH of 7.26, creatinine pCO2 68, pO2 100, sodium bicarb 31 On 08/04/2023 patient was seen and examined in the ICU, currently she is intu bated sedated maintained on mechanical ventilation, assist control rate 20 454 350 FiO2 of 50% and PEEP of 10 vital exam reveals a temperature of 98.7 pulse 84 respiration 24 blood pressure 132/65 white blood count is 6.1 hemoglobin 10.9 platelet count 116 arterial blood gas reveals a pH of 7.36 pCO2 of 58 CO2 78 sodium 147 potassium 4.1 chloride 1:15 CO2 33 BUN 48 creatinine 0.62 glucose level 229 On 08/05/2023 patient was seen and examined in the ICU she is intubated sedated maintained on mechanical ventilation, she is on assist control, rate 24 tidal volume 350 FiO2 50% and PEEP of 5 temperature is 99.3 pulse 22 blood pressure 99/47 blood pressure 121/48 white blood count 7.2 hemoglobin 10.6 platelet count 100 arterial blood gas revealed a pH of 7.37 pCO2 58 CO2 97 BUN 40 creatinine 0. 64 glucose is elevated again at 268. At this time will increase Levemir to 15 units daily continue with sliding scale On 08/06/2023 patient was seen and examined in the ICU, she is still intubated m aintained on mechanical ventilation, sedation is on hold at this time, for possible trial of extubation this morning, vital exam reveals a temperature of 99 pulse 89 respiration 22 blood pressure 168/64 pulse ox 94% on FiO2 of 40% laboratory data reveals a white blood count of 8.8 hemoglobin 11.3 platelet count 103 arterial blood gas reveals a pH of 7.38 pCO2 of 61 by mouth to 103 sodium 143 potassium 4.2 chloride 106 CO2 33 BUN 38 creatinine 0.63 Objective - Vital Signs Vital signs: Vital Signs Temp 99 F 08/06/23 08:00 Pulse 86 08/06/23 08:00 Resp 24 08/06/23 08:00 BP 93/58 08/06/23 07:00 Pulse Ox 93 L 08/06/23 08:00 FiO2 40 08/06/23 08:29 Intake & Output 08/05/23 08/06/23 08/06/23 18:59 06:59 18:59 Intake Total 0476.992 1186 311.415 Output Total 1645 1470 205 Balance 233.011 136 106.415 Intake: IV 971 936 156 0.9NS Pressure Bag 36 36 6 Dextrose 5% in Water 1, 825 900 150 000 ml @ 75 mls/hr IV . [id number] [facility] Rx#:[id number] Invasive Line 2 10 Piperacillin-Tazobactam 3 100 .375 gm In Sodium Chloride 0.9% 100 ml @ 25 mls/hr IVPB Q8HR [facility] Rx# :[id number] Intake, IV Titration 397.011 100 45.415 Amount Levofloxacin 500Mg-D5w 100 Pmx 500 mg In Dextrose/ Water 1 100ml.bag @ 100 mls/hr IVPB Q24H [facility] Rx#: [id number] Potassium Chloride 10 meq 100 In Water For Injection 1 100ml.bag @ 100 mls/hr IVPB Q1H [facility] Rx#: [id number] propofoL 1,000 mg In 197.011 100 45.415 Empty Bag 1 bag @ 15 MCG/ KG/MIN 5.919 mls/hr IV . [id number] [facility] Rx#:[id number] Tube Feeding 480 480 80 Other 30 90 30 Output: Urine 1645 1470 205 Other: Voiding Method Indwelling Catheter Indwelling Catheter ABP, PAP, CO, CI - Last Documented Arterial Blood Pressure 149/57 - Exam In general patient is intubated sedated maintained on mechanical intubation HEENT head normocephalic and atraumatic Neck is supple no JVD no goiter no lymphadenopathy no carotid bruit Chest examination is clear to auscultation no crackles no wheezing Cardiac exam reveals regular heart sounds S1 and S2 no gallops no murmurs Abdomen is soft nontender no organomegaly with normal bowel sounds Extremity exam reveals no edema no cyanosis or clubbing Neurological examination reveals no gross focal deficits - Labs CBC & Chem 7: 08/06/23 03:45 08/06/23 03:45 Labs: Abnormal Lab Results - Last 24 Hours (Table) 08/05/23 08/05/23 08/05/23 Range/Units 12:41 17:28 20:11 RBC (3.80-5.40) m/uL Hgb (11.4-16.0) gm/dL Plt Count (150-450) k/uL Neutrophils # (1.3-7.7) k/uL Lymphocytes # (1.0-4.8) k/uL ABG pCO2 (35-45) mmHg ABG HCO3 (21-25) mmol/L ABG Total CO2 (19-24) mmol/L ABG O2 Saturation (94-97) % Carbon Dioxide (22-30) mmol/L BUN (7-17) mg/dL Glucose (74-99) mg/dL POC Glucose (mg/dL) 321 H 279 H 269 H (70-110) mg/dL ALT (4-34) U/L Total Protein (6.3-8.2) g/dL Albumin (3.5-5.0) g/dL 08/05/23 08/06/23 08/06/23 Range/Units 23:05 03:37 03:45 RBC 3.70 L (3.80-5.40) m/uL Hgb 11.3 L (11.4-16.0) gm/dL Plt Count 103 L (150-450) k/uL Neutrophils # 7.8 H (1.3-7.7) k/uL Lymphocytes # 0.4 L (1.0-4.8) k/uL ABG pCO2 (35-45) mmHg ABG HCO3 (21-25) mmol/L ABG Total CO2 (19-24) mmol/L ABG O2 Saturation (94-97) % Carbon Dioxide (22-30) mmol/L BUN (7-17) mg/dL Glucose (74-99) mg/dL POC Glucose (mg/dL) 274 H 229 H (70-110) mg/dL ALT (4-34) U/L Total Protein (6.3-8.2) g/dL Albumin (3.5-5.0) g/dL 08/06/23 08/06/23 08/06/23 Range/Units 03:45 05:47 07:33 RBC (3.80-5.40) m/uL Hgb (11.4-16.0) gm/dL Plt Count (150-450) k/uL Neutrophils # (1.3-7.7) k/uL Lymphocytes # (1.0-4.8) k/uL ABG pCO2 61 H (35-45) mmHg ABG HCO3 36 H (21-25) mmol/L ABG Total CO2 38 H (19-24) mmol/L ABG O2 Saturation 97.8 H (94-97) % Carbon Dioxide 33 H (22-30) mmol/L BUN 38 H (7-17) mg/dL Glucose 213 H (74-99) mg/dL POC Glucose (mg/dL) 205 H (70-110) mg/dL ALT 43 H (4-34) U/L Total Protein 5.0 L (6.3-8.2) g/dL Albumin 2.8 L (3.5-5.0) g/dL Microbiology - Last 24 Hours (Table) 08/02/23 12:20 Gram Stain - Final Sputum Sputum Culture - Final Rosa albicans Stenotrophomonas maltophilia Assessment and Plan Plan: 1. Shortness breath secondary to acute exacerbation of COPD with tracheal bronchitis 2. Non-ST elevated [place] 3. Chronic and ongoing nicotine dependence 4. Oxygen dependent chronic obstructive pulmonary disease 5. Diabetes mellitus type 2 6. History of essential hypertension 7. Carotid artery disease with previous left carotid endarterectomy Pulmonary and cardiology service is consulted Patient maintained on IV Solu-Medrol, DuoNeb breathing treatments Maintained on BiPAP Repeat labs ordered DVT prophylaxis lovenox. GI prophylaxis Protonix
[2023-08-06] MEDS ORDERED: hydrALAZINE HCL 20 MG/ML 1 ML VIAL IVP PRN (10:21)
[2023-08-06] MEDS: methylPREDNISolone SOD SUCCI 40 MG/ML 1 ML VIAL IV SCH (11:25)
[2023-08-06] MEDS: LEVOFLOXACIN 500MG-D5W PMX 500 MG in DEXTROSE/WATER 1 100ML.BAG IVPB SCH (11:25)
[2023-08-06 11:34] LABS: Glucose,Whole Blood 146 mg/dL (70-110)
[2023-08-06] MEDS: DEXMEDETOMIDINE/0.9% NACL(PMX) 400 MCG in EMPTY BAG 1 BAG IV SCH (12:41)
[2023-08-06 16:04] LABS: Glucose,Whole Blood 226 mg/dL (70-110)
[2023-08-06 17:59] LABS: ABG Base Excess 15.6 mmol/L; ABG Oxygen Saturation 97.6 % (94-97); ABG PCO2 59 mmHg (35-45); ABG PH 7.44 (7.35-7.45); ABG PO2 97 mmHg (83-108); ABG TCO2 42 mmol/L (19-24)
[2023-08-06 18:01] LABS: ABG HCO3 40 mmol/L (21-25); Allen Test Performed? no
[2023-08-06 19:54] LABS: Glucose,Whole Blood 173 mg/dL (70-110)
[2023-08-06 23:59] LABS: Glucose,Whole Blood 169 mg/dL (70-110)
[2023-08-07] MEDS: INSULIN ASPART (NovoLOG) 100 UNIT/ML VIAL SQ SCH ×6 (00:20→19:56)
[2023-08-07] MEDS: methylPREDNISolone SOD SUCCI 40 MG/ML 1 ML VIAL IV SCH ×2 (00:20→12:18)
[2023-08-07] MEDS: DEXMEDETOMIDINE/0.9% NACL(PMX) 400 MCG in EMPTY BAG 1 BAG IV SCH (02:30)
[2023-08-07] MEDS: IPRATROPIUM-ALBUTEROL 3 ML NEB INHALATION SCH ×6 (03:37→23:43)
[2023-08-07 04:03] LABS: Glucose,Whole Blood 196 mg/dL (70-110)
[2023-08-07 04:12] LABS: Basophils % (A) 0 %; Eosinophils # (A) 0.1 k/uL (0-0.7); Eosinophils % (A) 1 %; HCT 35.7 % (34.0-46.0); HGB 11.6 gm/dL (11.4-16.0); Lymphocytes # (A) 0.7 k/uL (1.0-4.8); Lymphocytes % (A) 9 %; MCH 30.6 pg (25.0-35.0); MCHC 32.6 g/dL (31.0-37.0); MCV 93.9 fL (80.0-100.0); Mean Platelet Volume 9.9; Monocytes # (A) 0.4 k/uL (0-1.0); Monocytes % (A) 5 %; Neutrophils # (A) 6.1 k/uL (1.3-7.7); Neutrophils % (A) 84 %; RDW 14.1 % (11.5-15.5); WBC 7.3 k/uL (3.8-10.6)
[2023-08-07] MEDS: DEXTROSE 5% IN WATER 1,000 ML IV SCH (04:18)
[2023-08-07 04:23] LABS: ALT 41 U/L (4-34); AST 28 U/L (14-36); African American GFR (CKD) >90 (>60 ml/min/1.73 sqM); Albumin 2.7 g/dL (3.5-5.0); Alkaline Phosphatase 45 U/L (38-126); Anion Gap 3 mmol/L; Blood Urea Nitrogen 45 mg/dL (7-17); Calcium 8.1 mg/dL (8.4-10.2); Carbon Dioxide 38 mmol/L (22-30); Chloride 101 mmol/L (98-107); Glucose 184 mg/dL (74-99); Non-African American GFR(CKD) >90 (>60 ml/min/1.73 sqM); Potassium 4.5 mmol/L (3.5-5.1); Sodium 142 mmol/L (137-145); Total Bilirubin 0.5 mg/dL (0.2-1.3); Total Protein 4.9 g/dL (6.3-8.2)
[2023-08-07 06:32] LABS: Platelet Count 90 k/uL (150-450)
[2023-08-07] MEDS: INSULIN DETEMIR (LEVEMIR) 100 UNIT/ML SYR SQ SCH (07:14)
[2023-08-07] MEDS: FORMOTEROL FUMARATE 20 MCG/2 ML NEBU INHALATION SCH ×2 (07:50→19:46)
[2023-08-07] MEDS: BUDESONIDE 1 MG/2 ML NEBU INHALATION SCH ×2 (07:50→19:46)
[2023-08-07 08:17] LABS: Glucose,Whole Blood 163 mg/dL (70-110)
--- NOTE | 2023-08-07 08:34 | P.PN ---
Subjective Progress Note Date: 08/07/23 3-year-old female patient being seen on follow-up on 08/06/2023 for respiratory failure, intubation mechanical ventilation. The patient was intubated on 08/01/2023. She has an acute on top of chronic hypoxic respiratory failure due to COPD exacerbation patient also had a pneumonia cultures indicating st enotrophomonas. She has [id number] smoking history and she is oxygen dependent COPD. She has diabetes and hypertension. Currently, the patient is still sedated on propofol at 35 mcg/kg/m. She remains on mechanical ventilator. Assist-control mode at the rate of 24, tidal volume of 350, FiO2 of 50% with a PEEP of 5. Chest x-ray shows limited effusion lung base bilaterally. No airspace disease. ET tube is in a good location. No evidence of any pneumothorax. The blood gas from today shows a pH of 7.38 with episodes of 61 and pO2 of 103. The patient remains on bronchodilators. The patient remains on antibiotics and the patient is currently covered with IV Levaquin and Zosyn was discontinued yesterday. She remains on Perforomist and Pulmicort nebulized treatments twice a day. She is on IV Solu-Medrol 60 mg every 6 hours. She is on Levemir insulin 15 units daily and a sliding scale coverage. Peak airway pressures around 23. IV fluids are in the form of D5 water at rate of 75 mL an hour. Overall fluid balance over the past 24 hours has been +1.6 L. His white cell count today's of 3.8 with a hemoglobin of 11.3. BUN is at 38 with a creatinine of 0.6. Enteral feeding is at the rate of 40 mL an hour and the patient is receiving vital high-protein. This morning, the patient is heavily sedated with propofol. No significant orotracheal secretions. 08/07/2023, the patient is on Precedex running at 0.6 mcg/kg/m. The patient is quite sedated and comfortable. The patient is on a BiPAP. Noted the patient was extubated yesterday. I took her off the sedation yesterday and after the patient showed some adequate neurological recovery, extubated to BiPAP at a pressure 14/5 cm of water with an FiO2 50%. The patient was somewhat restless and nervous and somewhat asynchronous initially on a BiPAP. Based on that, she was started on Precedex. This morning, she seems to be quite sedated yet arousable. She is on a BiPAP at pressure 14/5 cm of water. She generating a tidal volume and a 600 range with a respiratory rate of 19 and a minute ventilation of 12.6. The chest x-ray shows no acute abnormalities. There is consistent with emphysema. Also, the patient has a the white cell count of 7.3, hemoglobin of 11.6 and a platelet count of 90. BUN is 45 and a creatinine of 0.6 and the rest of the electrolytes all within normal limits. Noted the patient's platelet counts have been gradually downtrending. The blood gas from yesterday showed well compensated chronic hypercapnic respiratory failure. She is profoundly weak. She will following some simple commands yesterday and this morning she is quite sedated. Objective - Vital Signs Vital signs: Vital Signs Temp 99.0 F 08/07/23 04:00 Pulse 98 08/07/23 08:13 Resp 15 08/07/23 07:00 BP 114/60 08/07/23 07:00 Pulse Ox 96 08/07/23 07:00 FiO2 50 08/07/23 07:50 Intake & Output 08/06/23 08/07/23 08/07/23 18:59 06:59 18:59 Intake Total 905.001 329.522 23 Output Total 2215 510 45 Balance -1309.999 -180.478 -22 Weight 65.5 kg 64.8 kg Intake: IV 186 256 23 0.9NS Pressure Bag 36 36 3 Dextrose 5% in Water 1, 220 20 000 ml @ 20 mls/hr IV . Q24H [facility] Rx#:[id number] Dextrose 5% in Water 1, 150 000 ml @ 75 mls/hr IV . [id number] [facility] Rx#:[id number] Intake, IV Titration 259.001 73.522 Amount Dexmedetomidine/0.9% NaCl 12.008 53.522 (Pmx) 400 mcg In Empty Bag 1 bag @ 0.2 MCG/KG/HR 3.275 mls/hr IV .Q24H [facility] Rx#:[id number] Dextrose 5% in Water 1, 200 20 000 ml @ 20 mls/hr IV . Q24H [facility] Rx#:[id number] propofoL 1,000 mg In 46.993 Empty Bag 1 bag @ 15 MCG/ KG/MIN 5.919 mls/hr IV . [id number] COUNTS INCLUDE 234 BEDS AT THE [facility] Rx#:[id number] Tube Feeding 400 Other 60 Output: Urine 2215 510 45 Other: Voiding Method Indwelling Catheter Indwelling Catheter ABP, PAP, CO, CI - Last Documented Arterial Blood Pressure 127/54 - Exam No acute distress, sedated, on Precedex. The patient is currently on a BiPAP at pressure 14/5 5-50%. Head exam was generally normal. There was no scleral icterus or corneal arcus. Mucous membranes were moist. HEENT examination is grossly unremarkable. Neck supple. Full range of motion. No adenopathy thyromegaly or neck vein distention. Cardiovascular examination reveals regular rhythm rate. S1-S2 normal. No S3 or S4. No discernible murmur noted. Lungs reveal coarse, bilateral, inspiratory and expiratory wheezes and rhonchi. No crackles. No significant wheezing or bronchospasm today's examination Abdomen soft, without bowel sounds. Extremities are intact. No cyanosis clubbing or edema. Skin is without rash or lesion. Neurologic the patient is arousable. Follows simple commands. Significant motor weakness in all 4 extremities. No focal neurological deficit at this point in time. The patient is deeply sedated on Precedex - Labs CBC & Chem 7: 08/07/23 04:03 08/07/23 04:03 Labs: Abnormal Lab Results - Last 24 Hours (Table) 08/06/23 08/06/23 08/06/23 Range/Units 11:32 16:00 17:58 Plt Count (150-450) k/uL Lymphocytes # (1.0-4.8) k/uL ABG pCO2 59 H (35-45) mmHg ABG HCO3 40 H* (21-25) mmol/L ABG Total CO2 42 H (19-24) mmol/L ABG O2 Saturation 97.6 H (94-97) % Carbon Dioxide (22-30) mmol/L BUN (7-17) mg/dL Glucose (74-99) mg/dL POC Glucose (mg/dL) 146 H 226 H (70-110) mg/dL Calcium (8.4-10.2) mg/dL ALT (4-34) U/L Total Protein (6.3-8.2) g/dL Albumin (3.5-5.0) g/dL 08/06/23 08/06/23 08/07/23 Range/Units 19:52 23:58 04:02 Plt Count (150-450) k/uL Lymphocytes # (1.0-4.8) k/uL ABG pCO2 (35-45) mmHg ABG HCO3 (21-25) mmol/L ABG Total CO2 (19-24) mmol/L ABG O2 Saturation (94-97) % Carbon Dioxide (22-30) mmol/L BUN (7-17) mg/dL Glucose (74-99) mg/dL POC Glucose (mg/dL) 173 H 169 H 196 H (70-110) mg/dL Calcium (8.4-10.2) mg/dL ALT (4-34) U/L Total Protein (6.3-8.2) g/dL Albumin (3.5-5.0) g/dL 08/07/23 08/07/23 08/07/23 Range/Units 04:03 04:03 08:15 Plt Count 90 L (150-450) k/uL Lymphocytes # 0.7 L (1.0-4.8) k/uL ABG pCO2 (35-45) mmHg ABG HCO3 (21-25) mmol/L ABG Total CO2 (19-24) mmol/L ABG O2 Saturation (94-97) % Carbon Dioxide 38 H (22-30) mmol/L BUN 45 H (7-17) mg/dL Glucose 184 H (74-99) mg/dL POC Glucose (mg/dL) 163 H (70-110) mg/dL Calcium 8.1 L (8.4-10.2) mg/dL ALT 41 H (4-34) U/L Total Protein 4.9 L (6.3-8.2) g/dL Albumin 2.7 L (3.5-5.0) g/dL Assessment and Plan Plan: Acute COPD exacerbation with subsequent respiratory failure, the patient was extubated on 08/06/2023. BiPAP and the patient remains on a BiPAP at pressure 14/5 cm of water with an FiO2 of 50% pH chest x-ray showed negative for any acute abnormalities. The patient has been generating adequate volumes on her BiPAP. She remains on Precedex this morning. Acute on chronic hypoxemic respiratory failure secondary to an acute exa cerbation of chronic obstructive pulmonary disease. Stenotrophomonas tracheobronchitis/bronchopneumonia. Troponin leak secondary to above versus coronary artery disease. Chronic and ongoing tobacco dependence of greater than 50 years. Oxygen dependent chronic obstructive pulmonary disease. Diabetes mellitus, type II. Hypertension. Carotid artery disease with previous left carotid endarterectomy. CHF with impaired LV function and ejection fraction of 35% based on echocardiogram that was done on 07/29/2023. The patient also has moderate pulmonary hypertension with a PA pressure of 39. There is segmental wall motion abnormalities with anteroapical and inferoapical wall hypokinesis as well as mid inferior and mid anterior wall involvement. Profound generalized weakness probably related to prolonged intubation mechanical ventilation Plan: Continue BiPAP therapy for now at the same setting and dropped FiO2. 40% Check a blood gas Stop the Precedex Continue Levaquin Change IV fluids to 50 cc/ hr Keep the patient nothing by mouth for now Stop sedation May transition this patient to a nasal cannula if she shows adequate neurological recovery once off sedation. We'll also check a blood gases and make a final decision. I had a lengthy discussion with the family. The family understands situation. He told me that the patient never wanted to be on long-term life support. As such, tracheostomy tube and long-term ventilation or ventilator support is not an option for this patient. For now, we'll going to continue our conservative approach. The patient was given extubated to BiPAP. Will monitor progress. Her condition is critical monitor based on lung function is poor and she has advanced COPD with chronic hypoxic respiratory failure. Hiatus 40 intubation. Critical care evaluation more than 30 minutes Time with Patient: Greater than 30
--- NOTE | 2023-08-07 08:45 | XR ---
EXAMINATION TYPE: XR chest 1V portable DATE OF EXAM: 08/07/2023 Comparison: 08/06/2023 Clinical History: 73-year-old female mechanical ventilation Findings: Heart upper limits of normal in size. Left subclavian CVC tip at the cavoatrial junction. Mild inters titial prominence remains. Improvement in the previous trace bilateral pleural effusions. Interval ex tubation and removal of NG tube. Impression: COPD with some interval improvement. There may be residual mild pulmonary vascular congestion but the previous trace effusions have resolved.
--- NOTE | 2023-08-07 08:59 | P.PN ---
Subjective Progress Note Date: 08/07/23 This is a 73-year-old female patient of Dr. Phillips who presented to the ER with complaints of shortness of breath. Patient apparently was experiencing respiratory distress was transported EMS and was found to have an SpO2 in the 70s. Patient has past medical history of diabetes mellitus, nicotine depen dence, carotid artery stenosis, COPD, hypertension, atrial tachycardia. Initial chest x-ray showing hyperinflated lungs. Patient noted to have elevated troponins 0.046, 0.36 and 0.504. Patient was started on heparin drip for elevated troponins cardiology and pulmonary services were consulted. Patient started on IV steroids, DuoNeb breathing treatments azithromycin and Rocephin Dr. Soto's group previously covering We are resuming care patient on 07/30/2023 On 07/30/2023 patient is alert and oriented 3 currently resting comfortably in bed on BiPAP. Patient reports some improvement with shortness of breath but does appear to be quite short of breath. She remains on IV Solu-Medrol a zithromycin and Rocephin. Patient also remains on heparin drip per cardiology. Pulmonary and cardiology services are following. Sliding scale coverage. Current vital signs temp 97.5, pulse rate 99, respiratory rate 22, blood pressure 110/72 with a pulse ox of 98% on BiPAP On 07/31/2023 patient was seen and examined on the telemetry floor she is alert and oriented 3 in no apparent distress she is still having significant shortness of breath she is maintained on oxygen at 4 L nasal cannula, and requiring BiPAP on and off, she is still complaining of cough was yellow to green sputum production, she denies any chest pain she is still maintained on IV Solu-Medrol. Antibiotic were discontinued by pulmonary. On 08/01/2023 patient remains requiring BiPAP. Patient is alert and oriented resting comfortably on BiPAP in bed at this time. Patient had increased episodes of difficulty breathing throughout night pulmonary services at bedside orders to continue BiPAP. Patient remains on IV Solu-Medrol and DuoNeb breathing treatments. Pulmonary services are following. On 08/02/2023 patient was seen and examined in the ICU, currently she is intubated sedated maintained on mechanical ventilation, assist control rate 20 454 350 FiO2 of 50% and PEEP of 10 vital exam reveals a temperature of 99.5 pulse 81 respiration 24 blood pressure 108/58 pulse ox 94% white blood count 7.8 hemoglobin 11.3 platelet count 120 pH 7.35 pCO2 of 54. O2 56 On 08/03/2023 patient remains in the intensive care unit. Patient remains on mechanical ventilation. Sedation holiday in progress current vital signs temp 98.0, heart rate 84, blood pressure 135/55 with a pulse ox 96% been mechanical ventilation with an FiO2 of 50%. Arterial blood gases this a.m. showing a pH of 7.26, creatinine pCO2 68, pO2 100, sodium bicarb 31 On 08/04/2023 patient was seen and examined in the ICU, currently she is intu bated sedated maintained on mechanical ventilation, assist control rate 20 454 350 FiO2 of 50% and PEEP of 10 vital exam reveals a temperature of 98.7 pulse 84 respiration 24 blood pressure 132/65 white blood count is 6.1 hemoglobin 10.9 platelet count 116 arterial blood gas reveals a pH of 7.36 pCO2 of 58 CO2 78 sodium 147 potassium 4.1 chloride 1:15 CO2 33 BUN 48 creatinine 0.62 glucose level 229 On 08/05/2023 patient was seen and examined in the ICU she is intubated sedated maintained on mechanical ventilation, she is on assist control, rate 24 tidal volume 350 FiO2 50% and PEEP of 5 temperature is 99.3 pulse 22 blood pressure 99/47 blood pressure 121/48 white blood count 7.2 hemoglobin 10.6 platelet count 100 arterial blood gas revealed a pH of 7.37 pCO2 58 CO2 97 BUN 40 creatinine 0. 64 glucose is elevated again at 268. At this time will increase Levemir to 15 units daily continue with sliding scale On 08/06/2023 patient was seen and examined in the ICU, she is still intubated m aintained on mechanical ventilation, sedation is on hold at this time, for possible trial of extubation this morning, vital exam reveals a temperature of 99 pulse 89 respiration 22 blood pressure 168/64 pulse ox 94% on FiO2 of 40% laboratory data reveals a white blood count of 8.8 hemoglobin 11.3 platelet count 103 arterial blood gas reveals a pH of 7.38 pCO2 of 61 by mouth to 103 sodium 143 potassium 4.2 chloride 106 CO2 33 BUN 38 creatinine 0.63 On 08/07/2023 patient remains in the intensive care unit. Patient was extubated yesterday to BiPAP remains on Precedex. Per nursing staff patient mentation is still A and O x0. Precedex to be DC'd today per critical care services chest x- ray completed the same showing COPD with some interval improvement there may be residual mild pulmonary vascular congestion previous trace effusions have resolved. Current vital signs temp 99.0, heart rate 98, respiratory rate 15, blood pressure 114/60, pulse ox 96% on BiPAP 50% FiO2 Objective - Vital Signs Vital signs: Vital Signs Temp 99.0 F 08/07/23 04:00 Pulse 98 08/07/23 08:13 Resp 15 08/07/23 07:00 BP 114/60 08/07/23 07:00 Pulse Ox 96 08/07/23 07:00 FiO2 50 08/07/23 07:50 Intake & Output 08/06/23 08/07/23 08/07/23 18:59 06:59 18:59 Intake Total 905.001 329.522 23 Output Total 2215 510 45 Balance -1309.999 -180.478 -22 Weight 65.5 kg 64.8 kg Intake: IV 186 256 23 0.9NS Pressure Bag 36 36 3 Dextrose 5% in Water 1, 220 20 000 ml @ 20 mls/hr IV . Q24H [facility] Rx#:[id number] Dextrose 5% in Water 1, 150 000 ml @ 75 mls/hr IV . [id number] [facility] Rx#:[id number] Intake, IV Titration 259.001 73.522 Amount Dexmedetomidine/0.9% NaCl 12.008 53.522 (Pmx) 400 mcg In Empty Bag 1 bag @ 0.2 MCG/KG/HR 3.275 mls/hr IV .Q24H [facility] Rx#:[id number] Dextrose 5% in Water 1, 200 20 000 ml @ 20 mls/hr IV . Q24H [facility] Rx#:[id number] propofoL 1,000 mg In 46.993 Empty Bag 1 bag @ 15 MCG/ KG/MIN 5.919 mls/hr IV . [id number] [facility] Rx#:[id number] Tube Feeding 400 Other 60 Output: Urine 2215 510 45 Other: Voiding Method Indwelling Catheter Indwelling Catheter ABP, PAP, CO, CI - Last Documented Arterial Blood Pressure 127/54 - Exam In general patient is intubated sedated maintained on mechanical intubation HEENT head normocephalic and atraumatic Neck is supple no JVD no goiter no lymphadenopathy no carotid bruit Chest examination is clear to auscultation no crackles no wheezing Cardiac exam reveals regular heart sounds S1 and S2 no gallops no murmurs Abdomen is soft nontender no organomegaly with normal bowel sounds Extremity exam reveals no edema no cyanosis or clubbing Neurological examination reveals no gross focal deficits - Labs CBC & Chem 7: 08/07/23 04:03 08/07/23 04:03 Labs: Abnormal Lab Results - Last 24 Hours (Table) 08/06/23 08/06/23 08/06/23 Range/Units 11:32 16:00 17:58 Plt Count (150-450) k/uL Lymphocytes # (1.0-4.8) k/uL ABG pCO2 59 H (35-45) mmHg ABG HCO3 40 H* (21-25) mmol/L ABG Total CO2 42 H (19-24) mmol/L ABG O2 Saturation 97.6 H (94-97) % Carbon Dioxide (22-30) mmol/L BUN (7-17) mg/dL Glucose (74-99) mg/dL POC Glucose (mg/dL) 146 H 226 H (70-110) mg/dL Calcium (8.4-10.2) mg/dL ALT (4-34) U/L Total Protein (6.3-8.2) g/dL Albumin (3.5-5.0) g/dL 08/06/23 08/06/23 08/07/23 Range/Units 19:52 23:58 04:02 Plt Count (150-450) k/uL Lymphocytes # (1.0-4.8) k/uL ABG pCO2 (35-45) mmHg ABG HCO3 (21-25) mmol/L ABG Total CO2 (19-24) mmol/L ABG O2 Saturation (94-97) % Carbon Dioxide (22-30) mmol/L BUN (7-17) mg/dL Glucose (74-99) mg/dL POC Glucose (mg/dL) 173 H 169 H 196 H (70-110) mg/dL Calcium (8.4-10.2) mg/dL ALT (4-34) U/L Total Protein (6.3-8.2) g/dL Albumin (3.5-5.0) g/dL 08/07/23 08/07/23 08/07/23 Range/Units 04:03 04:03 08:15 Plt Count 90 L (150-450) k/uL Lymphocytes # 0.7 L (1.0-4.8) k/uL ABG pCO2 (35-45) mmHg ABG HCO3 (21-25) mmol/L ABG Total CO2 (19-24) mmol/L ABG O2 Saturation (94-97) % Carbon Dioxide 38 H (22-30) mmol/L BUN 45 H (7-17) mg/dL Glucose 184 H (74-99) mg/dL POC Glucose (mg/dL) 163 H (70-110) mg/dL Calcium 8.1 L (8.4-10.2) mg/dL ALT 41 H (4-34) U/L Total Protein 4.9 L (6.3-8.2) g/dL Albumin 2.7 L (3.5-5.0) g/dL Assessment and Plan Plan: 1. Shortness breath secondary to acute exacerbation of COPD with tracheal bronchitis requiring intubation and mechanical ventilation 2. Non-ST elevated OK 3. Chronic and ongoing nicotine dependence 4. Oxygen dependent chronic obstructive pulmonary disease 5. Diabetes mellitus type 2 6. History of essential hypertension 7. Carotid artery disease with previous left carotid endarterectomy Pulmonary and cardiology service is consulted Remains in the intensive care unit Patient maintained on IV Solu-Medrol, DuoNeb breathing treatments Maintained on Levaquin Patient extubated to BiPAP on 08/06/2023 Repeat labs ordered DVT prophylaxis lovenox. GI prophylaxis Protonix
[2023-08-07] MEDS: NICOTINE 21MG/24HR PATCH TRANSDERM SCH (09:50)
[2023-08-07] MEDS: ENOXAPARIN 40 MG/0.4 ML SYRINGE SQ SCH (09:50)
[2023-08-07] MEDS: PANTOPRAZOLE 40 MG/10 ML VIAL IVP SCH (09:50)
[2023-08-07] MEDS: atenoloL 25 MG TAB PO SCH (09:51)
[2023-08-07] MEDS: ASPIRIN 81 MG PO SCH (09:51)
[2023-08-07] MEDS: ATORVASTATIN 40 MG TAB PO SCH (09:51)
[2023-08-07] MEDS: SODIUM CHLORIDE 0.9% 1,000 ML IV SCH (09:52)
[2023-08-07 11:35] LABS: Glucose,Whole Blood 128 mg/dL (70-110)
[2023-08-07] MEDS: LEVOFLOXACIN 500MG-D5W PMX 500 MG in DEXTROSE/WATER 1 100ML.BAG IVPB SCH (12:18)
[2023-08-07] MEDS: ONDANSETRON 4 MG/2 ML VIAL IVP PRN ×2 (15:10→22:57)
[2023-08-07 17:04] LABS: Glucose,Whole Blood 132 mg/dL (70-110)
[2023-08-07] MEDS: ACETAMINOPHEN TAB 325 MG TAB PO PRN ×2 (18:25→22:57)
[2023-08-07 19:56] LABS: Glucose,Whole Blood 131 mg/dL (70-110)
[2023-08-07] MEDS: HYDROmorphone 0.5 MG/0.5 ML SYRINGE IVP PRN (20:19)
[2023-08-07 23:54] LABS: Glucose,Whole Blood 136 mg/dL (70-110)
[2023-08-08] MEDS: methylPREDNISolone SOD SUCCI 40 MG/ML 1 ML VIAL IV SCH ×3 (00:01→23:48)
[2023-08-08] MEDS: INSULIN ASPART (NovoLOG) 100 UNIT/ML VIAL SQ SCH ×6 (00:07→21:29)
[2023-08-08] MEDS: HYDROmorphone 0.5 MG/0.5 ML SYRINGE IVP PRN ×3 (01:20→23:48)
[2023-08-08 03:28] LABS: Glucose,Whole Blood 172 mg/dL (70-110)
[2023-08-08 03:41] LABS: Basophils % (A) 0 %; Eosinophils # (A) 0.1 k/uL (0-0.7); Eosinophils % (A) 1 %; HCT 36.4 % (34.0-46.0); HGB 12.1 gm/dL (11.4-16.0); Lymphocytes # (A) 0.6 k/uL (1.0-4.8); Lymphocytes % (A) 6 %; MCH 31.1 pg (25.0-35.0); MCHC 33.2 g/dL (31.0-37.0); MCV 93.6 fL (80.0-100.0); Mean Platelet Volume 9.4; Monocytes # (A) 0.4 k/uL (0-1.0); Monocytes % (A) 4 %; Neutrophils # (A) 8.8 k/uL (1.3-7.7); Neutrophils % (A) 89 %; Platelet Count 82 k/uL (150-450); RBC 3.88 m/uL (3.80-5.40); RDW 14.1 % (11.5-15.5); WBC 9.9 k/uL (3.8-10.6)
[2023-08-08 03:46] LABS: African American GFR (CKD) >90 (>60 ml/min/1.73 sqM); Anion Gap 3 mmol/L; Blood Urea Nitrogen 38 mg/dL (7-17); Calcium 8.2 mg/dL (8.4-10.2); Carbon Dioxide 37 mmol/L (22-30); Chloride 102 mmol/L (98-107); Glucose 170 mg/dL (74-99); Non-African American GFR(CKD) >90 (>60 ml/min/1.73 sqM); Potassium 4.6 mmol/L (3.5-5.1); Sodium 142 mmol/L (137-145)
[2023-08-08] MEDS: IPRATROPIUM-ALBUTEROL 3 ML NEB INHALATION SCH ×6 (03:59→23:36)
[2023-08-08] MEDS: SODIUM CHLORIDE 0.9% 1,000 ML IV SCH ×2 (04:38→09:05)
[2023-08-08] MEDS: INSULIN DETEMIR (LEVEMIR) 100 UNIT/ML SYR SQ SCH (06:16)
[2023-08-08] MEDS: ACETAMINOPHEN TAB 325 MG TAB PO PRN (06:20)
[2023-08-08] MEDS: FORMOTEROL FUMARATE 20 MCG/2 ML NEBU INHALATION SCH ×2 (07:51→19:40)
[2023-08-08] MEDS: BUDESONIDE 1 MG/2 ML NEBU INHALATION SCH ×2 (07:51→19:40)
--- NOTE | 2023-08-08 08:43 | P.PN ---
Subjective Progress Note Date: 08/08/23 3-year-old female patient being seen on follow-up on 08/06/2023 for respiratory failure, intubation mechanical ventilation. The patient was intubated on 08/01/2023. She has an acute on top of chronic hypoxic respiratory failure due to COPD exacerbation patient also had a pneumonia cultures indicating st enotrophomonas. She has [id number] smoking history and she is oxygen dependent COPD. She has diabetes and hypertension. Currently, the patient is still sedated on propofol at 35 mcg/kg/m. She remains on mechanical ventilator. Assist-control mode at the rate of 24, tidal volume of 350, FiO2 of 50% with a PEEP of 5. Chest x-ray shows limited effusion lung base bilaterally. No airspace disease. ET tube is in a good location. No evidence of any pneumothorax. The blood gas from today shows a pH of 7.38 with episodes of 61 and pO2 of 103. The patient remains on bronchodilators. The patient remains on antibiotics and the patient is currently covered with IV Levaquin and Zosyn was discontinued yesterday. She remains on Perforomist and Pulmicort nebulized treatments twice a day. She is on IV Solu-Medrol 60 mg every 6 hours. She is on Levemir insulin 15 units daily and a sliding scale coverage. Peak airway pressures around 23. IV fluids are in the form of D5 water at rate of 75 mL an hour. Overall fluid balance over the past 24 hours has been +1.6 L. His white cell count today's of 3.8 with a hemoglobin of 11.3. BUN is at 38 with a creatinine of 0.6. Enteral feeding is at the rate of 40 mL an hour and the patient is receiving vital high-protein. This morning, the patient is heavily sedated with propofol. No significant orotracheal secretions. 08/07/2023, the patient is on Precedex running at 0.6 mcg/kg/m. The patient is quite sedated and comfortable. The patient is on a BiPAP. Noted the patient was extubated yesterday. I took her off the sedation yesterday and after the patient showed some adequate neurological recovery, extubated to BiPAP at a pressure 14/5 cm of water with an FiO2 50%. The patient was somewhat restless and nervous and somewhat asynchronous initially on a BiPAP. Based on that, she was started on Precedex. This morning, she seems to be quite sedated yet arousable. She is on a BiPAP at pressure 14/5 cm of water. She generating a tidal volume and a 600 range with a respiratory rate of 19 and a minute ventilation of 12.6. The chest x-ray shows no acute abnormalities. There is consistent with emphysema. Also, the patient has a the white cell count of 7.3, hemoglobin of 11.6 and a platelet count of 90. BUN is 45 and a creatinine of 0.6 and the rest of the electrolytes all within normal limits. Noted the patient's platelet counts have been gradually downtrending. The blood gas from yesterday showed well compensated chronic hypercapnic respiratory failure. She is profoundly weak. She will following some simple commands yesterday and this morning she is quite sedated. 08/08/2023, the patient remains extubated. She is awake and alert and communicating. She is on 6 L of oxygen by nasal cannula. She is profoundly weak. With help, we were able to set that up on a chair. She has significant motor weakness in the upper and lower extremities. She is communicating. No significant respiratory distress at this point in time. She used the BiPAP overnight for a few hours and she decided not to continue with that and she is currently on nasal cannula at 6 L with a pulse ox of 95%. No chest pain. No altered mentation. Swallow evaluation was done at the bedside and the patient was able to swallow and she'll be gradually advanced her diet as tolerated. She is currently off sedative medications. Her blood work from today showing a white cell count of 9.2 with a hemoglobin of 12.1, BUN is at 38 with a creatinine of 0.4 and sodium levels of 142. Platelet counts as downtrending slowly is currently down to 82. Objective - Vital Signs Vital signs: Vital Signs Temp 98.6 F 08/08/23 04:00 Pulse 77 08/08/23 08:21 Resp 16 08/08/23 07:00 BP 130/65 08/08/23 07:00 Pulse Ox 98 08/08/23 07:55 FiO2 50 08/07/23 23:41 Intake & Output 08/07/23 08/08/23 08/08/23 18:59 06:59 18:59 Intake Total 603.213 734 50 Output Total 920 1065 110 Balance -316.787 -331 -60 Intake: IV 59 574 50 0.9NS Pressure Bag 39 24 Dextrose 5% in Water 1, 20 000 ml @ 20 mls/hr IV . Q24H [facility] Rx#:[id number] Sodium Chloride 0.9% 1, 550 50 000 ml @ 50 mls/hr IV . Q20H [facility] Rx#:[id number] Intake, IV Titration 544.213 Amount Dexmedetomidine/0.9% NaCl 44.213 (Pmx) 400 mcg In Empty Bag 1 bag @ 0.2 MCG/KG/HR 3.275 mls/hr IV .Q24H [facility] Rx#:[id number] Sodium Chloride 0.9% 1, 500 000 ml @ 50 mls/hr IV . Q20H [facility] Rx#:[id number] Oral 160 Output: Urine 920 1065 110 Other: Voiding Method Indwelling Catheter Indwelling Catheter ABP, PAP, CO, CI - Last Documented Arterial Blood Pressure 176/69 - Exam No acute distress, sedated, on Precedex. The patient is currently on oxygen by nasal cannula and she is currently at 5 L Head exam was generally normal. There was no scleral icterus or corneal arcus. Mucous membranes were moist. HEENT examination is grossly unremarkable. Neck supple. Full range of motion. No adenopathy thyromegaly or neck vein distention. Cardiovascular examination reveals regular rhythm rate. S1-S2 normal. No S3 or S4. No discernible murmur noted. Lungs reveal coarse, bilateral, inspiratory and expiratory wheezes and rhonchi. No crackles. No significant wheezing or bronchospasm today's examination Abdomen soft, without bowel sounds. Extremities are intact. No cyanosis clubbing and there is edema and upper e xtremities bilaterally, limited edema in lower extremities. Skin is without rash or lesion. Neurologic the patient is awake and alert and communicating. The patient has profound weakness in all 4 extremities. - Labs CBC & Chem 7: 08/08/23 03:28 08/08/23 03:28 Labs: Abnormal Lab Results - Last 24 Hours (Table) 08/07/23 08/07/23 08/07/23 Range/Units 11:33 17:02 19:55 Plt Count (150-450) k/uL Neutrophils # (1.3-7.7) k/uL Lymphocytes # (1.0-4.8) k/uL Carbon Dioxide (22-30) mmol/L BUN (7-17) mg/dL Creatinine (0.52-1.04) mg/dL Glucose (74-99) mg/dL POC Glucose (mg/dL) 128 H 132 H 131 H (70-110) mg/dL Calcium (8.4-10.2) mg/dL 08/07/23 08/08/23 08/08/23 Range/Units 23:52 03:27 03:28 Plt Count 82 L (150-450) k/uL Neutrophils # 8.8 H (1.3-7.7) k/uL Lymphocytes # 0.6 L (1.0-4.8) k/uL Carbon Dioxide (22-30) mmol/L BUN (7-17) mg/dL Creatinine (0.52-1.04) mg/dL Glucose (74-99) mg/dL POC Glucose (mg/dL) 136 H 172 H (70-110) mg/dL Calcium (8.4-10.2) mg/dL 08/08/23 Range/Units 03:28 Plt Count (150-450) k/uL Neutrophils # (1.3-7.7) k/uL Lymphocytes # (1.0-4.8) k/uL Carbon Dioxide 37 H (22-30) mmol/L BUN 38 H (7-17) mg/dL Creatinine 0.47 L (0.52-1.04) mg/dL Glucose 170 H (74-99) mg/dL POC Glucose (mg/dL) (70-110) mg/dL Calcium 8.2 L (8.4-10.2) mg/dL Assessment and Plan Plan: Acute COPD exacerbation with subsequent respiratory failure, the patient was extubated on 08/06/2023. The patient remains extubated and patient currently is on 5 L of O2 nasal cannula Acute on chronic hypoxemic respiratory failure secondary to an acute exacerbation of chronic obstructive pulmonary disease. Stenotrophomonas tracheobronchitis/bronchopneumonia. Profound motor weakness in all 4 extremities, likely due to prolonged respiratory failure, intubation mechanical ventilation use of sedatives and paralytics Troponin leak secondary to above versus coronary artery disease. Chronic and ongoing tobacco dependence of greater than 50 years. Oxygen dependent chronic obstructive pulmonary disease. Diabetes mellitus, type II. Hypertension. Carotid artery disease with previous left carotid endarterectomy. CHF with impaired LV function and ejection fraction of 35% based on echoc ardiogram that was done on 07/29/2023. The patient also has moderate pulmonary hypertension with a PA pressure of 39. There is segmental wall motion abnormalities with anteroapical and inferoapical wall hypokinesis as well as mid inferior and mid anterior wall involvement. Profound generalized weakness probably related to prolonged intubation mechanical ventilation Plan: Wean FiO2 as tolerated currently at 5 L Give 20 mg of IV Lasix 1 Continue Levaquin Change IV fluids to 20 cc/ hr Advance diet as tolerated Discontinue the IV Solu-Medrol and start the patient prednisone burst taper starting with 40 mg Monitor the platelet count Continue Lovenox Borderline respiratory status and the patient be kept in ICU for further monitoring. We'll keep her in ICU for another 24 hours Involved physical therapy IS Family is being regularly updated in her condition Critical care evaluation more than 30 minutes
[2023-08-08 08:57] LABS: Glucose,Whole Blood 198 mg/dL (70-110)
[2023-08-08] MEDS ORDERED: FUROSEMIDE 10 MG/ML 2 ML VIAL IV ONE (09:00)
[2023-08-08] MEDS: ATORVASTATIN 40 MG TAB PO SCH (09:03)
[2023-08-08] MEDS: NICOTINE 21MG/24HR PATCH TRANSDERM SCH (09:03)
[2023-08-08] MEDS: ASPIRIN 81 MG PO SCH (09:03)
[2023-08-08] MEDS: atenoloL 25 MG TAB PO SCH (09:03)
[2023-08-08] MEDS: PANTOPRAZOLE 40 MG/10 ML VIAL IVP SCH (09:04)
[2023-08-08] MEDS: ENOXAPARIN 40 MG/0.4 ML SYRINGE SQ SCH (09:04)
--- NOTE | 2023-08-08 09:56 | P.PN ---
Subjective Progress Note Date: 08/08/23 This is a 73-year-old female patient of Dr. Phillips who presented to the ER with complaints of shortness of breath. Patient apparently was experiencing respiratory distress was transported EMS and was found to have an SpO2 in the 70s. Patient has past medical history of diabetes mellitus, nicotine depen dence, carotid artery stenosis, COPD, hypertension, atrial tachycardia. Initial chest x-ray showing hyperinflated lungs. Patient noted to have elevated troponins 0.046, 0.36 and 0.504. Patient was started on heparin drip for elevated troponins cardiology and pulmonary services were consulted. Patient started on IV steroids, DuoNeb breathing treatments azithromycin and Rocephin Dr. Soto's group previously covering We are resuming care patient on 07/30/2023 On 07/30/2023 patient is alert and oriented 3 currently resting comfortably in bed on BiPAP. Patient reports some improvement with shortness of breath but does appear to be quite short of breath. She remains on IV Solu-Medrol a zithromycin and Rocephin. Patient also remains on heparin drip per cardiology. Pulmonary and cardiology services are following. Sliding scale coverage. Current vital signs temp 97.5, pulse rate 99, respiratory rate 22, blood pressure 110/72 with a pulse ox of 98% on BiPAP On 07/31/2023 patient was seen and examined on the telemetry floor she is alert and oriented 3 in no apparent distress she is still having significant shortness of breath she is maintained on oxygen at 4 L nasal cannula, and requiring BiPAP on and off, she is still complaining of cough was yellow to green sputum production, she denies any chest pain she is still maintained on IV Solu-Medrol. Antibiotic were discontinued by pulmonary. On 08/01/2023 patient remains requiring BiPAP. Patient is alert and oriented resting comfortably on BiPAP in bed at this time. Patient had increased episodes of difficulty breathing throughout night pulmonary services at bedside orders to continue BiPAP. Patient remains on IV Solu-Medrol and DuoNeb breathing treatments. Pulmonary services are following. On 08/02/2023 patient was seen and examined in the ICU, currently she is intubated sedated maintained on mechanical ventilation, assist control rate 20 454 350 FiO2 of 50% and PEEP of 10 vital exam reveals a temperature of 99.5 pulse 81 respiration 24 blood pressure 108/58 pulse ox 94% white blood count 7.8 hemoglobin 11.3 platelet count 120 pH 7.35 pCO2 of 54. O2 56 On 08/03/2023 patient remains in the intensive care unit. Patient remains on mechanical ventilation. Sedation holiday in progress current vital signs temp 98.0, heart rate 84, blood pressure 135/55 with a pulse ox 96% been mechanical ventilation with an FiO2 of 50%. Arterial blood gases this a.m. showing a pH of 7.26, creatinine pCO2 68, pO2 100, sodium bicarb 31 On 08/04/2023 patient was seen and examined in the ICU, currently she is intu bated sedated maintained on mechanical ventilation, assist control rate 20 454 350 FiO2 of 50% and PEEP of 10 vital exam reveals a temperature of 98.7 pulse 84 respiration 24 blood pressure 132/65 white blood count is 6.1 hemoglobin 10.9 platelet count 116 arterial blood gas reveals a pH of 7.36 pCO2 of 58 CO2 78 sodium 147 potassium 4.1 chloride 1:15 CO2 33 BUN 48 creatinine 0.62 glucose level 229 On 08/05/2023 patient was seen and examined in the ICU she is intubated sedated maintained on mechanical ventilation, she is on assist control, rate 24 tidal volume 350 FiO2 50% and PEEP of 5 temperature is 99.3 pulse 22 blood pressure 99/47 blood pressure 121/48 white blood count 7.2 hemoglobin 10.6 platelet count 100 arterial blood gas revealed a pH of 7.37 pCO2 58 CO2 97 BUN 40 creatinine 0. 64 glucose is elevated again at 268. At this time will increase Levemir to 15 units daily continue with sliding scale On 08/06/2023 patient was seen and examined in the ICU, she is still intubated m aintained on mechanical ventilation, sedation is on hold at this time, for possible trial of extubation this morning, vital exam reveals a temperature of 99 pulse 89 respiration 22 blood pressure 168/64 pulse ox 94% on FiO2 of 40% laboratory data reveals a white blood count of 8.8 hemoglobin 11.3 platelet count 103 arterial blood gas reveals a pH of 7.38 pCO2 of 61 by mouth to 103 sodium 143 potassium 4.2 chloride 106 CO2 33 BUN 38 creatinine 0.63 On 08/07/2023 patient remains in the intensive care unit. Patient was extubated yesterday to BiPAP remains on Precedex. Per nursing staff patient mentation is still A and O x0. Precedex to be DC'd today per critical care services chest x- ray completed the same showing COPD with some interval improvement there may be residual mild pulmonary vascular congestion previous trace effusions have resolved. Current vital signs temp 99.0, heart rate 98, respiratory rate 15, blood pressure 114/60, pulse ox 96% on BiPAP 50% FiO2 On 08/08/2023 patient remains in the intensive care unit. Patient currently sitting up in chair. Patient is able to answer some questions and follow some commands. This is improved compared to yesterday. Current vital signs temp 98.6, heart rate 76, respiratory rate 14, blood pressure 150/70 with a pulse ox of 98% on 6 L high flow. Patient remains on IV Solu-Medrol and Levaquin. PT OT services consulted Objective - Vital Signs Vital signs: Vital Signs Temp 98.6 F 08/08/23 04:00 Pulse 74 08/08/23 09:00 Resp 16 08/08/23 09:00 BP 140/69 08/08/23 09:00 Pulse Ox 95 08/08/23 09:00 FiO2 50 08/07/23 23:41 Intake & Output 08/07/23 08/08/23 08/08/23 18:59 06:59 18:59 Intake Total 603.213 734 50 Output Total 920 1065 410 Balance -316.787 -331 -360 Intake: IV 59 574 50 0.9NS Pressure Bag 39 24 Dextrose 5% in Water 1, 20 000 ml @ 20 mls/hr IV . Q24H [facility] Rx#:[id number] Sodium Chloride 0.9% 1, 550 50 000 ml @ 20 mls/hr IV . Q24H [facility] Rx#:[id number] Intake, IV Titration 544.213 Amount Dexmedetomidine/0.9% NaCl 44.213 (Pmx) 400 mcg In Empty Bag 1 bag @ 0.2 MCG/KG/HR 3.275 mls/hr IV .Q24H [facility] Rx#:[id number] Sodium Chloride 0.9% 1, 500 000 ml @ 20 mls/hr IV . Q24H [facility] Rx#:[id number] Oral 160 Output: Urine 920 1065 410 Other: Voiding Method Indwelling Catheter Indwelling Catheter Indwelling Catheter ABP, PAP, CO, CI - Last Documented Arterial Blood Pressure 176/69 - Exam In general patient is intubated sedated maintained on mechanical intubation HEENT head normocephalic and atraumatic Neck is supple no JVD no goiter no lymphadenopathy no carotid bruit Chest examination is clear to auscultation no crackles no wheezing Cardiac exam reveals regular heart sounds S1 and S2 no gallops no murmurs Abdomen is soft nontender no organomegaly with normal bowel sounds Extremity exam reveals no edema no cyanosis or clubbing Neurological examination reveals no gross focal deficits - Labs CBC & Chem 7: 08/08/23 03:28 08/08/23 03:28 Labs: Abnormal Lab Results - Last 24 Hours (Table) 08/07/23 08/07/23 08/07/23 Range/Units 11:33 17:02 19:55 Plt Count (150-450) k/uL Neutrophils # (1.3-7.7) k/uL Lymphocytes # (1.0-4.8) k/uL Carbon Dioxide (22-30) mmol/L BUN (7-17) mg/dL Creatinine (0.52-1.04) mg/dL Glucose (74-99) mg/dL POC Glucose (mg/dL) 128 H 132 H 131 H (70-110) mg/dL Calcium (8.4-10.2) mg/dL 08/07/23 08/08/23 08/08/23 Range/Units 23:52 03:27 03:28 Plt Count 82 L (150-450) k/uL Neutrophils # 8.8 H (1.3-7.7) k/uL Lymphocytes # 0.6 L (1.0-4.8) k/uL Carbon Dioxide (22-30) mmol/L BUN (7-17) mg/dL Creatinine (0.52-1.04) mg/dL Glucose (74-99) mg/dL POC Glucose (mg/dL) 136 H 172 H (70-110) mg/dL Calcium (8.4-10.2) mg/dL 08/08/23 08/08/23 Range/Units 03:28 08:55 Plt Count (150-450) k/uL Neutrophils # (1.3-7.7) k/uL Lymphocytes # (1.0-4.8) k/uL Carbon Dioxide 37 H (22-30) mmol/L BUN 38 H (7-17) mg/dL Creatinine 0.47 L (0.52-1.04) mg/dL Glucose 170 H (74-99) mg/dL POC Glucose (mg/dL) 198 H (70-110) mg/dL Calcium 8.2 L (8.4-10.2) mg/dL Assessment and Plan Plan: 1. Shortness breath secondary to acute exacerbation of COPD with tracheal bronchitis requiring intubation and mechanical ventilation 2. Non-ST elevated IN 3. Chronic and ongoing nicotine dependence 4. Oxygen dependent chronic obstructive pulmonary disease 5. Diabetes mellitus type 2 6. History of essential hypertension 7. Carotid artery disease with previous left carotid endarterectomy Pulmonary and cardiology service is consulted Remains in the intensive care unit Patient maintained on IV Solu-Medrol, DuoNeb breathing treatments Maintained on Levaquin Patient extubated to BiPAP on 08/06/2023 Repeat labs ordered DVT prophylaxis lovenox. GI prophylaxis Protonix
[2023-08-08 13:07] LABS: Glucose,Whole Blood 97 mg/dL (70-110)
[2023-08-08] MEDS: LEVOFLOXACIN 500MG-D5W PMX 500 MG in DEXTROSE/WATER 1 100ML.BAG IVPB SCH (13:08)
[2023-08-08 16:37] LABS: Glucose,Whole Blood 101 mg/dL (70-110)
[2023-08-08 20:00] LABS: Glucose,Whole Blood 126 mg/dL (70-110)
[2023-08-08 23:37] LABS: Glucose,Whole Blood 138 mg/dL (70-110)
[2023-08-09] MEDS: IPRATROPIUM-ALBUTEROL 3 ML NEB INHALATION SCH ×5 (04:23→20:09)
[2023-08-09 06:08] LABS: ALT 48 U/L (4-34); AST 39 U/L (14-36); African American GFR (CKD) >90 (>60 ml/min/1.73 sqM); Albumin 3.1 g/dL (3.5-5.0); Alkaline Phosphatase 54 U/L (38-126); Anion Gap 3 mmol/L; Blood Urea Nitrogen 33 mg/dL (7-17); Calcium 8.3 mg/dL (8.4-10.2); Carbon Dioxide 35 mmol/L (22-30); Chloride 98 mmol/L (98-107); Glucose 144 mg/dL (74-99); Non-African American GFR(CKD) >90 (>60 ml/min/1.73 sqM); Potassium 4.3 mmol/L (3.5-5.1); Sodium 136 mmol/L (137-145); Total Bilirubin 0.9 mg/dL (0.2-1.3); Total Protein 5.1 g/dL (6.3-8.2)
[2023-08-09 06:11] LABS: Basophils % (A) 0 %; Eosinophils # (A) 0.1 k/uL (0-0.7); Eosinophils % (A) 1 %; HCT 38.4 % (34.0-46.0); HGB 12.6 gm/dL (11.4-16.0); Lymphocytes # (A) 0.4 k/uL (1.0-4.8); Lymphocytes % (A) 4 %; MCH 30.4 pg (25.0-35.0); MCHC 32.8 g/dL (31.0-37.0); MCV 92.8 fL (80.0-100.0); Mean Platelet Volume 9.5; Monocytes # (A) 0.3 k/uL (0-1.0); Monocytes % (A) 3 %; Neutrophils # (A) 9.1 k/uL (1.3-7.7); Neutrophils % (A) 91 %; Platelet Count 83 k/uL (150-450); RBC 4.14 m/uL (3.80-5.40); RDW 14.3 % (11.5-15.5)
[2023-08-09 06:24] LABS: Glucose,Whole Blood 153 mg/dL (70-110)
[2023-08-09] MEDS: INSULIN ASPART (NovoLOG) 100 UNIT/ML VIAL SQ SCH ×4 (06:26→17:11)
[2023-08-09] MEDS: HYDROmorphone 0.5 MG/0.5 ML SYRINGE IVP PRN (06:49)
[2023-08-09] MEDS: INSULIN DETEMIR (LEVEMIR) 100 UNIT/ML SYR SQ SCH (06:49)
[2023-08-09] MEDS: SODIUM CHLORIDE 0.9% 1,000 ML IV SCH (06:50)
[2023-08-09] MEDS: BUDESONIDE 1 MG/2 ML NEBU INHALATION SCH ×2 (07:35→20:09)
[2023-08-09] MEDS: FORMOTEROL FUMARATE 20 MCG/2 ML NEBU INHALATION SCH ×2 (07:35→20:09)
--- NOTE | 2023-08-09 08:02 | P.PN ---
Subjective Progress Note Date: 08/09/23 3-year-old female patient being seen on follow-up on 08/06/2023 for respiratory failure, intubation mechanical ventilation. The patient was intubated on 08/01/2023. She has an acute on top of chronic hypoxic respiratory failure due to COPD exacerbation patient also had a pneumonia cultures indicating st enotrophomonas. She has [id number] smoking history and she is oxygen dependent COPD. She has diabetes and hypertension. Currently, the patient is still sedated on propofol at 35 mcg/kg/m. She remains on mechanical ventilator. Assist-control mode at the rate of 24, tidal volume of 350, FiO2 of 50% with a PEEP of 5. Chest x-ray shows limited effusion lung base bilaterally. No airspace disease. ET tube is in a good location. No evidence of any pneumothorax. The blood gas from today shows a pH of 7.38 with episodes of 61 and pO2 of 103. The patient remains on bronchodilators. The patient remains on antibiotics and the patient is currently covered with IV Levaquin and Zosyn was discontinued yesterday. She remains on Perforomist and Pulmicort nebulized treatments twice a day. She is on IV Solu-Medrol 60 mg every 6 hours. She is on Levemir insulin 15 units daily and a sliding scale coverage. Peak airway pressures around 23. IV fluids are in the form of D5 water at rate of 75 mL an hour. Overall fluid balance over the past 24 hours has been +1.6 L. His white cell count today's of 3.8 with a hemoglobin of 11.3. BUN is at 38 with a creatinine of 0.6. Enteral feeding is at the rate of 40 mL an hour and the patient is receiving vital high-protein. This morning, the patient is heavily sedated with propofol. No significant orotracheal secretions. 08/07/2023, the patient is on Precedex running at 0.6 mcg/kg/m. The patient is quite sedated and comfortable. The patient is on a BiPAP. Noted the patient was extubated yesterday. I took her off the sedation yesterday and after the patient showed some adequate neurological recovery, extubated to BiPAP at a pressure 14/5 cm of water with an FiO2 50%. The patient was somewhat restless and nervous and somewhat asynchronous initially on a BiPAP. Based on that, she was started on Precedex. This morning, she seems to be quite sedated yet arousable. She is on a BiPAP at pressure 14/5 cm of water. She generating a tidal volume and a 600 range with a respiratory rate of 19 and a minute ventilation of 12.6. The chest x-ray shows no acute abnormalities. There is consistent with emphysema. Also, the patient has a the white cell count of 7.3, hemoglobin of 11.6 and a platelet count of 90. BUN is 45 and a creatinine of 0.6 and the rest of the electrolytes all within normal limits. Noted the patient's platelet counts have been gradually downtrending. The blood gas from yesterday showed well compensated chronic hypercapnic respiratory failure. She is profoundly weak. She will following some simple commands yesterday and this morning she is quite sedated. 08/08/2023, the patient remains extubated. She is awake and alert and communicating. She is on 6 L of oxygen by nasal cannula. She is profoundly weak. With help, we were able to set that up on a chair. She has significant motor weakness in the upper and lower extremities. She is communicating. No significant respiratory distress at this point in time. She used the BiPAP overnight for a few hours and she decided not to continue with that and she is currently on nasal cannula at 6 L with a pulse ox of 95%. No chest pain. No altered mentation. Swallow evaluation was done at the bedside and the patient was able to swallow and she'll be gradually advanced her diet as tolerated. She is currently off sedative medications. Her blood work from today showing a white cell count of 9.2 with a hemoglobin of 12.1, BUN is at 38 with a creatinine of 0.4 and sodium levels of 142. Platelet counts as downtrending slowly is currently down to 82. 08/09/2023, the patient remains extubated on 5 L of oxygen by nasal cannula. Activation for now is the profound weakness in the upper and lower extremities. She is able to wiggle her toes, unable to her legs increased gravity. She is barely able to raise her arms. Her breathing is comfortable. She has an adequate cough. No agitation. No restlessness. No signs of any significant respiratory distress. She is tolerating her diet. The enzymes at 33 with a creatinine of 0.4 and a white cell count of 10.0. She remains on bronchodilators and she remains on IV Solu-Medrol. She is completing her course of Levaquin. No other significant events overnight. She did use the BiPAP overnight and currently she is back on nasal cannula. She is on Levemir 15 units plus a slight scale coverage. IV fluids are currently at KVO. Objective - Vital Signs Vital signs: Vital Signs Temp 97.9 F 08/09/23 04:00 Pulse 76 08/09/23 07:56 Resp 10 L 08/09/23 07:00 BP 122/52 08/09/23 07:00 Pulse Ox 97 08/09/23 07:36 FiO2 50 08/09/23 07:36 Intake & Output 08/08/23 08/09/23 08/09/23 18:59 06:59 18:59 Intake Total 50 360 Output Total 2560 1315 Balance -2510 -955 Weight 64.6 kg 58.7 kg Intake: IV 50 240 Sodium Chloride 0.9% 1, 50 240 000 ml @ 20 mls/hr IV . Q24H [facility] Rx#:[id number] Oral 120 Output: Urine 2560 1315 Other: Voiding Method Indwelling Catheter Indwelling Catheter ABP, PAP, CO, CI - Last Documented Arterial Blood Pressure 176/69 - Exam No acute distress, sedated, on Precedex. The patient is currently on oxygen by nasal cannula and she is currently at 5 L Head exam was generally normal. There was no scleral icterus or corneal arcus. Mucous membranes were moist. HEENT examination is grossly unremarkable. Neck supple. Full range of motion. No adenopathy thyromegaly or neck vein distention. Cardiovascular examination reveals regular rhythm rate. S1-S2 normal. No S3 or S4. No discernible murmur noted. Lungs reveal coarse, bilateral, inspiratory and expiratory wheezes and rhonchi. No crackles. No significant wheezing or bronchospasm today's examination Abdomen soft, without bowel sounds. Extremities are intact. No cyanosis clubbing and there is edema and upper extremities bilaterally, limited edema in lower extremities. Skin is without rash or lesion. Neurologic the patient is awake and alert and communicating. The patient has profound weakness in all 4 extremities. - Labs CBC & Chem 7: 08/09/23 05:09 08/09/23 05:09 Labs: Abnormal Lab Results - Last 24 Hours (Table) 08/08/23 08/08/23 08/08/23 Range/Units 08:55 19:58 23:36 Plt Count (150-450) k/uL Neutrophils # (1.3-7.7) k/uL Lymphocytes # (1.0-4.8) k/uL Sodium (137-145) mmol/L Carbon Dioxide (22-30) mmol/L BUN (7-17) mg/dL Creatinine (0.52-1.04) mg/dL Glucose (74-99) mg/dL POC Glucose (mg/dL) 198 H 126 H 138 H (70-110) mg/dL Calcium (8.4-10.2) mg/dL AST (14-36) U/L ALT (4-34) U/L Total Protein (6.3-8.2) g/dL Albumin (3.5-5.0) g/dL 08/09/23 08/09/23 08/09/23 Range/Units 05:09 05:09 06:23 Plt Count 83 L (150-450) k/uL Neutrophils # 9.1 H (1.3-7.7) k/uL Lymphocytes # 0.4 L (1.0-4.8) k/uL Sodium 136 L (137-145) mmol/L Carbon Dioxide 35 H (22-30) mmol/L BUN 33 H (7-17) mg/dL Creatinine 0.47 L (0.52-1.04) mg/dL Glucose 144 H (74-99) mg/dL POC Glucose (mg/dL) 153 H (70-110) mg/dL Calcium 8.3 L (8.4-10.2) mg/dL AST 39 H (14-36) U/L ALT 48 H (4-34) U/L Total Protein 5.1 L (6.3-8.2) g/dL Albumin 3.1 L (3.5-5.0) g/dL Assessment and Plan Plan: Acute COPD exacerbation with subsequent respiratory failure, the patient was extubated on 08/06/2023. The patient remains extubated and patient currently is on 5 L of O2 nasal cannula. Overall respiratory status is stable. Active issues the profound myopathy and weakness and the patient is encountered following her intubation mechanical ventilation. She received sedative medications and paralytics during the course of her mechanical ventilation. As such, the patient will need aggressive physical therapy and rehabilitation. Acute on chronic hypoxemic respiratory failure secondary to an acute exacerbati on of chronic obstructive pulmonary disease. Stenotrophomonas tracheobronchitis/bronchopneumonia. Profound motor weakness in all 4 extremities, likely due to prolonged respiratory failure, intubation mechanical ventilation use of sedatives and paralytics Troponin leak secondary to above versus coronary artery disease. Chronic and ongoing tobacco dependence of greater than 50 years. Oxygen dependent chronic obstructive pulmonary disease. Diabetes mellitus, type II. Hypertension. Carotid artery disease with previous left carotid endarterectomy. CHF with impaired LV function and ejection fraction of 35% based on echocardiogram that was done on 07/29/2023. The patient also has moderate pulmonary hypertension with a PA pressure of 39. There is segmental wall motion abnormalities with anteroapical and inferoapical wall hypokinesis as well as mid inferior and mid anterior wall involvement. Profound generalized weakness probably related to prolonged intubation mechanical ventilation Plan: Nose monitoring of the respiratory status, currently on 5 L Continue Levaquin Change IV fluids to 20 cc/ hr Advance diet as tolerated Discontinue the IV Solu-Medrol and start the patient prednisone burst taper starting with 40 mg Monitor the platelet count Continue Lovenox Involved physical therapy IS Family is being regularly updated in her condition Air the patient should be able to transfer out of the intensive care unit today.
[2023-08-09] MEDS: ASPIRIN 81 MG PO SCH (08:50)
[2023-08-09] MEDS: LEVOFLOXACIN 500MG-D5W PMX 500 MG in DEXTROSE/WATER 1 100ML.BAG IVPB SCH (08:50)
[2023-08-09] MEDS: NICOTINE 21MG/24HR PATCH TRANSDERM SCH (08:50)
[2023-08-09] MEDS: ATORVASTATIN 40 MG TAB PO SCH (08:50)
[2023-08-09] MEDS: PANTOPRAZOLE 40 MG/10 ML VIAL IVP SCH (08:50)
[2023-08-09] MEDS: predniSONE 20 MG TAB PO SCH (08:50)
[2023-08-09] MEDS: atenoloL 25 MG TAB PO SCH (08:51)
[2023-08-09] MEDS: DEXMEDETOMIDINE/0.9% NACL(PMX) 400 MCG in EMPTY BAG 1 BAG IV SCH (10:00)
[2023-08-09 11:44] LABS: Glucose,Whole Blood 152 mg/dL (70-110)
[2023-08-09] MEDS: ENOXAPARIN 40 MG/0.4 ML SYRINGE SQ SCH (11:56)
--- NOTE | 2023-08-09 16:22 | P.PN ---
Subjective Progress Note Date: 08/09/23 This is a 73-year-old female patient of Dr. Phillips who presented to the ER with complaints of shortness of breath. Patient apparently was experiencing respiratory distress was transported EMS and was found to have an SpO2 in the 70s. Patient has past medical history of diabetes mellitus, nicotine depen dence, carotid artery stenosis, COPD, hypertension, atrial tachycardia. Initial chest x-ray showing hyperinflated lungs. Patient noted to have elevated troponins 0.046, 0.36 and 0.504. Patient was started on heparin drip for elevated troponins cardiology and pulmonary services were consulted. Patient started on IV steroids, DuoNeb breathing treatments azithromycin and Rocephin Dr. Soto's group previously covering We are resuming care patient on 07/30/2023 On 07/30/2023 patient is alert and oriented 3 currently resting comfortably in bed on BiPAP. Patient reports some improvement with shortness of breath but does appear to be quite short of breath. She remains on IV Solu-Medrol a zithromycin and Rocephin. Patient also remains on heparin drip per cardiology. Pulmonary and cardiology services are following. Sliding scale coverage. Current vital signs temp 97.5, pulse rate 99, respiratory rate 22, blood pressure 110/72 with a pulse ox of 98% on BiPAP On 07/31/2023 patient was seen and examined on the telemetry floor she is alert and oriented 3 in no apparent distress she is still having significant shortness of breath she is maintained on oxygen at 4 L nasal cannula, and requiring BiPAP on and off, she is still complaining of cough was yellow to green sputum production, she denies any chest pain she is still maintained on IV Solu-Medrol. Antibiotic were discontinued by pulmonary. On 08/01/2023 patient remains requiring BiPAP. Patient is alert and oriented resting comfortably on BiPAP in bed at this time. Patient had increased episodes of difficulty breathing throughout night pulmonary services at bedside orders to continue BiPAP. Patient remains on IV Solu-Medrol and DuoNeb breathing treatments. Pulmonary services are following. On 08/02/2023 patient was seen and examined in the ICU, currently she is intubated sedated maintained on mechanical ventilation, assist control rate 20 454 350 FiO2 of 50% and PEEP of 10 vital exam reveals a temperature of 99.5 pulse 81 respiration 24 blood pressure 108/58 pulse ox 94% white blood count 7.8 hemoglobin 11.3 platelet count 120 pH 7.35 pCO2 of 54. O2 56 On 08/03/2023 patient remains in the intensive care unit. Patient remains on mechanical ventilation. Sedation holiday in progress current vital signs temp 98.0, heart rate 84, blood pressure 135/55 with a pulse ox 96% been mechanical ventilation with an FiO2 of 50%. Arterial blood gases this a.m. showing a pH of 7.26, creatinine pCO2 68, pO2 100, sodium bicarb 31 On 08/04/2023 patient was seen and examined in the ICU, currently she is intu bated sedated maintained on mechanical ventilation, assist control rate 20 454 350 FiO2 of 50% and PEEP of 10 vital exam reveals a temperature of 98.7 pulse 84 respiration 24 blood pressure 132/65 white blood count is 6.1 hemoglobin 10.9 platelet count 116 arterial blood gas reveals a pH of 7.36 pCO2 of 58 CO2 78 sodium 147 potassium 4.1 chloride 1:15 CO2 33 BUN 48 creatinine 0.62 glucose level 229 On 08/05/2023 patient was seen and examined in the ICU she is intubated sedated maintained on mechanical ventilation, she is on assist control, rate 24 tidal volume 350 FiO2 50% and PEEP of 5 temperature is 99.3 pulse 22 blood pressure 99/47 blood pressure 121/48 white blood count 7.2 hemoglobin 10.6 platelet count 100 arterial blood gas revealed a pH of 7.37 pCO2 58 CO2 97 BUN 40 creatinine 0. 64 glucose is elevated again at 268. At this time will increase Levemir to 15 units daily continue with sliding scale On 08/06/2023 patient was seen and examined in the ICU, she is still intubated m aintained on mechanical ventilation, sedation is on hold at this time, for possible trial of extubation this morning, vital exam reveals a temperature of 99 pulse 89 respiration 22 blood pressure 168/64 pulse ox 94% on FiO2 of 40% laboratory data reveals a white blood count of 8.8 hemoglobin 11.3 platelet count 103 arterial blood gas reveals a pH of 7.38 pCO2 of 61 by mouth to 103 sodium 143 potassium 4.2 chloride 106 CO2 33 BUN 38 creatinine 0.63 On 08/07/2023 patient remains in the intensive care unit. Patient was extubated yesterday to BiPAP remains on Precedex. Per nursing staff patient mentation is still A and O x0. Precedex to be DC'd today per critical care services chest x- ray completed the same showing COPD with some interval improvement there may be residual mild pulmonary vascular congestion previous trace effusions have resolved. Current vital signs temp 99.0, heart rate 98, respiratory rate 15, blood pressure 114/60, pulse ox 96% on BiPAP 50% FiO2 On 08/08/2023 patient remains in the intensive care unit. Patient currently sitting up in chair. Patient is able to answer some questions and follow some commands. This is improved compared to yesterday. Current vital signs temp 98.6, heart rate 76, respiratory rate 14, blood pressure 150/70 with a pulse ox of 98% on 6 L high flow. Patient remains on IV Solu-Medrol and Levaquin. PT OT services consulted On 08/09/2023 patient was seen and examined in the ICU she is alert and oriented 3 in no apparent distress, she is answering questions appropriately, she is maintained on oxygen 4 L nasal cannula, she is complaining of generalized severe weakness, otherwise she denies any complaints there is no fever or chills no headache or dizziness no chest pain no shortness of breath no cough no nausea or vomiting no abdominal pain no diarrhea and no urinary symptoms Objective - Vital Signs Vital signs: Vital Signs Temp 97.9 F 08/09/23 08:00 Pulse 74 08/09/23 10:40 Resp 27 H 08/09/23 09:00 BP 128/69 08/09/23 10:00 Pulse Ox 96 08/09/23 10:00 FiO2 50 08/09/23 07:36 Intake & Output 08/08/23 08/09/23 08/09/23 18:59 06:59 18:59 Intake Total 50 360 360 Output Total 2560 1315 150 Balance -8490 -775 210 Weight 64.6 kg 58.7 kg Intake: IV 50 240 120 Invasive Line 7 20 Levofloxacin 500Mg-D5w 100 Pmx 500 mg In Dextrose/ Water 1 100ml.bag @ 100 mls/hr IVPB Q24H [facility] Rx#: [id number] Sodium Chloride 0.9% 1, 50 240 000 ml @ 20 mls/hr IV . Q24H [facility] Rx#:[id number] Oral 120 240 Output: Urine 2560 1315 150 Other: Voiding Method Indwelling Catheter Indwelling Catheter Indwelling Catheter # Bowel Movements 0 ABP, PAP, CO, CI - Last Documented Arterial Blood Pressure 176/69 - Exam In general patient is intubated sedated maintained on mechanical intubation HEENT head normocephalic and atraumatic Neck is supple no JVD no goiter no lymphadenopathy no carotid bruit Chest examination is clear to auscultation no crackles no wheezing Cardiac exam reveals regular heart sounds S1 and S2 no gallops no murmurs Abdomen is soft nontender no organomegaly with normal bowel sounds Extremity exam reveals no edema no cyanosis or clubbing Neurological examination reveals no gross focal deficits - Labs CBC & Chem 7: 08/09/23 05:09 08/09/23 05:09 Labs: Abnormal Lab Results - Last 24 Hours (Table) 08/08/23 08/08/23 08/09/23 Range/Units 19:58 23:36 05:09 Plt Count 83 L (150-450) k/uL Neutrophils # 9.1 H (1.3-7.7) k/uL Lymphocytes # 0.4 L (1.0-4.8) k/uL Sodium (137-145) mmol/L Carbon Dioxide (22-30) mmol/L BUN (7-17) mg/dL Creatinine (0.52-1.04) mg/dL Glucose (74-99) mg/dL POC Glucose (mg/dL) 126 H 138 H (70-110) mg/dL Calcium (8.4-10.2) mg/dL AST (14-36) U/L ALT (4-34) U/L Total Protein (6.3-8.2) g/dL Albumin (3.5-5.0) g/dL 08/09/23 08/09/23 08/09/23 Range/Units 05:09 06:23 11:42 Plt Count (150-450) k/uL Neutrophils # (1.3-7.7) k/uL Lymphocytes # (1.0-4.8) k/uL Sodium 136 L (137-145) mmol/L Carbon Dioxide 35 H (22-30) mmol/L BUN 33 H (7-17) mg/dL Creatinine 0.47 L (0.52-1.04) mg/dL Glucose 144 H (74-99) mg/dL POC Glucose (mg/dL) 153 H 152 H (70-110) mg/dL Calcium 8.3 L (8.4-10.2) mg/dL AST 39 H (14-36) U/L ALT 48 H (4-34) U/L Total Protein 5.1 L (6.3-8.2) g/dL Albumin 3.1 L (3.5-5.0) g/dL Assessment and Plan Plan: 1. Shortness breath secondary to acute exacerbation of COPD with tracheal bronchitis requiring intubation and mechanical ventilation 2. Non-ST elevated IA 3. Chronic and ongoing nicotine dependence 4. Oxygen dependent chronic obstructive pulmonary disease 5. Diabetes mellitus type 2 6. History of essential hypertension 7. Carotid artery disease with previous left carotid endarterectomy Pulmonary and cardiology service is consulted Remains in the intensive care unit Patient maintained on IV Solu-Medrol, DuoNeb breathing treatments Maintained on Levaquin Patient extubated to BiPAP on 08/06/2023 Repeat labs ordered DVT prophylaxis lovenox. GI prophylaxis Protonix
[2023-08-09 16:51] LABS: Glucose,Whole Blood 161 mg/dL (70-110)
[2023-08-09] MEDS ORDERED: LACTULOSE 20 GM/30 ML CUP PO ONE (18:10)
[2023-08-09 20:55] LABS: Glucose,Whole Blood 252 mg/dL (70-110)
[2023-08-10 00:24] LABS: Glucose,Whole Blood 125 mg/dL (70-110)
[2023-08-10] MEDS: INSULIN ASPART (NovoLOG) 100 UNIT/ML VIAL SQ SCH ×4 (00:24→17:38)
[2023-08-10 06:26] LABS: Glucose,Whole Blood 103 mg/dL (70-110)
[2023-08-10] MEDS: INSULIN DETEMIR (LEVEMIR) 100 UNIT/ML SYR SQ SCH (07:25)
[2023-08-10] MEDS: FORMOTEROL FUMARATE 20 MCG/2 ML NEBU INHALATION SCH ×2 (07:26→19:28)
[2023-08-10] MEDS: IPRATROPIUM-ALBUTEROL 3 ML NEB INHALATION SCH ×4 (07:26→19:28)
[2023-08-10] MEDS: BUDESONIDE 1 MG/2 ML NEBU INHALATION SCH ×2 (07:26→19:28)
[2023-08-10 09:07] LABS: ALT 44 U/L (8-44); AST 31 U/L (13-35); Albumin 3.4 d/dL (3.8-4.9); Albumin/Globulin Ratio 2.12 Ratio (1.60-3.17); Alkaline Phosphatase 57 U/L (41-126); Blood Urea Nitrogen 21.6 mg/dL (9.0-27.0); Calcium 8.7 mg/dL (8.7-10.3); Chloride 100 mmol/L (96-109); Globulin 1.6 d/dL (1.6-3.3); Glucose 101 mg/dL (70-110); Potassium 3.4 mmol/L (3.5-5.5); Sodium 142 mmol/L (135-145); Total Bilirubin 0.8 mg/dL (0.3-1.2)
[2023-08-10] MEDS: atenoloL 25 MG TAB PO SCH (09:45)
[2023-08-10] MEDS: ENOXAPARIN 40 MG/0.4 ML SYRINGE SQ SCH (09:45)
[2023-08-10] MEDS: NICOTINE 21MG/24HR PATCH TRANSDERM SCH (09:45)
[2023-08-10] MEDS: ASPIRIN 81 MG PO SCH (09:45)
[2023-08-10] MEDS: PANTOPRAZOLE 40 MG/10 ML VIAL IVP SCH (09:45)
[2023-08-10] MEDS: predniSONE 20 MG TAB PO SCH (09:45)
[2023-08-10] MEDS: ATORVASTATIN 40 MG TAB PO SCH (09:45)
--- NOTE | 2023-08-10 09:57 | P.PN ---
Subjective Progress Note Date: 08/10/23 This is a 73-year-old female patient of Dr. Phillips who presented to the ER with complaints of shortness of breath. Patient apparently was experiencing respiratory distress was transported EMS and was found to have an SpO2 in the 70s. Patient has past medical history of diabetes mellitus, nicotine depen dence, carotid artery stenosis, COPD, hypertension, atrial tachycardia. Initial chest x-ray showing hyperinflated lungs. Patient noted to have elevated troponins 0.046, 0.36 and 0.504. Patient was started on heparin drip for elevated troponins cardiology and pulmonary services were consulted. Patient started on IV steroids, DuoNeb breathing treatments azithromycin and Rocephin Dr. Soto's group previously covering We are resuming care patient on 07/30/2023 On 07/30/2023 patient is alert and oriented 3 currently resting comfortably in bed on BiPAP. Patient reports some improvement with shortness of breath but does appear to be quite short of breath. She remains on IV Solu-Medrol a zithromycin and Rocephin. Patient also remains on heparin drip per cardiology. Pulmonary and cardiology services are following. Sliding scale coverage. Current vital signs temp 97.5, pulse rate 99, respiratory rate 22, blood pressure 110/72 with a pulse ox of 98% on BiPAP On 07/31/2023 patient was seen and examined on the telemetry floor she is alert and oriented 3 in no apparent distress she is still having significant shortness of breath she is maintained on oxygen at 4 L nasal cannula, and requiring BiPAP on and off, she is still complaining of cough was yellow to green sputum production, she denies any chest pain she is still maintained on IV Solu-Medrol. Antibiotic were discontinued by pulmonary. On 08/01/2023 patient remains requiring BiPAP. Patient is alert and oriented resting comfortably on BiPAP in bed at this time. Patient had increased episodes of difficulty breathing throughout night pulmonary services at bedside orders to continue BiPAP. Patient remains on IV Solu-Medrol and DuoNeb breathing treatments. Pulmonary services are following. On 08/02/2023 patient was seen and examined in the ICU, currently she is intubated sedated maintained on mechanical ventilation, assist control rate 20 454 350 FiO2 of 50% and PEEP of 10 vital exam reveals a temperature of 99.5 pulse 81 respiration 24 blood pressure 108/58 pulse ox 94% white blood count 7.8 hemoglobin 11.3 platelet count 120 pH 7.35 pCO2 of 54. O2 56 On 08/03/2023 patient remains in the intensive care unit. Patient remains on mechanical ventilation. Sedation holiday in progress current vital signs temp 98.0, heart rate 84, blood pressure 135/55 with a pulse ox 96% been mechanical ventilation with an FiO2 of 50%. Arterial blood gases this a.m. showing a pH of 7.26, creatinine pCO2 68, pO2 100, sodium bicarb 31 On 08/04/2023 patient was seen and examined in the ICU, currently she is intu bated sedated maintained on mechanical ventilation, assist control rate 20 454 350 FiO2 of 50% and PEEP of 10 vital exam reveals a temperature of 98.7 pulse 84 respiration 24 blood pressure 132/65 white blood count is 6.1 hemoglobin 10.9 platelet count 116 arterial blood gas reveals a pH of 7.36 pCO2 of 58 CO2 78 sodium 147 potassium 4.1 chloride 1:15 CO2 33 BUN 48 creatinine 0.62 glucose level 229 On 08/05/2023 patient was seen and examined in the ICU she is intubated sedated maintained on mechanical ventilation, she is on assist control, rate 24 tidal volume 350 FiO2 50% and PEEP of 5 temperature is 99.3 pulse 22 blood pressure 99/47 blood pressure 121/48 white blood count 7.2 hemoglobin 10.6 platelet count 100 arterial blood gas revealed a pH of 7.37 pCO2 58 CO2 97 BUN 40 creatinine 0. 64 glucose is elevated again at 268. At this time will increase Levemir to 15 units daily continue with sliding scale On 08/06/2023 patient was seen and examined in the ICU, she is still intubated m aintained on mechanical ventilation, sedation is on hold at this time, for possible trial of extubation this morning, vital exam reveals a temperature of 99 pulse 89 respiration 22 blood pressure 168/64 pulse ox 94% on FiO2 of 40% laboratory data reveals a white blood count of 8.8 hemoglobin 11.3 platelet count 103 arterial blood gas reveals a pH of 7.38 pCO2 of 61 by mouth to 103 sodium 143 potassium 4.2 chloride 106 CO2 33 BUN 38 creatinine 0.63 On 08/07/2023 patient remains in the intensive care unit. Patient was extubated yesterday to BiPAP remains on Precedex. Per nursing staff patient mentation is still A and O x0. Precedex to be DC'd today per critical care services chest x- ray completed the same showing COPD with some interval improvement there may be residual mild pulmonary vascular congestion previous trace effusions have resolved. Current vital signs temp 99.0, heart rate 98, respiratory rate 15, blood pressure 114/60, pulse ox 96% on BiPAP 50% FiO2 On 08/08/2023 patient remains in the intensive care unit. Patient currently sitting up in chair. Patient is able to answer some questions and follow some commands. This is improved compared to yesterday. Current vital signs temp 98.6, heart rate 76, respiratory rate 14, blood pressure 150/70 with a pulse ox of 98% on 6 L high flow. Patient remains on IV Solu-Medrol and Levaquin. PT OT services consulted On 08/09/2023 patient was seen and examined in the ICU she is alert and oriented 3 in no apparent distress, she is answering questions appropriately, she is maintained on oxygen 4 L nasal cannula, she is complaining of generalized severe weakness, otherwise she denies any complaints there is no fever or chills no headache or dizziness no chest pain no shortness of breath no cough no nausea or vomiting no abdominal pain no diarrhea and no urinary symptoms On 08/10/2023 patient is alert and oriented 3 patient has been moved out of the intensive care unit currently on 2 L nasal cannula. Patient remains with significant physical weakness will consult inpatient rehab for possible admission. Current vital signs temp 97.8, heart 22, respiratory rate 16, blood pressure 149/69 with pulse ox 96% on 2 L Objective - Vital Signs Vital signs: Vital Signs Temp 97.8 F 08/10/23 08:00 Pulse 72 08/10/23 08:00 Resp 16 08/10/23 08:00 BP 149/69 08/10/23 08:00 Pulse Ox 96 08/10/23 08:00 FiO2 50 08/09/23 07:36 Intake & Output 08/09/23 08/10/23 08/10/23 18:59 06:59 18:59 Intake Total 718 Output Total 300 1800 Balance 418 -1800 Intake: IV 120 Invasive Line 7 20 Levofloxacin 500Mg-D5w 100 Pmx 500 mg In Dextrose/ Water 1 100ml.bag @ 100 mls/hr IVPB Q24H TIMOTHY Rx#: [id number] Oral 598 Output: Urine 300 1800 Other: Voiding Method Indwelling Catheter External Catheter # Voids 1 # Bowel Movements 0 4 ABP, PAP, CO, CI - Last Documented Arterial Blood Pressure 176/69 - Exam In general patient is intubated sedated maintained on mechanical intubation HEENT head normocephalic and atraumatic Neck is supple no JVD no goiter no lymphadenopathy no carotid bruit Chest examination is clear to auscultation no crackles no wheezing Cardiac exam reveals regular heart sounds S1 and S2 no gallops no murmurs Abdomen is soft nontender no organomegaly with normal bowel sounds Extremity exam reveals no edema no cyanosis or clubbing Neurological examination reveals no gross focal deficits - Labs CBC & Chem 7: 08/09/23 05:09 08/10/23 06:24 Labs: Abnormal Lab Results - Last 24 Hours (Table) 08/09/23 08/09/23 08/09/23 Range/Units 11:42 16:49 20:54 Potassium (3.5-5.5) mmol/L Carbon Dioxide (21.6-31.8) mmol/L Creatinine (0.6-1.5) mg/dL BUN/Creatinine Ratio (12.00-20.00) Ratio POC Glucose (mg/dL) 152 H 161 H 252 H (70-110) mg/dL Total Protein (6.2-8.2) d/dL Albumin (3.8-4.9) d/dL 08/10/23 08/10/23 Range/Units 00:22 06:24 Potassium 3.4 L (3.5-5.5) mmol/L Carbon Dioxide 35.0 H (21.6-31.8) mmol/L Creatinine 0.5 L (0.6-1.5) mg/dL BUN/Creatinine Ratio 43.20 H (12.00-20.00) Ratio POC Glucose (mg/dL) 125 H (70-110) mg/dL Total Protein 5.0 L (6.2-8.2) d/dL Albumin 3.4 L (3.8-4.9) d/dL Assessment and Plan Plan: 1. Shortness breath secondary to acute exacerbation of COPD with tracheal bronchitis requiring intubation and mechanical ventilation 2. Non-ST elevated OR 3. Chronic and ongoing nicotine dependence 4. Oxygen dependent chronic obstructive pulmonary disease 5. Diabetes mellitus type 2 6. History of essential hypertension 7. Carotid artery disease with previous left carotid endarterectomy Pulmonary and cardiology service is consulted Remains in the intensive care unit Patient maintained on IV Solu-Medrol, DuoNeb breathing treatments Maintained on Levaquin Patient extubated to BiPAP on 08/06/2023 Repeat labs ordered DVT prophylaxis lovenox. GI prophylaxis Protonix Consult for inpatient rehab
[2023-08-10 11:08] LABS: Basophils # (A) 0.02 X 10*3/uL (0.00-0.10); Basophils % (A) 0.1 %; Crenated RBC 2+; Eosinophils # (A) 0.11 X 10*3/uL (0.04-0.35); Eosinophils % (A) 0.7 %; HGB 12.8 d/dL (12.0-15.0); Lymphocytes % (A) 14.3 %; MCH 30.1 pg (27.0-32.0); MCHC 32.8 d/dL (32.0-37.0); MCV 91.8 FL (80.0-97.0); Mean Platelet Volume 11.6 FL (9.5-12.2); Monocytes # (A) 0.82 X 10*3/uL (0.20-1.00); Monocytes % (A) 5.6 %; NRBC Per 100 WBC 0 X 10*3/uL (0.00-0.01); Neutrophils # (A) 11.16 X 10*3/uL (1.80-7.70); Platelet Count 89 X 10*3/uL (140-440); RBC 4.25 X 10*6/uL (4.10-5.20); RDW 14.4 % (11.5-14.5)
[2023-08-10 12:07] LABS: Glucose,Whole Blood 81 mg/dL (70-110)
--- NOTE | 2023-08-10 12:26 | P.CONS ---
History of Present Illness - Reason for Consult Consult date: 08/10/23 rehab recommendations - Chief Complaint debility - History of Present Illness Valerie Garza is a right handed, female, who lives in a 1 story home, with 3 VOLODYMYR and bilat handrails. Prior to admission, she was ambulating without an assistive device. She was independent for basic/advanced ADLs. She reports home O2 use at 6.5 liters (son says 2.5 liters). Current driving: no. Transportation by: grandson and family. Retired: yes. Support system: lives with grandson and son. Family at bedside and reports patient will have a family member present 28/05 if needed at discharge. She was admitted to [facility] on 07/28. She presented to the ED via EMS with c/o respiratory distress. Patient was transported to the hospital on 07/28 by paramedics, she was found hypoxic with oxygen sats in the 70s. She was placed on a CPAP. She reported worsening cough and dyspnea over the past week prior to admission. She had a chest x-ray completed in the ED which showed hyperinflation without pneumothorax or focal pneumonia. She was noted to have elevated troponin levels in the ED, she was started on a heparin drip. She was admitted with consultations to cardiology and pulmonology for NSTEMI and COPD exacerbation with respiratory failure. She was started on antibiotics for quest ionable pneumonia, steroids, breathing treatments, BiPAP. Blood cultures were collected and came back negative. Sputum cultures were positive for Rosa albicans and stenotrophamonas maltophilia. She tested negative for influenza A, B and coronavirus. She had a CTA of her chest which was negative for PE. Cardiology evaluated the patient and determined that the elevated troponin was due to supply demand mismatch secondary to respiratory distress/COPD. She had some issues with tachycardia, beta-blockers were added/adjusted. On 08/01 the patient's respiratory status declined, she was then moved to the intensive care unit and was intubated. She was extubated 08/06. She was moved out of the ICU and placed on a general medical floor. She remains on 2 liters supplemental oxygen at this time. PM&R consulted for rehab recommendations. Therapy evaluations reviewed; patient needing total assist for bathing, total assist for upper body dressing, total assist for grooming, total assist for toileting ability, total assist for toilet transfer, total assist for bed mobility. Patient is a total assist for general bed mobility. She tolerates activity well. 08/10/2023: Patient was found in bed with HOB elevated, watching television. Patient reports that she feels well. She denies pain, CP, SOB, abdominal pain, headache, dizziness. Her 2 children are at bedside. She has a urinary co llection device in place. She is on 2 L supplemental oxygen via nasal cannula. Children report that patient has a lot of support from grandchildren and family. Per family she will have family at patient's side 28/05 if needed upon discharge. Patient reports that she is willing to work with therapy, to gain back strength and endurance, and return home. Review of Systems negative unless noted in HPI Past Medical History Past Medical History: COPD, Diabetes Mellitus History of Any Multi-Drug Resistant Organisms: None Reported Past Surgical History: No Surgical Hx Reported, Hysterectomy Additional Past Surgical History / Comment(s): bladder suspension Past Anesthesia/Blood Transfusion Reactions: No Reported Reaction Smoking Status: Current every day smoker - Past Family History Mother Family Medical History: No Reported History Medications and Allergies Home Medications Medication Instructions Recorded Confirmed Type Atorvastatin [Lipitor] 20 mg PO DAILY 05/09/22 07/29/23 History Clobetasol Propionate [Temovate 1 applic TOPICAL DAILY 05/09/22 07/29/23 History 0.05% Oint] Ibuprofen [Motrin] 800 mg PO BID PRN 05/09/22 07/29/23 History Ipratropium-Albuterol Nebulize 3 ml INHALATION RT-QID PRN 05/09/22 07/29/23 History [Duoneb 0.5 mg-3 mg/3 ml Soln] Ipratropium/Albuter 20-100Mcg 1 puff INHALATION RT-QID PRN 05/09/22 07/29/23 History [Combivent Respimat 20-100Mcg Inhaler] Montelukast Sodium [Singulair] 10 mg PO HS 05/09/22 07/29/23 History Omeprazole 20 mg PO HS 05/09/22 07/29/23 History Solifenacin Succinate [Vesicare] 10 mg PO DAILY 05/09/22 07/29/23 History Theophylline 12 Hour [David-Dur] 300 mg PO BID 05/09/22 07/29/23 History Albuterol Nebulized [Ventolin 2.5 mg INHALATION RT-Q6H PRN 07/29/23 07/29/23 History Nebulized] Albuterol Sulfate [Albuterol 1 - 2 puff PO RT-Q6H PRN 07/29/23 07/29/23 History Sulfate Hfa] Budesonide [Pulmicort] 0.5 mg INHALATION RT-BID 07/29/23 07/29/23 History Cetirizine HCl [Zyrtec] 10 mg PO DAILY 07/29/23 07/29/23 History Clopidogrel [Plavix] 75 mg PO DAILY 07/29/23 07/29/23 History Allergies Allergy/AdvReac Type Severity Reaction Status Date / Time No Known Allergies Allergy Verified 07/29/23 11:12 Physical Exam Osteopathic Statement: *. No significant issues noted on an osteopathic structural exam other than those noted in the History and Physical/Consult. Vitals: Vital Signs Temp Pulse Pulse Resp BP BP Pulse Ox 08/10/23 08:00 97.8 F 72 16 149/69 96 08/10/23 07:46 76 08/10/23 07:39 76 08/10/23 07:38 76 08/10/23 07:26 76 08/10/23 07:10 72 16 08/10/23 00:28 98.0 F 67 19 149/67 97 08/09/23 20:25 77 08/09/23 20:17 77 08/09/23 20:16 77 08/09/23 20:12 75 08/09/23 19:54 98.6 F 69 19 125/69 90 L 08/09/23 17:20 18 95 08/09/23 17:13 88 L 08/09/23 15:37 75 08/09/23 15:27 77 08/09/23 14:00 98.4 F 77 16 107/47 95 08/09/23 10:40 74 08/09/23 10:31 73 Intake and Output 08/09/23 08/10/23 08/10/23 22:59 06:59 14:59 Intake Total 118 Output Total 150 1800 Balance -32 -1800 Intake: Oral 118 Output: Urine 150 1800 Other: Voiding Method External Catheter External Catheter # Voids 1 # Bowel Movements 4 EXAM; General: WDWN, elderly female, in bed with HOB elevated, family at bedside, NAD Head: Normocephalic, atraumatic. Eyes: Symmetric Ears: Symmetric. Hearing within normal limits. Mouth: Clear, poor dentition. Neck: Supple. 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 Calves supple, non tender, no edema to LE, + swelling to bilat hands, R>L Lungs: Breathing comfortably on 2 liters nasal cannula. Chest symmetric. Abdomen: Soft, nontender. Extremities: Arthritic changes consistent with age. Neurological: Alert and oriented x 2-3. Speech is clear and fluent without paraphasic errors Cranial nerves: CN II-XII: intact. Sensation: Intact and symmetrical limbs. Musculoskeletal: No functional active ROM in any joints MMT UE Sh Abd EE EF FABD WE HG Right 1 0 0 0 0 0 Left 1 0 0 0 0 0 0 MMT LE HF KE DF EHL Right 1 0 0 0 Left 1 0 0 0 Reflexes Biceps Triceps Brachioradialis Patella Achilles Babinski Hoffmans Right Neg Neg Left Neg Neg Skin: Skin intact where visible to head, neck, and bilateral upper and lower extremities EXCEPT: bilat UE ecchymosis, right hand swelling with ecchymosis, PIV, dressing to left chest CDI Psych: Calm, cooperative Results CBC & Chem 7: 08/10/23 06:24 08/10/23 06:24 Labs: Abnormal Lab Results - Last 24 Hours (Table) 08/09/23 08/09/23 08/09/23 Range/Units 11:42 16:49 20:54 Potassium (3.5-5.5) mmol/L Carbon Dioxide (21.6-31.8) mmol/L Creatinine (0.6-1.5) mg/dL BUN/Creatinine Ratio (12.00-20.00) Ratio POC Glucose (mg/dL) 152 H 161 H 252 H (70-110) mg/dL Total Protein (6.2-8.2) d/dL Albumin (3.8-4.9) d/dL 08/10/23 08/10/23 Range/Units 00:22 06:24 Potassium 3.4 L (3.5-5.5) mmol/L Carbon Dioxide 35.0 H (21.6-31.8) mmol/L Creatinine 0.5 L (0.6-1.5) mg/dL BUN/Creatinine Ratio 43.20 H (12.00-20.00) Ratio POC Glucose (mg/dL) 125 H (70-110) mg/dL Total Protein 5.0 L (6.2-8.2) d/dL Albumin 3.4 L (3.8-4.9) d/dL Assessment and Plan Assessment: #Incomplete quadriplegia of unknown etiology -Differential includes CIM, CIPN, AIDP, steroid myopathy or other neurologic condition -Patient's weakness is surprising given length of intubation period, recommend neurology consultation #Impaired ADLs secondary to acute on chronic hypoxemic respiratory failure with an acute exacerbation of COPD status post intubation/mechanical ventilation -Pulmonology/car conditioner following #CHF with EF of 35% #COPD/chronic respiratory failure, on supplemental oxygen at home -remains on 2 liters nasal cannula #Pneumonia-stenotrophamonas maltophilia -antibiotics #Troponin elevation secondary to respiratory distress and COPD, supply demand mismatch #Tachycardia -ETA blockers #Multifocal pneumonia #Diabetes mellitus #Current everyday smoker -Smoking cessation, nicotine patch #Bowel/ Bladder: Nursing to monitor and report concerns if any. -urinary collection device in place #Diet -Clear liquid diet -working with [facility] #Skin/wound: Skin/Wound care to follow as needed #Pain Management -Tylenol 650 mg every 4 hours as needed, Dilaudid 0.5 mg IVP every 6 hours as needed #DVT Prophylaxis: -Lovenox #Comorbidities: Carotid artery stenosis, hypertension, atrial tachycardia, hyperlipidemia, current smoker #Your medical dx and mgt Goals: Modified independent mobility and ADLS both basic and advanced; increased functional mobility/strength; increased balance, safety, endurance. Improvement in medical issues through your care. Barriers: Incomplete quadriplegia Discharge recommendation: [facility]. Given her debility at this time [facility] is more appropriate as she will likely need a longer length of stay. Will follow progress and neurology recommendations. Patient seen and examined in coordination with Dr. Downs Author: Ana Mejia NP
[2023-08-10 13:03] VITALS: BMI 22.9
[2023-08-10] MEDS: NYSTATIN 100,000 UNIT/ML SUSP 500,000 UNIT/5 ML CUP PO SCH ×3 (13:47→22:53)
[2023-08-10] MEDS: LEVOFLOXACIN 500MG-D5W PMX 500 MG in DEXTROSE/WATER 1 100ML.BAG IVPB SCH (13:47)
--- NOTE | 2023-08-10 14:27 | P.PN ---
Subjective Progress Note Date: 08/10/23 3-year-old female patient being seen on follow-up on 08/06/2023 for respiratory failure, intubation mechanical ventilation. The patient was intubated on 08/01/2023. She has an acute on top of chronic hypoxic respiratory failure due to COPD exacerbation patient also had a pneumonia cultures indicating st enotrophomonas. She has [id number] smoking history and she is oxygen dependent COPD. She has diabetes and hypertension. Currently, the patient is still sedated on propofol at 35 mcg/kg/m. She remains on mechanical ventilator. Assist-control mode at the rate of 24, tidal volume of 350, FiO2 of 50% with a PEEP of 5. Chest x-ray shows limited effusion lung base bilaterally. No airspace disease. ET tube is in a good location. No evidence of any pneumothorax. The blood gas from today shows a pH of 7.38 with episodes of 61 and pO2 of 103. The patient remains on bronchodilators. The patient remains on antibiotics and the patient is currently covered with IV Levaquin and Zosyn was discontinued yesterday. She remains on Perforomist and Pulmicort nebulized treatments twice a day. She is on IV Solu-Medrol 60 mg every 6 hours. She is on Levemir insulin 15 units daily and a sliding scale coverage. Peak airway pressures around 23. IV fluids are in the form of D5 water at rate of 75 mL an hour. Overall fluid balance over the past 24 hours has been +1.6 L. His white cell count today's of 3.8 with a hemoglobin of 11.3. BUN is at 38 with a creatinine of 0.6. Enteral feeding is at the rate of 40 mL an hour and the patient is receiving vital high-protein. This morning, the patient is heavily sedated with propofol. No significant orotracheal secretions. 08/07/2023, the patient is on Precedex running at 0.6 mcg/kg/m. The patient is quite sedated and comfortable. The patient is on a BiPAP. Noted the patient was extubated yesterday. I took her off the sedation yesterday and after the patient showed some adequate neurological recovery, extubated to BiPAP at a pressure 14/5 cm of water with an FiO2 50%. The patient was somewhat restless and nervous and somewhat asynchronous initially on a BiPAP. Based on that, she was started on Precedex. This morning, she seems to be quite sedated yet arousable. She is on a BiPAP at pressure 14/5 cm of water. She generating a tidal volume and a 600 range with a respiratory rate of 19 and a minute ventilation of 12.6. The chest x-ray shows no acute abnormalities. There is consistent with emphysema. Also, the patient has a the white cell count of 7.3, hemoglobin of 11.6 and a platelet count of 90. BUN is 45 and a creatinine of 0.6 and the rest of the electrolytes all within normal limits. Noted the patient's platelet counts have been gradually downtrending. The blood gas from yesterday showed well compensated chronic hypercapnic respiratory failure. She is profoundly weak. She will following some simple commands yesterday and this morning she is quite sedated. 08/08/2023, the patient remains extubated. She is awake and alert and communicating. She is on 6 L of oxygen by nasal cannula. She is profoundly weak. With help, we were able to set that up on a chair. She has significant motor weakness in the upper and lower extremities. She is communicating. No significant respiratory distress at this point in time. She used the BiPAP overnight for a few hours and she decided not to continue with that and she is currently on nasal cannula at 6 L with a pulse ox of 95%. No chest pain. No altered mentation. Swallow evaluation was done at the bedside and the patient was able to swallow and she'll be gradually advanced her diet as tolerated. She is currently off sedative medications. Her blood work from today showing a white cell count of 9.2 with a hemoglobin of 12.1, BUN is at 38 with a creatinine of 0.4 and sodium levels of 142. Platelet counts as downtrending slowly is currently down to 82. 08/09/2023, the patient remains extubated on 5 L of oxygen by nasal cannula. Activation for now is the profound weakness in the upper and lower extremities. She is able to wiggle her toes, unable to her legs increased gravity. She is barely able to raise her arms. Her breathing is comfortable. She has an adequate cough. No agitation. No restlessness. No signs of any significant respiratory distress. She is tolerating her diet. The enzymes at 33 with a creatinine of 0.4 and a white cell count of 10.0. She remains on bronchodilators and she remains on IV Solu-Medrol. She is completing her course of Levaquin. No other significant events overnight. She did use the BiPAP overnight and currently she is back on nasal cannula. She is on Levemir 15 units plus a slight scale coverage. IV fluids are currently at KVO. On 08/10/2023, Valerie is doing well. She remains profoundly weak. She needs aggressive physical therapy. Overall respiratory status is stable. I'm going to further weaned on her steroids and lower down her prednisone dose down to 10 mg by mouth daily. No chest pain. No altered mentation. Motor weakness remains activation for now. Sodium is at 142, BUN is 21 with a creatinine of 0.5 and a white cell cause of 14.7. IV fluids are currently at KVO. Objective - Vital Signs Vital signs: Vital Signs Temp 97.8 F 08/10/23 08:00 Pulse 72 08/10/23 08:00 Resp 16 08/10/23 08:00 BP 149/69 08/10/23 08:00 Pulse Ox 96 08/10/23 08:00 FiO2 50 08/09/23 07:36 Intake & Output 08/09/23 08/10/23 08/10/23 18:59 06:59 18:59 Intake Total 718 Output Total 300 1800 Balance 418 -1800 Intake: IV 120 Invasive Line 7 20 Levofloxacin 500Mg-D5w 100 Pmx 500 mg In Dextrose/ Water 1 100ml.bag @ 100 mls/hr IVPB Q24H [facility] Rx#: [id number] Oral 598 Output: Urine 300 1800 Other: Voiding Method Indwelling Catheter External Catheter External Catheter # Voids 1 # Bowel Movements 0 4 ABP, PAP, CO, CI - Last Documented Arterial Blood Pressure 176/69 - Exam No acute distress, sedated, on Precedex. The patient is currently on oxygen by nasal cannula and she is currently at 2 L/m nasal cannula Head exam was generally normal. There was no scleral icterus or corneal arcus. Mucous membranes were moist. HEENT examination is grossly unremarkable. Neck supple. Full range of motion. No adenopathy thyromegaly or neck vein distention. Cardiovascular examination reveals regular rhythm rate. S1-S2 normal. No S3 or S4. No discernible murmur noted. Lungs reveal coarse, bilateral, inspiratory and expiratory wheezes and rhonchi. No crackles. No significant wheezing or bronchospasm today's examination Abdomen soft, without bowel sounds. Extremities are intact. No cyanosis clubbing and there is edema and upper extremities bilaterally, limited edema in lower extremities. Skin is without rash or lesion. Neurologic the patient is awake and alert and communicating. The patient has profound weakness in all 4 extremities. - Labs CBC & Chem 7: 08/10/23 06:24 08/10/23 06:24 Labs: Abnormal Lab Results - Last 24 Hours (Table) 08/09/23 08/09/23 08/09/23 Range/Units 11:42 16:49 20:54 WBC (4.50-10.00) X 10*3/uL Plt Count (140-440) X 10*3/uL Neutrophils # (1.80-7.70) X 10*3/uL Crenated Cell Potassium (3.5-5.5) mmol/L Carbon Dioxide (21.6-31.8) mmol/L Creatinine (0.6-1.5) mg/dL BUN/Creatinine Ratio (12.00-20.00) Ratio POC Glucose (mg/dL) 152 H 161 H 252 H (70-110) mg/dL Total Protein (6.2-8.2) d/dL Albumin (3.8-4.9) d/dL 08/10/23 08/10/23 08/10/23 Range/Units 00:22 06:24 06:24 WBC 14.70 H (4.50-10.00) X 10*3/uL Plt Count 89 L (140-440) X 10*3/uL Neutrophils # 11.16 H (1.80-7.70) X 10*3/uL Crenated Cell 2+ A Potassium 3.4 L (3.5-5.5) mmol/L Carbon Dioxide 35.0 H (21.6-31.8) mmol/L Creatinine 0.5 L (0.6-1.5) mg/dL BUN/Creatinine Ratio 43.20 H (12.00-20.00) Ratio POC Glucose (mg/dL) 125 H (70-110) mg/dL Total Protein 5.0 L (6.2-8.2) d/dL Albumin 3.4 L (3.8-4.9) d/dL Assessment and Plan Plan: Acute COPD exacerbation with subsequent respiratory failure, the patient was extubated on 08/06/2023. The patient remains extubated and patient currently is on 5 L of O2 nasal cannula. Overall respiratory status is stable. Active issues the profound myopathy and weakness and the patient is encountered following her intubation mechanical ventilation. She received sedative medications and paralytics during the course of her mechanical ventilation. As such, the patient will need aggressive physical therapy and rehabilitation. Acute on chronic hypoxemic respiratory failure secondary to an acute exacerbation of chronic obstructive pulmonary disease. The patient is currently on 2 L of oxygen nasal cannula Stenotrophomonas tracheobronchitis/bronchopneumonia. Profound motor weakness in all 4 extremities, likely due to prolonged respiratory failure, intubation mechanical ventilation use of sedatives and paralytics Troponin leak secondary to above versus coronary artery disease. Chronic and ongoing tobacco dependence of greater than 50 years. Oxygen dependent chronic obstructive pulmonary disease. Diabetes mellitus, type II. Hypertension. Carotid artery disease with previous left carotid endarterectomy. CHF with impaired LV function and ejection fraction of 35% based on echocardiogram that was done on 07/29/2023. The patient also has moderate pulmonary hypertension with a PA pressure of 39. There is segmental wall motion abnormalities with anteroapical and inferoapical wall hypokinesis as well as mid inferior and mid anterior wall involvement. Profound generalized weakness probably related to prolonged intubation mechanical ventilation Plan: Nose monitoring of the respiratory status, currently on 2 L nasal cannula Continue Levaquin and complete the course of antibiotics Change IV fluids to 20 cc/ hr Advance diet as tolerated Patient is profoundly weak. The patient will need aggressive physical therapy. We'll avoid higher doses of steroids on him going to drop the prednisone down to 10 mg by mouth daily Monitor the platelet count Continue Lovenox Involved physical therapy IS Family is being regularly updated in her condition Air patient is currently on a medical floor the patient has been transferred out of the intensive care unit yesterday.
[2023-08-10 16:47] LABS: Glucose,Whole Blood 125 mg/dL (70-110)
[2023-08-10 20:21] LABS: Glucose,Whole Blood 128 mg/dL (70-110)
--- NOTE | 2023-08-10 21:19 | P.CNNES ---
History of Present Illness Consult date: 08/10/23 Requesting physician: Shea Lujan Reason for Consult: diffuse weakness History of Present Illness: Patient is a 73-year-old female with history of diabetes, COPD came to the hospital by ambulance on 07/28/2023 for COPD exacerbation. Patient was intubated on 08/01/2023 for COPD exacerbation, and ultimately extubated on 08/06/2023. Patient was noted to have severe weakness of the arms and also of the legs since extubation. This prompted neurology consultation. Patient tells me that prior to her current illness, she was perfectly fine with no physical weakness, although she does have chronic COPD. Patient overall feels getting slightly better. Patient denies any neck pain. No back pain. Denies any problems with control of bowels or bladder. Patient's most recent blood test shows review BC 14.7, hemoglobin 12.8, platelets 89. Sodium is normal, potassium 3.4, normal renal functions, hepatic panel. Patient's last hemoglobin A1c 6.4 on 07/30/2023. Patient's RSV, influenza screen and coronal virus PCR negative. TSH is normal 1.77. 2-D echo from 07/29/2023 revealed left-ventricular size at upper limits of normal. There is decreased contractility involving the anterior to apical and inferior apical as well as mid inferior and mid anterior wall. The base of the ventricles seems to contract better. Possibility of this being apical ballooning syndrome gradient should be considered. EF is 35% range. Left atrial size is normal. CTA of the chest from 07/29/2023 revealed at least moderate emphysematous change in the upper lungs. No suspicious acute pulmonary process. Patient states she has smoked 1-1/2 pack per day since age 18. Review of Systems Constitutional: Denies chills, Denies fever Eyes: bilateral blurred vision (Macular degeneration), denies diplopia, denies pain Ears, nose, mouth and throat: Denies headache, Denies neck lump, Denies sore throat Cardiovascular: Denies chest pain, Denies shortness of breath Respiratory: Reports cough, Reports excessive sputum Gastrointestinal: Denies abdominal pain, Denies diarrhea, Denies nausea, Denies vomiting Genitourinary: Denies dysuria, Denies hematuria, Denies urgency, Denies urinary frequency Musculoskeletal: Denies low back pain, Denies myalgias, Denies neck pain Integumentary: Denies pruritus, Denies rash Neurological: Reports as per HPI, Reports weakness, Denies numbness, Denies paresthesias, Denies sensory deficit Psychiatric: Denies anxiety, Denies depression Endocrine: Denies fatigue, Denies weight change Hematologic/Lymphatic: Reports easy bruising, Denies easy bleeding Past Medical History Past Medical History: COPD, Diabetes Mellitus History of Any Multi-Drug Resistant Organisms: None Reported Past Surgical History: No Surgical Hx Reported, Hysterectomy Additional Past Surgical History / Comment(s): bladder suspension Past Anesthesia/Blood Transfusion Reactions: No Reported Reaction Smoking Status: Current every day smoker - Past Family History Mother Family Medical History: No Reported History Medications and Allergies Home Medications Medication Instructions Recorded Confirmed Type Atorvastatin [Lipitor] 20 mg PO DAILY 05/09/22 07/29/23 History Clobetasol Propionate [Temovate 1 applic TOPICAL DAILY 05/09/22 07/29/23 History 0.05% Oint] Ibuprofen [Motrin] 800 mg PO BID PRN 05/09/22 07/29/23 History Ipratropium-Albuterol Nebulize 3 ml INHALATION RT-QID PRN 05/09/22 07/29/23 History [Duoneb 0.5 mg-3 mg/3 ml Soln] Ipratropium/Albuter 20-100Mcg 1 puff INHALATION RT-QID PRN 05/09/22 07/29/23 History [Combivent Respimat 20-100Mcg Inhaler] Montelukast Sodium [Singulair] 10 mg PO HS 05/09/22 07/29/23 History Omeprazole 20 mg PO HS 05/09/22 07/29/23 History Solifenacin Succinate [Vesicare] 10 mg PO DAILY 05/09/22 07/29/23 History Theophylline 12 Hour [David-Dur] 300 mg PO BID 05/09/22 07/29/23 History Albuterol Nebulized [Ventolin 2.5 mg INHALATION RT-Q6H PRN 07/29/23 07/29/23 History Nebulized] Albuterol Sulfate [Albuterol 1 - 2 puff PO RT-Q6H PRN 07/29/23 07/29/23 History Sulfate Hfa] Budesonide [Pulmicort] 0.5 mg INHALATION RT-BID 07/29/23 07/29/23 History Cetirizine HCl [Zyrtec] 10 mg PO DAILY 07/29/23 07/29/23 History Clopidogrel [Plavix] 75 mg PO DAILY 07/29/23 07/29/23 History Allergies Allergy/AdvReac Type Severity Reaction Status Date / Time No Known Allergies Allergy Verified 07/29/23 11:12 Physical Examination - Vital Signs Vital Signs: Vital Signs Temp Pulse Pulse Resp BP BP Pulse Ox 08/10/23 15:16 72 08/10/23 15:04 72 08/10/23 14:32 98.5 F 83 16 79/41 95 08/10/23 08:00 97.8 F 72 16 149/69 96 08/10/23 07:46 76 08/10/23 07:39 76 08/10/23 07:38 76 08/10/23 07:26 76 08/10/23 07:10 72 16 08/10/23 00:28 98.0 F 67 19 149/67 97 08/09/23 20:25 77 08/09/23 20:17 77 08/09/23 20:16 77 08/09/23 20:12 75 08/09/23 19:54 98.6 F 69 19 125/69 90 L 08/09/23 17:20 18 95 08/09/23 17:13 88 L Intake and Output 08/10/23 08/10/23 08/10/23 06:59 14:59 22:59 Output Total 1800 Balance -1800 Output: Urine 1800 Other: Voiding Method External Catheter # Bowel Movements 4 Weight 58.7 kg Patient is an elderly female, very pleasant in no acute distress. Patient is alert awake oriented to time place and person. Patient knows it is August and the year is 2022 and that she is in [facility], in [facility]. She says that she usually lived in [place] in the past. Speech and language functions are normal. Patient can name and repeat very well. No aphasia or dysarthria. Attention, concentration and fund of knowledge is adequate. On cranial nerve examination, pupils are equal, round and reacting to light, visual ward are full on confrontation, with no neglect on double simultaneous stimulation. Extraocular muscles are intact with no nystagmus. Face is symmetric, tongue protrudes to the midline. Palatal elevation and sensation normal, hearing and shoulder shrug normal, facial sensation normal. Her neck is supple. No stiffness, no rigidity. On muscle strength testing, patient is diffusely weak. 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 In the lower limbs hip flexion 1-2/1-2, knee extension 3 to 3-/3 to 3-, abduction 2-3/2-3, abduction 1-2/1-2, toe extension 0/0, ankle dorsiflexion 0/0. Deep tendon reflexes are symmetric biceps 0, brachioradialis 0, triceps 1+, knees 2, ankles 1+ and plantars are flat bilaterally. Sensory to touch is equal with no neglect on double simultaneous stimulation. Cerebellar function not able to be performed. Tone is decreased and bulk of muscles also slightly decreased. Gait deferred.. On general examination, there is no carotid bruit or murmur, S1-S2 audible. Chest is clear on consultation. Abdomen is soft nontender. No organomegaly, bowel sounds present. Peripheral pulses are present. No edema. Her hands are very cold, and has multiple bruises on the right hand. Results - Laboratory Findings CBC and BMP: 08/12/23 07:09 08/12/23 07:09 Abnormal Lab Findings: Abnormal Labs 07/28/23 07/28/23 07/28/23 23:49 23:51 23:51 WBC 12.4 H RBC Hgb Hct Plt Count Neutrophils # Lymphocytes # Eosinophils # 1.8 H Crenated Cell APTT 21.8 L ABG pH ABG pCO2 ABG pO2 ABG HCO3 ABG Total CO2 ABG O2 Saturation Sodium Potassium Chloride Carbon Dioxide BUN Creatinine BUN/Creatinine Ratio Glucose POC Glucose (mg/dL) 256 H Hemoglobin A1c Calcium Magnesium AST ALT Troponin I Total Protein Albumin 07/28/23 07/28/23 07/29/23 23:51 23:51 02:20 WBC RBC Hgb Hct Plt Count Neutrophils # Lymphocytes # Eosinophils # Crenated Cell APTT ABG pH ABG pCO2 ABG pO2 ABG HCO3 ABG Total CO2 ABG O2 Saturation Sodium Potassium Chloride Carbon Dioxide BUN Creatinine BUN/Creatinine Ratio Glucose 255 H POC Glucose (mg/dL) Hemoglobin A1c Calcium Magnesium AST 42 H ALT 35 H Troponin I 0.046 H* 0.386 H* Total Protein Albumin 07/29/23 07/29/23 07/29/23 05:23 09:56 10:16 WBC RBC Hgb Hct Plt Count Neutrophils # Lymphocytes # Eosinophils # Crenated Cell APTT 68.5 H ABG pH ABG pCO2 ABG pO2 ABG HCO3 ABG Total CO2 ABG O2 Saturation Sodium Potassium Chloride Carbon Dioxide BUN Creatinine BUN/Creatinine Ratio Glucose POC Glucose (mg/dL) 175 H Hemoglobin A1c Calcium Magnesium AST ALT Troponin I 0.504 H* Total Protein Albumin 07/29/23 07/29/23 07/29/23 13:57 17:09 21:09 WBC RBC Hgb Hct Plt Count Neutrophils # Lymphocytes # Eosinophils # Crenated Cell APTT ABG pH ABG pCO2 ABG pO2 ABG HCO3 ABG Total CO2 ABG O2 Saturation Sodium Potassium Chloride Carbon Dioxide BUN Creatinine BUN/Creatinine Ratio Glucose POC Glucose (mg/dL) 135 H 167 H 179 H Hemoglobin A1c Calcium Magnesium AST ALT Troponin I Total Protein Albumin 07/30/23 07/30/23 07/30/23 01:04 04:50 07:40 WBC RBC Hgb Hct Plt Count Neutrophils # Lymphocytes # Eosinophils # Crenated Cell APTT ABG pH ABG pCO2 ABG pO2 ABG HCO3 ABG Total CO2 ABG O2 Saturation Sodium Potassium Chloride Carbon Dioxide BUN Creatinine BUN/Creatinine Ratio Glucose POC Glucose (mg/dL) 141 H 207 H Hemoglobin A1c 6.4 H Calcium Magnesium AST ALT Troponin I Total Protein Albumin 07/30/23 07/30/23 07/30/23 07:40 07:40 07:40 WBC 12.0 H RBC Hgb Hct Plt Count Neutrophils # 10.4 H Lymphocytes # 0.9 L Eosinophils # Crenated Cell APTT 56.7 H ABG pH ABG pCO2 ABG pO2 ABG HCO3 ABG Total CO2 ABG O2 Saturation Sodium Potassium Chloride 111 H Carbon Dioxide BUN 32 H Creatinine BUN/Creatinine Ratio Glucose 146 H POC Glucose (mg/dL) Hemoglobin A1c Calcium Magnesium AST ALT Troponin I Total Protein Albumin 07/30/23 07/30/23 07/30/23 09:09 11:58 16:40 WBC RBC Hgb Hct Plt Count Neutrophils # Lymphocytes # Eosinophils # Crenated Cell APTT ABG pH ABG pCO2 ABG pO2 ABG HCO3 ABG Total CO2 ABG O2 Saturation Sodium Potassium Chloride Carbon Dioxide BUN Creatinine BUN/Creatinine Ratio Glucose POC Glucose (mg/dL) 140 H 248 H 187 H Hemoglobin A1c Calcium Magnesium AST ALT Troponin I Total Protein Albumin 07/30/23 07/31/23 07/31/23 23:20 05:59 08:06 WBC RBC 3.70 L Hgb Hct Plt Count 124 L Neutrophils # 9.2 H Lymphocytes # 0.5 L Eosinophils # Crenated Cell APTT ABG pH ABG pCO2 ABG pO2 ABG HCO3 ABG Total CO2 ABG O2 Saturation Sodium Potassium Chloride Carbon Dioxide BUN Creatinine BUN/Creatinine Ratio Glucose POC Glucose (mg/dL) 179 H 241 H Hemoglobin A1c Calcium Magnesium AST ALT Troponin I Total Protein Albumin 07/31/23 07/31/23 07/31/23 08:06 12:01 17:59 WBC RBC Hgb Hct Plt Count Neutrophils # Lymphocytes # Eosinophils # Crenated Cell APTT ABG pH ABG pCO2 ABG pO2 ABG HCO3 ABG Total CO2 ABG O2 Saturation Sodium Potassium Chloride 115 H Carbon Dioxide BUN 36 H Creatinine BUN/Creatinine Ratio Glucose 151 H POC Glucose (mg/dL) 141 H 265 H Hemoglobin A1c Calcium Magnesium AST 38 H ALT 37 H Troponin I Total Protein Albumin 07/31/23 08/01/23 08/01/23 23:47 05:58 10:28 WBC 11.7 H RBC Hgb Hct Plt Count 146 L Neutrophils # 10.6 H Lymphocytes # 0.4 L Eosinophils # Crenated Cell APTT ABG pH ABG pCO2 ABG pO2 ABG HCO3 ABG Total CO2 ABG O2 Saturation Sodium Potassium Chloride Carbon Dioxide BUN Creatinine BUN/Creatinine Ratio Glucose POC Glucose (mg/dL) 156 H 196 H Hemoglobin A1c Calcium Magnesium AST ALT Troponin I Total Protein Albumin 08/01/23 08/01/23 08/01/23 10:28 11:34 12:54 WBC RBC Hgb Hct Plt Count Neutrophils # Lymphocytes # Eosinophils # Crenated Cell APTT ABG pH 7.24 L ABG pCO2 69 H ABG pO2 393 H ABG HCO3 30 H ABG Total CO2 32 H ABG O2 Saturation 99.4 H Sodium Potassium Chloride 114 H Carbon Dioxide BUN 40 H Creatinine BUN/Creatinine Ratio Glucose 186 H POC Glucose (mg/dL) 228 H Hemoglobin A1c Calcium Magnesium AST 59 H ALT 91 H Troponin I Total Protein Albumin 08/01/23 08/01/23 08/02/23 18:08 23:44 04:00 WBC RBC 3.75 L Hgb 11.3 L Hct Plt Count 120 L Neutrophils # Lymphocytes # 0.5 L Eosinophils # Crenated Cell APTT ABG pH ABG pCO2 ABG pO2 ABG HCO3 ABG Total CO2 ABG O2 Saturation Sodium Potassium Chloride Carbon Dioxide BUN Creatinine BUN/Creatinine Ratio Glucose POC Glucose (mg/dL) 137 H 189 H Hemoglobin A1c Calcium Magnesium AST ALT Troponin I Total Protein Albumin 08/02/23 08/02/23 08/02/23 04:00 05:05 05:07 WBC RBC Hgb Hct Plt Count Neutrophils # Lymphocytes # Eosinophils # Crenated Cell APTT ABG pH ABG pCO2 54 H ABG pO2 56 L* ABG HCO3 30 H ABG Total CO2 32 H ABG O2 Saturation 89.4 L Sodium Potassium Chloride 112 H Carbon Dioxide BUN 42 H Creatinine BUN/Creatinine Ratio Glucose 177 H POC Glucose (mg/dL) 179 H Hemoglobin A1c Calcium Magnesium AST 37 H ALT 70 H Troponin I Total Protein 5.6 L Albumin 3.2 L 08/02/23 08/02/23 08/02/23 11:26 17:34 23:42 WBC RBC Hgb Hct Plt Count Neutrophils # Lymphocytes # Eosinophils # Crenated Cell APTT ABG pH ABG pCO2 ABG pO2 ABG HCO3 ABG Total CO2 ABG O2 Saturation Sodium Potassium Chloride Carbon Dioxide BUN Creatinine BUN/Creatinine Ratio Glucose POC Glucose (mg/dL) 188 H 177 H 191 H Hemoglobin A1c Calcium Magnesium AST ALT Troponin I Total Protein Albumin 08/03/23 08/03/23 08/03/23 04:04 04:04 05:57 WBC RBC Hgb Hct Plt Count 115 L Neutrophils # Lymphocytes # 0.5 L Eosinophils # Crenated Cell APTT ABG pH ABG pCO2 ABG pO2 ABG HCO3 ABG Total CO2 ABG O2 Saturation Sodium 146 H Potassium Chloride 115 H Carbon Dioxide 31 H BUN 46 H Creatinine BUN/Creatinine Ratio Glucose 214 H POC Glucose (mg/dL) 237 H Hemoglobin A1c Calcium Magnesium AST ALT Troponin I Total Protein Albumin 08/03/23 08/03/23 08/03/23 06:19 11:54 17:14 WBC RBC Hgb Hct Plt Count Neutrophils # Lymphocytes # Eosinophils # Crenated Cell APTT ABG pH 7.26 L ABG pCO2 68 H ABG pO2 ABG HCO3 31 H ABG Total CO2 33 H ABG O2 Saturation 97.2 H Sodium Potassium Chloride Carbon Dioxide BUN Creatinine BUN/Creatinine Ratio Glucose POC Glucose (mg/dL) 209 H 171 H Hemoglobin A1c Calcium Magnesium AST ALT Troponin I Total Protein Albumin 08/04/23 08/04/23 08/04/23 00:15 05:10 05:10 WBC RBC 3.56 L Hgb 10.9 L Hct Plt Count 116 L Neutrophils # Lymphocytes # 0.4 L Eosinophils # Crenated Cell APTT ABG pH ABG pCO2 ABG pO2 ABG HCO3 ABG Total CO2 ABG O2 Saturation Sodium 147 H Potassium Chloride 113 H Carbon Dioxide 33 H BUN 48 H Creatinine BUN/Creatinine Ratio Glucose 229 H POC Glucose (mg/dL) 250 H Hemoglobin A1c Calcium 8.3 L Magnesium 2.5 H AST 45 H ALT 57 H Troponin I Total Protein 5.0 L Albumin 2.8 L 08/04/23 08/04/23 08/04/23 05:13 06:09 12:59 WBC RBC Hgb Hct Plt Count Neutrophils # Lymphocytes # Eosinophils # Crenated Cell APTT ABG pH ABG pCO2 58 H ABG pO2 78 L ABG HCO3 33 H ABG Total CO2 35 H ABG O2 Saturation Sodium Potassium Chloride Carbon Dioxide BUN Creatinine BUN/Creatinine Ratio Glucose POC Glucose (mg/dL) 241 H 328 H Hemoglobin A1c Calcium Magnesium AST ALT Troponin I Total Protein Albumin 08/04/23 08/04/23 08/05/23 17:50 23:59 04:04 WBC RBC Hgb Hct Plt Count Neutrophils # Lymphocytes # Eosinophils # Crenated Cell APTT ABG pH ABG pCO2 ABG pO2 ABG HCO3 ABG Total CO2 ABG O2 Saturation Sodium Potassium Chloride Carbon Dioxide BUN Creatinine BUN/Creatinine Ratio Glucose POC Glucose (mg/dL) 269 H 240 H 296 H Hemoglobin A1c Calcium Magnesium AST ALT Troponin I Total Protein Albumin 08/05/23 08/05/23 08/05/23 04:05 04:05 06:10 WBC RBC 3.41 L Hgb 10.6 L Hct 32.6 L Plt Count 100 L Neutrophils # Lymphocytes # 0.4 L Eosinophils # Crenated Cell APTT ABG pH ABG pCO2 58 H ABG pO2 ABG HCO3 34 H ABG Total CO2 35 H ABG O2 Saturation 97.5 H Sodium Potassium Chloride Carbon Dioxide 33 H BUN 40 H Creatinine BUN/Creatinine Ratio Glucose 268 H POC Glucose (mg/dL) Hemoglobin A1c Calcium 8.1 L Magnesium AST ALT 49 H Troponin I Total Protein 4.7 L Albumin 2.6 L 08/05/23 08/05/23 08/05/23 12:41 17:28 20:11 WBC RBC Hgb Hct Plt Count Neutrophils # Lymphocytes # Eosinophils # Crenated Cell APTT ABG pH ABG pCO2 ABG pO2 ABG HCO3 ABG Total CO2 ABG O2 Saturation Sodium Potassium Chloride Carbon Dioxide BUN Creatinine BUN/Creatinine Ratio Glucose POC Glucose (mg/dL) 321 H 279 H 269 H Hemoglobin A1c Calcium Magnesium AST ALT Troponin I Total Protein Albumin 08/05/23 08/06/23 08/06/23 23:05 03:37 03:45 WBC RBC 3.70 L Hgb 11.3 L Hct Plt Count 103 L Neutrophils # 7.8 H Lymphocytes # 0.4 L Eosinophils # Crenated Cell APTT ABG pH ABG pCO2 ABG pO2 ABG HCO3 ABG Total CO2 ABG O2 Saturation Sodium Potassium Chloride Carbon Dioxide BUN Creatinine BUN/Creatinine Ratio Glucose POC Glucose (mg/dL) 274 H 229 H Hemoglobin A1c Calcium Magnesium AST ALT Troponin I Total Protein Albumin 08/06/23 08/06/23 08/06/23 03:45 05:47 07:33 WBC RBC Hgb Hct Plt Count Neutrophils # Lymphocytes # Eosinophils # Crenated Cell APTT ABG pH ABG pCO2 61 H ABG pO2 ABG HCO3 36 H ABG Total CO2 38 H ABG O2 Saturation 97.8 H Sodium Potassium Chloride Carbon Dioxide 33 H BUN 38 H Creatinine BUN/Creatinine Ratio Glucose 213 H POC Glucose (mg/dL) 205 H Hemoglobin A1c Calcium Magnesium AST ALT 43 H Troponin I Total Protein 5.0 L Albumin 2.8 L 08/06/23 08/06/23 08/06/23 11:32 16:00 17:58 WBC RBC Hgb Hct Plt Count Neutrophils # Lymphocytes # Eosinophils # Crenated Cell APTT ABG pH ABG pCO2 59 H ABG pO2 ABG HCO3 40 H* ABG Total CO2 42 H ABG O2 Saturation 97.6 H Sodium Potassium Chloride Carbon Dioxide BUN Creatinine BUN/Creatinine Ratio Glucose POC Glucose (mg/dL) 146 H 226 H Hemoglobin A1c Calcium Magnesium AST ALT Troponin I Total Protein Albumin 08/06/23 08/06/23 08/07/23 19:52 23:58 04:02 WBC RBC Hgb Hct Plt Count Neutrophils # Lymphocytes # Eosinophils # Crenated Cell APTT ABG pH ABG pCO2 ABG pO2 ABG HCO3 ABG Total CO2 ABG O2 Saturation Sodium Potassium Chloride Carbon Dioxide BUN Creatinine BUN/Creatinine Ratio Glucose POC Glucose (mg/dL) 173 H 169 H 196 H Hemoglobin A1c Calcium Magnesium AST ALT Troponin I Total Protein Albumin 08/07/23 08/07/23 08/07/23 04:03 04:03 08:15 WBC RBC Hgb Hct Plt Count 90 L Neutrophils # Lymphocytes # 0.7 L Eosinophils # Crenated Cell APTT ABG pH ABG pCO2 ABG pO2 ABG HCO3 ABG Total CO2 ABG O2 Saturation Sodium Potassium Chloride Carbon Dioxide 38 H BUN 45 H Creatinine BUN/Creatinine Ratio Glucose 184 H POC Glucose (mg/dL) 163 H Hemoglobin A1c Calcium 8.1 L Magnesium AST ALT 41 H Troponin I Total Protein 4.9 L Albumin 2.7 L 08/07/23 08/07/23 08/07/23 11:33 17:02 19:55 WBC RBC Hgb Hct Plt Count Neutrophils # Lymphocytes # Eosinophils # Crenated Cell APTT ABG pH ABG pCO2 ABG pO2 ABG HCO3 ABG Total CO2 ABG O2 Saturation Sodium Potassium Chloride Carbon Dioxide BUN Creatinine BUN/Creatinine Ratio Glucose POC Glucose (mg/dL) 128 H 132 H 131 H Hemoglobin A1c Calcium Magnesium AST ALT Troponin I Total Protein Albumin 08/07/23 08/08/23 08/08/23 23:52 03:27 03:28 WBC RBC Hgb Hct Plt Count 82 L Neutrophils # 8.8 H Lymphocytes # 0.6 L Eosinophils # Crenated Cell APTT ABG pH ABG pCO2 ABG pO2 ABG HCO3 ABG Total CO2 ABG O2 Saturation Sodium Potassium Chloride Carbon Dioxide BUN Creatinine BUN/Creatinine Ratio Glucose POC Glucose (mg/dL) 136 H 172 H Hemoglobin A1c Calcium Magnesium AST ALT Troponin I Total Protein Albumin 08/08/23 08/08/23 08/08/23 03:28 08:55 19:58 WBC RBC Hgb Hct Plt Count Neutrophils # Lymphocytes # Eosinophils # Crenated Cell APTT ABG pH ABG pCO2 ABG pO2 ABG HCO3 ABG Total CO2 ABG O2 Saturation Sodium Potassium Chloride Carbon Dioxide 37 H BUN 38 H Creatinine 0.47 L BUN/Creatinine Ratio Glucose 170 H POC Glucose (mg/dL) 198 H 126 H Hemoglobin A1c Calcium 8.2 L Magnesium AST ALT Troponin I Total Protein Albumin 08/08/23 08/09/23 08/09/23 23:36 05:09 05:09 WBC RBC Hgb Hct Plt Count 83 L Neutrophils # 9.1 H Lymphocytes # 0.4 L Eosinophils # Crenated Cell APTT ABG pH ABG pCO2 ABG pO2 ABG HCO3 ABG Total CO2 ABG O2 Saturation Sodium 136 L Potassium Chloride Carbon Dioxide 35 H BUN 33 H Creatinine 0.47 L BUN/Creatinine Ratio Glucose 144 H POC Glucose (mg/dL) 138 H Hemoglobin A1c Calcium 8.3 L Magnesium AST 39 H ALT 48 H Troponin I Total Protein 5.1 L Albumin 3.1 L 08/09/23 08/09/23 08/09/23 06:23 11:42 16:49 WBC RBC Hgb Hct Plt Count Neutrophils # Lymphocytes # Eosinophils # Crenated Cell APTT ABG pH ABG pCO2 ABG pO2 ABG HCO3 ABG Total CO2 ABG O2 Saturation Sodium Potassium Chloride Carbon Dioxide BUN Creatinine BUN/Creatinine Ratio Glucose POC Glucose (mg/dL) 153 H 152 H 161 H Hemoglobin A1c Calcium Magnesium AST ALT Troponin I Total Protein Albumin 08/09/23 08/10/23 08/10/23 20:54 00:22 06:24 WBC 14.70 H RBC Hgb Hct Plt Count 89 L Neutrophils # 11.16 H Lymphocytes # Eosinophils # Crenated Cell 2+ A APTT ABG pH ABG pCO2 ABG pO2 ABG HCO3 ABG Total CO2 ABG O2 Saturation Sodium Potassium Chloride Carbon Dioxide BUN Creatinine BUN/Creatinine Ratio Glucose POC Glucose (mg/dL) 252 H 125 H Hemoglobin A1c Calcium Magnesium AST ALT Troponin I Total Protein Albumin 08/10/23 06:24 WBC RBC Hgb Hct Plt Count Neutrophils # Lymphocytes # Eosinophils # Crenated Cell APTT ABG pH ABG pCO2 ABG pO2 ABG HCO3 ABG Total CO2 ABG O2 Saturation Sodium Potassium 3.4 L Chloride Carbon Dioxide 35.0 H BUN Creatinine 0.5 L BUN/Creatinine Ratio 43.20 H Glucose POC Glucose (mg/dL) Hemoglobin A1c Calcium Magnesium AST ALT Troponin I Total Protein 5.0 L Albumin 3.4 L Assessment and Plan Assessment: * Generalized weakness, 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 Guillain- Rivera appears unlikely because of preserved reflexes in the lower limbs. Rule out nutritional deficiency. * COPD with recent exacerbation status post extubation 08/06/2023. * Status post tracheobronchitis/bronchopneumonia * Troponin leak * History of tobacco use * Diabetes type 2 controlled * Hypertension * History of carotid artery disease, with previous left carotid endarterectomy. Plan: * We will check B12, folate, MMA, vitamin B6, CK, aldolase level. * Hemoglobin A1c 6.4 on 07/30/2023. Diabetes is well controlled. * CT of the cervical spine * PT, OT. Patient possible to be transferred to rehab facility. * Neurology will follow. Thank you for the consult.
[2023-08-11 00:19] LABS: Glucose,Whole Blood 212 mg/dL (70-110)
[2023-08-11] MEDS: INSULIN ASPART (NovoLOG) 100 UNIT/ML VIAL SQ SCH ×4 (01:04→18:48)
[2023-08-11] MEDS: ACETAMINOPHEN TAB 325 MG TAB PO PRN ×2 (01:13→08:11)
[2023-08-11 06:14] LABS: Glucose,Whole Blood 89 mg/dL (70-110)
[2023-08-11 07:55] LABS: Basophils % (A) 0 %; Eosinophils # (A) 0.1 k/uL (0-0.7); Eosinophils % (A) 1 %; HCT 37.7 % (34.0-46.0); HGB 12.4 gm/dL (11.4-16.0); Lymphocytes # (A) 1.4 k/uL (1.0-4.8); Lymphocytes % (A) 15 %; MCH 30.4 pg (25.0-35.0); MCHC 32.8 g/dL (31.0-37.0); MCV 92.8 fL (80.0-100.0); Mean Platelet Volume 8.9; Monocytes # (A) 0.5 k/uL (0-1.0); Monocytes % (A) 5 %; Neutrophils # (A) 7.5 k/uL (1.3-7.7); Neutrophils % (A) 78 %; RBC 4.06 m/uL (3.80-5.40); WBC 9.6 k/uL (3.8-10.6)
[2023-08-11 08:10] LABS: ALT 41 U/L (4-34); AST 32 U/L (14-36); African American GFR (CKD) >90 (>60 ml/min/1.73 sqM); Albumin 2.9 g/dL (3.5-5.0); Albumin/Globulin Ratio 1.5; Alkaline Phosphatase 53 U/L (38-126); Anion Gap 4 mmol/L; Blood Urea Nitrogen 21 mg/dL (7-17); Calcium 8.2 mg/dL (8.4-10.2); Carbon Dioxide 34 mmol/L (22-30); Chloride 100 mmol/L (98-107); Creatine Kinase 64 U/L (30-135); Glucose 88 mg/dL (74-99); Non-African American GFR(CKD) >90 (>60 ml/min/1.73 sqM); Potassium 3.2 mmol/L (3.5-5.1); Sodium 138 mmol/L (137-145); Total Protein 4.9 g/dL (6.3-8.2)
[2023-08-11] MEDS: ATORVASTATIN 40 MG TAB PO SCH (08:13)
[2023-08-11] MEDS: predniSONE 10 MG TAB PO SCH (08:13)
[2023-08-11] MEDS: ASPIRIN 81 MG PO SCH (08:13)
[2023-08-11] MEDS: NICOTINE 21MG/24HR PATCH TRANSDERM SCH (08:14)
[2023-08-11] MEDS: NYSTATIN 100,000 UNIT/ML SUSP 500,000 UNIT/5 ML CUP PO SCH ×4 (08:15→20:53)
[2023-08-11] MEDS: PANTOPRAZOLE 40 MG/10 ML VIAL IVP SCH (08:16)
[2023-08-11] MEDS: ENOXAPARIN 40 MG/0.4 ML SYRINGE SQ SCH (08:17)
[2023-08-11 08:41] LABS: Platelet Count 94 k/uL (150-450)
[2023-08-11 08:42] LABS: RBC Morphology Normal
--- NOTE | 2023-08-11 08:53 | CT ---
EXAMINATION TYPE: CT cervical spine wo con CT DLP: 429.1 mGycm, Automated exposure control for dose reduction was used. DATE OF EXAM: 08/11/2023 2:41 AM COMPARISON: 03/20/2019. CLINICAL INDICATION:Female, 73 years old with history of Arm and leg weakness; PHH, Arm and leg numbn ess TECHNIQUE: Axial CT images from the skull base to the inferior aspect of T2 we obtained without intra venous contrast. Coronal and sagittal reformatted images were also reviewed. Contrast used: mL of , (if blank None) Oral contrast used: (if blank None) FINDINGS: Fracture: None. Osseous structures: Multilevel degenerative disc disease changes with endplate spurring and disc oste ophyte complex's. Ankylosis of the transverse processes of the C3 and C4 vertebrae's on the right. Vertebral alignment: Straightening of the alignment. Spinal canal/Neural Foramina: Disc osteophyte complexes at C3-C7 with at least mild spinal canal sten osis. Facet joint uncovertebral joint arthropathy scattered throughout the cervical spine with varyin g degrees of neural foraminal stenosis. No foraminal stenosis worse at C5-C6 with at least moderate t o severe stenosis. Neck soft tissues: Prevertebral soft tissues are within normal limits. Other: The airway is patent. Paraseptal and and centrilobular emphysema changes in lung apices. Ather osclerosis of the intracranial vasculature. IMPRESSION: 1. No evidence of cervical spine fracture. 2. Moderate multilevel degenerative disc disease worse at C5-C6. 3. Moderate emphysema changes.
[2023-08-11] MEDS: IPRATROPIUM-ALBUTEROL 3 ML NEB INHALATION SCH ×4 (09:50→20:14)
[2023-08-11] MEDS: FORMOTEROL FUMARATE 20 MCG/2 ML NEBU INHALATION SCH ×2 (09:50→20:14)
[2023-08-11] MEDS: BUDESONIDE 1 MG/2 ML NEBU INHALATION SCH ×2 (09:51→20:14)
[2023-08-11] MEDS: atenoloL 25 MG TAB PO SCH (10:35)
[2023-08-11] MEDS: INSULIN DETEMIR (LEVEMIR) 100 UNIT/ML SYR SQ SCH (10:36)
[2023-08-11 12:08] LABS: Glucose,Whole Blood 153 mg/dL (70-110)
--- NOTE | 2023-08-11 12:32 | P.PN ---
Subjective Progress Note Date: 08/11/23 3-year-old female patient being seen on follow-up on 08/06/2023 for respiratory failure, intubation mechanical ventilation. The patient was intubated on 08/01/2023. She has an acute on top of chronic hypoxic respiratory failure due to COPD exacerbation patient also had a pneumonia cultures indicating st enotrophomonas. She has [id number] smoking history and she is oxygen dependent COPD. She has diabetes and hypertension. Currently, the patient is still sedated on propofol at 35 mcg/kg/m. She remains on mechanical ventilator. Assist-control mode at the rate of 24, tidal volume of 350, FiO2 of 50% with a PEEP of 5. Chest x-ray shows limited effusion lung base bilaterally. No airspace disease. ET tube is in a good location. No evidence of any pneumothorax. The blood gas from today shows a pH of 7.38 with episodes of 61 and pO2 of 103. The patient remains on bronchodilators. The patient remains on antibiotics and the patient is currently covered with IV Levaquin and Zosyn was discontinued yesterday. She remains on Perforomist and Pulmicort nebulized treatments twice a day. She is on IV Solu-Medrol 60 mg every 6 hours. She is on Levemir insulin 15 units daily and a sliding scale coverage. Peak airway pressures around 23. IV fluids are in the form of D5 water at rate of 75 mL an hour. Overall fluid balance over the past 24 hours has been +1.6 L. His white cell count today's of 3.8 with a hemoglobin of 11.3. BUN is at 38 with a creatinine of 0.6. Enteral feeding is at the rate of 40 mL an hour and the patient is receiving vital high-protein. This morning, the patient is heavily sedated with propofol. No significant orotracheal secretions. 08/07/2023, the patient is on Precedex running at 0.6 mcg/kg/m. The patient is quite sedated and comfortable. The patient is on a BiPAP. Noted the patient was extubated yesterday. I took her off the sedation yesterday and after the patient showed some adequate neurological recovery, extubated to BiPAP at a pressure 14/5 cm of water with an FiO2 50%. The patient was somewhat restless and nervous and somewhat asynchronous initially on a BiPAP. Based on that, she was started on Precedex. This morning, she seems to be quite sedated yet arousable. She is on a BiPAP at pressure 14/5 cm of water. She generating a tidal volume and a 600 range with a respiratory rate of 19 and a minute ventilation of 12.6. The chest x-ray shows no acute abnormalities. There is consistent with emphysema. Also, the patient has a the white cell count of 7.3, hemoglobin of 11.6 and a platelet count of 90. BUN is 45 and a creatinine of 0.6 and the rest of the electrolytes all within normal limits. Noted the patient's platelet counts have been gradually downtrending. The blood gas from yesterday showed well compensated chronic hypercapnic respiratory failure. She is profoundly weak. She will following some simple commands yesterday and this morning she is quite sedated. 08/08/2023, the patient remains extubated. She is awake and alert and communicating. She is on 6 L of oxygen by nasal cannula. She is profoundly weak. With help, we were able to set that up on a chair. She has significant motor weakness in the upper and lower extremities. She is communicating. No significant respiratory distress at this point in time. She used the BiPAP overnight for a few hours and she decided not to continue with that and she is currently on nasal cannula at 6 L with a pulse ox of 95%. No chest pain. No altered mentation. Swallow evaluation was done at the bedside and the patient was able to swallow and she'll be gradually advanced her diet as tolerated. She is currently off sedative medications. Her blood work from today showing a white cell count of 9.2 with a hemoglobin of 12.1, BUN is at 38 with a creatinine of 0.4 and sodium levels of 142. Platelet counts as downtrending slowly is currently down to 82. 08/09/2023, the patient remains extubated on 5 L of oxygen by nasal cannula. Activation for now is the profound weakness in the upper and lower extremities. She is able to wiggle her toes, unable to her legs increased gravity. She is barely able to raise her arms. Her breathing is comfortable. She has an adequate cough. No agitation. No restlessness. No signs of any significant respiratory distress. She is tolerating her diet. The enzymes at 33 with a creatinine of 0.4 and a white cell count of 10.0. She remains on bronchodilators and she remains on IV Solu-Medrol. She is completing her course of Levaquin. No other significant events overnight. She did use the BiPAP overnight and currently she is back on nasal cannula. She is on Levemir 15 units plus a slight scale coverage. IV fluids are currently at KVO. On 08/10/2023, Valerie is doing well. She remains profoundly weak. She needs aggressive physical therapy. Overall respiratory status is stable. I'm going to further weaned on her steroids and lower down her prednisone dose down to 10 mg by mouth daily. No chest pain. No altered mentation. Motor weakness remains activation for now. Sodium is at 142, BUN is 21 with a creatinine of 0.5 and a white cell cause of 14.7. IV fluids are currently at KVO. 08/11/2023, the activation remains a significant motor weakness. Computed tomography scan of the spine was done and it showed evidence of moderate multilevel degenerative disc changes worse at the level of C5-C6. The patient's overall respiratory status is stable. I taper the prednisone down to 10 mg by mouth daily. She is able to tolerate diet. She is communicating. Neurology evaluation was completed. Objective - Vital Signs Vital signs: Vital Signs Temp 97.8 F 08/11/23 07:19 Pulse 82 08/11/23 10:13 Resp 18 08/11/23 07:19 BP 163/74 08/11/23 07:19 Pulse Ox 95 08/11/23 09:55 FiO2 50 08/09/23 07:36 Intake & Output 08/10/23 08/11/23 08/11/23 18:59 06:59 18:59 Intake Total 500 Output Total 1550 Balance 500 -1550 Weight 58.7 kg Intake: IV 100 Levofloxacin 500Mg-D5w 100 Pmx 500 mg In Dextrose/ Water 1 100ml.bag @ 100 mls/hr IVPB Q24H [facility] Rx#: [id number] Oral 400 Output: Urine 1550 Other: Voiding Method External Catheter External Catheter External Catheter ABP, PAP, CO, CI - Last Documented Arterial Blood Pressure 176/69 - Exam No acute distress, sedated, on Precedex. The patient is currently on oxygen by nasal cannula and she is currently at 2 L/m nasal cannula Head exam was generally normal. There was no scleral icterus or corneal arcus. Mucous membranes were moist. HEENT examination is grossly unremarkable. Neck supple. Full range of motion. No adenopathy thyromegaly or neck vein distention. Cardiovascular examination reveals regular rhythm rate. S1-S2 normal. No S3 or S4. No discernible murmur noted. Lungs reveal coarse, bilateral, inspiratory and expiratory wheezes and rhonchi. No crackles. No significant wheezing or bronchospasm today's examination Abdomen soft, without bowel sounds. Extremities are intact. No cyanosis clubbing and there is edema and upper extremities bilaterally, limited edema in lower extremities. Skin is without rash or lesion. Neurologic the patient is awake and alert and communicating. The patient has profound weakness in all 4 extremities. - Labs CBC & Chem 7: 08/11/23 07:20 08/11/23 07:20 Labs: Abnormal Lab Results - Last 24 Hours (Table) 08/10/23 08/10/23 08/11/23 Range/Units 16:45 20:20 00:17 Plt Count (150-450) k/uL Potassium (3.5-5.1) mmol/L Carbon Dioxide (22-30) mmol/L BUN (7-17) mg/dL Creatinine (0.52-1.04) mg/dL POC Glucose (mg/dL) 125 H 128 H 212 H (70-110) mg/dL Calcium (8.4-10.2) mg/dL ALT (4-34) U/L Total Protein (6.3-8.2) g/dL Albumin (3.5-5.0) g/dL 08/11/23 08/11/23 Range/Units 07:20 07:20 Plt Count 94 L (150-450) k/uL Potassium 3.2 L (3.5-5.1) mmol/L Carbon Dioxide 34 H (22-30) mmol/L BUN 21 H (7-17) mg/dL Creatinine 0.42 L (0.52-1.04) mg/dL POC Glucose (mg/dL) (70-110) mg/dL Calcium 8.2 L (8.4-10.2) mg/dL ALT 41 H (4-34) U/L Total Protein 4.9 L (6.3-8.2) g/dL Albumin 2.9 L (3.5-5.0) g/dL Assessment and Plan Plan: Acute COPD exacerbation with subsequent respiratory failure, the patient was extubated on 08/06/2023. The patient remains extubated and patient currently is on 5 L of O2 nasal cannula. Overall respiratory status is stable. Active issues the profound myopathy and weakness and the patient is encountered following her intubation mechanical ventilation. She received sedative med ications and paralytics during the course of her mechanical ventilation. As such, the patient will need aggressive physical therapy and rehabilitation. Acute on chronic hypoxemic respiratory failure secondary to an acute exacerbation of chronic obstructive pulmonary disease. The patient is currently on 2 L of oxygen nasal cannula Stenotrophomonas tracheobronchitis/bronchopneumonia. Profound motor weakness in all 4 extremities, likely due to prolonged respiratory failure, intubation mechanical ventilation use of sedatives and paralytics Troponin leak secondary to above versus coronary artery disease. Chronic and ongoing tobacco dependence of greater than 50 years. Oxygen dependent chronic obstructive pulmonary disease. Diabetes mellitus, type II. Hypertension. Carotid artery disease with previous left carotid endarterectomy. CHF with impaired LV function and ejection fraction of 35% based on echocardiogram that was done on 07/29/2023. The patient also has moderate pulmonary hypertension with a PA pressure of 39. There is segmental wall motion abnormalities with anteroapical and inferoapical wall hypokinesis as well as mid inferior and mid anterior wall involvement. Profound generalized weakness probably related to prolonged intubation mechanical ventilation Plan: Neurology consultation appreciated regarding the neuromuscular weakness. Oxygen supplementation and the patient is currently on 2 L nasal cannula Continue Levaquin and complete the course of antibiotics Change IV fluids to 20 cc/ hr Advance diet as tolerated Patient is profoundly weak. prednisone down to 10 mg by mouth daily Monitor the platelet count Continue Lovenox Involved physical therapy IS Family is being regularly updated in her condition Air patient is currently on a medical floor the patient has been transferred out of the intensive care unit yesterday.
[2023-08-11] MEDS: LEVOFLOXACIN 500MG-D5W PMX 500 MG in DEXTROSE/WATER 1 100ML.BAG IVPB SCH (13:27)
--- NOTE | 2023-08-11 14:38 | P.PN ---
Subjective Progress Note Date: 08/11/23 This is a 73-year-old female patient of Dr. Phillips who presented to the ER with complaints of shortness of breath. Patient apparently was experiencing respiratory distress was transported EMS and was found to have an SpO2 in the 70s. Patient has past medical history of diabetes mellitus, nicotine depen dence, carotid artery stenosis, COPD, hypertension, atrial tachycardia. Initial chest x-ray showing hyperinflated lungs. Patient noted to have elevated troponins 0.046, 0.36 and 0.504. Patient was started on heparin drip for elevated troponins cardiology and pulmonary services were consulted. Patient started on IV steroids, DuoNeb breathing treatments azithromycin and Rocephin Dr. Soto's group previously covering We are resuming care patient on 07/30/2023 On 07/30/2023 patient is alert and oriented 3 currently resting comfortably in bed on BiPAP. Patient reports some improvement with shortness of breath but does appear to be quite short of breath. She remains on IV Solu-Medrol a zithromycin and Rocephin. Patient also remains on heparin drip per cardiology. Pulmonary and cardiology services are following. Sliding scale coverage. Current vital signs temp 97.5, pulse rate 99, respiratory rate 22, blood pressure 110/72 with a pulse ox of 98% on BiPAP On 07/31/2023 patient was seen and examined on the telemetry floor she is alert and oriented 3 in no apparent distress she is still having significant shortness of breath she is maintained on oxygen at 4 L nasal cannula, and requiring BiPAP on and off, she is still complaining of cough was yellow to green sputum production, she denies any chest pain she is still maintained on IV Solu-Medrol. Antibiotic were discontinued by pulmonary. On 08/01/2023 patient remains requiring BiPAP. Patient is alert and oriented resting comfortably on BiPAP in bed at this time. Patient had increased episodes of difficulty breathing throughout night pulmonary services at bedside orders to continue BiPAP. Patient remains on IV Solu-Medrol and DuoNeb breathing treatments. Pulmonary services are following. On 08/02/2023 patient was seen and examined in the ICU, currently she is intubated sedated maintained on mechanical ventilation, assist control rate 20 454 350 FiO2 of 50% and PEEP of 10 vital exam reveals a temperature of 99.5 pulse 81 respiration 24 blood pressure 108/58 pulse ox 94% white blood count 7.8 hemoglobin 11.3 platelet count 120 pH 7.35 pCO2 of 54. O2 56 On 08/03/2023 patient remains in the intensive care unit. Patient remains on mechanical ventilation. Sedation holiday in progress current vital signs temp 98.0, heart rate 84, blood pressure 135/55 with a pulse ox 96% been mechanical ventilation with an FiO2 of 50%. Arterial blood gases this a.m. showing a pH of 7.26, creatinine pCO2 68, pO2 100, sodium bicarb 31 On 08/04/2023 patient was seen and examined in the ICU, currently she is intu bated sedated maintained on mechanical ventilation, assist control rate 20 454 350 FiO2 of 50% and PEEP of 10 vital exam reveals a temperature of 98.7 pulse 84 respiration 24 blood pressure 132/65 white blood count is 6.1 hemoglobin 10.9 platelet count 116 arterial blood gas reveals a pH of 7.36 pCO2 of 58 CO2 78 sodium 147 potassium 4.1 chloride 1:15 CO2 33 BUN 48 creatinine 0.62 glucose level 229 On 08/05/2023 patient was seen and examined in the ICU she is intubated sedated maintained on mechanical ventilation, she is on assist control, rate 24 tidal volume 350 FiO2 50% and PEEP of 5 temperature is 99.3 pulse 22 blood pressure 99/47 blood pressure 121/48 white blood count 7.2 hemoglobin 10.6 platelet count 100 arterial blood gas revealed a pH of 7.37 pCO2 58 CO2 97 BUN 40 creatinine 0. 64 glucose is elevated again at 268. At this time will increase Levemir to 15 units daily continue with sliding scale On 08/06/2023 patient was seen and examined in the ICU, she is still intubated m aintained on mechanical ventilation, sedation is on hold at this time, for possible trial of extubation this morning, vital exam reveals a temperature of 99 pulse 89 respiration 22 blood pressure 168/64 pulse ox 94% on FiO2 of 40% laboratory data reveals a white blood count of 8.8 hemoglobin 11.3 platelet count 103 arterial blood gas reveals a pH of 7.38 pCO2 of 61 by mouth to 103 sodium 143 potassium 4.2 chloride 106 CO2 33 BUN 38 creatinine 0.63 On 08/07/2023 patient remains in the intensive care unit. Patient was extubated yesterday to BiPAP remains on Precedex. Per nursing staff patient mentation is still A and O x0. Precedex to be DC'd today per critical care services chest x- ray completed the same showing COPD with some interval improvement there may be residual mild pulmonary vascular congestion previous trace effusions have resolved. Current vital signs temp 99.0, heart rate 98, respiratory rate 15, blood pressure 114/60, pulse ox 96% on BiPAP 50% FiO2 On 08/08/2023 patient remains in the intensive care unit. Patient currently sitting up in chair. Patient is able to answer some questions and follow some commands. This is improved compared to yesterday. Current vital signs temp 98.6, heart rate 76, respiratory rate 14, blood pressure 150/70 with a pulse ox of 98% on 6 L high flow. Patient remains on IV Solu-Medrol and Levaquin. PT OT services consulted On 08/09/2023 patient was seen and examined in the ICU she is alert and oriented 3 in no apparent distress, she is answering questions appropriately, she is maintained on oxygen 4 L nasal cannula, she is complaining of generalized severe weakness, otherwise she denies any complaints there is no fever or chills no headache or dizziness no chest pain no shortness of breath no cough no nausea or vomiting no abdominal pain no diarrhea and no urinary symptoms On 08/10/2023 patient is alert and oriented 3 patient has been moved out of the intensive care unit currently on 2 L nasal cannula. Patient remains with significant physical weakness will consult inpatient rehab for possible admission. Current vital signs temp 97.8, heart 22, respiratory rate 16, blood pressure 149/69 with pulse ox 96% on 2 L On 08/11/2023 patient was seen and examined on the medical floor she is alert and oriented 3 in no apparent distress there is no fever or chills no headache or dizziness no chest pain no shortness of breath no cough no nausea or vomiting no abdominal pain no diarrhea and no urinary symptoms she is still has severe generalized weakness she is still maintained on oxygen at 2 L nasal cannula valarie chilel is improving gradually possible discharge in the next few days patient will need to go to rehab unit post hospital stay Objective - Vital Signs Vital signs: Vital Signs Temp 98.2 F 08/11/23 01:21 Pulse 77 08/11/23 01:21 Resp 18 08/11/23 01:21 BP 113/63 08/11/23 01:21 Pulse Ox 96 08/11/23 01:21 FiO2 50 08/09/23 07:36 Intake & Output 08/10/23 08/11/23 08/11/23 18:59 06:59 18:59 Intake Total 500 Output Total 1550 Balance 500 -1550 Weight 58.7 kg Intake: IV 100 Levofloxacin 500Mg-D5w 100 Pmx 500 mg In Dextrose/ Water 1 100ml.bag @ 100 mls/hr IVPB Q24H [facility] Rx#: [id number] Oral 400 Output: Urine 1550 Other: Voiding Method External Catheter External Catheter External Catheter ABP, PAP, CO, CI - Last Documented Arterial Blood Pressure 176/69 - Exam In general patient is intubated sedated maintained on mechanical intubation HEENT head normocephalic and atraumatic Neck is supple no JVD no goiter no lymphadenopathy no carotid bruit Chest examination is clear to auscultation no crackles no wheezing Cardiac exam reveals regular heart sounds S1 and S2 no gallops no murmurs Abdomen is soft nontender no organomegaly with normal bowel sounds Extremity exam reveals no edema no cyanosis or clubbing Neurological examination reveals no gross focal deficits - Labs CBC & Chem 7: 08/11/23 07:20 08/11/23 07:20 Labs: Abnormal Lab Results - Last 24 Hours (Table) 08/10/23 08/10/23 08/10/23 Range/Units 06:24 16:45 20:20 WBC 14.70 H (4.50-10.00) X 10*3/uL Plt Count 89 L (140-440) X 10*3/uL Neutrophils # 11.16 H (1.80-7.70) X 10*3/uL Crenated Cell 2+ A Potassium (3.5-5.1) mmol/L Carbon Dioxide (22-30) mmol/L BUN (7-17) mg/dL Creatinine (0.52-1.04) mg/dL POC Glucose (mg/dL) 125 H 128 H (70-110) mg/dL Calcium (8.4-10.2) mg/dL ALT (4-34) U/L Total Protein (6.3-8.2) g/dL Albumin (3.5-5.0) g/dL 08/11/23 08/11/23 08/11/23 Range/Units 00:17 07:20 07:20 WBC (4.50-10.00) X 10*3/uL Plt Count 94 L (140-440) X 10*3/uL Neutrophils # (1.80-7.70) X 10*3/uL Crenated Cell Potassium 3.2 L (3.5-5.1) mmol/L Carbon Dioxide 34 H (22-30) mmol/L BUN 21 H (7-17) mg/dL Creatinine 0.42 L (0.52-1.04) mg/dL POC Glucose (mg/dL) 212 H (70-110) mg/dL Calcium 8.2 L (8.4-10.2) mg/dL ALT 41 H (4-34) U/L Total Protein 4.9 L (6.3-8.2) g/dL Albumin 2.9 L (3.5-5.0) g/dL Assessment and Plan Plan: 1. Shortness breath secondary to acute exacerbation of COPD with tracheal bronchitis requiring intubation and mechanical ventilation 2. Non-ST elevated AR 3. Chronic and ongoing nicotine dependence 4. Oxygen dependent chronic obstructive pulmonary disease 5. Diabetes mellitus type 2 6. History of essential hypertension 7. Carotid artery disease with previous left carotid endarterectomy Pulmonary and cardiology service is consulted Remains in the intensive care unit Patient maintained on IV Solu-Medrol, DuoNeb breathing treatments Maintained on Levaquin Patient extubated to BiPAP on 08/06/2023 Repeat labs ordered DVT prophylaxis lovenox. GI prophylaxis Protonix Consult for inpatient rehab
[2023-08-11] MEDS: POTASSIUM CHLORIDE ER 20 MEQ TAB.ER PO SCH ×4 (16:15→22:55)
[2023-08-11 18:37] LABS: Glucose,Whole Blood 213 mg/dL (70-110)
[2023-08-11] MEDS ORDERED: Potassium Replacement Protocol 1 EACH MISC MISCELLANE PRN (21:23)
[2023-08-12 00:22] LABS: Glucose,Whole Blood 93 mg/dL (70-110)
[2023-08-12] MEDS: INSULIN ASPART (NovoLOG) 100 UNIT/ML VIAL SQ SCH ×4 (00:22→18:30)
[2023-08-12] MEDS ORDERED: POTASSIUM CHLORIDE ER 20 MEQ TAB.ER PO SCH (04:00)
[2023-08-12 06:07] LABS: Glucose,Whole Blood 104 mg/dL (70-110)
[2023-08-12] MEDS: INSULIN DETEMIR (LEVEMIR) 100 UNIT/ML SYR SQ SCH (06:25)
[2023-08-12 07:43] LABS: Basophils % (A) 0 %; Eosinophils # (A) 0.2 k/uL (0-0.7); Eosinophils % (A) 2 %; HCT 36.3 % (34.0-46.0); HGB 12.2 gm/dL (11.4-16.0); Lymphocytes # (A) 1.5 k/uL (1.0-4.8); Lymphocytes % (A) 15 %; MCH 31.3 pg (25.0-35.0); MCHC 33.6 g/dL (31.0-37.0); MCV 93.1 fL (80.0-100.0); Mean Platelet Volume 8.4; Monocytes # (A) 0.5 k/uL (0-1.0); Monocytes % (A) 5 %; Neutrophils # (A) 7.9 k/uL (1.3-7.7); Neutrophils % (A) 78 %; Platelet Count 116 k/uL (150-450); RDW 14.4 % (11.5-15.5); WBC 10.2 k/uL (3.8-10.6)
[2023-08-12 07:50] LABS: ALT 35 U/L (4-34); AST 26 U/L (14-36); African American GFR (CKD) >90 (>60 ml/min/1.73 sqM); Albumin 2.9 g/dL (3.5-5.0); Albumin/Globulin Ratio 1.5; Alkaline Phosphatase 55 U/L (38-126); Anion Gap 2 mmol/L; Blood Urea Nitrogen 18 mg/dL (7-17); Calcium 8.4 mg/dL (8.4-10.2); Carbon Dioxide 32 mmol/L (22-30); Chloride 104 mmol/L (98-107); Glucose 95 mg/dL (74-99); Non-African American GFR(CKD) >90 (>60 ml/min/1.73 sqM); Potassium 4.3 mmol/L (3.5-5.1); Sodium 138 mmol/L (137-145); Total Bilirubin 0.8 mg/dL (0.2-1.3); Total Protein 4.9 g/dL (6.3-8.2)
[2023-08-12] MEDS: FORMOTEROL FUMARATE 20 MCG/2 ML NEBU INHALATION SCH ×2 (08:07→21:04)
[2023-08-12] MEDS: BUDESONIDE 1 MG/2 ML NEBU INHALATION SCH ×2 (08:07→21:04)
[2023-08-12] MEDS: IPRATROPIUM-ALBUTEROL 3 ML NEB INHALATION SCH ×4 (08:07→21:04)
[2023-08-12] MEDS: ENOXAPARIN 40 MG/0.4 ML SYRINGE SQ SCH (08:48)
[2023-08-12] MEDS: ASPIRIN 81 MG PO SCH (08:48)
[2023-08-12] MEDS: ATORVASTATIN 40 MG TAB PO SCH (08:48)
[2023-08-12] MEDS: predniSONE 10 MG TAB PO SCH (08:49)
[2023-08-12] MEDS: NICOTINE 21MG/24HR PATCH TRANSDERM SCH (08:49)
[2023-08-12] MEDS: PANTOPRAZOLE 40 MG/10 ML VIAL IVP SCH (08:52)
[2023-08-12] MEDS: NYSTATIN 100,000 UNIT/ML SUSP 500,000 UNIT/5 ML CUP PO SCH ×4 (08:52→22:19)
[2023-08-12] MEDS: atenoloL 25 MG TAB PO SCH (10:06)
--- NOTE | 2023-08-12 11:52 | P.PN ---
Subjective Progress Note Date: 08/12/23 3-year-old female patient being seen on follow-up on 08/06/2023 for respiratory failure, intubation mechanical ventilation. The patient was intubated on 08/01/2023. She has an acute on top of chronic hypoxic respiratory failure due to COPD exacerbation patient also had a pneumonia cultures indicating st enotrophomonas. She has 21-gfpt-aibf smoking history and she is oxygen dependent COPD. She has diabetes and hypertension. Currently, the patient is still sedated on propofol at 35 mcg/kg/m. She remains on mechanical ventilator. Assist-control mode at the rate of 24, tidal volume of 350, FiO2 of 50% with a PEEP of 5. Chest x-ray shows limited effusion lung base bilaterally. No airspace disease. ET tube is in a good location. No evidence of any pneumothorax. The blood gas from today shows a pH of 7.38 with episodes of 61 and pO2 of 103. The patient remains on bronchodilators. The patient remains on antibiotics and the patient is currently covered with IV Levaquin and Zosyn was discontinued yesterday. She remains on Perforomist and Pulmicort nebulized treatments twice a day. She is on IV Solu-Medrol 60 mg every 6 hours. She is on Levemir insulin 15 units daily and a sliding scale coverage. Peak airway pressures around 23. IV fluids are in the form of D5 water at rate of 75 mL an hour. Overall fluid balance over the past 24 hours has been +1.6 L. His white cell count today's of 3.8 with a hemoglobin of 11.3. BUN is at 38 with a creatinine of 0.6. Enteral feeding is at the rate of 40 mL an hour and the patient is receiving vital high-protein. This morning, the patient is heavily sedated with propofol. No significant orotracheal secretions. 08/07/2023, the patient is on Precedex running at 0.6 mcg/kg/m. The patient is quite sedated and comfortable. The patient is on a BiPAP. Noted the patient was extubated yesterday. I took her off the sedation yesterday and after the patient showed some adequate neurological recovery, extubated to BiPAP at a pressure 14/5 cm of water with an FiO2 50%. The patient was somewhat restless and nervous and somewhat asynchronous initially on a BiPAP. Based on that, she was started on Precedex. This morning, she seems to be quite sedated yet arousable. She is on a BiPAP at pressure 14/5 cm of water. She generating a tidal volume and a 600 range with a respiratory rate of 19 and a minute ventilation of 12.6. The chest x-ray shows no acute abnormalities. There is consistent with emphysema. Also, the patient has a the white cell count of 7.3, hemoglobin of 11.6 and a platelet count of 90. BUN is 45 and a creatinine of 0.6 and the rest of the electrolytes all within normal limits. Noted the patient's platelet counts have been gradually downtrending. The blood gas from yesterday showed well compensated chronic hypercapnic respiratory failure. She is profoundly weak. She will following some simple commands yesterday and this morning she is quite sedated. 08/08/2023, the patient remains extubated. She is awake and alert and communicating. She is on 6 L of oxygen by nasal cannula. She is profoundly weak. With help, we were able to set that up on a chair. She has significant motor weakness in the upper and lower extremities. She is communicating. No significant respiratory distress at this point in time. She used the BiPAP overnight for a few hours and she decided not to continue with that and she is currently on nasal cannula at 6 L with a pulse ox of 95%. No chest pain. No altered mentation. Swallow evaluation was done at the bedside and the patient was able to swallow and she'll be gradually advanced her diet as tolerated. She is currently off sedative medications. Her blood work from today showing a white cell count of 9.2 with a hemoglobin of 12.1, BUN is at 38 with a creatinine of 0.4 and sodium levels of 142. Platelet counts as downtrending slowly is currently down to 82. 08/09/2023, the patient remains extubated on 5 L of oxygen by nasal cannula. Activation for now is the profound weakness in the upper and lower extremities. She is able to wiggle her toes, unable to her legs increased gravity. She is barely able to raise her arms. Her breathing is comfortable. She has an adequate cough. No agitation. No restlessness. No signs of any significant respiratory distress. She is tolerating her diet. The enzymes at 33 with a creatinine of 0.4 and a white cell count of 10.0. She remains on bronchodilators and she remains on IV Solu-Medrol. She is completing her course of Levaquin. No other significant events overnight. She did use the BiPAP overnight and currently she is back on nasal cannula. She is on Levemir 15 units plus a slight scale coverage. IV fluids are currently at KVO. On 08/10/2023, Valerie is doing well. She remains profoundly weak. She needs aggressive physical therapy. Overall respiratory status is stable. I'm going to further weaned on her steroids and lower down her prednisone dose down to 10 mg by mouth daily. No chest pain. No altered mentation. Motor weakness remains activation for now. Sodium is at 142, BUN is 21 with a creatinine of 0.5 and a white cell cause of 14.7. IV fluids are currently at KVO. 08/11/2023, the activation remains a significant motor weakness. Computed tomography scan of the spine was done and it showed evidence of moderate multilevel degenerative disc changes worse at the level of C5-C6. The patient's overall respiratory status is stable. I taper the prednisone down to 10 mg by mouth daily. She is able to tolerate diet. She is communicating. Neurology evaluation was completed. On 08/12/2023, limited progress in terms of her weakness overall. Patient respiratory status is stable. No worsening shortness of breath. She is on bronchodilators. She is on 10 mg of prednisone. She is completing course of Levaquin. She will need physical therapy and aggressive rehabilitation. She is on Levemir insulin 15 units. BUN is 18 with a creatinine of 0.5 and a sodium level is at 138. The white cell count of 10.2. Objective - Vital Signs Vital signs: Vital Signs Temp 97.9 F 08/12/23 00:17 Pulse 70 08/12/23 08:30 Resp 18 08/12/23 00:17 BP 110/62 08/12/23 00:17 Pulse Ox 98 08/12/23 00:17 FiO2 50 08/09/23 07:36 Intake & Output 08/11/23 08/12/23 08/12/23 18:59 06:59 18:59 Intake Total 400 Output Total 300 500 Balance 100 -500 Intake: Oral 400 Output: Urine 300 500 Other: Voiding Method External Catheter External Catheter ABP, PAP, CO, CI - Last Documented Arterial Blood Pressure 176/69 - Exam No acute distress, sedated, on Precedex. The patient is currently on oxygen by nasal cannula and she is currently at 2 L/m nasal cannula Head exam was generally normal. There was no scleral icterus or corneal arcus. Mucous membranes were moist. HEENT examination is grossly unremarkable. Neck supple. Full range of motion. No adenopathy thyromegaly or neck vein distention. Cardiovascular examination reveals regular rhythm rate. S1-S2 normal. No S3 or S4. No discernible murmur noted. Lungs reveal coarse, bilateral, inspiratory and expiratory wheezes and rhonchi. No crackles. No significant wheezing or bronchospasm today's examination Abdomen soft, without bowel sounds. Extremities are intact. No cyanosis clubbing and there is edema and upper extremities bilaterally, limited edema in lower extremities. Skin is without rash or lesion. Neurologic the patient is awake and alert and communicating. The patient has profound weakness in all 4 extremities. - Labs CBC & Chem 7: 08/12/23 07:09 08/12/23 07:09 Labs: Abnormal Lab Results - Last 24 Hours (Table) 08/11/23 08/11/23 08/12/23 Range/Units 12:05 18:34 07:09 Plt Count 116 L (150-450) k/uL Neutrophils # 7.9 H (1.3-7.7) k/uL Carbon Dioxide (22-30) mmol/L BUN (7-17) mg/dL Creatinine (0.52-1.04) mg/dL POC Glucose (mg/dL) 153 H 213 H (70-110) mg/dL ALT (4-34) U/L Total Protein (6.3-8.2) g/dL Albumin (3.5-5.0) g/dL 08/12/23 Range/Units 07:09 Plt Count (150-450) k/uL Neutrophils # (1.3-7.7) k/uL Carbon Dioxide 32 H (22-30) mmol/L BUN 18 H (7-17) mg/dL Creatinine 0.50 L (0.52-1.04) mg/dL POC Glucose (mg/dL) (70-110) mg/dL ALT 35 H (4-34) U/L Total Protein 4.9 L (6.3-8.2) g/dL Albumin 2.9 L (3.5-5.0) g/dL Assessment and Plan Plan: Acute COPD exacerbation with subsequent respiratory failure, the patient was extubated on 08/06/2023. The patient remains extubated and patient currently is on 5 L of O2 nasal cannula. Overall respiratory status is stable. Active is sues the profound myopathy and weakness and the patient is encountered following her intubation mechanical ventilation. She received sedative medications and paralytics during the course of her mechanical ventilation. As such, the patient will need aggressive physical therapy and rehabilitation. Acute on chronic hypoxemic respiratory failure secondary to an acute exacerbation of chronic obstructive pulmonary disease. The patient is currently on 2 L of oxygen nasal cannula Stenotrophomonas tracheobronchitis/bronchopneumonia. Profound motor weakness in all 4 extremities, likely due to prolonged respiratory failure, intubation mechanical ventilation use of sedatives and paralytics Troponin leak secondary to above versus coronary artery disease. Chronic and ongoing tobacco dependence of greater than 50 years. Oxygen dependent chronic obstructive pulmonary disease. Diabetes mellitus, type II. Hypertension. Carotid artery disease with previous left carotid endarterectomy. CHF with impaired LV function and ejection fraction of 35% based on echocardiogram that was done on 07/29/2023. The patient also has moderate pulmonary hypertension with a PA pressure of 39. There is segmental wall motion abnormalities with anteroapical and inferoapical wall hypokinesis as well as mid inferior and mid anterior wall involvement. Profound generalized weakness probably related to prolonged intubation mechanical ventilation Plan: Neurology consultation appreciated regarding the neuromuscular weakness., No major progress in terms of her weakness since yesterday. Oxygen supplementation and the patient is currently on 2 L nasal cannula Continue Levaquin and complete the course of antibiotics Change IV fluids to 20 cc/ hr Advance diet as tolerated Patient is profoundly weak. The patient has been tapered on her steroids and the patient is currently on prednisone down to 10 mg by mouth daily Monitor the platelet count Continue Lovenox Involved physical therapy IS Family is being regularly updated in her condition
[2023-08-12 11:59] LABS: Glucose,Whole Blood 67 mg/dL (70-110)
[2023-08-12 12:30] LABS: Glucose,Whole Blood 95 mg/dL (70-110)
--- NOTE | 2023-08-12 13:08 | P.PN ---
Subjective Progress Note Date: 08/12/23 This is a 73-year-old female patient of Dr. Phillips who presented to the ER with complaints of shortness of breath. Patient apparently was experiencing respiratory distress was transported EMS and was found to have an SpO2 in the 70s. Patient has past medical history of diabetes mellitus, nicotine depen dence, carotid artery stenosis, COPD, hypertension, atrial tachycardia. Initial chest x-ray showing hyperinflated lungs. Patient noted to have elevated troponins 0.046, 0.36 and 0.504. Patient was started on heparin drip for elevated troponins cardiology and pulmonary services were consulted. Patient started on IV steroids, DuoNeb breathing treatments azithromycin and Rocephin Dr. Soto's group previously covering We are resuming care patient on 07/30/2023 On 07/30/2023 patient is alert and oriented 3 currently resting comfortably in bed on BiPAP. Patient reports some improvement with shortness of breath but does appear to be quite short of breath. She remains on IV Solu-Medrol a zithromycin and Rocephin. Patient also remains on heparin drip per cardiology. Pulmonary and cardiology services are following. Sliding scale coverage. Current vital signs temp 97.5, pulse rate 99, respiratory rate 22, blood pressure 110/72 with a pulse ox of 98% on BiPAP On 07/31/2023 patient was seen and examined on the telemetry floor she is alert and oriented 3 in no apparent distress she is still having significant shortness of breath she is maintained on oxygen at 4 L nasal cannula, and requiring BiPAP on and off, she is still complaining of cough was yellow to green sputum production, she denies any chest pain she is still maintained on IV Solu-Medrol. Antibiotic were discontinued by pulmonary. On 08/01/2023 patient remains requiring BiPAP. Patient is alert and oriented resting comfortably on BiPAP in bed at this time. Patient had increased episodes of difficulty breathing throughout night pulmonary services at bedside orders to continue BiPAP. Patient remains on IV Solu-Medrol and DuoNeb breathing treatments. Pulmonary services are following. On 08/02/2023 patient was seen and examined in the ICU, currently she is intubated sedated maintained on mechanical ventilation, assist control rate 20 454 350 FiO2 of 50% and PEEP of 10 vital exam reveals a temperature of 99.5 pulse 81 respiration 24 blood pressure 108/58 pulse ox 94% white blood count 7.8 hemoglobin 11.3 platelet count 120 pH 7.35 pCO2 of 54. O2 56 On 08/03/2023 patient remains in the intensive care unit. Patient remains on mechanical ventilation. Sedation holiday in progress current vital signs temp 98.0, heart rate 84, blood pressure 135/55 with a pulse ox 96% been mechanical ventilation with an FiO2 of 50%. Arterial blood gases this a.m. showing a pH of 7.26, creatinine pCO2 68, pO2 100, sodium bicarb 31 On 08/04/2023 patient was seen and examined in the ICU, currently she is intu bated sedated maintained on mechanical ventilation, assist control rate 20 454 350 FiO2 of 50% and PEEP of 10 vital exam reveals a temperature of 98.7 pulse 84 respiration 24 blood pressure 132/65 white blood count is 6.1 hemoglobin 10.9 platelet count 116 arterial blood gas reveals a pH of 7.36 pCO2 of 58 CO2 78 sodium 147 potassium 4.1 chloride 1:15 CO2 33 BUN 48 creatinine 0.62 glucose level 229 On 08/05/2023 patient was seen and examined in the ICU she is intubated sedated maintained on mechanical ventilation, she is on assist control, rate 24 tidal volume 350 FiO2 50% and PEEP of 5 temperature is 99.3 pulse 22 blood pressure 99/47 blood pressure 121/48 white blood count 7.2 hemoglobin 10.6 platelet count 100 arterial blood gas revealed a pH of 7.37 pCO2 58 CO2 97 BUN 40 creatinine 0. 64 glucose is elevated again at 268. At this time will increase Levemir to 15 units daily continue with sliding scale On 08/06/2023 patient was seen and examined in the ICU, she is still intubated m aintained on mechanical ventilation, sedation is on hold at this time, for possible trial of extubation this morning, vital exam reveals a temperature of 99 pulse 89 respiration 22 blood pressure 168/64 pulse ox 94% on FiO2 of 40% laboratory data reveals a white blood count of 8.8 hemoglobin 11.3 platelet count 103 arterial blood gas reveals a pH of 7.38 pCO2 of 61 by mouth to 103 sodium 143 potassium 4.2 chloride 106 CO2 33 BUN 38 creatinine 0.63 On 08/07/2023 patient remains in the intensive care unit. Patient was extubated yesterday to BiPAP remains on Precedex. Per nursing staff patient mentation is still A and O x0. Precedex to be DC'd today per critical care services chest x- ray completed the same showing COPD with some interval improvement there may be residual mild pulmonary vascular congestion previous trace effusions have resolved. Current vital signs temp 99.0, heart rate 98, respiratory rate 15, blood pressure 114/60, pulse ox 96% on BiPAP 50% FiO2 On 08/08/2023 patient remains in the intensive care unit. Patient currently sitting up in chair. Patient is able to answer some questions and follow some commands. This is improved compared to yesterday. Current vital signs temp 98.6, heart rate 76, respiratory rate 14, blood pressure 150/70 with a pulse ox of 98% on 6 L high flow. Patient remains on IV Solu-Medrol and Levaquin. PT OT services consulted On 08/09/2023 patient was seen and examined in the ICU she is alert and oriented 3 in no apparent distress, she is answering questions appropriately, she is maintained on oxygen 4 L nasal cannula, she is complaining of generalized severe weakness, otherwise she denies any complaints there is no fever or chills no headache or dizziness no chest pain no shortness of breath no cough no nausea or vomiting no abdominal pain no diarrhea and no urinary symptoms On 08/10/2023 patient is alert and oriented 3 patient has been moved out of the intensive care unit currently on 2 L nasal cannula. Patient remains with significant physical weakness will consult inpatient rehab for possible admission. Current vital signs temp 97.8, heart 22, respiratory rate 16, blood pressure 149/69 with pulse ox 96% on 2 L On 08/11/2023 patient was seen and examined on the medical floor she is alert and oriented 3 in no apparent distress there is no fever or chills no headache or dizziness no chest pain no shortness of breath no cough no nausea or vomiting no abdominal pain no diarrhea and no urinary symptoms she is still has severe generalized weakness she is still maintained on oxygen at 2 L nasal cannula valarie chilel is improving gradually possible discharge in the next few days patient will need to go to rehab unit post hospital stay. On 08/12/2023 patient was seen and examined on the medical floor she is alert and oriented 3 in no apparent distress she is sitting up eating her meal there is no fever or chills no headache or dizziness no chest pain no shortness of breath no cough no nausea or vomiting no abdominal pain no diarrhea and no urinary symptoms blood glucose is on the low side, at this time will discontinue Levemir and continue with sliding scale only. Objective - Vital Signs Vital signs: Vital Signs Temp 97.9 F 08/12/23 00:17 Pulse 70 08/12/23 08:30 Resp 18 08/12/23 00:17 BP 110/62 08/12/23 00:17 Pulse Ox 98 08/12/23 00:17 FiO2 50 08/09/23 07:36 Intake & Output 08/11/23 08/12/23 08/12/23 18:59 06:59 18:59 Intake Total 400 Output Total 300 500 Balance 100 -500 Intake: Oral 400 Output: Urine 300 500 Other: Voiding Method External Catheter External Catheter ABP, PAP, CO, CI - Last Documented Arterial Blood Pressure 176/69 - Exam In general patient is intubated sedated maintained on mechanical intubation HEENT head normocephalic and atraumatic Neck is supple no JVD no goiter no lymphadenopathy no carotid bruit Chest examination is clear to auscultation no crackles no wheezing Cardiac exam reveals regular heart sounds S1 and S2 no gallops no murmurs Abdomen is soft nontender no organomegaly with normal bowel sounds Extremity exam reveals no edema no cyanosis or clubbing Neurological examination reveals no gross focal deficits - Labs CBC & Chem 7: 08/12/23 07:09 08/12/23 07:09 Labs: Abnormal Lab Results - Last 24 Hours (Table) 08/11/23 08/11/23 08/12/23 Range/Units 12:05 18:34 07:09 Plt Count 116 L (150-450) k/uL Neutrophils # 7.9 H (1.3-7.7) k/uL Carbon Dioxide (22-30) mmol/L BUN (7-17) mg/dL Creatinine (0.52-1.04) mg/dL POC Glucose (mg/dL) 153 H 213 H (70-110) mg/dL ALT (4-34) U/L Total Protein (6.3-8.2) g/dL Albumin (3.5-5.0) g/dL 08/12/23 Range/Units 07:09 Plt Count (150-450) k/uL Neutrophils # (1.3-7.7) k/uL Carbon Dioxide 32 H (22-30) mmol/L BUN 18 H (7-17) mg/dL Creatinine 0.50 L (0.52-1.04) mg/dL POC Glucose (mg/dL) (70-110) mg/dL ALT 35 H (4-34) U/L Total Protein 4.9 L (6.3-8.2) g/dL Albumin 2.9 L (3.5-5.0) g/dL Assessment and Plan Plan: 1. Shortness breath secondary to acute exacerbation of COPD with tracheal bronchitis requiring intubation and mechanical ventilation 2. Non-ST elevated VT 3. Chronic and ongoing nicotine dependence 4. Oxygen dependent chronic obstructive pulmonary disease 5. Diabetes mellitus type 2 6. History of essential hypertension 7. Carotid artery disease with previous left carotid endarterectomy Pulmonary and cardiology service is consulted Remains in the intensive care unit Patient maintained on IV Solu-Medrol, DuoNeb breathing treatments Maintained on Levaquin Patient extubated to BiPAP on 08/06/2023 Repeat labs ordered DVT prophylaxis lovenox. GI prophylaxis Protonix Consult for inpatient rehab
[2023-08-12] MEDS: LEVOFLOXACIN 500MG-D5W PMX 500 MG in DEXTROSE/WATER 1 100ML.BAG IVPB SCH (13:25)
[2023-08-12] MEDS: SODIUM CHLORIDE 0.9% 1,000 ML IV SCH (16:16)
[2023-08-12 18:32] LABS: Glucose,Whole Blood 95 mg/dL (70-110)
[2023-08-12 23:44] LABS: Glucose,Whole Blood 85 mg/dL (70-110)
[2023-08-13] MEDS: ACETAMINOPHEN TAB 325 MG TAB PO PRN (00:37)
--- NOTE | 2023-08-13 01:00 | P.PN ---
Subjective Progress Note Date: 08/12/23 Patient was seen for a follow-up. Patient is laying comfortably in the bed. Patient believes she is slightly better. Objective - Vital Signs Vital signs: Vital Signs Temp 97.7 F 08/12/23 14:44 Pulse 67 08/12/23 15:34 Resp 18 08/12/23 14:44 BP 93/54 08/12/23 15:34 Pulse Ox 100 08/12/23 15:32 FiO2 50 08/09/23 07:36 Intake & Output 08/11/23 08/12/23 08/12/23 18:59 06:59 18:59 Intake Total 400 Output Total 057 660 8452 Balance 100 -500 -1150 Intake: Oral 400 Output: Urine 367 488 1284 Other: Voiding Method External Catheter External Catheter External Catheter ABP, PAP, CO, CI - Last Documented Arterial Blood Pressure 176/69 - Exam Patient is an elderly female, very pleasant in no acute distress. Patient is alert awake oriented to time place and person. Patient can name and repeat very well. No aphasia or dysarthria. Attention, concentration and fund of knowledge is adequate. On cranial nerve examination, pupils are equal, round and reacting to light, visual ward are full on confrontation, with no neglect on double simultaneous stimulation. Extraocular muscles are intact with no nystagmus. Face is symmetric, tongue protrudes to the midline. Palatal elevation and sensation normal, hearing and shoulder shrug normal, facial sensation normal. Her neck is supple. No stiffness, no rigidity. On muscle strength testing, patient is diffusely weak. Her strength is (right/left) deltoid 2/2, biceps 2/3-, triceps 4/4, photo optics technician 3+4-/3+4-, wrist extension 2/trace. In the lower limbs hip flexion 1-2/1-2, ankle dorsiflexion trace/trace. Deep tendon reflexes are symmetric biceps 1, brachioradialis 1 , knees 1+2, ankl es trace and plantars are flat bilaterally. Sensory to touch is equal with no neglect on double simultaneous stimulation. Cerebellar function not able to be performed. Tone is decreased and bulk of muscles also slightly decreased. Gait deferred.. On general examination, there is no carotid bruit or murmur, S1-S2 audible. Chest is clear on consultation. Abdomen is soft nontender. No organomegaly, bowel sounds present. Peripheral pulses are present. No edema. Her hands are very cold, and has multiple bruises on the right hand. - Labs CBC & Chem 7: 08/14/23 06:56 08/14/23 06:56 Labs: Abnormal Lab Results - Last 24 Hours (Table) 08/11/23 08/12/23 08/12/23 Range/Units 18:34 07:09 07:09 Plt Count 116 L (150-450) k/uL Neutrophils # 7.9 H (1.3-7.7) k/uL Carbon Dioxide 32 H (22-30) mmol/L BUN 18 H (7-17) mg/dL Creatinine 0.50 L (0.52-1.04) mg/dL POC Glucose (mg/dL) 213 H (70-110) mg/dL ALT 35 H (4-34) U/L Total Protein 4.9 L (6.3-8.2) g/dL Albumin 2.9 L (3.5-5.0) g/dL 08/12/23 Range/Units 11:56 Plt Count (150-450) k/uL Neutrophils # (1.3-7.7) k/uL Carbon Dioxide (22-30) mmol/L BUN (7-17) mg/dL Creatinine (0.52-1.04) mg/dL POC Glucose (mg/dL) 67 L (70-110) mg/dL ALT (4-34) U/L Total Protein (6.3-8.2) g/dL Albumin (3.5-5.0) g/dL Assessment and Plan Assessment: * Generalized weakness, 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 Guillain- Rivera appears unlikely because of preserved reflexes in the upper and lower limbs. Rule out nutritional deficiency. * COPD with recent exacerbation status post extubation 08/06/2023. * Status post tracheobronchitis/bronchopneumonia * Troponin leak * History of tobacco use * Diabetes type 2 controlled * Hypertension * History of carotid artery disease, with previous left carotid endarterectomy. Plan: * B12 704, folate 13.0, CK 64, vitamin B6, MMA and aldolase level pending. * CT of the cervical spine revealed no evidence of cervical spine fracture. Moderate multilevel degenerative disc disease worse at C5 6 * Patient neurologically clear for transfer to inpatient rehab. * Dr. Hugo Fitch will resume neurology service in the morning. Addendum (08/16/2023): Vitamin B6 is decreased 4 (5-50) Methylmalonic acid normal 0.25 Aldolase normal 6.7 Creatine kinase 64 (30-135).
[2023-08-13 05:40] LABS: Glucose,Whole Blood 89 mg/dL (70-110)
[2023-08-13] MEDS: SODIUM CHLORIDE 0.9% 1,000 ML IV SCH (08:11)
[2023-08-13] MEDS: INSULIN ASPART (NovoLOG) 100 UNIT/ML VIAL SQ SCH ×4 (08:12→17:41)
[2023-08-13] MEDS: PANTOPRAZOLE 40 MG/10 ML VIAL IVP SCH (09:10)
[2023-08-13] MEDS: predniSONE 10 MG TAB PO SCH (09:10)
[2023-08-13] MEDS: atenoloL 25 MG TAB PO SCH (09:10)
[2023-08-13] MEDS: ENOXAPARIN 40 MG/0.4 ML SYRINGE SQ SCH (09:10)
[2023-08-13] MEDS: ASPIRIN 81 MG PO SCH (09:10)
[2023-08-13] MEDS: ATORVASTATIN 40 MG TAB PO SCH (09:10)
[2023-08-13] MEDS: NICOTINE 21MG/24HR PATCH TRANSDERM SCH (09:11)
[2023-08-13] MEDS: IPRATROPIUM-ALBUTEROL 3 ML NEB INHALATION SCH ×4 (09:22→20:56)
[2023-08-13] MEDS: BUDESONIDE 1 MG/2 ML NEBU INHALATION SCH ×2 (09:22→20:56)
[2023-08-13] MEDS: FORMOTEROL FUMARATE 20 MCG/2 ML NEBU INHALATION SCH ×2 (09:25→20:56)
[2023-08-13 10:22] LABS: ALT 36 U/L (4-34); AST 30 U/L (14-36); African American GFR (CKD) >90 (>60 ml/min/1.73 sqM); Albumin 3.2 g/dL (3.5-5.0); Albumin/Globulin Ratio 1.5; Alkaline Phosphatase 60 U/L (38-126); Anion Gap 6 mmol/L; Blood Urea Nitrogen 14 mg/dL (7-17); Calcium 8.5 mg/dL (8.4-10.2); Carbon Dioxide 29 mmol/L (22-30); Chloride 103 mmol/L (98-107); Globulin 2.2 g/dL; Glucose 92 mg/dL (74-99); Non-African American GFR(CKD) >90 (>60 ml/min/1.73 sqM); Potassium 3.9 mmol/L (3.5-5.1); Sodium 138 mmol/L (137-145); Total Bilirubin 1.1 mg/dL (0.2-1.3); Total Protein 5.4 g/dL (6.3-8.2)
[2023-08-13] MEDS: NYSTATIN 100,000 UNIT/ML SUSP 500,000 UNIT/5 ML CUP PO SCH ×4 (11:23→22:25)
[2023-08-13 11:46] LABS: Glucose,Whole Blood 129 mg/dL (70-110)
--- NOTE | 2023-08-13 13:25 | P.PN ---
Subjective Progress Note Date: 08/13/23 The patient is seen today 08/13/2023 in follow-up on the regular medical floor. She is a 73-year-old female patient admitted for respiratory failure, requiring intubation and mechanical ventilation. The patient was intubated on 08/01/2023 and extubated on 08/06/2023. She has an acute on top of chronic hypoxic respiratory failure due to COPD exacerbation. She also had a sputum cultures indicating stenotrophomonas. She has [id number] smoking history and she is oxygen dependent COPD. She has diabetes and hypertension. Presently, she is awake and alert in no acute distress. She remains quite weak and debilitated. She is maintaining good O2 saturations in the high 90s on 4 L/m per nasal cannu la. Afebrile. Hemodynamically stable. Sodium 138. Potassium 3.9. Bicarb 29. BUN 14. Creatinine 0.40. Glucose 92. AST 30. ALT 36. She is continued on DuoNeb inhalations, Pulmicort and Perforomist inhalations, prednisone taper. NicoDerm patch in place. Lovenox for DVT prophylaxis. Normal saline at 75 ML's per hour. Objective - Vital Signs Vital signs: Vital Signs Temp 97.7 F 08/13/23 07:01 Pulse 80 08/13/23 12:24 Resp 17 08/13/23 07:01 BP 156/74 08/13/23 07:01 Pulse Ox 99 08/13/23 09:25 FiO2 50 08/09/23 07:36 Intake & Output 08/12/23 08/13/23 08/13/23 18:59 06:59 18:59 Output Total 1650 900 Balance -1650 -900 Output: Urine 1650 900 Other: Voiding Method External Catheter External Catheter External Catheter # Voids 1 ABP, PAP, CO, CI - Last Documented Arterial Blood Pressure 176/69 - Exam GENERAL EXAM: Alert, weak, debilitated 73-year-old female, on 4 L nasal cannula, fairly comfortable in no apparent distress. HEAD: Normocephalic. EYES: Normal reaction of pupils, equal size. NOSE: Clear with pink turbinates. THROAT: No erythema or exudates. NECK: No masses, no JVD. CHEST: No chest wall deformity. LUNGS: Equal air entry with few scattered rhonchi. CVS: S1 and S2 normal with no audible murmur, regular rhythm. ABDOMEN: No hepatosplenomegaly, normal bowel sounds, no guarding or rigidity. SPINE: No scoliosis or deformity SKIN: No rashes CENTRAL NERVOUS SYSTEM: No focal deficits, tone is normal in all 4 extremities. EXTREMITIES: There is no peripheral edema. No clubbing, no cyanosis. Peripheral pulses are intact. - Labs CBC & Chem 7: 08/12/23 07:09 08/13/23 08:50 Labs: Abnormal Lab Results - Last 24 Hours (Table) 08/13/23 08/13/23 Range/Units 08:50 11:45 Creatinine 0.40 L (0.52-1.04) mg/dL POC Glucose (mg/dL) 129 H (70-110) mg/dL ALT 36 H (4-34) U/L Total Protein 5.4 L (6.3-8.2) g/dL Albumin 3.2 L (3.5-5.0) g/dL Assessment and Plan Assessment: Acute COPD exacerbation with subsequent respiratory failure, intubated on 08/01/2023 and the patient was extubated on 08/06/2023. The patient remains on 4 L of O2 nasal cannula. Overall respiratory status is stable. Active issues include the profound myopathy and weakness. She received sedative medications and paralytics during the course of her mechanical ventilation. As such, the patient will need aggressive physical therapy and rehabilitation Acute on chronic hypoxemic respiratory failure secondary to an acute exacerbation of chronic obstructive pulmonary disease Stenotrophomonas tracheobronchitis/bronchopneumonia Profound motor weakness in all 4 extremities, likely due to prolonged resp iratory failure, intubation mechanical ventilation use of sedatives and paralytics Troponin leak secondary to above versus coronary artery disease. Chronic and ongoing tobacco dependence of greater than 50 years Oxygen dependent chronic obstructive pulmonary disease Diabetes mellitus, type II Hypertension Carotid artery disease with previous left carotid endarterectomy Plan: The patient was seen and evaluated Labs and medications reviewed Titrate down the FiO2 as tolerated Continue bronchodilators, steroids Educated regarding the importance of complete smoking cessation NicoDerm patch in place Plan is for subacute versus inpatient rehabilitation We will continue to follow This patient was seen independently by the nurse practitioner I have personally seen and examined the patient, performed the documentation and the assessment and plan as written. Number of minutes spent on the visit: 33.
--- NOTE | 2023-08-13 13:34 | P.PN ---
Subjective Progress Note Date: 08/13/23 This is a 73-year-old female patient of Dr. Phillips who presented to the ER with complaints of shortness of breath. Patient apparently was experiencing respiratory distress was transported EMS and was found to have an SpO2 in the 70s. Patient has past medical history of diabetes mellitus, nicotine depen dence, carotid artery stenosis, COPD, hypertension, atrial tachycardia. Initial chest x-ray showing hyperinflated lungs. Patient noted to have elevated troponins 0.046, 0.36 and 0.504. Patient was started on heparin drip for elevated troponins cardiology and pulmonary services were consulted. Patient started on IV steroids, DuoNeb breathing treatments azithromycin and Rocephin Dr. Soto's group previously covering We are resuming care patient on 07/30/2023 On 07/30/2023 patient is alert and oriented 3 currently resting comfortably in bed on BiPAP. Patient reports some improvement with shortness of breath but does appear to be quite short of breath. She remains on IV Solu-Medrol a zithromycin and Rocephin. Patient also remains on heparin drip per cardiology. Pulmonary and cardiology services are following. Sliding scale coverage. Current vital signs temp 97.5, pulse rate 99, respiratory rate 22, blood pressure 110/72 with a pulse ox of 98% on BiPAP On 07/31/2023 patient was seen and examined on the telemetry floor she is alert and oriented 3 in no apparent distress she is still having significant shortness of breath she is maintained on oxygen at 4 L nasal cannula, and requiring BiPAP on and off, she is still complaining of cough was yellow to green sputum production, she denies any chest pain she is still maintained on IV Solu-Medrol. Antibiotic were discontinued by pulmonary. On 08/01/2023 patient remains requiring BiPAP. Patient is alert and oriented resting comfortably on BiPAP in bed at this time. Patient had increased episodes of difficulty breathing throughout night pulmonary services at bedside orders to continue BiPAP. Patient remains on IV Solu-Medrol and DuoNeb breathing treatments. Pulmonary services are following. On 08/02/2023 patient was seen and examined in the ICU, currently she is intubated sedated maintained on mechanical ventilation, assist control rate 20 454 350 FiO2 of 50% and PEEP of 10 vital exam reveals a temperature of 99.5 pulse 81 respiration 24 blood pressure 108/58 pulse ox 94% white blood count 7.8 hemoglobin 11.3 platelet count 120 pH 7.35 pCO2 of 54. O2 56 On 08/03/2023 patient remains in the intensive care unit. Patient remains on mechanical ventilation. Sedation holiday in progress current vital signs temp 98.0, heart rate 84, blood pressure 135/55 with a pulse ox 96% been mechanical ventilation with an FiO2 of 50%. Arterial blood gases this a.m. showing a pH of 7.26, creatinine pCO2 68, pO2 100, sodium bicarb 31 On 08/04/2023 patient was seen and examined in the ICU, currently she is intu bated sedated maintained on mechanical ventilation, assist control rate 20 454 350 FiO2 of 50% and PEEP of 10 vital exam reveals a temperature of 98.7 pulse 84 respiration 24 blood pressure 132/65 white blood count is 6.1 hemoglobin 10.9 platelet count 116 arterial blood gas reveals a pH of 7.36 pCO2 of 58 CO2 78 sodium 147 potassium 4.1 chloride 1:15 CO2 33 BUN 48 creatinine 0.62 glucose level 229 On 08/05/2023 patient was seen and examined in the ICU she is intubated sedated maintained on mechanical ventilation, she is on assist control, rate 24 tidal volume 350 FiO2 50% and PEEP of 5 temperature is 99.3 pulse 22 blood pressure 99/47 blood pressure 121/48 white blood count 7.2 hemoglobin 10.6 platelet count 100 arterial blood gas revealed a pH of 7.37 pCO2 58 CO2 97 BUN 40 creatinine 0. 64 glucose is elevated again at 268. At this time will increase Levemir to 15 units daily continue with sliding scale On 08/06/2023 patient was seen and examined in the ICU, she is still intubated m aintained on mechanical ventilation, sedation is on hold at this time, for possible trial of extubation this morning, vital exam reveals a temperature of 99 pulse 89 respiration 22 blood pressure 168/64 pulse ox 94% on FiO2 of 40% laboratory data reveals a white blood count of 8.8 hemoglobin 11.3 platelet count 103 arterial blood gas reveals a pH of 7.38 pCO2 of 61 by mouth to 103 sodium 143 potassium 4.2 chloride 106 CO2 33 BUN 38 creatinine 0.63 On 08/07/2023 patient remains in the intensive care unit. Patient was extubated yesterday to BiPAP remains on Precedex. Per nursing staff patient mentation is still A and O x0. Precedex to be DC'd today per critical care services chest x- ray completed the same showing COPD with some interval improvement there may be residual mild pulmonary vascular congestion previous trace effusions have resolved. Current vital signs temp 99.0, heart rate 98, respiratory rate 15, blood pressure 114/60, pulse ox 96% on BiPAP 50% FiO2 On 08/08/2023 patient remains in the intensive care unit. Patient currently sitting up in chair. Patient is able to answer some questions and follow some commands. This is improved compared to yesterday. Current vital signs temp 98.6, heart rate 76, respiratory rate 14, blood pressure 150/70 with a pulse ox of 98% on 6 L high flow. Patient remains on IV Solu-Medrol and Levaquin. PT OT services consulted On 08/09/2023 patient was seen and examined in the ICU she is alert and oriented 3 in no apparent distress, she is answering questions appropriately, she is maintained on oxygen 4 L nasal cannula, she is complaining of generalized severe weakness, otherwise she denies any complaints there is no fever or chills no headache or dizziness no chest pain no shortness of breath no cough no nausea or vomiting no abdominal pain no diarrhea and no urinary symptoms On 08/10/2023 patient is alert and oriented 3 patient has been moved out of the intensive care unit currently on 2 L nasal cannula. Patient remains with significant physical weakness will consult inpatient rehab for possible admission. Current vital signs temp 97.8, heart 22, respiratory rate 16, blood pressure 149/69 with pulse ox 96% on 2 L On 08/11/2023 patient was seen and examined on the medical floor she is alert and oriented 3 in no apparent distress there is no fever or chills no headache or dizziness no chest pain no shortness of breath no cough no nausea or vomiting no abdominal pain no diarrhea and no urinary symptoms she is still has severe generalized weakness she is still maintained on oxygen at 2 L nasal cannula valarie chilel is improving gradually possible discharge in the next few days patient will need to go to rehab unit post hospital stay. On 08/12/2023 patient was seen and examined on the medical floor she is alert and oriented 3 in no apparent distress she is sitting up eating her meal there is no fever or chills no headache or dizziness no chest pain no shortness of breath no cough no nausea or vomiting no abdominal pain no diarrhea and no urinary symptoms blood glucose is on the low side, at this time will discontinue Levemir and continue with sliding scale only. On 08/13/2023 patient was seen and examined on the medical floor she is alert and oriented 3 she reports some improvement in her weakness otherwise she denies any complaints there is no fever or chills no headache or dizziness no chest pain no shortness of breath no cough no nausea or vomiting no abdominal pain no diarrhea and no urinary symptoms. Patient is improving gradually, currently she is on oral prednisone and oxygen supplements, we are awaiting recommendation for rehab at the time of discharge. Objective - Vital Signs Vital signs: Vital Signs Temp 97.7 F 08/13/23 07:01 Pulse 80 08/13/23 12:24 Resp 17 08/13/23 07:01 BP 156/74 08/13/23 07:01 Pulse Ox 99 08/13/23 09:25 FiO2 50 08/09/23 07:36 Intake & Output 08/12/23 08/13/23 08/13/23 18:59 06:59 18:59 Output Total 1650 900 Balance -1650 -900 Output: Urine 1650 900 Other: Voiding Method External Catheter External Catheter External Catheter # Voids 1 ABP, PAP, CO, CI - Last Documented Arterial Blood Pressure 176/69 - Exam In general patient is intubated sedated maintained on mechanical intubation HEENT head normocephalic and atraumatic Neck is supple no JVD no goiter no lymphadenopathy no carotid bruit Chest examination is clear to auscultation no crackles no wheezing Cardiac exam reveals regular heart sounds S1 and S2 no gallops no murmurs Abdomen is soft nontender no organomegaly with normal bowel sounds Extremity exam reveals no edema no cyanosis or clubbing Neurological examination reveals no gross focal deficits - Labs CBC & Chem 7: 08/12/23 07:09 08/13/23 08:50 Labs: Abnormal Lab Results - Last 24 Hours (Table) 08/13/23 08/13/23 Range/Units 08:50 11:45 Creatinine 0.40 L (0.52-1.04) mg/dL POC Glucose (mg/dL) 129 H (70-110) mg/dL ALT 36 H (4-34) U/L Total Protein 5.4 L (6.3-8.2) g/dL Albumin 3.2 L (3.5-5.0) g/dL Assessment and Plan Plan: 1. Shortness breath secondary to acute exacerbation of COPD with tracheal bronchitis requiring intubation and mechanical ventilation 2. Non-ST elevated CT 3. Chronic and ongoing nicotine dependence 4. Oxygen dependent chronic obstructive pulmonary disease 5. Diabetes mellitus type 2 6. History of essential hypertension 7. Carotid artery disease with previous left carotid endarterectomy Pulmonary and cardiology service is consulted Remains in the intensive care unit Patient maintained on IV Solu-Medrol, DuoNeb breathing treatments Maintained on Levaquin Patient extubated to BiPAP on 08/06/2023 Repeat labs ordered DVT prophylaxis lovenox. GI prophylaxis Protonix Consult for inpatient rehab
[2023-08-13 15:36] LABS: Basophils # (A) 0.02 X 10*3/uL (0.00-0.10); Basophils % (A) 0.2 %; Eosinophils # (A) 0.12 X 10*3/uL (0.04-0.35); Eosinophils % (A) 1.4 %; HCT 39.4 % (37.2-46.3); HGB 12.7 d/dL (12.0-15.0); Lymphocytes # (A) 1.21 X 10*3/uL (0.90-5.00); Lymphocytes % (A) 13.8 %; MCH 30.1 pg (27.0-32.0); MCHC 32.2 d/dL (32.0-37.0); MCV 93.4 FL (80.0-97.0); Mean Platelet Volume 11.1 FL (9.5-12.2); Monocytes # (A) 0.76 X 10*3/uL (0.20-1.00); Monocytes % (A) 8.7 %; NRBC Per 100 WBC 0 X 10*3/uL (0.00-0.01); Neutrophils # (A) 6.49 X 10*3/uL (1.80-7.70); Neutrophils % (A) 74.1 %; Platelet Count 113 X 10*3/uL (140-440); RBC 4.22 X 10*6/uL (4.10-5.20); RDW 14.6 % (11.5-14.5); WBC 8.76 X 10*3/uL (4.50-10.00)
[2023-08-13] MEDS ORDERED: BENZOCAINE/MENTHOL LOZENG 1 EACH LOZENGE MUCOUS MEM PRN (17:16)
[2023-08-13 17:18] LABS: Glucose,Whole Blood 362 mg/dL (70-110)
--- NOTE | 2023-08-13 18:24 | P.PN ---
Subjective Progress Note Date: 08/13/23 Principal diagnosis: quadraparesis Valerie Garza is a right handed, female, who lives in a 1 story home, with 3 VOLODYMYR and bilat handrails. Prior to admission, she was ambulating without an assistive device. She was independent for basic/advanced ADLs. She reports home O2 use at 6.5 liters (son says 2.5 liters). Current driving: no. Transportation by: grandson and family. Retired: yes. Support system: lives with grandson and son. Family at bedside and reports patient will have a family member present 28/05 if needed at discharge. She was admitted to [facility] on 07/28. She presented to the ED via EMS with c/o respiratory distress. Patient was transported to the hospital on 07/28 by paramedics, she was found hypoxic with oxygen sats in the 70s. She was placed on a CPAP. She reported worsening cough and dyspnea over the past week prior to admission. She had a chest x-ray completed in the ED which showed hyperinflation without pneumothorax or focal pneumonia. She was noted to have elevated troponin levels in the ED, she was started on a heparin drip. She was admitted with consultations to cardiology and pulmonology for NSTEMI and COPD exacerbation with respiratory failure. She was started on antibiotics for questionable pneumonia, steroids, breathing treatments, BiPAP. Blood cultures were collected and came back negative. Sputum cultures were positive for Rosa albicans and stenotrophamonas maltophilia. She tested negative for influenza A, B and coronavirus. She had a CTA of her chest which was negative for PE. Cardiology evaluated the patient and determined that the elevated troponin was due to supply demand mismatch secondary to respiratory distress/COPD. She had s ome issues with tachycardia, beta-blockers were added/adjusted. On 08/01 the patient's respiratory status declined, she was then moved to the intensive care unit and was intubated. She was extubated 08/06. She was moved out of the ICU and placed on a general medical floor. She remains on 2 liters supplemental oxygen at this time. PM&R consulted for rehab recommendations. Therapy evaluations reviewed; patient needing total assist for bathing, total assist for upper body dressing, total assist for grooming, total assist for toileting ability, total assist for toilet transfer, total assist for bed mobility. Patient is a total assist for general bed mobility. She tolerates activity well 08/10/2023: Patient was found in bed with HOB elevated, watching television. Patient reports that she feels well. She denies pain, CP, SOB, abdominal pain, headache, dizziness. Her 2 children are at bedside. She has a urinary collec tion device in place. She is on 2 L supplemental oxygen via nasal cannula. Children report that patient has a lot of support from grandchildren and family. Per family she will have family at patient's side 28/05 if needed upon discharge. Patient reports that she is willing to work with therapy, to gain back strength and endurance, and return home. Patient seen by neurology, labs ordered to r/o nutritional deficiency as cause of weakness. CT C spine also done, showed degenerative changes. Still no known etiology of weakness, no MRI brain or LP done at this point. 08/13/2023: Patient states she is doing ok, reports she has been sitting up in her chair for awhile. She is still very weak, unable to move her limbs or control trunk. She denies CP, SOB, and abdominal pain. She is unsure of her LBM, denies issues with urination. She denies pain, she denies numbness, tingling, or burning sensations throughout her body or extremities. no complaints of headaches or vision changes. She denies issues with swallowing. Therapy updates 08/13, total assist with bathing, dressing, toileting, bed mobility, transfers. Objective - Vital Signs Vital signs: Vital Signs Temp 97.5 F L 08/13/23 13:29 Pulse 86 08/13/23 16:37 Resp 15 08/13/23 13:29 BP 79/52 08/13/23 13:29 Pulse Ox 92 L 08/13/23 13:29 FiO2 50 08/09/23 07:36 Intake & Output 08/12/23 08/13/23 08/13/23 18:59 06:59 18:59 Output Total 1650 900 Balance -1650 -900 Weight 58.7 kg Output: Urine 1650 900 Other: Voiding Method External Catheter External Catheter External Catheter # Voids 1 ABP, PAP, CO, CI - Last Documented Arterial Blood Pressure 176/69 - Exam General: WDWN, elderly female, sitting in reclining chair, sleeping upon entry but easily awakens, NAD Head: Normocephalic, atraumatic. Eyes: Symmetric Ears: Symmetric. Hearing within normal limits. Mouth: Clear, poor dentition. Neck: Supple. Cardiac: environmental monitoring technician in place. Calves supple, non tender, no edema to LE, + swelling to bilat hands, R>L Lungs: Breathing comfortably on 2 liters nasal cannula. Chest symmetric. Abdomen: Soft, nontender Extremities: Arthritic changes consistent with age. Musculoskeletal: No functional active ROM in any joints Neurological: Alert and oriented x 2-3. Speech is clear and fluent without paraphasic errors Cranial nerves: CN II-XII grossly intact. Sensation: Intact and symmetrical limbs. MMT: B/L SABD 0-1/5, B/L EF and EE 2/5, WE 1/5, HG 1-2 B/L H 0/5, KE 0/5, DF 1/5, PF 2/5 Skin: Skin intact where visible to head, neck, and bilateral upper and lower extremities EXCEPT: bilat UE ecchymosis, right hand swelling with ecchymosis, PIV, dressing to left chest CDI Psych: Calm, cooperative - Labs CBC & Chem 7: 08/13/23 08:50 08/13/23 08:50 Labs: Abnormal Lab Results - Last 24 Hours (Table) 08/13/23 08/13/23 08/13/23 Range/Units 08:50 08:50 11:45 RDW 14.6 H (11.5-14.5) % Plt Count 113 L (140-440) X 10*3/uL Creatinine 0.40 L (0.52-1.04) mg/dL POC Glucose (mg/dL) 129 H (70-110) mg/dL ALT 36 H (4-34) U/L Total Protein 5.4 L (6.3-8.2) g/dL Albumin 3.2 L (3.5-5.0) g/dL 08/13/23 Range/Units 17:16 RDW (11.5-14.5) % Plt Count (140-440) X 10*3/uL Creatinine (0.52-1.04) mg/dL POC Glucose (mg/dL) 362 H (70-110) mg/dL ALT (4-34) U/L Total Protein (6.3-8.2) g/dL Albumin (3.5-5.0) g/dL Assessment and Plan Assessment: #Incomplete quadriplegia of unknown etiology -Differential includes CIM, CIPN, AIDP, steroid myopathy or other neurologic condition -Patient's weakness is surprising given length of intubation period -reviewed neurology notes, CT C spine, labs reviewed, per neurology cleared -at this time patient is totally dependent for ADLs #Impaired ADLs secondary to acute on chronic hypoxemic respiratory failure with an acute exacerbation of COPD status post intubation/mechanical ventilation -Pulmonology/research assistant following #CHF with EF of 35% #COPD/chronic respiratory failure, on supplemental oxygen at home -remains on 2 liters nasal cannula #Pneumonia-stenotrophamonas maltophilia -antibiotics #Troponin elevation secondary to respiratory distress and COPD, supply demand mismatch #Tachycardia #Multifocal pneumonia #Diabetes mellitus #Current everyday smoker -Smoking cessation, nicotine patch #Bowel/ Bladder: Nursing to monitor and report concerns if any. -urinary collection device in place #Diet -per EMR -working with GENETIC SUPERVISOR #Skin/wound: Skin/Wound care to follow as needed #Pain Management -Tylenol 650 mg every 4 hours as needed, Dilaudid 0.5 mg IVP every 6 hours as needed #DVT Prophylaxis: -Lovenox #Comorbidities: Carotid artery stenosis, hypertension, atrial tachycardia, hyperlipidemia, current smoker #Your medical dx and mgt Goals: Modified independent mobility and ADLS both basic and advanced; increased functional mobility/strength; increased balance, safety, endurance. Improvement in medical issues through your care. Barriers: Incomplete quadriplegia Discharge recommendation: Given her debility at this time [facility] is more appropriate as she will likely need a longer length of stay. Will follow progress. Patient seen and examined in coordination with Dr. Hunt Patient seen and examined by me in coordination with TC Mccurdy; agree with above.
[2023-08-13 20:36] LABS: Glucose,Whole Blood 139 mg/dL (70-110)
[2023-08-14 01:00] LABS: Glucose,Whole Blood 110 mg/dL (70-110)
[2023-08-14] MEDS: INSULIN ASPART (NovoLOG) 100 UNIT/ML VIAL SQ SCH ×5 (02:14→21:21)
[2023-08-14] MEDS: SODIUM CHLORIDE 0.9% 1,000 ML IV SCH ×3 (02:14→21:25)
[2023-08-14 06:16] LABS: Glucose,Whole Blood 120 mg/dL (70-110)
--- NOTE | 2023-08-14 08:56 | P.PN ---
Subjective Progress Note Date: 08/14/23 This is a 73-year-old female patient of Dr. Phillips who presented to the ER with complaints of shortness of breath. Patient apparently was experiencing respiratory distress was transported EMS and was found to have an SpO2 in the 70s. Patient has past medical history of diabetes mellitus, nicotine depende nce, carotid artery stenosis, COPD, hypertension, atrial tachycardia. Initial chest x-ray showing hyperinflated lungs. Patient noted to have elevated troponins 0.046, 0.36 and 0.504. Patient was started on heparin drip for elevated troponins cardiology and pulmonary services were consulted. Patient started on IV steroids, DuoNeb breathing treatments azithromycin and Rocephin Dr. Soto's group previously covering We are resuming care patient on 07/30/2023 On 07/30/2023 3 patient is alert and oriented 3 currently resting comfortably in bed on BiPAP. Patient reports some improvement with shortness of breath but does appear to be quite short of breath. She remains on IV Solu-Medrol az ithromycin and Rocephin. Patient also remains on heparin drip per cardiology. Pulmonary and cardiology services are following. Sliding scale coverage. Current vital signs temp 97.5, pulse rate 99, respiratory rate 22, blood pressure 110/72 with a pulse ox of 98% on BiPAP On 07/31/2023 patient was seen and examined on the telemetry floor she is alert and oriented 3 in no apparent distress she is still having significant shortness of breath she is maintained on oxygen at 4 L nasal cannula, and requiring BiPAP on and off, she is still complaining of cough was yellow to green sputum production, she denies any chest pain she is still maintained on IV Solu-Medrol. Antibiotic were discontinued by pulmonary. On 08/01/2023 patient remains requiring BiPAP. Patient is alert and oriented resting comfortably on BiPAP in bed at this time. Patient had increased episodes of difficulty breathing throughout night pulmonary services at bedside orders to continue BiPAP. Patient remains on IV Solu-Medrol and DuoNeb breathing treatments. Pulmonary services are following. On 08/02/2023 patient was seen and examined in the ICU, currently she is intubated sedated maintained on mechanical ventilation, assist control rate 20 454 350 FiO2 of 50% and PEEP of 10 vital exam reveals a temperature of 99.5 pulse 81 respiration 24 blood pressure 108/58 pulse ox 94% white blood count 7.8 hemoglobin 11.3 platelet count 120 pH 7.35 pCO2 of 54. O2 56 On 08/03/2023 patient remains in the intensive care unit. Patient remains on mechanical ventilation. Sedation holiday in progress current vital signs temp 98.0, heart rate 84, blood pressure 135/55 with a pulse ox 96% been mechanical ventilation with an FiO2 of 50%. Arterial blood gases this a.m. showing a pH of 7.26, creatinine pCO2 68, pO2 100, sodium bicarb 31 On 08/04/2023 patient was seen and examined in the ICU, currently she is int ubated sedated maintained on mechanical ventilation, assist control rate 20 454 350 FiO2 of 50% and PEEP of 10 vital exam reveals a temperature of 98.7 pulse 84 respiration 24 blood pressure 132/65 white blood count is 6.1 hemoglobin 10.9 platelet count 116 arterial blood gas reveals a pH of 7.36 pCO2 of 58 CO2 78 sodium 147 potassium 4.1 chloride 1:15 CO2 33 BUN 48 creatinine 0.62 glucose level 229 On 08/05/2023 patient was seen and examined in the ICU she is intubated sedated maintained on mechanical ventilation, she is on assist control, rate 24 tidal volume 350 FiO2 50% and PEEP of 5 temperature is 99.3 pulse 22 blood pressure 99/47 blood pressure 121/48 white blood count 7.2 hemoglobin 10.6 platelet count 100 arterial blood gas revealed a pH of 7.37 pCO2 58 CO2 97 BUN 40 creatinine 0 .64 glucose is elevated again at 268. At this time will increase Levemir to 15 units daily continue with sliding scale On 08/06/2023 patient was seen and examined in the ICU, she is still intubated maintained on mechanical ventilation, sedation is on hold at this time, for possible trial of extubation this morning, vital exam reveals a temperature of 99 pulse 89 respiration 22 blood pressure 168/64 pulse ox 94% on FiO2 of 40% laboratory data reveals a white blood count of 8.8 hemoglobin 11.3 platelet count 103 arterial blood gas reveals a pH of 7.38 pCO2 of 61 by mouth to 103 sodium 143 potassium 4.2 chloride 106 CO2 33 BUN 38 creatinine 0.63 On 08/07/2023 patient remains in the intensive care unit. Patient was extubated yesterday to BiPAP remains on Precedex. Per nursing staff patient mentation is still A and O x0. Precedex to be DC'd today per critical care services chest x- ray completed the same showing COPD with some interval improvement there may be residual mild pulmonary vascular congestion previous trace effusions have resolved. Current vital signs temp 99.0, heart rate 98, respiratory rate 15, blood pressure 114/60, pulse ox 96% on BiPAP 50% FiO2 On 08/08/2023 patient remains in the intensive care unit. Patient currently sitting up in chair. Patient is able to answer some questions and follow some commands. This is improved compared to yesterday. Current vital signs temp 98.6, heart rate 76, respiratory rate 14, blood pressure 150/70 with a pulse ox of 98% on 6 L high flow. Patient remains on IV Solu-Medrol and Levaquin. PT OT services consulted On 08/09/2023 patient was seen and examined in the ICU she is alert and oriented 3 in no apparent distress, she is answering questions appropriately, she is maintained on oxygen 4 L nasal cannula, she is complaining of generalized severe weakness, otherwise she denies any complaints there is no fever or chills no headache or dizziness no chest pain no shortness of breath no cough no nausea or vomiting no abdominal pain no diarrhea and no urinary symptoms On 08/10/2023 patient is alert and oriented 3 patient has been moved out of the intensive care unit currently on 2 L nasal cannula. Patient remains with significant physical weakness will consult inpatient rehab for possible admission. Current vital signs temp 97.8, heart 22, respiratory rate 16, blood pressure 149/69 with pulse ox 96% on 2 L On 08/11/2023 patient was seen and examined on the medical floor she is alert and oriented 3 in no apparent distress there is no fever or chills no headache or dizziness no chest pain no shortness of breath no cough no nausea or vomiting no abdominal pain no diarrhea and no urinary symptoms she is still has severe generalized weakness she is still maintained on oxygen at 2 L nasal cannula p atient is improving gradually possible discharge in the next few days patient will need to go to rehab unit post hospital stay. On 08/12/2023 patient was seen and examined on the medical floor she is alert and oriented 3 in no apparent distress she is sitting up eating her meal there is no fever or chills no headache or dizziness no chest pain no shortness of breath no cough no nausea or vomiting no abdominal pain no diarrhea and no urinary symptoms blood glucose is on the low side, at this time will discontinue Levemir and continue with sliding scale only. On 08/13/2023 patient was seen and examined on the medical floor she is alert and oriented 3 she reports some improvement in her weakness otherwise she denies any complaints there is no fever or chills no headache or dizziness no ch est pain no shortness of breath no cough no nausea or vomiting no abdominal pain no diarrhea and no urinary symptoms. Patient is improving gradually, currently she is on oral prednisone and oxygen supplements, we are awaiting recommendation for rehab at the time of discharge. On 08/14/2023 patient is alert and oriented 3 resting comfortably in bed. Discharge planning in progress. Subacute rehab recommended per inpatient rehab evaluation. Current vital signs temp 97.8, heart rate 82, respiratory rate 18, blood pressure 115/59 with pulse ox of 99% on 4 L. Patient denies chest pain. Patient denies nausea vomiting or diarrhea. Patient denies any urinary burning and frequency Objective - Vital Signs Vital signs: Vital Signs Temp 97.8 F 08/14/23 01:37 Pulse 86 08/14/23 01:37 Resp 17 08/13/23 20:00 BP 115/59 08/14/23 01:37 Pulse Ox 99 08/14/23 01:37 FiO2 50 08/09/23 07:36 Intake & Output 08/13/23 08/14/23 08/14/23 18:59 06:59 18:59 Intake Total 1080 Output Total 800 710 Balance 280 -710 Weight 58.7 kg Intake: Intake, IV Titration 600 Amount Sodium Chloride 0.9% 1, 600 000 ml @ 75 mls/hr IV . [id number] [facility] Rx#:[id number] Oral 480 Output: Urine 800 710 Other: Voiding Method External Catheter External Catheter ABP, PAP, CO, CI - Last Documented Arterial Blood Pressure 176/69 - Exam Head normocephalic Neck supple Lungs tachypnea, expiratory wheezing Heart regular rate and rhythm S1-S2, no rub or gallop Abdomen is soft nontender nondistended positive bowel sounds no hepatosplen omegaly Extremities no edema Neuro alert and orientated to 3 - Labs CBC & Chem 7: 08/13/23 08:50 08/13/23 08:50 Labs: Abnormal Lab Results - Last 24 Hours (Table) 08/13/23 08/13/23 08/13/23 Range/Units 08:50 08:50 11:45 RDW 14.6 H (11.5-14.5) % Plt Count 113 L (140-440) X 10*3/uL Creatinine 0.40 L (0.52-1.04) mg/dL POC Glucose (mg/dL) 129 H (70-110) mg/dL ALT 36 H (4-34) U/L Total Protein 5.4 L (6.3-8.2) g/dL Albumin 3.2 L (3.5-5.0) g/dL 08/13/23 08/13/23 08/14/23 Range/Units 17:16 20:34 06:09 RDW (11.5-14.5) % Plt Count (140-440) X 10*3/uL Creatinine (0.52-1.04) mg/dL POC Glucose (mg/dL) 362 H 139 H 120 H (70-110) mg/dL ALT (4-34) U/L Total Protein (6.3-8.2) g/dL Albumin (3.5-5.0) g/dL Assessment and Plan Assessment: 1. Shortness breath secondary to acute exacerbation of COPD with tracheal bronchitis requiring intubation and mechanical ventilation 2. Non-ST elevated [place] 3. Chronic and ongoing nicotine dependence 4. Oxygen dependent chronic obstructive pulmonary disease 5. Diabetes mellitus type 2 6. History of essential hypertension 7. Carotid artery disease with previous left carotid endarterectomy Pulmonary and cardiology service is consulted Remains in the intensive care unit Patient maintained on IV Solu-Medrol, DuoNeb breathing treatments Maintained on Levaquin Patient extubated to BiPAP on 08/06/2023 Repeat labs ordered DVT prophylaxis lovenox. GI prophylaxis Protonix Consult for inpatient rehab
[2023-08-14] MEDS: PANTOPRAZOLE 40 MG/10 ML VIAL IVP SCH (09:31)
[2023-08-14] MEDS: ASPIRIN 81 MG PO SCH (09:32)
[2023-08-14] MEDS: predniSONE 10 MG TAB PO SCH (09:32)
[2023-08-14] MEDS: ATORVASTATIN 40 MG TAB PO SCH (09:32)
[2023-08-14] MEDS: NYSTATIN 100,000 UNIT/ML SUSP 500,000 UNIT/5 ML CUP PO SCH ×4 (09:32→21:07)
[2023-08-14] MEDS: atenoloL 25 MG TAB PO SCH (09:32)
[2023-08-14] MEDS: NICOTINE 21MG/24HR PATCH TRANSDERM SCH (09:32)
[2023-08-14] MEDS: ENOXAPARIN 40 MG/0.4 ML SYRINGE SQ SCH (09:33)
[2023-08-14] MEDS: FORMOTEROL FUMARATE 20 MCG/2 ML NEBU INHALATION SCH ×2 (09:34→20:41)
[2023-08-14] MEDS: BUDESONIDE 1 MG/2 ML NEBU INHALATION SCH ×2 (09:34→20:41)
[2023-08-14] MEDS: IPRATROPIUM-ALBUTEROL 3 ML NEB INHALATION SCH ×4 (09:34→20:41)
[2023-08-14 11:07] LABS: Basophils # (A) 0.01 X 10*3/uL (0.00-0.10); Basophils % (A) 0.1 %; Eosinophils # (A) 0.11 X 10*3/uL (0.04-0.35); HCT 39.7 % (37.2-46.3); HGB 13.1 d/dL (12.0-15.0); Lymphocytes # (A) 1.27 X 10*3/uL (0.90-5.00); Lymphocytes % (A) 11.9 %; MCH 30.3 pg (27.0-32.0); MCV 91.7 FL (80.0-97.0); Mean Platelet Volume 11.6 FL (9.5-12.2); Monocytes # (A) 0.82 X 10*3/uL (0.20-1.00); Monocytes % (A) 7.7 %; NRBC Per 100 WBC 0 X 10*3/uL (0.00-0.01); Neutrophils # (A) 8.32 X 10*3/uL (1.80-7.70); Platelet Count 123 X 10*3/uL (140-440); RBC 4.33 X 10*6/uL (4.10-5.20); RDW 14.7 % (11.5-14.5); WBC 10.67 X 10*3/uL (4.50-10.00)
[2023-08-14 11:17] LABS: ALT 33 U/L (8-44); AST 22 U/L (13-35); Albumin 3.6 d/dL (3.8-4.9); Albumin/Globulin Ratio 2.12 Ratio (1.60-3.17); Alkaline Phosphatase 63 U/L (41-126); BUN/Creat Ratio 35.75 Ratio (12.00-20.00); Blood Urea Nitrogen 14.3 mg/dL (9.0-27.0); Calcium 8.6 mg/dL (8.7-10.3); Chloride 104 mmol/L (96-109); Globulin 1.7 d/dL (1.6-3.3); Glucose 120 mg/dL (70-110); Potassium 3.5 mmol/L (3.5-5.5); Sodium 140 mmol/L (135-145); Total Protein 5.3 d/dL (6.2-8.2)
[2023-08-14 11:51] LABS: Glucose,Whole Blood 175 mg/dL (70-110)
--- NOTE | 2023-08-14 12:14 | P.PN ---
Subjective Progress Note Date: 08/14/23 The patient is seen today 08/13/2023 in follow-up on the regular medical floor. She is a 73-year-old female patient admitted for respiratory failure, requiring intubation and mechanical ventilation. The patient was intubated on 08/01/2023 and extubated on 08/06/2023. She has an acute on top of chronic hypoxic respiratory failure due to COPD exacerbation. She also had a sputum cultures indicating stenotrophomonas. She has [id number] smoking history and she is oxygen dependent COPD. She has diabetes and hypertension. Presently, she is awake and alert in no acute distress. She remains quite weak and debilitated. She is maintaining good O2 saturations in the high 90s on 4 L/m per nasal cannu la. Afebrile. Hemodynamically stable. Sodium 138. Potassium 3.9. Bicarb 29. BUN 14. Creatinine 0.40. Glucose 92. AST 30. ALT 36. She is continued on DuoNeb inhalations, Pulmicort and Perforomist inhalations, prednisone taper. NicoDerm patch in place. Lovenox for DVT prophylaxis. Normal saline at 75 ML's per hour. The patient is seen today 08/14/2023 in follow-up on the regular medical floor. She is currently sitting up in bed. Awake and alert in no acute distress. She is maintaining good O2 saturations in the 90s on 2 L/m per nasal cannula. She's afebrile. Hemodynamically stable. Initial sputum culture had been positive for Stenotrophomonas maltophilia and Rosa. She has completed a course of antibiotics. She remains on DuoNeb inhalations, Pulmicort and Perforomist inhalations, prednisone. NicoDerm patch in place. Lovenox for DVT prophylaxis. White count 10.6. Hemoglobin 13.1. Platelets 123. Sodium 140. Potassium 3.5. Bicarb 26. BUN 14. Creatinine 0.4. Glucose 120. Objective - Vital Signs Vital signs: Vital Signs Temp 97.6 F 08/14/23 08:00 Pulse 86 08/14/23 09:55 Resp 16 08/14/23 08:00 BP 105/56 08/14/23 08:00 Pulse Ox 95 08/14/23 08:00 FiO2 50 08/09/23 07:36 Intake & Output 08/13/23 08/14/2323 18:59 06:59 18:59 Intake Total 1080 Output Total 800 710 150 Balance 280 -710 -150 Weight 58.7 kg Intake: Intake, IV Titration 600 Amount Sodium Chloride 0.9% 1, 600 000 ml @ 75 mls/hr IV . [id number] [facility] Rx#:[id number] Oral 480 Output: Urine 800 710 150 Other: Voiding Method External Catheter External Catheter External Catheter ABP, PAP, CO, CI - Last Documented Arterial Blood Pressure 176/69 - Exam GENERAL EXAM: Alert, 73-year-old female, on 2 L nasal cannula, fairly comfortable in no apparent distress. HEAD: Normocephalic. EYES: Normal reaction of pupils, equal size. NOSE: Clear with pink turbinates. THROAT: No erythema or exudates. NECK: No masses, no JVD. CHEST: No chest wall deformity. LUNGS: Equal air entry with few scattered rhonchi. CVS: S1 and S2 normal with no audible murmur, regular rhythm. ABDOMEN: No hepatosplenomegaly, normal bowel sounds, no guarding or rigidity. SPINE: No scoliosis or deformity SKIN: No rashes CENTRAL NERVOUS SYSTEM: No focal deficits, tone is normal in all 4 extremities. EXTREMITIES: There is no peripheral edema. No clubbing, no cyanosis. Peripheral pulses are intact. - Labs CBC & Chem 7: 08/14/23 06:56 08/14/23 06:56 Labs: Abnormal Lab Results - Last 24 Hours (Table) 08/13/23 08/13/23 08/13/23 Range/Units 08:50 17:16 20:34 WBC (4.50-10.00) X 10*3/uL RDW 14.6 H (11.5-14.5) % Plt Count 113 L (140-440) X 10*3/uL Neutrophils # (1.80-7.70) X 10*3/uL Creatinine (0.6-1.5) mg/dL BUN/Creatinine Ratio (12.00-20.00) Ratio Glucose (70-110) mg/dL POC Glucose (mg/dL) 362 H 139 H (70-110) mg/dL Calcium (8.7-10.3) mg/dL Total Protein (6.2-8.2) d/dL Albumin (3.8-4.9) d/dL 08/14/23 08/14/23 08/14/23 Range/Units 06:09 06:56 06:56 WBC 10.67 H (4.50-10.00) X 10*3/uL RDW 14.7 H (11.5-14.5) % Plt Count 123 L (140-440) X 10*3/uL Neutrophils # 8.32 H (1.80-7.70) X 10*3/uL Creatinine 0.4 L (0.6-1.5) mg/dL BUN/Creatinine Ratio 35.75 H (12.00-20.00) Ratio Glucose 120 H (70-110) mg/dL POC Glucose (mg/dL) 120 H (70-110) mg/dL Calcium 8.6 L (8.7-10.3) mg/dL Total Protein 5.3 L (6.2-8.2) d/dL Albumin 3.6 L (3.8-4.9) d/dL 08/14/23 Range/Units 11:49 WBC (4.50-10.00) X 10*3/uL RDW (11.5-14.5) % Plt Count (140-440) X 10*3/uL Neutrophils # (1.80-7.70) X 10*3/uL Creatinine (0.6-1.5) mg/dL BUN/Creatinine Ratio (12.00-20.00) Ratio Glucose (70-110) mg/dL POC Glucose (mg/dL) 175 H (70-110) mg/dL Calcium (8.7-10.3) mg/dL Total Protein (6.2-8.2) d/dL Albumin (3.8-4.9) d/dL Assessment and Plan Assessment: Acute COPD exacerbation with subsequent respiratory failure, intubated on 08/01/2023 and the patient was extubated on 08/06/2023. The patient remains on 4 L of O2 nasal cannula. Overall respiratory status is stable. Active issues include the profound myopathy and weakness. She received sedative medications and paralytics during the course of her mechanical ventilation. As such, the patient will need aggressive physical therapy and rehabilitation Acute on chronic hypoxemic respiratory failure secondary to an acute exacerbation of chronic obstructive pulmonary disease Stenotrophomonas tracheobronchitis/bronchopneumonia Profound motor weakness in all 4 extremities, likely due to prolonged respiratory failure, intubation mechanical ventilation use of sedatives and paralytics Troponin leak secondary to above versus coronary artery disease. Chronic and ongoing tobacco dependence of greater than 50 years Oxygen dependent chronic obstructive pulmonary disease Diabetes mellitus, type II Hypertension Carotid artery disease with previous left carotid endarterectomy Plan: The patient was seen and evaluated Labs and medications reviewed Titrate down the FiO2 as tolerated Again educated regarding the importance of complete smoking cessation NicoDerm patch in place Plan is for subacute rehabilitation [facility] today This patient was seen independently by the nurse practitioner I have personally seen and examined the patient, performed the documentation and the assessment and plan as written. Number of minutes spent on the visit: 25.
[2023-08-14 16:57] LABS: Glucose,Whole Blood 175 mg/dL (70-110)
[2023-08-14 21:10] LABS: Glucose,Whole Blood 292 mg/dL (70-110)
[2023-08-15 04:39] LABS: Glucose,Whole Blood 80 mg/dL (70-110)
[2023-08-15] MEDS: ACETAMINOPHEN TAB 325 MG TAB PO PRN (04:45)
[2023-08-15 06:16] LABS: Glucose,Whole Blood 96 mg/dL (70-110)
[2023-08-15] MEDS: INSULIN ASPART (NovoLOG) 100 UNIT/ML VIAL SQ SCH ×3 (06:21→16:34)
[2023-08-15 07:19] VITALS: TEMP 98.4
[2023-08-15] MEDS: IPRATROPIUM-ALBUTEROL 3 ML NEB INHALATION SCH ×4 (08:13→18:15)
[2023-08-15] MEDS: FORMOTEROL FUMARATE 20 MCG/2 ML NEBU INHALATION SCH ×2 (08:13→18:15)
[2023-08-15] MEDS: BUDESONIDE 1 MG/2 ML NEBU INHALATION SCH ×2 (08:13→18:15)
[2023-08-15] MEDS: NYSTATIN 100,000 UNIT/ML SUSP 500,000 UNIT/5 ML CUP PO SCH ×2 (08:32→12:12)
[2023-08-15] MEDS: ENOXAPARIN 40 MG/0.4 ML SYRINGE SQ SCH (08:32)
[2023-08-15] MEDS: PANTOPRAZOLE 40 MG/10 ML VIAL IVP SCH (08:32)
[2023-08-15] MEDS: predniSONE 10 MG TAB PO SCH (08:32)
[2023-08-15] MEDS: ATORVASTATIN 40 MG TAB PO SCH (08:32)
[2023-08-15] MEDS: atenoloL 25 MG TAB PO SCH (08:32)
[2023-08-15] MEDS: ASPIRIN 81 MG PO SCH (08:32)
--- NOTE | 2023-08-15 11:29 | P.PN ---
Subjective Progress Note Date: 08/15/23 The patient is seen today 08/13/2023 in follow-up on the regular medical floor. She is a 73-year-old female patient admitted for respiratory failure, requiring intubation and mechanical ventilation. The patient was intubated on 08/01/2023 and extubated on 08/06/2023. She has an acute on top of chronic hypoxic respiratory failure due to COPD exacerbation. She also had a sputum cultures indicating stenotrophomonas. She has [id number] smoking history and she is oxygen dependent COPD. She has diabetes and hypertension. Presently, she is awake and alert in no acute distress. She remains quite weak and debilitated. She is maintaining good O2 saturations in the high 90s on 4 L/m per nasal cannu la. Afebrile. Hemodynamically stable. Sodium 138. Potassium 3.9. Bicarb 29. BUN 14. Creatinine 0.40. Glucose 92. AST 30. ALT 36. She is continued on DuoNeb inhalations, Pulmicort and Perforomist inhalations, prednisone taper. NicoDerm patch in place. Lovenox for DVT prophylaxis. Normal saline at 75 ML's per hour. The patient is seen today 08/14/2023 in follow-up on the regular medical floor. She is currently sitting up in bed. Awake and alert in no acute distress. She is maintaining good O2 saturations in the 90s on 2 L/m per nasal cannula. She's afebrile. Hemodynamically stable. Initial sputum culture had been positive for Stenotrophomonas maltophilia and Rosa. She has completed a course of antibiotics. She remains on DuoNeb inhalations, Pulmicort and Perforomist inhalations, prednisone. NicoDerm patch in place. Lovenox for DVT prophylaxis. White count 10.6. Hemoglobin 13.1. Platelets 123. Sodium 140. Potassium 3.5. Bicarb 26. BUN 14. Creatinine 0.4. Glucose 120. The patient is seen today 08/15/2023 in follow-up on the regular medical floor. She was not discharged yesterday. She is currently resting comfortably in bed. Awake and alert in no acute distress. She denies any worsening shortness of breath, cough or congestion. She is maintaining O2 saturations up to 100% on 3 L nasal cannula. She's afebrile. Hemodynamically stable. Blood sugar 96. She remains on DuoNeb inhalations, Pulmicort and Perforomist inhalations, prednisone. NicoDerm patch in place. Lovenox for DVT prophylaxis. Objective - Vital Signs Vital signs: Vital Signs Temp 98.4 F 08/15/23 07:14 Pulse 68 08/15/23 08:38 Resp 16 08/15/23 08:33 BP 97/63 08/15/23 07:14 Pulse Ox 100 08/15/23 08:16 FiO2 50 08/09/23 07:36 Intake & Output 08/14/23 08/15/23 08/15/23 18:59 06:59 18:59 Output Total 275 520 Balance -275 -520 Output: Urine 275 520 Other: Voiding Method External Catheter External Catheter External Catheter # Bowel Movements 1 ABP, PAP, CO, CI - Last Documented Arterial Blood Pressure 176/69 - Exam GENERAL EXAM: Alert, weak 73-year-old female, sitting up in bed, on 3 L nasal cannula, fairly comfortable in no apparent distress. HEAD: Normocephalic. EYES: Normal reaction of pupils, equal size. NOSE: Clear with pink turbinates. THROAT: No erythema or exudates. NECK: No masses, no JVD. CHEST: No chest wall deformity. LUNGS: Equal air entry with few scattered rhonchi. CVS: S1 and S2 normal with no audible murmur, regular rhythm. ABDOMEN: No hepatosplenomegaly, normal bowel sounds, no guarding or rigidity. SPINE: No scoliosis or deformity SKIN: No rashes CENTRAL NERVOUS SYSTEM: No focal deficits, tone is normal in all 4 extremities. EXTREMITIES: There is no peripheral edema. No clubbing, no cyanosis. Peripheral pulses are intact. - Labs CBC & Chem 7: 08/14/23 06:56 08/14/23 06:56 Labs: Abnormal Lab Results - Last 24 Hours (Table) 08/14/23 08/14/23 08/14/23 Range/Units 11:49 16:55 21:08 POC Glucose (mg/dL) 175 H 175 H 292 H (70-110) mg/dL Assessment and Plan Assessment: Acute COPD exacerbation with subsequent respiratory failure, intubated on 08/01/2023 and the patient was extubated on 08/06/2023. The patient remains on 3 L of O2 nasal cannula. She remains with profound myopathy and weakness. She received sedative medications and paralytics during the course of her mechanical ventilation. As such, the patient will need physical therapy and rehabilitation Acute on chronic hypoxemic respiratory failure secondary to an acute exacerbation of chronic obstructive pulmonary disease Stenotrophomonas tracheobronchitis/bronchopneumonia Profound motor weakness in all 4 extremities, likely due to prolonged respiratory failure, intubation mechanical ventilation use of sedatives and paralytics Troponin leak secondary to above versus coronary artery disease. Chronic and ongoing tobacco dependence of greater than 50 years Oxygen dependent chronic obstructive pulmonary disease Diabetes mellitus, type II Hypertension Carotid artery disease with previous left carotid endarterectomy Plan: The patient was seen and evaluated Labs and medications reviewed Titrate down the FiO2 as tolerated Plan is for [facility] today This patient was seen independently by the nurse practitioner I have personally seen and examined the patient, performed the documentation and the assessment and plan as written. Number of minutes spent on the visit: 25.
[2023-08-15 11:39] LABS: Glucose,Whole Blood 292 mg/dL (70-110)
--- NOTE | 2023-08-15 13:34 | P.DS ---
Providers Date of admission: 07/29/23 01:37 Expected date of discharge: 08/15/23 Attending physician: Shea Lujan Consults: 07/29/23 01:41 Consult Physician Routine Consulting Provider: Reynold Fitch Consult Reason/Comments: COPD Do you want consulting provider notified?: Yes 07/29/23 03:28 Consult Physician Routine Consulting Provider: Otto Chavez Consult Reason/Comments: NSTEMI Do you want consulting provider notified?: Already Contacted 08/10/23 09:55 Consult Physician Routine Consulting Provider: Theo Moya Consult Reason/Comments: IPR consult Do you want consulting provider notified?: Yes 08/10/23 14:48 Consult Physician Routine Consulting Provider: Lorri Rey Consult Reason/Comments: diffuse weakness Do you want consulting provider notified?: Yes Primary care physician: Beatrice Phillips Hospital Course: Discharge diagnosis 1. Shortness breath secondary to acute exacerbation of COPD with tracheal bronchitis requiring intubation and mechanical ventilation 2. Non-ST elevated TN 3. Chronic and ongoing nicotine dependence 4. Oxygen dependent chronic obstructive pulmonary disease 5. Diabetes mellitus type 2 6. History of essential hypertension 7. Carotid artery disease with previous left carotid endarterectomy 8. Peripheral vascular disease with previous stent placement. Patient maintained on Plavix Hospital course This is a 73-year-old female patient of Dr. Phillips who presented to the ER with complaints of shortness of breath. Patient apparently was experiencing respiratory distress was transported EMS and was found to have an SpO2 in the 70s. Patient has past medical history of diabetes mellitus, nicotine dependence, carotid artery stenosis, COPD, hypertension, atrial tachycardia. Initial chest x-ray showing hyperinflated lungs. Patient noted to have elevated troponins 0.046, 0.36 and 0.504. Patient was started on heparin drip for elevated troponins cardiology and pulmonary services were consulted. Patient started on IV steroids, DuoNeb breathing treatments azithromycin and Rocephin Dr. Soto's group previously covering We are resuming care patient on 07/30/2023 On 07/30/2023 3 patient is alert and oriented 3 currently resting comfortably in bed on BiPAP. Patient reports some improvement with shortness of breath but does appear to be quite short of breath. She remains on IV Solu-Medrol azithromycin and Rocephin. Patient also remains on heparin drip per cardiology. Pulmonary and cardiology services are following. Sliding scale coverage. Current vital signs temp 97.5, pulse rate 99, respiratory rate 22, blood pressure 110/72 with a pulse ox of 98% on BiPAP On 07/31/2023 patient was seen and examined on the telemetry floor she is alert and oriented 3 in no apparent distress she is still having significant shortness of breath she is maintained on oxygen at 4 L nasal cannula, and requiring BiPAP on and off, she is still complaining of cough was yellow to green sputum production, she denies any chest pain she is still maintained on IV Solu-Medrol. Antibiotic were discontinued by pulmonary. On 08/01/2023 patient remains requiring BiPAP. Patient is alert and oriented resting comfortably on BiPAP in bed at this time. Patient had increased episodes of difficulty breathing throughout night pulmonary services at bedside orders to continue BiPAP. Patient remains on IV Solu-Medrol and DuoNeb breathing treatments. Pulmonary services are following. On 08/02/2023 patient was seen and examined in the ICU, currently she is intubated sedated maintained on mechanical ventilation, assist control rate 20 454 350 FiO2 of 50% and PEEP of 10 vital exam reveals a temperature of 99.5 pulse 81 respiration 24 blood pressure 108/58 pulse ox 94% white blood count 7.8 hemoglobin 11.3 platelet count 120 pH 7.35 pCO2 of 54. O2 56 On 08/03/2023 patient remains in the intensive care unit. Patient remains on mechanical ventilation. Sedation holiday in progress current vital signs temp 98.0, heart rate 84, blood pressure 135/55 with a pulse ox 96% been mechanical ventilation with an FiO2 of 50%. Arterial blood gases this a.m. showing a pH of 7.26, creatinine pCO2 68, pO2 100, sodium bicarb 31 On 08/04/2023 patient was seen and examined in the ICU, currently she is intubated sedated maintained on mechanical ventilation, assist control rate 20 454 350 FiO2 of 50% and PEEP of 10 vital exam reveals a temperature of 98.7 pulse 84 respiration 24 blood pressure 132/65 white blood count is 6.1 hemoglobin 10.9 platelet count 116 arterial blood gas reveals a pH of 7.36 pCO2 of 58 CO2 78 sodium 147 potassium 4.1 chloride 1:15 CO2 33 BUN 48 creatinine 0.62 glucose level 229 On 08/05/2023 patient was seen and examined in the ICU she is intubated sedated maintained on mechanical ventilation, she is on assist control, rate 24 tidal volume 350 FiO2 50% and PEEP of 5 temperature is 99.3 pulse 22 blood pressure 99 /47 blood pressure 121/48 white blood count 7.2 hemoglobin 10.6 platelet count 100 arterial blood gas revealed a pH of 7.37 pCO2 58 CO2 97 BUN 40 creatinine 0.64 glucose is elevated again at 268. At this time will increase Levemir to 15 units daily continue with sliding scale On 08/06/2023 patient was seen and examined in the ICU, she is still intubated maintained on mechanical ventilation, sedation is on hold at this time, for possible trial of extubation this morning, vital exam reveals a temperature of 99 pulse 89 respiration 22 blood pressure 168/64 pulse ox 94% on FiO2 of 40% laboratory data reveals a white blood count of 8.8 hemoglobin 11.3 platelet count 103 arterial blood gas reveals a pH of 7.38 pCO2 of 61 by mouth to 103 sodium 143 potassium 4.2 chloride 106 CO2 33 BUN 38 creatinine 0.63 On 08/07/2023 patient remains in the intensive care unit. Patient was extubated yesterday to BiPAP remains on Precedex. Per nursing staff patient mentation is still A and O x0. Precedex to be DC'd today per critical care services chest x- ray completed the same showing COPD with some interval improvement there may be residual mild pulmonary vascular congestion previous trace effusions have resolved. Current vital signs temp 99.0, heart rate 98, respiratory rate 15, blood pressure 114/60, pulse ox 96% on BiPAP 50% FiO2 On 08/08/2023 patient remains in the intensive care unit. Patient currently sitting up in chair. Patient is able to answer some questions and follow some commands. This is improved compared to yesterday. Current vital signs temp 98.6, heart rate 76, respiratory rate 14, blood pressure 150/70 with a pulse ox of 98% on 6 L high flow. Patient remains on IV Solu-Medrol and Levaquin. PT OT services consulted On 08/09/2023 patient was seen and examined in the ICU she is alert and oriented 3 in no apparent distress, she is answering questions appropriately, she is maintained on oxygen 4 L nasal cannula, she is complaining of generalized severe weakness, otherwise she denies any complaints there is no fever or chills no headache or dizziness no chest pain no shortness of breath no cough no nausea or vomiting no abdominal pain no diarrhea and no urinary symptoms On 08/10/2023 patient is alert and oriented 3 patient has been moved out of the intensive care unit currently on 2 L nasal cannula. Patient remains with significant physical weakness will consult inpatient rehab for possible admission. Current vital signs temp 97.8, heart 22, respiratory rate 16, blood pressure 149/69 with pulse ox 96% on 2 L On 08/11/2023 patient was seen and examined on the medical floor she is alert and oriented 3 in no apparent distress there is no fever or chills no headache or dizziness no chest pain no shortness of breath no cough no nausea or vomiting no abdominal pain no diarrhea and no urinary symptoms she is still has severe generalized weakness she is still maintained on oxygen at 2 L nasal cannula patient is improving gradually possible discharge in the next few days patient will need to go to rehab unit post hospital stay. On 08/12/2023 patient was seen and examined on the medical floor she is alert and oriented 3 in no apparent distress she is sitting up eating her meal there is no fever or chills no headache or dizziness no chest pain no shortness of breath no cough no nausea or vomiting no abdominal pain no diarrhea and no uri nary symptoms blood glucose is on the low side, at this time will discontinue Levemir and continue with sliding scale only. On 08/13/2023 patient was seen and examined on the medical floor she is alert and oriented 3 she reports some improvement in her weakness otherwise she denies any complaints there is no fever or chills no headache or dizziness no chest pain no shortness of breath no cough no nausea or vomiting no abdominal pain no diarrhea and no urinary symptoms. Patient is improving gradually, currently she is on oral prednisone and oxygen supplements, we are awaiting recommendation for rehab at the time of discharge. On 08/14/2023 patient is alert and oriented 3 resting comfortably in bed. Discharge planning in progress. Subacute rehab recommended per inpatient rehab evaluation. Current vital signs temp 97.8, heart rate 82, respiratory rate 18, blood pressure 115/59 with pulse ox of 99% on 4 L. Patient denies chest pain. Patient denies nausea vomiting or diarrhea. Patient denies any urinary burning and frequency On 08/15/2023 patient's alert and oriented 3 resting comfortably in bed. Patient to be discharged to [facility] today. Patient denies chest pain or shortness of breath. Patient denies nausea vomiting or diarrhea. Patient denies any urinary burning or frequency Patient Condition at Discharge: Stable Plan - Discharge Summary New Discharge Prescriptions: New atenoloL [Tenormin] 25 mg PO DAILY tab Aspirin 81 mg PO DAILY tab Nicotine 21Mg/24Hr Patch [Habitrol] 1 patch TRANSDERM DAILY patch Nystatin 100,000 Unit/ml Susp [Mycostatin Oral Susp] 500,000 unit PO QID ml predniSONE 10 mg PO DAILY tab Acetaminophen Tab [Tylenol] 650 mg PO Q4HR PRN tab PRN Reason: Mild Pain Or Fever > 100.5 Continue Ipratropium-Albuterol Nebulize [Duoneb 0.5 mg-3 mg/3 ml Soln] 3 ml INHALATION RT-QID PRN PRN Reason: Shortness Of Breath Solifenacin Succinate [Vesicare] 10 mg PO DAILY Omeprazole 20 mg PO HS Montelukast Sodium [Singulair] 10 mg PO HS Ibuprofen [Motrin] 800 mg PO BID PRN PRN Reason: Pain Clobetasol Propionate [Temovate 0.05% Oint] 1 applic TOPICAL DAILY Atorvastatin [Lipitor] 20 mg PO DAILY Clopidogrel [Plavix] 75 mg PO DAILY Albuterol Sulfate [Albuterol Sulfate Hfa] 1 - 2 puff PO RT-Q6H PRN PRN Reason: Shortness Of Breath Ipratropium/Albuter 20-100Mcg [Combivent Respimat 20-100Mcg Inhaler] 1 puff INHALATION RT-QID PRN PRN Reason: Shortness Of Breath Theophylline 12 Hour [David-Dur] 300 mg PO BID Budesonide [Pulmicort] 0.5 mg INHALATION RT-BID Albuterol Nebulized [Ventolin Nebulized] 2.5 mg INHALATION RT-Q6H PRN PRN Reason: Shortness Of Breath Cetirizine HCl [Zyrtec] 10 mg PO DAILY Discharge Medication List Atorvastatin [Lipitor] 20 mg PO DAILY 05/09/22 [History] Clobetasol Propionate [Temovate 0.05% Oint] 1 applic TOPICAL DAILY 05/09/22 [History] Ibuprofen [Motrin] 800 mg PO BID PRN 05/09/22 [History] Ipratropium-Albuterol Nebulize [Duoneb 0.5 mg-3 mg/3 ml Soln] 3 ml INHALATION RT-QID PRN 05/09/22 [History] Ipratropium/Albuter 20-100Mcg [Combivent Respimat 20-100Mcg Inhaler] 1 puff INHALATION RT-QID PRN 05/09/22 [History] Montelukast Sodium [Singulair] 10 mg PO HS 05/09/22 [History] Omeprazole 20 mg PO HS 05/09/22 [History] Solifenacin Succinate [Vesicare] 10 mg PO DAILY 05/09/22 [History] Theophylline 12 Hour [David-Dur] 300 mg PO BID 05/09/22 [History] Albuterol Nebulized [Ventolin Nebulized] 2.5 mg INHALATION RT-Q6H PRN 07/29/23 [History] Albuterol Sulfate [Albuterol Sulfate Hfa] 1 - 2 puff PO RT-Q6H PRN 07/29/23 [History] Budesonide [Pulmicort] 0.5 mg INHALATION RT-BID 07/29/23 [History] Cetirizine HCl [Zyrtec] 10 mg PO DAILY 07/29/23 [History] Clopidogrel [Plavix] 75 mg PO DAILY 07/29/23 [History] Acetaminophen Tab [Tylenol] 650 mg PO Q4HR PRN tab 08/15/23 [Rx] Aspirin 81 mg PO DAILY tab 08/15/23 [Rx] Nicotine 21Mg/24Hr Patch [Habitrol] 1 patch TRANSDERM DAILY patch 08/15/23 [Rx] Nystatin 100,000 Unit/ml Susp [Mycostatin Oral Susp] 500,000 unit PO QID ml 08/15/23 [Rx] atenoloL [Tenormin] 25 mg PO DAILY tab 08/15/23 [Rx] predniSONE 10 mg PO DAILY tab 08/15/23 [Rx] Follow up Appointment(s)/Referral(s): Beatrice Phillips MD [Primary Care Provider] - 1-2 days [facility], [NON-STAFF] - [facility], [NON-STAFF] - As Needed Activity/Diet/Wound Care/Special Instructions: heart normal. Findings We talked about it with right leg all the normal healthy diet activity as tolerate CBC and CMP within 3 days Discharge Disposition: TRANSFER TO SNF/ECF
[2023-08-15 14:01] VITALS: BP 92/57; RESP 19
[2023-08-15 16:24] LABS: Glucose,Whole Blood 354 mg/dL (70-110)
[2023-08-15 18:49] VITALS: PULSE 74
[2023-08-15] MEDS ORDERED: PYRIDOXINE 50 MG TAB PO SCH (19:00)
--- NOTE | 2023-08-16 12:31 | CDI ---
Documentation Clarification Form Date: 08/16/2023 From: Arlene Banuelos Admit Date: 07/29/2023 01:37:00 AM Patient Name: Valerie Garza Visit Number: [id number] Discharge Date: 08/15/2023 08:37:00 PM ATTENTION: The Clinical Documentation Specialists (CDI) and [facility] Coding Staff appreciate your assistance in clarifying documentation. Please respond to the clarification below the line at the bottom and electronically sign. The CDI & [facility] Coding staff will review the response and follow-up if needed. Please note: Queries are made part of the Legal Health Record. If you have any questions, please contact the author of this message via ITS. Dr. Beatrice Phillips, Your patient has the documented diagnosis of unspecified CHF with EF of 35% in the 08/10 consult. Additional information regarding the type & acuity of CHF is requested. History/Risk Factors: sepsis, AECOPD w acute bronchitis, acute on chronic hypoxic & hypercapnic respiratory failure, quadriplegia Clinical Indicators: VS/Pulse OX: T 97.6, P 131, R 36, BP 132/82, O2 97 on BIPAP 07/28 BNP: 1020 07/30 Echocardiogram Results: Ejection fractions in the 35% range. 08/06 Chest X Ray: Smallbilateral pleural effusions. Treatment: IV Lasix 20 mg IV changed to IV Lasix 40 mg IV In your professional opinion, can you please clarify the [acuity and type] of CHF if known? [ ] Acute Systolic Heart Failure (reduced EF) [ x ] Acute on Chronic Systolic Heart Failure (reduced EF) [ ] Acute Diastolic Heart Failure (preserved EF) [ ] Acute on Chronic Diastolic Heart Failure (preserved EF) [ ] Acute Systolic & Diastolic Heart Failure [ ] Acute on Chronic Heart Failure Systolic & Diastolic Heart Failure [ ] Other, please specify [ ] Unable to determine MTDD
== END 2023-08-15 20:37 | DRG 870 ==
LOC: EC 23:31 → 3SCARD 07-29 01:37 → 2SICU 08-01 11:28 → 4SSUR 08-09 18:49
PROVIDERS: ADMIT Internal Medicine; ATTEND Internal Medicine
PROC: 5A09357 Assistance with Respiratory Ventilation, Less than 24 Consecutive Hours, Continuous Positive Airway Pressure (ICD-10-PCS; 2023-07-28)
PROC: 5A1955Z Respiratory Ventilation, Greater than 96 Consecutive Hours (ICD-10-PCS; principal; 2023-08-01)
PROC: 0D9670Z Drainage of Stomach with Drainage Device, Via Natural or Artificial Opening (ICD-10-PCS; principal; 2023-08-01)
PROC: 0BH17EZ Insertion of Endotracheal Airway into Trachea, Via Natural or Artificial Opening (ICD-10-PCS; principal; 2023-08-01)
PROC: 4A133B1 Monitoring of Arterial Pressure, Peripheral, Percutaneous Approach (ICD-10-PCS; 2023-08-01)
PROC: 03HY32Z Insertion of Monitoring Device into Upper Artery, Percutaneous Approach (ICD-10-PCS; 2023-08-01)
PROC: 4A133J1 Monitoring of Arterial Pulse, Peripheral, Percutaneous Approach (ICD-10-PCS; 2023-08-01)
PROC: 02HV33Z Insertion of Infusion Device into Superior Vena Cava, Percutaneous Approach (ICD-10-PCS; 2023-08-01)
PROC: 3E0G76Z Introduction of Nutritional Substance into Upper GI, Via Natural or Artificial Opening (ICD-10-PCS; 2023-08-02)
DX: A41.9 Sepsis, unspecified organism (principal); J96.21 Acute and chronic respiratory failure with hypoxia; J96.22 Acute and chronic respiratory failure with hypercapnia; I21.4 Non-ST elevation (NSTEMI) myocardial infarction; G82.50 Quadriplegia, unspecified; I50.23 Acute on chronic systolic (congestive) heart failure; J44.1 Chronic obstructive pulmonary disease with (acute) exacerbation; J44.0 Chronic obstructive pulmonary disease with (acute) lower respiratory infection; I47.19 Other supraventricular tachycardia; J98.11 Atelectasis; J43.9 Emphysema, unspecified; I27.20 Pulmonary hypertension, unspecified; I95.9 Hypotension, unspecified; E11.51 Type 2 diabetes mellitus with diabetic peripheral angiopathy without gangrene; I11.0 Hypertensive heart disease with heart failure; J20.9 Acute bronchitis, unspecified; Z20.822 Contact with and (suspected) exposure to COVID-19; E78.5 Hyperlipidemia, unspecified; H35.30 Unspecified macular degeneration; F17.210 Nicotine dependence, cigarettes, uncomplicated; Z71.6 Tobacco abuse counseling; Z99.81 Dependence on supplemental oxygen; Z79.02 Long term (current) use of antithrombotics/antiplatelets; Z79.51 Long term (current) use of inhaled steroids; Z79.899 Other long term (current) drug therapy; Z79.84 Long term (current) use of oral hypoglycemic drugs; Z95.820 Peripheral vascular angioplasty status with implants and grafts
CPT/HCPCS: 36415; 71045; 71275; 72125; 80048; 80053; 82085; 82271; 82550; 82607; 82746; 82805; 83036; 83605; 83735; 83880; 83921; 84100; 84132; 84145; 84207; 84484; 85025; 85610; 85730; 86140; 87040; 87070; 87077; 87186; 87205; 87502; 87635; 93005; 93306; 94002; 94003; 94640; 94660; 94760; 96365; 96366; 96367; 96368; 96375; 99291